=== PATIENT | male | born 1940 | race Caucasian/White ===

== ENCOUNTER 2023-01-09 11:24 | Inpatient (IN) | payer MEDICARE, SELFPAY ==
[2023-01-09] VITALS (42 sets, daily range): BP systolic 74–119; BP diastolic 36–85; PULSE 76–134; RESP 15–27; TEMP 36.4–37.1; O2SAT 85–99; BMI 21.8; BMI 23.1
--- NOTE | 2023-01-09 11:57 | W.ED.SOB ---
HPI - SOB/Dyspnea General: Chief Complaint: Shortness of Breath/Dyspnea Stated Complaint: fell, sob, hurt right leg Time Seen by Provider: 01/09/23 11:56 History of Present Illness: HPI Narrative: 82-year-old male presents emerged part with complaints of increased shortness of breath after accidentally sliding out of his bed this morning. He states he has a longstanding history of atrial fibrillation and COPD and continues to smoke cigarettes daily. He states he feels more short of breath and does have supplemental home oxygen but does not wear it during the day. He states he is also had a intermittently productive cough for the previous 5 days. He states he has a history of congestive heart failure and has significant swelling in his legs which feel much heavier because of all the fluid in his legs. He states he does not like to take his Lasix because it makes him urinate too much and he gets more short of breath when he has to go to the bathroom so much. He denies chest pain, dizziness or lightheaded feeling at present. He states that he did not get dizzy or lightheaded when he fell he just slipped out of the bed and onto the floor he states he does take anticoagulation but did not hit his head or neck and the distance from the bed to the carpeted floor is only approximately 1-1/2 feet. Associated symptoms: Reports dizziness Review of Systems General: Reports: 10 or more systems reviewed and unremarkable except in HPI and below Const: Reports: fatigue and malaise Card: Reports: irregular heart rhythm and edema Resp: Reports: dyspnea, productive cough and wheezing Neuro: Reports: dizziness [facility] PFSH: Medical History BPH (benign prostatic hyperplasia) Chronic anticoagulation COPD (chronic obstructive pulmonary disease) Nocturnal hypoxia Orthostatic hypotension Paroxysmal A-fib Stroke Social History Smoking and tobacco/nicotine status: current every day tobacco/nicotine user Marital status: Single Physical Exam Narrative: EXAM NARRATIVE: Constitutional: Ill-appearing. Vital signs reviewed as documented. Mild respiratory distress noted. HENMT: Normocephalic, atraumatic. External ears with normal appearance without drainage. Nose without drainage, normal appearance. Mucus membranes moist. Neck is supple, positive-jugular venous distension, trachea is midline, no appreciable carotid bruits. No lymphadenopathy. No meningeal signs. Flexion, extension and lateral rotation is without pain. Eyes: Pupils are equal, round, reactive to light and accommodation. No scleral icterus. Extra-ocular movement are intact. Thorax is symmetrical and with equal rise and fall with respirations. Resp: Lungs are with bilateral expiratory wheezes scattered throughout. Rales, crackles or ronchi at present. Tachypneic Cardio: Irregularly irregular. Positive S1, S2. No appreciable murmurs, rubs or gallops. GI: Abdominal exam reveals normal bowel sounds to all quadrants. No organomegaly. No obvious palpable masses noted. No hepatomegally appreciated. Soft, nontender to palpation. Extremity: Extremities are with 3+ bilateral lower extremity pitting edema and both femoral and pedal pulses are 2+ and equal bilaterally. Moves all extremities well, sensation in all extremities. Neuro: Alert and oriented x4, person, place, time and situation. Cranial nerves II through XII are grossly intact, there is no focal neurological deficits that I can appreciate at present. Motor strength in the upper and lower extremities are equal and bilateral 5/5. Psych: Cooperative, anxious, normal thought process, appropriate judgment. Skin: No lesions, rashes. No gross abnormalities noted. Back: Symmetrical, no obvious deformity, No CVA tenderness Course Vital Signs: Vital signs: Vital Signs Temperature 97.5 F L 01/09/23 15:59 Pulse Rate 96 01/09/23 15:55 Respiratory Rate 27 H 01/09/23 13:32 Blood Pressure 90/65 01/09/23 15:59 Pulse Oximetry 87 L 01/09/23 15:59 Oxygen Delivery Me thod Nasal Cannula 01/09/23 15:39 Oxygen Flow Rate 3 01/09/23 15:39 MDM - SOB/Dyspnea Medical Decision Making Physical exam completed and documented, I will obtain a CBC, CMP cardiac enzymes as well as a CT scan of his head and his neck given his fall. I will also obtain an x-ray of his right shoulder and right humerus given his significant bruising to his right arm. I will obtain an EKG, cardiac enzymes as he does appear acutely short of breath limiting to differential diagnosis of COPD exacerbation, CHF exacerbation, pneumonia, pneumonitis, hypoxemia, pulmonary embolism, myocardial infarction, Medical Records I reviewed the patient's medical records. Lab Data I reviewed the patient's lab results. 01/09/23 12:28 01/09/23 13:47 Labs/Radiology: Radiology Impressions Chest X-Ray 01/09/23 12:35 IMPRESSION: No acute cardiopulmonary disease. Possible trace pleural effusions Cervical Spine CT 01/09/23 13:07 IMPRESSION: 1. No acute findings. 2. No acute traumatic injury. Head CT 01/09/23 13:07 IMPRESSION: No acute intracranial abnormality. Old right frontal infarct. Humerus X-Ray 01/09/23 13:11 IMPRESSION: No acute abnormality. Shoulder X-Ray 01/09/23 13:11 IMPRESSION: Degenerative changes. Chest/Abdomen/Pelvis CT 01/09/23 14:17 IMPRESSION: Bilateral pleural effusions. IMPRESSION: 1. 4.7 cm infrarenal abdominal aortic aneurysm without evidence of rupture. 2. No acute subdiaphragmatic pathology. COMMENTS: 1. For patients with an IVC filter, recommend assessment for a management plan for the patient's IVC filter. If there is no established management plan, recommend referral to an interventional clinician on a nonemergent basis for evaluation. 2. Consistent with the [employer]'s Incidental Findings Committee white paper (J Am Ha Radiol 2018): Any incidental renal lesion less than 1 cm or classified as too small to characterize, or any incidental cystic renal lesion characterized as simple-appearing, is likely benign. No follow-up imaging is recommended for these lesions per consensus recommendations based on imaging criteria. Laboratory Results WBC 8.39 10^3/uL (3.29-11.43) 01/09/23 12:28 RBC 2.22 10^6/uL (3.85-5.65) L 01/09/23 12:28 Hgb 6.10 g/dL (11.27-16.99) L* 01/09/23 12:28 Hct 20.5 % (37-53) L* 01/09/23 12:28 MCV 92.3 fl (82-101) 01/09/23 12:28 MCH 27.5 pg (27-33) 01/09/23 12:28 MCHC 29.8 g/dL (30-55) L 01/09/23 12:28 RDW 20.1 % (12.1-15.1) H 01/09/23 12:28 Plt Count 285 10^3/cmm (157-399) 01/09/23 12:28 MPV 10.2 fL (7.4-10.4) 01/09/23 12:28 Neut % (Auto) 77.3 % 01/09/23 12:28 Lymph % (Auto) 11.3 % 01/09/23 12:28 [place] % (Auto) 9.4 % 01/09/23 12:28 Eos % (Auto) 0.0 % 01/09/23 12:28 Baso % (Auto) 0.2 % 01/09/23 12:28 Neut # (Auto) 6.48 10^3/uL (1.8-7.7) 01/09/23 12:28 Lymph # (Auto) 1.0 10^3/uL (0.8-4.8) 01/09/23 12:28 [place] # (Auto) 0.8 10^3/uL (0.2-0.9) 01/09/23 12:28 Eos # (Auto) 0.0 10^3/uL (0.0-0.8) 01/09/23 12:28 Baso # (Auto) 0.0 10^3/uL (0.0-0.1) 01/09/23 12:28 Nucleated RBC % (auto) 0 % 01/09/23 12:28 Nucleated RBCs # 0.0 /100WBC 01/09/23 12:28 PT 26.30 SECONDS (12.1-14.9) H 01/09/23 12:28 INR 2.32 (0.8-1.2) H 01/09/23 12:28 Specimen Type Arterial 01/09/23 13:21 Sample Site Brachial, right 01/09/23 13:21 ABG pH 7.39 (7.35-7.45) 01/09/23 13:21 ABG pCO2 32.6 mmHg (35-45) L 01/09/23 13:21 ABG pO2 92.8 mmHg (80.0-100.0) 01/09/23 13:21 ABG HCO3 19.5 mmol/L (22-26) L 01/09/23 13:21 ABG Base Excess -5.0 mmol/L (-2.0-2.0) L 01/09/23 13:21 Jcarlos Test N/a 01/09/23 13:21 Hematocrit 19.0 % (42-52) L 01/09/23 13:21 Hgb O2 Saturation 94.1 % (95-100) L 01/09/23 13:21 Carboxyhemoglobin 3.7 %THgb (0.4-20.1) 01/09/23 13:21 Methemoglobin 0.4 % (0.4-1.5) 01/09/23 13:21 Total Hemoglobin 6.2 g/dL (14-18) L 01/09/23 13:21 O2 Delivery Device Nc 01/09/23 13:21 O2 Liters/Min 2.0 % 01/09/23 13:21 Frame Wirer ID [employer] 01/09/23 13:21 Sodium 128 mmol/L (136-145) L 01/09/23 13:47 Potassium 5.5 mmol/L (3.5-5.1) H 01/09/23 13:47 Chloride 94 mmol/L (98-107) L 01/09/23 13:47 Carbon Dioxide 18 mmol/L (22-29) L 01/09/23 13:47 Anion Gap 21.5 (5-19) H 01/09/23 13:47 BUN 52 mg/dL (8-23) H 01/09/23 13:47 Creatinine 1.2 mg/dL (0.7-1.2) 01/09/23 13:47 GFR Calculation Not Reportable 01/09/23 13:47 Glucose 88 mg/dL (65-115) 01/09/23 13:47 Calculated Osmolality 279 mOsm/kg (285-295) L 01/09/23 13:47 Calcium 8.0 mg/dL (8.5-10.5) L 01/09/23 13:47 Total Bilirubin 0.3 mg/dL (0.15-1.2) 01/09/23 12:28 AST 37 U/L (0-40) 01/09/23 12:28 ALT 16 U/L (0-41) 01/09/23 12:28 Alkaline Phosphatase 86 U/L (40-130) 01/09/23 12:28 Troponin T Baseline 109 ng/L (0-15) H* 01/09/23 12:28 Troponin T 120 Minute 104.2 ng/L (0-15) H 01/09/23 14:28 Delta Troponin T -4.8 ABS# (0-10) L 01/09/23 14:28 NT-Pro-B Natriuret Pep 4853 pg/mL (0-450) H 01/09/23 12:28 Total Protein 6.2 g/dL (6.6-8.7) L 01/09/23 12:28 Albumin 2.9 g/dL (3.5-5.2) L 01/09/23 12:28 Globulin 3.3 g/dL (1.3-4.6) 01/09/23 12:28 Triglycerides 74 mg/dL (0-150) 01/09/23 13:47 Blood Type AB Positive 01/09/23 13:24 Rho(D) Type Rh positive 01/09/23 13:24 Antibody Screen Negative 01/09/23 13:24 Crossmatch See Detail 01/09/23 13:24 All radiology interpretation(s) finalized by discharge ED provider radiology interpretation(s): CXR: COMPARISON: No relevant prior studies available. FINDINGS: Tubes, catheters and devices: Multi lead pacemaker/defibrillator. Lungs: Unremarkable. No consolidation. Pleural spaces: Trace pleural effusions likely. Heart/Mediastinum: See Vasculature finding. Vasculature: Mild cardiomegaly and uncoiling of the thoracic aorta.? This is accentuated by the AP positioning. Bones/joints: Unremarkable. XR/XR chest 1V portable [id number] IMPRESSION: No acute cardiopulmonary disease. Possible trace pleural effusions Shoulder XR: FINDINGS: Bones/joints: Mild acromioclavicular and glenohumeral spurring. No fracture or dislocation. No lytic or sclerotic bone lesion. Soft tissues: Normal. XR/XR shoulder RT min 2V* [id number] IMPRESSION: Degenerative changes. Humerus XR: FINDINGS: Bones/joints: Mild acromioclavicular and glenohumeral spurring. No fracture or dislocation. No lytic or sclerotic bone lesion. Soft tissues: Normal. XR/XR shoulder RT min 2V* [id number] IMPRESSION: Degenerative changes. CT CHEST/ABD/Pelvis: FINDINGS: Tubes, catheters and devices: Multi lead pacemaker/defibrillator. Pulmonary arteries: Normal. No pulmonary emboli. Aorta: Unremarkable. No aortic aneurysm. No aortic dissection. Lungs: Hypoventilatory changes at the dependent lung bases. Pleural spaces: Moderate right and small left pleural effusion. Heart: Unremarkable. No cardiomegaly. No pericardial effusion. Lymph nodes: Unremarkable. No enlarged lymph nodes. Bones/joints: Unremarkable. No acute fracture. Soft tissues: Unremarkable. PROCEDURE INFORMATION: Exam: CT Abdomen And Pelvis With Contrast Exam date and time: 01/09/2023 2:40 PM Age: 82 years old Clinical indication: Injury or trauma; Fall; Other: SOB; Generalized; Shortness of breath; Blunt trauma (contusions or hematomas); Prior surgery; Surgery date: 6+ months; Surgery type: Hip pacemaker; Additional info: Abd pain TECHNIQUE: Imaging protocol: Computed tomography of the abdomen and pelvis with contrast. Radiation optimization: All CT scans at this facility use at least one of these dose optimization techniques: automated exposure control; mA and/or kV adjustment per patient size (includes targeted exams where dose is matched to clinical indication); or iterative reconstruction. Contrast material: OMNI 350; Contrast volume: 100 ml; Contrast route: INTRAVENOUS (IV);? REPORTING DATA: Count of CT and Cardiac NM exams in prior 12 months: This patient has received 0 known CTs and 0 known cardiac nuclear medicine studies in the 12 months prior to the current study. COMPARISON: CR XR chest 1V portable [id number] 01/09/2023 12:57 PM RADIATION DOSE METRICS: Total DLP (mGy-cm): 1323 FINDINGS: Liver: Normal. No mass. Gallbladder and bile ducts: Normal. No calcified stones. No ductal dilation. Pancreas: Normal. No ductal dilation. Spleen: Normal. No splenomegaly. Adrenal glands: Normal. No mass. Kidneys and ureters: Left renal cyst. Punctate nonobstructing left renal calculus. Stomach and bowel: Unremarkable. No obstruction. No mucosal thickening. Appendix: No evidence of appendicitis. Intraperitoneal space: Unremarkable. No free air. No significant fluid collection. Vasculature: IVC filter. 4.7 cm infrarenal abdominal aortic aneurysm. 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 Lymph nodes: Unremarkable. No enlarged lymph nodes. Urinary bladder: Unremarkable as visualized. Reproductive: Unremarkable as visualized. Bones/joints: Right hip replacement. Soft tissues: Unremarkable. CT/CT angio chest w abd pel w con IMPRESSION: Bilateral pleural effusions. ? ? IMPRESSION: 1. ? 4.7 cm infrarenal abdominal aortic aneurysm without evidence of rupture. 2. ? No acute subdiaphragmatic pathology. ? COMMENTS: 1. ? For patients with an IVC filter, recommend assessment for a management plan for the patient's IVC filter. If there is no established management plan, recommend referral to an interventional clinician on a nonemergent basis for evaluation. 2. ? Consistent with the [employer]'s Incidental Findings Committee white paper (J Am Ha Radiol 2018): Any incidental renal lesion less than 1 cm or classified as too small to characterize, or any incidental cystic renal lesion characterized as simple-appearing, is likely benign. No follow-up imaging is recommended for these lesions per consensus recommendations based on imaging criteria. ? ABG Data ABG Interpretation 1: ABG results: Compensated respiratory acidosis Critical Care Time Critical Care Time: Critical Care Time: Yes Total Critical Care Time: 90 Attestation: This case had a high probability of a clinically significant, sudden, or life threatening deterioration of this patient's condition which required my full and direct attention, intervention and personal management. Discharge Plan Discharge Patient Disposition: Admitted As Inpatient Admit Provider: Porfirio Khanna Clinical Impression: Congestive heart failure, Acute hyponatremia, Anemia, Acute exacerbation of chronic obstructive pulmonary disease, MENDOZA (dyspnea on exertion) Condition: Stable Coding Level of Care Code ED Nail Making Machine Tender for Liv Vega
--- NOTE | 2023-01-09 12:35 | XRR_ITS ---
PROCEDURE INFORMATION: Exam: XR Chest Exam date and time: 01/09/2023 12:57 PM Age: 82 years old Clinical indication: Dyspnea TECHNIQUE: Imaging protocol: Radiologic exam of the chest. Views: 1 view. COMPARISON: No relevant prior studies available. FINDINGS: Tubes, catheters and devices: Multi lead pacemaker/defibrillator. Lungs: Unremarkable. No consolidation. Pleural spaces: Trace pleural effusions likely. Heart/Mediastinum: See Vasculature finding. Vasculature: Mild cardiomegaly and uncoiling of the thoracic aorta. This is accentuated by the AP positioning. Bones/joints: Unremarkable. XR/XR chest 1V portable [id number] IMPRESSION: No acute cardiopulmonary disease. Possible trace pleural effusions
[2023-01-09 12:59] LABS: Basophils % 0.2 %; Lymphocytes % 11.3 %; Mean Corpuscular HGB Conc 29.8 g/dL (30-55); Mean Corpuscular Hemoglobin 27.5 pg (27-33); Mean Corpuscular Volume 92.3 fl (82-101); Mean Platelet Volume 10.2 fL (7.4-10.4); Monocytes # 0.8 10^3/uL (0.2-0.9); Monocytes % 9.4 %; Neutrophils # 6.48 10^3/uL (1.8-7.7); Neutrophils % 77.3 %; Nucleated Red Blood Cells % 0 %; Platelet Count 285 10^3/cmm (157-399); Red Blood Count 2.22 10^6/uL (3.85-5.65); Red Cell Distribution Width 20.1 % (12.1-15.1); White Blood Count 8.39 10^3/uL (3.29-11.43)
[2023-01-09 13:03] LABS: INR 2.32 (0.8-1.2)
[2023-01-09 13:06] LABS: Hematocrit 20.5 % (37-53)
--- NOTE | 2023-01-09 13:07 | CTR_ITS ---
PROCEDURE INFORMATION: Exam: CT Head Without Contrast Exam date and time: 01/09/2023 2:05 PM Age: 82 years old Clinical indication: Injury or trauma; Fall; Blunt trauma (contusions or hematomas) TECHNIQUE: Imaging protocol: Computed tomography of the head without contrast. Radiation optimization: All CT scans at this facility use at least one of these dose optimization techniques: automated exposure control; mA and/or kV adjustment per patient size (includes targeted exams where dose is matched to clinical indication); or iterative reconstruction. REPORTING DATA: Count of CT and Cardiac NM exams in prior 12 months: This patient has received 0 known CTs and 0 known cardiac nuclear medicine studies in the 12 months prior to the current study. COMPARISON: CT cervical spin wo con* [id number] 01/09/2023 2:05 PM RADIATION DOSE METRICS: Total DLP (mGy-cm): 1251 FINDINGS: Brain: No hemorrhage. Periventricular white matter lucency represents atherosclerotic encephalopathic changes. Old right frontal infarct. Cerebral ventricles: No ventriculomegaly. Ventricular prominence proportionate to the degree of atrophy observed. Paranasal sinuses: Retention cyst or polyp within the left maxillary sinus. Minimal mucosal thickening within the right maxillary and ethmoid air cells. Mastoid air cells: Visualized mastoid air cells are well aerated. Bones/joints: Unremarkable. No acute fracture. Soft tissues: Unremarkable. Other findings: No mass effect. CT/CT head wo con* [id number] IMPRESSION: No acute intracranial abnormality. Old right frontal infarct.
--- NOTE | 2023-01-09 13:07 | CTR_ITS ---
PROCEDURE INFORMATION: Exam: CT Cervical Spine Without Contrast Exam date and time: 01/09/2023 2:05 PM Age: 82 years old Clinical indication: Injury or trauma; Fall; Blunt trauma TECHNIQUE: Imaging protocol: Computed tomography of the cervical spine without contrast. Radiation optimization: All CT scans at this facility use at least one of these dose optimization techniques: automated exposure control; mA and/or kV adjustment per patient size (includes targeted exams where dose is matched to clinical indication); or iterative reconstruction. REPORTING DATA: Count of CT and Cardiac NM exams in prior 12 months: This patient has received 0 known CTs and 0 known cardiac nuclear medicine studies in the 12 months prior to the current study. COMPARISON: CT head wo con* [id number] 01/09/2023 2:05 PM RADIATION DOSE METRICS: Total DLP (mGy-cm): 231 FINDINGS: Bones/joints: No acute fracture. Normal alignment. No significant disc bulge or herniation. No severe spinal canal stenosis. No significant neural foraminal narrowing. Multilevel disc space narrowing and spurring. Multilevel spondylitic hypertrophy and foraminal narrowing. Anatomic alignment. Moderate cervical spinal stenosis at C5-C6. Prevertebral and retropharyngeal spaces: The prevertebral soft tissues are normal. Lungs: Lung apices are normal. Soft tissues: Unremarkable. CT/CT cervical spin wo con* [id number] IMPRESSION: 1. No acute findings. 2. No acute traumatic injury.
[2023-01-09] MEDS: ipratropium-albuterol 3 mL Neb INHALATION ×2 (13:09→19:36)
--- NOTE | 2023-01-09 13:11 | XRR_ITS ---
PROCEDURE INFORMATION: Exam: XR Right Shoulder Exam date and time: 01/09/2023 1:36 PM Age: 82 years old Clinical indication: Injury or trauma; Fall; Blunt trauma (contusions or hematomas); Shoulder; Right TECHNIQUE: Imaging protocol: Radiologic exam of the right shoulder. Views: 2 or more views. COMPARISON: CR XR chest 1V portable [id number] 01/09/2023 12:57 PM FINDINGS: Bones/joints: Mild acromioclavicular and glenohumeral spurring. No fracture or dislocation. No lytic or sclerotic bone lesion. Soft tissues: Normal. XR/XR shoulder RT min 2V* [id number] IMPRESSION: Degenerative changes.
--- NOTE | 2023-01-09 13:11 | XRR_ITS ---
PROCEDURE INFORMATION: Exam: XR Right Humerus Exam date and time: 01/09/2023 1:38 PM Age: 82 years old Clinical indication: Injury or trauma; Fall; Blunt trauma (contusions or hematomas); Arm, upper; Right; Additional info: Fall/pain TECHNIQUE: Imaging protocol: Radiologic exam of the right humerus. Views: 2 or more views. COMPARISON: CR XR shoulder RT min 2V* [id number] 01/09/2023 1:36 PM FINDINGS: Bones/joints: No fracture or dislocation. No lytic or sclerotic bone lesion. Soft tissues: Normal. XR/[place] [id number] IMPRESSION: No acute abnormality.
[2023-01-09 13:20] LABS: Alanine Aminotransferase 16 U/L (0-41); Albumin Level 2.9 g/dL (3.5-5.2); Alkaline Phosphatase 86 U/L (40-130); Anion Gap 21.3 (5-19); Aspartate Amino Transferase 37 U/L (0-40); Blood Urea Nitrogen 50 mg/dL (8-23); Calcium 8.2 mg/dL (8.5-10.5); Carbon Dioxide 19 mmol/L (22-29); Chloride 94 mmol/L (98-107); Globulin 3.3 g/dL (1.3-4.6); Glucose 93 mg/dL (65-115); NT Pro B Type Natriuretic Pept 4853 pg/mL (0-450); Osmolality Calculated 281 mOsm/kg (285-295); Potassium 5.3 mmol/L (3.5-5.1); Sodium 129 mmol/L (136-145); Total Bilirubin 0.3 mg/dL (0.15-1.2); Total Protein 6.2 g/dL (6.6-8.7)
--- NOTE | 2023-01-09 13:21 | ECG_ITS ---
[facility] Test Date: 2023-01-09 Pat Name: Krzysztof Tay Department: Room: Gender: Male Surveyor: : 1940 Requested By: Jeanmarie Antunez Order Number: [id number] Reading MD: Mercy Alves M.D. Measurements Intervals [place] Rate: 98 P: 0 MS: 0 QRS: 81 QRSD: 141 T: 20 QT: 408 QTc: 523 Interpretive Statements ATRIAL FIBRILLATION Anteroseptal ST elevatuion with Q waves. ST depression in lateral leads. ST elevation [place], ? acute, ? Duration Abnormal EKG No previous ECG available for comparison Electronically Signed On 01-09-2023 14:17:29 [employer]ATION [employer] by Mercy Alves M.D. [email or web address]
[2023-01-09 13:33] LABS: ABG PCO2 32.6 mmHg (35-45); ABG PH Result 7.39 (7.35-7.45); Blood Gas Sample Site Brachial, right; Blood Gas Sample Type Arterial; Carboxyhemoglobin 3.7 %THgb (0.4-20.1); HCO3 ABG 19.5 mmol/L (22-26); HGB O2 Sat 94.1 % (95-100); Methemoglobin 0.4 % (0.4-1.5); Oxygen Device NC; PO2 ABG 92.8 mmHg (80.0-100.0); Total Hemoglobin 6.2 g/dL (14-18)
[2023-01-09 13:40] LABS: Troponin(5th) Baseline 109 ng/L (0-15)
[2023-01-09] MEDS: sodium chloride 0.9% 1,000 ML 999 ML IV (13:45)
[2023-01-09] MEDS: methylPREDNISolone sod succ 125 mg/2 mL INJ 60 MG IVP (13:54)
--- NOTE | 2023-01-09 14:17 | CTR_ITS ---
PROCEDURE INFORMATION: Exam: CTA Chest With Contrast Exam date and time: 01/09/2023 2:40 PM Age: 82 years old Clinical indication: Injury or trauma; Fall; Other: SOB; Generalized; Shortness of breath; Blunt trauma (contusions or hematomas); Prior surgery; Surgery date: 6+ months; Surgery type: Hip pacemaker; Additional info: Abd pain TECHNIQUE: Imaging protocol: Computed tomographic angiography of the chest with contrast. Exam focused on the arteries. 3D rendering (Not supervised by radiologist): MIP and/or 3D reconstructed images were created by the technologist. Radiation optimization: All CT scans at this facility use at least one of these dose optimization techniques: automated exposure control; mA and/or kV adjustment per patient size (includes targeted exams where dose is matched to clinical indication); or iterative reconstruction. Contrast material: OMNI 350; Contrast volume: 100 ml; Contrast route: INTRAVENOUS (IV); REPORTING DATA: Count of CT and Cardiac NM exams in prior 12 months: This patient has received 0 known CTs and 0 known cardiac nuclear medicine studies in the 12 months prior to the current study. COMPARISON: CR XR chest 1V portable [id number] 01/09/2023 12:57 PM RADIATION DOSE METRICS: Total DLP (mGy-cm): 1323 FINDINGS: Tubes, catheters and devices: Multi lead pacemaker/defibrillator. Pulmonary arteries: Normal. No pulmonary emboli. Aorta: Unremarkable. No aortic aneurysm. No aortic dissection. Lungs: Hypoventilatory changes at the dependent lung bases. Pleural spaces: Moderate right and small left pleural effusion. Heart: Unremarkable. No cardiomegaly. No pericardial effusion. Lymph nodes: Unremarkable. No enlarged lymph nodes. Bones/joints: Unremarkable. No acute fracture. Soft tissues: Unremarkable. PROCEDURE INFORMATION: Exam: CT Abdomen And Pelvis With Contrast Exam date and time: 01/09/2023 2:40 PM Age: 82 years old Clinical indication: Injury or trauma; Fall; Other: SOB; Generalized; Shortness of breath; Blunt trauma (contusions or hematomas); Prior surgery; Surgery date: 6+ months; Surgery type: Hip pacemaker; Additional info: Abd pain TECHNIQUE: Imaging protocol: Computed tomography of the abdomen and pelvis with contrast. Radiation optimization: All CT scans at this facility use at least one of these dose optimization techniques: automated exposure control; mA and/or kV adjustment per patient size (includes targeted exams where dose is matched to clinical indication); or iterative reconstruction. Contrast material: OMNI 350; Contrast volume: 100 ml; Contrast route: INTRAVENOUS (IV); REPORTING DATA: Count of CT and Cardiac NM exams in prior 12 months: This patient has received 0 known CTs and 0 known cardiac nuclear medicine studies in the 12 months prior to the current study. COMPARISON: CR XR chest 1V portable [id number] 01/09/2023 12:57 PM RADIATION DOSE METRICS: Total DLP (mGy-cm): 1323 FINDINGS: Liver: Normal. No mass. Gallbladder and bile ducts: Normal. No calcified stones. No ductal dilation. Pancreas: Normal. No ductal dilation. Spleen: Normal. No splenomegaly. Adrenal glands: Normal. No mass. Kidneys and ureters: Left renal cyst. Punctate nonobstructing left renal calculus. Stomach and bowel: Unremarkable. No obstruction. No mucosal thickening. Appendix: No evidence of appendicitis. Intraperitoneal space: Unremarkable. No free air. No significant fluid collection. Vasculature: IVC filter. 4.7 cm infrarenal abdominal aortic aneurysm. 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 Lymph nodes: Unremarkable. No enlarged lymph nodes. Urinary bladder: Unremarkable as visualized. Reproductive: Unremarkable as visualized. Bones/joints: Right hip replacement. Soft tissues: Unremarkable. CT/CT angio chest w abd pel w con IMPRESSION: Bilateral pleural effusions. IMPRESSION: 1. 4.7 cm infrarenal abdominal aortic aneurysm without evidence of rupture. 2. No acute subdiaphragmatic pathology. COMMENTS: 1. For patients with an IVC filter, recommend assessment for a management plan for the patient's IVC filter. If there is no established management plan, recommend referral to an interventional clinician on a nonemergent basis for evaluation. 2. Consistent with the [employer]'s Incidental Findings Committee white paper (J Am Ha Radiol 2018): Any incidental renal lesion less than 1 cm or classified as too small to characterize, or any incidental cystic renal lesion characterized as simple-appearing, is likely benign. No follow-up imaging is recommended for these lesions per consensus recommendations based on imaging criteria.
[2023-01-09 14:50] LABS: Blood Urea Nitrogen 52 mg/dL (8-23); Carbon Dioxide 18 mmol/L (22-29); Chloride 94 mmol/L (98-107); Glucose 88 mg/dL (65-115); Osmolality Calculated 279 mOsm/kg (285-295); Sodium 128 mmol/L (136-145); Triglycerides 74 mg/dL (0-150)
[2023-01-09 14:51] LABS: Anion Gap 21.5 (5-19); Potassium 5.5 mmol/L (3.5-5.1)
[2023-01-09] MEDS: iohexol 350 mg/mL 500 mL Btl (per mL) IV (14:51)
[2023-01-09 14:54] LABS: Troponin 5 2HR 104.2 ng/L (0-15); Troponin 5 2HR Delta -4.8 ABS# (0-10)
--- NOTE | 2023-01-09 15:27 | ECG_ITS ---
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 Measurements Intervals [place] Rate: 92 P: 0 DC: 0 QRS: 88 QRSD: 139 T: 31 QT: 410 QTc: 508 Interpretive Statements ATRIAL FIBRILLATION RIGHT BUNDLE BRANCH BLOCK [120+ ms QRS DURATION, UPRIGHT V1, 40+ ms S IN I/aVL/V4/V5/V6] SEPTAL MYOCARDIAL INFARCTION , OF INDETERMINATE AGE [40+ ms Q WAVE IN V1/V2] ST DEPRESSION, CONSIDER SUBENDOCARDIAL INJURY [0.1+ mV ST DEPRESSION] Compared to ECG 01/09/2023 13:25:23 No significant change Electronically Signed On 01-11-2023 13:39:08 PHOTOGEOLOGIST by Mercy Alves M.D. [id number]
--- NOTE | 2023-01-09 16:13 | P.HP_ITS ---
Providers/Chief Complaint Admitting Physician: Porfirio Khanna Primary Care Provider: Paolo Ng Chief Complaint: fell, sob, hurt right leg History of Present Illness 82-year-old gentleman with history of COPD, atrial fibrillation on anticoagulation, stroke, active smoking, BPH, orthostatic hypotension presents due to progressive dyspnea, exertional intolerance, intermittent productive cough over the previous 5 days, leg swelling. Reportedly has history of congestive heart failure although has not been taking diuretics. Last time he took his medications including Xarelto was yesterday morning. This morning he also slipped out of bed onto the floor without hitting his head or neck down from about 1-1/2 feet of height. In ER he was found hypotensive, blood pressure down to 86/49, lowest 74/39, with tachycardia with atrial fibrillation heart rate 120s initially, with hypoxia, saturation 85% on room air, normally wearing oxygen 1 L at night only, here requiring 2 L by nasal cannula, with tachypnea 22-27. With noted new anemia, hemoglobin 6.1, MCV 92.3, platelets 285. BUN 52, creatinine 1.2. INR 2.32. Noted hyponatremia, 128, hyperkalemia 5.5. Liver parameters unremarkable. ABG 7.39/32.6/92.8/19.5. Baseline troponin 109, 2-hour troponin 104.2. NT proBNP 4853. Chest x-ray with no acute cardiopulmonary disease, trace pleural effusions. Head CT with old right frontal infarct of which she states she is aware. Acute CT C-spine. No acute humerus and right shoulder x-rays. In ER he received 2 L of fluid bolus, RBC transfusion is started, Lasix req uested, received a dose of Solu-Medrol, breathing treatment. Protonix. Additional imaging with CT angiogram chest abdomen pelvis, no PE, 4.7 cm infrarenal abdominal aortic aneurysm without evidence of rupture, no acute subdiaphragmatic pathology. Repeat blood pressure 90/65. RBC transfusing. Review of Systems Const: Reports: fatigue; Denies: fever(s), chills, body aches or malaise ENMT: Denies: throat pain Card: Denies: chest pain, edema, pre-syncope or dyspnea on exertion Resp: Reports: dyspnea; Denies: hemoptysis GI: Denies: abdominal pain, nausea, vomiting, hematemesis, diarrhea, co nstipation, hematochezia or melena : Denies: flank pain, difficulty urinating, urinary frequency or hematuria Musc: Denies: back pain, joint swelling or joint redness Skin/Breast: Denies: rash or new lesions Neuro: Denies: headache(s), numbness in extremities, weakness in extremities, dizziness, confusion or seizure-like activity Monty/Lymph: Reports: easy bruising Medications/Allergies Home Medications Medication Instructions Recorded Confirmed Last Taken Type albuterol sulfate 90 mcg/actuation 2 puff inhalation Q4H PRN 01/09/23 01/09/23 Unknown History aerosol inhaler Shortness Of Breath Or Wheezing atorvastatin 40 mg tablet 40 mg PO BEDTIME 01/09/23 01/09/23 01/08/23 History bisoprolol fumarate 5 mg tablet 5 mg PO DAILY 01/09/23 01/09/23 01/08/23 History budesonide-formoterol HFA 80 1 puff inhalation BID 01/09/23 01/09/23 01/08/23 History mcg-4.5 mcg/actuation aerosol inhaler (Symbicort) midodrine 5 mg tablet 5 mg PO DAILY 01/09/23 01/09/23 01/08/23 History rivaroxaban 20 mg tablet (Xarelto) 20 mg PO DAILY 01/09/23 01/09/23 01/08/23 Hi story tamsulosin 0.4 mg capsule 0.4 mg PO DAILY 01/09/23 01/09/23 01/08/23 History Allergies Allergy/AdvReac Type Severity Reaction Status Date / Time No Known Allergies Allergy Unverified 01/09/23 13:05 PFSH Acute PFSH: Medical History BPH (benign prostatic hyperplasia) Chronic anticoagulation COPD (chronic obstructive pulmonary disease) Nocturnal hypoxia Orthostatic hypotension Paroxysmal A-fib Stroke Social History Smoking and tobacco/nicotine status: current every day tobacco/nicotine user Marital status: Single Vitals/I&O/Wt Last Vital Signs Temp 97.5 F L 01/09/23 15:59 Pulse 96 01/09/23 15:55 Resp 27 H 01/09/23 13:32 BP 90/65 01/09/23 15:59 Pulse Ox 87 L 01/09/23 15:59 O2 Del Method Nasal Cannula 01/09/23 15:39 O2 Flow Rate 3 01/09/23 15:39 01/09/23 01/09/23 01/09/23 06:59 14:59 22:59 Intake Total 0 / 0 Balance 0 / 0 Weight last 48 hrs Weight 77.111 kg Physical Exam Const: COMMON NORMALS: patient oriented x3 and alert GENERAL APPEARANCE: cooperative ORIENTATION/CONSCIOUSNESS: Yes awake OTHER: Pale. Mildly lethargic. Wakes up to voice. Answers appropriately. HENMT: COMMON NORMALS: oropharynx normal Neck/C-Spine: COMMON NORMALS: no JVD Resp: COMMON NORMALS: normal respiratory effort and clear to auscultation bilaterally AUSCULTATION: clear to auscultation bilaterally Cardio: COMMON NORMALS: no JVD, regular rhythm, S1 normal heart sound present, S2 normal heart sound present and No murmurs present (Cardio) RATE: tachycardic RHYTHM: regular rhythm HEART SOUNDS: S1 normal heart sound present and S2 normal heart sound present GI: COMMON NORMALS: Normal to inspection, nondistended, normoactive bowel sounds present, Soft to palpation and non-tender PALPATION: Yes Soft to palpation Extremity: COMMON NORMALS: no joint enlargement GENERAL: Yes edema (2+ BL LE) Neuro: COMMON NORMALS: patient oriented x3 and moves all extremities SENSORIUM/ORIENTATION: Yes alert Skin: COMMON NORMALS: no rashes or lesions noted GENERAL SKIN EXAM: no rashes or lesions noted OTHER: Veouns stasis ulcers kristie stages of healing on BL LE Data 01/09/23 12:28 01/09/23 13:47 A&P Assessment and plan (1) Hypotension: New shock state, persistent hypotension, no entirely clear etiology but suspected acute blood loss anemia, possible early hemorrhagic shock. Noted hemoglobin 6.1, MCV is normal. Also BUN is elevated out of proportion to creati nine. Discussed with him. RBC transfusion requested and started, has received 2 L fluid boluses. Lasix is requested while receiving transfusions, received fluid boluses. Will continue Lasix as he does have history of CHF as well. Noted elevated troponin as well, suspected demand ischemia secondary to acute anemia, possibility of cardiogenic shock component. Assess with TTE. CT angiogram reviewed, noted no PE. Noted JVD, peripheral edema, possible component of right heart failure, possibly pulmonary hypertension secondary to chronic lung disease/COPD. Admission to intensive care unit for additional assessment, hemodynamic support. Maintain MAP 65 mmHg and above. Complete troponin EKG series. On midodrine at home, will continue for now. ER documentation reviewed. Discussed with ER physician on several occasions. (2) Acute anemia: Suspected acute anemia, possible early hemorrhagic shock as above. New anemia, hemoglobin 6.1, normal MCV, BUN elevated out of proportion to creatinine. No obvious source of bleeding on CT angiogram. Anticoagulation held. PPI IV twice daily. No outward source of bleeding. Hemoccult was negative in ER. Does not appear to show signs of hemolysis, platelets WNL. Liver parameters/T. bili WNL. Follow-up CBC requested. NPO. Consideration of EGD once hemodynamically stabilized. (3) Hypoxia: Secondary to CVA exacerbation, possible component of CHF exacerbation, type unknown. Oxygen support. Wean down as tolerated. Treat underlying conditions as below. (4) Acute exacerbation of chronic obstructive pulmonary disease: History of COPD, with acute exacerbation with dyspnea, wheezing, diminished air entry, intermittently productive cough. Received shot of Solu-Medrol in ER. With suspicion of acute anemia, possible upper GI bleeding, will reassess, hold off additional persistent steroids for now, inhaled steroids requested for now. DuoNebs. Empiric ceftriaxone. Sputum culture if able to provide. Obtain respiratory viral panel. (5) Congestive heart failure: Lasix has been requested, has received 2 L fluid boluses, receiving RBC t ransfusion. Possible acute CHF exacerbation with hypoxia. Noted JVD, but possible pulmonary hypertension with chronic pulmonary disease. Noted/reported lower extremity worsened edema, has not been taking diuretics. Noted troponin abnormality, possibly demand ischemia, known if possible underlying coronary disease, he states no known coronary disease, never had stenting, never had a stress test. Complete troponin EKG series to further assess for cardiac ischemia. Assess TTE. Monitor telemetry. Not a candidate for antiplatelet at the moment with suspected acute blood loss anemia. Monitor APURVA, Gan catheter was requested to assist in this purpose. Measure weights. At risk of electrolyte abnormality, arrhythmia with IV diuretic, reassessment chemistry requested. (6) Acute hyponatremia: Suspected possible degree of hypervolemic hyponatremia, sodium 128, (7) Troponin level elevated: Possible NSTEMI, baseline troponin 109. Denies known coronary disease, but active smoker, possible HLD on statin, history of CVA. Noted ST-T wave de pressions suspected secondary to demand ischemia, no obvious acute PA on my assessment EKG. Complete troponin EKG series. Acute anemia likely contributing to cardiac ischemia, transfuse RBC (8) Fall: Fall from low height at home after he slipped out of bed. CT head, C-spine, shoulder x-ray and humerus x-ray reviewed. (9) Hyperkalemia: Noted mild hypokalemia, potassium 5.5. Will check CK. Reassess chemistry. (10) Paroxysmal atrial fibrillation with RVR: On bisoprolol at home. On hold for now due to hypotension. Monitor on telemetry. Reassess chemistry for any additional renal injury given hypotension. Consider as needed treatment in case of tachycardia. (11) Orthostatic hypotension: On midodrine at home. Continue. (12) Goals of care, counseling/discussion: Would want attempted cardiopulmonary cessation in case of cardiopulmonary arrest. Names his children as surrogate decision makers in case could not make his own decision. (13) Stroke: Reports prior history of CVA, incidentally noted on CT. Plan BPH: Hold Flomax while hypotensive. Reassess blood pressures. Gan catheter for now. Attestations Medical Necessity Statement*: Admission of over 2 midnights anticipated for assessment and management of suspected acute blood loss anemia, COPD exacerbation, CHF exacerbation, possible cardiac ischemia, atrial fibrillation with RVR. Coding Level of Care Code Critical Care >/= 30 minutes Critical care time (in minutes): 45 The high probability of a clinically significant, sudden or life threatening deterioration, as referenced in this documentation, required my full and direct attention, intervention and personal management. The critical care time shown is in addition to time spent performing any reported separately billable procedures and includes the following: [x] Data and vital sign review and interpretation [x ] Patient assessment, examination and intervention [x] Medication orders and management [x] Patient/Family updates as able [x] Care Coordination and Documentation. Diagnoses Hypotension I95.9 Acute anemia D64.9 Hypoxia R09.02 Acute exacerbation of chronic obstructive pulmonary disease J44.1 Congestive heart failure I50.9 Acute hyponatremia E87.1 Troponin level elevated R79.89 Fall W19.XXXA Hyperkalemia E87.5 Paroxysmal atrial fibrillation with RVR I48.0 Orthostatic hypotension I95.1 Goals of care, counseling/discussion Z71.89 Stroke I63.9
--- NOTE | 2023-01-09 17:22 | USCV_ITS ---
Krzysztof Tay Age: 82 Gender: M : 1940 Exam Date: 01/09/2023 18:17 Ordering Phys: Porfirio Kahnna MD Technologist: ZEKE Exam Location: [facility] – [place], [place] Indication: elevated troponin and hypoxia. Long-term smoker, continues smoking, hx COPD, hx Afib, s/p pacer 2004 BP: 91 / 55 HR: 97 Rhythm: Atrial fibrillation Technical Quality: Adequate MEASUREMENTS (Male / Female) Normal Values 2D ECHO LV Diastolic Diameter PLAX 3.9 cm 4.2 - 5.9 / 3.9 - 5.3 cm LV Systolic Diameter PLAX 2.5 cm IVS Diastolic Thickness 1.3 cm 0.6 - 1.0 / 0.6 - 0.9 cm IVS Systolic Thickness 2.3 cm LVPW Diastolic Thickness 1.1 cm 0.6 - 1.0 / 0.6 - 0.9 cm LVPW Systolic Thickness 1.9 cm LVOT Diameter 2.2 cm LV Ejection Fraction 2D Teich 67.1 % LV Ejection Fraction MOD 2C 66.0 % LV Ejection Fraction 2C AL 67.6 % LA Diameter 4.6 cm LA Width 4.0 cm LA Height 5.7 cm RA Width 6.9 cm RA Height 7.1 cm Aorta at Sinotubular Diameter 3.2 cm IVC Diameter 3.0 cm M-MODE Aortic Annulus Diameter 3.0 cm LA Ao Ratio MM 1.6 MV E Point Septal Separation 0.0 cm DOPPLER AV Peak Velocity 106.0 cm/s LVOT Peak Velocity 77.0 cm/s AV Area Cont Eq vti 3.0 cm squared AV Area Cont Eq pk 2.8 cm squared MV Area PHT 5.1 cm squared MV E' Velocity 64.0 cm/s Mitral E to MV E' Ratio 9.2 Mitral E to LV E' Lateral Ratio 7.2 Mitral E to LV E' Septal Ratio 12.9 TR Peak Velocity 308.0 cm/s TR Peak Gradient 37.9 mmHg TV Peak E Velocity 76.0 cm/s Right Atrial Pressure 10.0 mmHg Pulmonary Artery Systolic Pressu 47.9 mmHg PV Peak Velocity 101.0 cm/s RV Acceleration Time 0.1 s RV Ejection Time 0.3 s RV AcT/ET 0.4 FINDINGS Left Ventricle Mild left ventricular hypertrophy. Normal left ventricular size, systolic function and wall thickness, with no regional wall motion abnormalities. Left ventricular ejection fraction is estimated at 65 %. Mild flattening of the interventricular septum due to raised RV pressure. Right Ventricle Dilated RV with mildly reduced RV systolic function. There is a pacing wire in the RV. Right Atrium Markedly dilated. Left Atrium Normal left atrial size. Mitral Valve Thickened mitral valve. Mild mitral valve regurgitation. Aortic Valve Thickened aortic valve. Trace aortic valve regurgitation. Tricuspid Valve Mildly thickened tricuspid valve. Severe tricuspid regurgitation. There is a pacemaker wire across the valve into our V. Pulmonic Valve Pulmonic valve not well visualized. Mild pulmonary valve regurgitation. Pericardium Trace pericardial effusion over inferior wall. Aorta Normal size aortic root and proximal ascending aorta. IVC Dilated IVC with <50% respiratory change of the inferior vena cava. CONCLUSIONS 1. Mild concentric LVH. Normal LV systolic function. LVEF 65%. 2. Dilated RV with mildly reduced RV systolic function. Dilated RA. There is a pacer wire in the RV 3. Severe tricuspid regurgitation with elevated RV and pulmonary pressures. Moderately severe pulmonary hypertension, pulmonary pressures 50 to 55 mmHg. Mercy Alves MD (Electronically Signed) Final Date: 10 January 2023 13:24 S
--- NOTE | 2023-01-09 17:23 | PC.NURSE ---
arrived from ED, ao x4, no c/o at this time
[2023-01-09 17:58] LABS: Magnesium 1.7 mg/dL (1.7-2.3)
[2023-01-09 18:01] LABS: Creatine Phosphokinase 322 U/L (39-308)
[2023-01-09] MEDS: cefTRIAXone 1,000 MG in sodium chloride 0.9% (plus) 50 ML 100 MG IV (18:05)
[2023-01-09] MEDS: pantoprazole 40 mg SDV IVP (18:06)
[2023-01-09] MEDS: budesonide 0.5 mg/2 mL Neb INHALATION (19:36)
[2023-01-09] MEDS: magnesium sulfate premix 2 GM/50 ML PIGGYBACK IV (20:30)
[2023-01-09 20:34] LABS: Troponin 5 6HR 80.01 ng/L (0-15)
[2023-01-09 20:42] LABS: Hematocrit 23.8 % (37-53)
[2023-01-09 21:32] LABS: Adenovirus Not Detected (NOT DETECT); Chlamydia Pneumoniae Not Detected (NOT DETECT); Coronavirus 229E,HKU1,NL63,OC4 Not Detected (NOT DETECT); Human Metapneumovirus Not Detected (NOT DETECT); Human Rhinovirus/Enterovirus Not Detected (NOT DETECT); Influenza A Not Detected (NOT DETECT); Influenza A H1 Not Detected (NOT DETECT); Influenza A H1-2009 Not Detected (NOT DETECT); Influenza A H3 Not Detected (NOT DETECT); Influenza B Not Detected (NOT DETECT); Mycoplasma Pneumoniae Not Detected (NOT DETECT); Parainfluenza Virus Type 1 Not Detected (NOT DETECT); Parainfluenza Virus Type 2 Not Detected (NOT DETECT); Parainfluenza Virus Type 3 Not Detected (NOT DETECT); Parainfluenza Virus Type 4 Not Detected (NOT DETECT); Respiratory Syncytial Virus A Not Detected (NOT DETECT); Respiratory Syncytial Virus B Not Detected (NOT DETECT); SARS-COV-2 Not Detected (NOT DETECT)
[2023-01-10] VITALS (100 sets, daily range): BP systolic 88–162; BP diastolic 45–139; PULSE 65–118; RESP 14–30; TEMP 35.8–37; O2SAT 58–100
[2023-01-10] MEDS: FUROsemide 10 mg/mL SDV 2mL 20 MG IVP (00:29)
[2023-01-10] MEDS: ipratropium-albuterol 3 mL Neb INHALATION ×4 (01:43→20:45)
[2023-01-10 05:33] LABS: Basophils % 0.6 %; Hematocrit 28.1 % (37-53); Lymphocytes # 0.5 10^3/uL (0.8-4.8); Lymphocytes % 9.1 %; Mean Corpuscular Hemoglobin 28.3 pg (27-33); Mean Corpuscular Volume 88.4 fl (82-101); Mean Platelet Volume 9.7 fL (7.4-10.4); Monocytes # 0.3 10^3/uL (0.2-0.9); Monocytes % 5.7 %; Neutrophils # 4.03 10^3/uL (1.8-7.7); Neutrophils % 81.4 %; Nucleated Red Blood Cells % 0.4 %; Platelet Count 257 10^3/cmm (157-399); Red Blood Count 3.18 10^6/uL (3.85-5.65); Red Cell Distribution Width 17.9 % (12.1-15.1); White Blood Count 4.95 10^3/uL (3.29-11.43)
[2023-01-10] MEDS: pantoprazole 40 mg SDV IVP ×2 (05:48→17:26)
[2023-01-10 05:58] LABS: Alanine Aminotransferase 9 U/L (0-41); Albumin Level 3.1 g/dL (3.5-5.2); Alkaline Phosphatase 86 U/L (40-130); Anion Gap 16.5 (5-19); Aspartate Amino Transferase 44 U/L (0-40); Blood Urea Nitrogen 45 mg/dL (8-23); Calcium 8.1 mg/dL (8.5-10.5); Carbon Dioxide 24 mmol/L (22-29); Chloride 94 mmol/L (98-107); Globulin 3.2 g/dL (1.3-4.6); Glucose 130 mg/dL (65-115); Magnesium 2.2 mg/dL (1.7-2.3); Osmolality Calculated 281 mOsm/kg (285-295); Potassium 5.5 mmol/L (3.5-5.1); Sodium 129 mmol/L (136-145); Total Bilirubin 0.5 mg/dL (0.15-1.2); Total Protein 6.3 g/dL (6.6-8.7)
[2023-01-10] MEDS: budesonide 0.5 mg/2 mL Neb INHALATION ×2 (08:18→20:45)
[2023-01-10] MEDS: midodrine 5 mg TABLET PO (08:48)
--- NOTE | 2023-01-10 10:12 | PC.NURSE ---
Received a call from [facility] verifying patient's admission to inpatient status. Patient is currently on services with them, they will be resuming care after d/c.
[2023-01-10 10:49] LABS: Ferritin 59 ng/mL (30-400); Iron 16 ug/dL (59-158); Percent Saturation 5.3 % (20-50); Thyroid Stimulating Hormone 3.37 uIU/mL (0.27-4.20); Total Iron Binding Capacity 300 mcg/dl; Unsaturated Iron Binding 284 ug/dL (112-347); Vitamin B12 687 pg/mL (232-1245)
[2023-01-10 10:50] LABS: Folate Level 6.5 ng/mL (4.5-32.2)
[2023-01-10] MEDS: FUROsemide 10 mg/mL SDV 4mL 40 MG IVP (11:41)
[2023-01-10] MEDS: cefTRIAXone 1,000 MG in sodium chloride 0.9% (plus) 50 ML 100 MG IV (17:26)
--- NOTE | 2023-01-10 19:02 | PM.PN ---
Subjective Subjective: Today he is feeling slightly better. He reports that he is not having any chest pain or pressure. He reports that his breathing is feeling better. Vitals/I&O/Wt Last Vital Signs Temp 97.8 F 01/10/23 16:00 Pulse 80 01/10/23 16:00 Resp 21 H 01/10/23 16:00 BP 100/54 01/10/23 16:00 Pulse Ox 94 01/10/23 14:58 O2 Del Method Nasal Cannula 01/10/23 14:58 O2 Flow Rate 2 01/10/23 14:58 01/10/23 01/10/23 01/10/23 06:59 14:59 22:59 Intake Total 350 / 1800 120 / 120 290 / 410 Output Total 1125 / 1500 200 / 200 1050 / 1250 Balance -775 / 300 -80 / -80 -760 / -840 Weight last 48 hrs Weight 80.966 kg Weight 81.919 kg Weight 77.111 kg Physical Exam Const: COMMON NORMALS: patient oriented x3 and alert GENERAL APPEARANCE: cooperative ORIENTATION/CONSCIOUSNESS: Yes awake OTHER: More awake today. More energetic. Sleeping, wakes up to voice. HENMT: COMMON NORMALS: oropharynx normal Neck/C-Spine: COMMON NORMALS: no JVD Resp: COMMON NORMALS: normal respiratory effort and clear to auscultation bilaterally AUSCULTATION: clear to auscultation bilaterally Cardio: COMMON NORMALS: no JVD, regular rhythm, S1 normal heart sound present, S2 normal heart sound present and No murmurs present (Cardio) RATE: tachycardic RHYTHM: regular rhythm HEART SOUNDS: S1 normal heart sound present and S2 normal heart sound present GI: COMMON NORMALS: Normal to inspection, nondistended, normoactive bowel sounds present, Soft to palpation and non-tender PALPATION: Yes Soft to palpation Extremity: COMMON NORMALS: no joint enlargement GENERAL: Yes edema (2+ BL LE) Neuro: COMMON NORMALS: patient oriented x3 and moves all extremities SENSORIUM/ORIENTATION: Yes alert Skin: COMMON NORMALS: no rashes or lesions noted GENERAL SKIN EXAM: no rashes or lesions noted OTHER: Veouns stasis ulcers kristie stages of healing on BL LE Urinary Catheter Management: Gan: Cath Placed During This Visit: yes Reason for Continuing Indwelling Catheter: Accurate Measurement of Urinary Output in Critically Ill Patients Urinary Catheter Date of Insertion: 01/10/23 Urinary Catheter Time of Insertion: 05:39 Data 01/10/23 04:45 01/10/23 04:45 Micro: Microbiology 01/10/23 06:15 Occult Blood (FIT) - Final Stool Routine Collection A&P Assessment and plan (1) Hypotension: Shock resolved. Hemoglobin responded to transfusion. Blood pressures still soft. Monitor. Continue care on medical surgical floor. Reassess hemoglobin. Hold bisoprolol and Flomax for now. Continue midodrine. Troponin EKG series reviewed. Echocardiogram reviewed, noted normal EF, dilated RV with mildly reduced RV systolic function. Dilated RA. Severe TVR. Moderately severe pulmonary hypertension. No PE on CT angiogram. Reviewed vitals, CBC, CMP, echocardiogram, CT chest abdomen pelvis. Discussed with employment evaluator/case manager. (2) Acute anemia: Noted with good response to blood transfusion. Obtain iron studies, folic acid, B12. Reported some admixture of blood in the stool this morning but no hematochezia, no massive melena. Hold Xarelto for now. Monitor vitals, reassess CBC. Continue PPI. Trial of oral diet. Hemoccult. At some point would benefit from EGD. (3) Hypoxia: Secondary to CVA exacerbation, possible component of CHF exacerbation, type unknown. Oxygen support. Wean down as tolerated. Treat underlying conditions as below. (4) Congestive heart failure: Continue IV Lasix, will decrease dose as he is at risk of hypotension with component of right heart failure. Decrease to 20 mg. Monitor APUVRA, weights. Cardiac diet. Monitor on telemetry as he is at risk of arrhythmia, at risk of electrolyte abnormality. Reassess chemistry. (5) Acute exacerbation of chronic obstructive pulmonary disease: With some improvement, still requiring 2 L nasal cannula oxygen. Continue ceftriaxone, continue budesonide. Breathing treatments. Sputum culture requested. Reviewed respiratory viral panel, noted unremarkable. (6) Acute hyponatremia: Suspected possible degree of hypervolemic hyponatremia, mild improvement up to 129. Continue treatment of CHF as above. (7) Troponin level elevated: Reviewed troponin EKG, reviewed echocardiogram. He remains chest pain-free. Troponin series with somewhat flat trend. At some point may benefit from further risk stratification with stress testing once he is out of acute illness. Underlying coronary disease is possible with demand ischemia in the setting of anemia. Responded well to transfusion. (8) Fall: Fall from low height at home after he slipped out of bed. CT head, C-spine, shoulder x-ray and humerus x-ray reviewed. (9) Hyperkalemia: Low potassium diet. Mild elevation of CK. Follow-up level. Follow-up chemistry. (10) Paroxysmal atrial fibrillation with RVR: On bisoprolol at home. On hold for now due to hypotension. Monitor on telemetry. Reassess chemistry for any additional renal injury given hypotension. Consider as needed treatment in case of tachycardia. (11) Orthostatic hypotension: On midodrine at home. Continue. (12) Goals of care, counseling/discussion: Would want attempted cardiopulmonary cessation in case of cardiopulmonary arrest. Names his children as surrogate decision makers in case could not make his own decision. (13) Stroke: Reports prior history of CVA, incidentally noted on CT. Plan BPH: Hold Flomax while hypotensive. Reassess blood pressures. Gan catheter for now. Attestations Medical Necessity Statement*: Continue admission for assessment management of CHF exacerbation, COPD exacerbation, acute anemia. Diagnoses Hypotension I95.9 Acute anemia D64.9 Hypoxia R09.02 Congestive heart failure I50.9 Acute exacerbation of chronic obstructive pulmonary disease J44.1 Acute hyponatremia E87.1 Troponin level elevated R79.89 Fall W19.XXXA Hyperkalemia E87.5 Paroxysmal atrial fibrillation with RVR I48.0 Orthostatic hypotension I95.1 Goals of care, counseling/discussion Z71.89 Stroke I63.9
[2023-01-11] VITALS (15 sets, daily range): BP systolic 89–116; BP diastolic 51–55; PULSE 65–91; RESP 12–22; TEMP 36.4–36.6; O2SAT 81–97; BMI 22.6
[2023-01-11] MEDS: ipratropium-albuterol 3 mL Neb INHALATION ×4 (04:01→22:33)
[2023-01-11 04:07] LABS: Basophils # 0.1 10^3/uL (0.0-0.1); Basophils % 0.8 %; Eosinophils % 0.2 %; Hematocrit 27.2 % (37-53); Lymphocytes # 0.5 10^3/uL (0.8-4.8); Lymphocytes % 5.8 %; Mean Corpuscular HGB Conc 31.6 g/dL (30-55); Mean Corpuscular Hemoglobin 28.6 pg (27-33); Mean Corpuscular Volume 90.4 fl (82-101); Mean Platelet Volume 9.9 fL (7.4-10.4); Monocytes # 0.6 10^3/uL (0.2-0.9); Monocytes % 7.1 %; Neutrophils % 84.7 %; Nucleated Red Blood Cells % 0.2 %; Platelet Count 261 10^3/cmm (157-399); Red Blood Count 3.01 10^6/uL (3.85-5.65); Red Cell Distribution Width 18.4 % (12.1-15.1)
[2023-01-11 04:24] LABS: Alanine Aminotransferase 18 U/L (0-41); Albumin Level 3.1 g/dL (3.5-5.2); Alkaline Phosphatase 81 U/L (40-130); Anion Gap 11.7 (5-19); Aspartate Amino Transferase 49 U/L (0-40); Blood Urea Nitrogen 44 mg/dL (8-23); Calcium 8.2 mg/dL (8.5-10.5); Carbon Dioxide 29 mmol/L (22-29); Chloride 98 mmol/L (98-107); Globulin 3.2 g/dL (1.3-4.6); Glucose 122 mg/dL (65-115); Osmolality Calculated 290 mOsm/kg (285-295); Potassium 4.7 mmol/L (3.5-5.1); Sodium 134 mmol/L (136-145); Total Bilirubin 0.4 mg/dL (0.15-1.2); Total Protein 6.3 g/dL (6.6-8.7)
[2023-01-11 04:33] LABS: Creatine Phosphokinase 297 U/L (39-308)
[2023-01-11] MEDS: pantoprazole 40 mg SDV IVP ×2 (06:01→17:15)
[2023-01-11] MEDS: FUROsemide 10 mg/mL SDV 4mL 20 MG IVP (06:01)
[2023-01-11] MEDS: albumin 25 G/100 ML BAG 60 G IV (08:09)
[2023-01-11] MEDS: midodrine 5 mg TABLET PO (08:09)
[2023-01-11] MEDS: budesonide 0.5 mg/2 mL Neb INHALATION ×2 (09:35→22:33)
--- NOTE | 2023-01-11 16:39 | P.PN_ITS ---
Subjective Subjective: He reports that he is doing better. Denies chest pain or pressure. Breathing has been improving. No outward bleeding. Vitals/I&O/Wt Last Vital Signs Temp 97.8 F 01/11/23 16:00 Pulse 91 01/11/23 16:00 Resp 19 H 01/11/23 16:00 BP 97/53 01/11/23 16:00 Pulse Ox 93 01/11/23 14:00 O2 Del Method Nasal Cannula 01/11/23 14:00 O2 Flow Rate 2 01/11/23 14:00 01/11/23 01/11/23 01/11/23 06:59 14:59 22:59 Intake Total 540 / 540 Output Total 2100 / 2100 750 / 2850 Balance -1560 / -1560 -750 / -2310 Weight last 48 hrs Weight 79.974 kg Weight 80.966 kg Weight 81.919 kg Physical Exam Const: COMMON NORMALS: patient oriented x3 and alert GENERAL APPEARANCE: cooperative ORIENTATION/CONSCIOUSNESS: Yes awake OTHER: Awake, alert, pleasant, interactive. HENMT: COMMON NORMALS: oropharynx normal OTHER: JVD Resp: COMMON NORMALS: normal respiratory effort and clear to auscultation bilaterally AUSCULTATION: clear to auscultation bilaterally Cardio: COMMON NORMALS: regular rhythm, S1 normal heart sound present, S2 normal heart sound present and No murmurs present (Cardio) RATE: tachycardic RHYTHM: regular rhythm HEART SOUNDS: S1 normal heart sound present and S2 normal heart sound present GI: COMMON NORMALS: Normal to inspection, nondistended, normoactive bowel sounds present, Soft to palpation and non-tender PALPATION: Yes Soft to palpation Extremity: COMMON NORMALS: no joint enlargement GENERAL: Yes edema (2+ BL LE) Neuro: COMMON NORMALS: patient oriented x3 and moves all extremities SENSORIUM/ORIENTATION: Yes alert Skin: COMMON NORMALS: no rashes or lesions noted GENERAL SKIN EXAM: no rashes or lesions noted OTHER: Veouns stasis ulcers kristie stages of healing on BL LE Urinary Catheter Management: Gan: Cath Placed During This Visit: yes Reason for Continuing Indwelling Catheter: Accurate Measurement of Urinary Output in Critically Ill Patients Urinary Catheter Date of Insertion: 01/10/23 Urinary Catheter Time of Insertion: 05:39 Data 01/11/23 03:18 01/11/23 03:18 A&P Assessment and plan (1) Hypotension: Hypotensive this morning. Held additional Lasix. Given albumin dose. At risk of hypotension with right heart failure. Reassess volume status and blood pressure. Reviewed vital signs, CBC, chemistry. Hemoglobin noted with mild decrease further down to 8.6. Reassess CBC. Echocardiogram reviewed. Will benefit from further cardiac stratification for underlying CAD, possible need for revascularization, however, needing additional assessment with regards to acute anemia as below. Hold bisoprolol and Flomax for now. Continue midodrine. Troponin EKG series reviewed. Echocardiogram reviewed, noted normal EF, dilated RV with mildly reduced RV systolic function. Dilated RA. Severe TVR. Moderately severe pulmonary hypertension. No PE on CT angiogram. Reviewed vitals, CBC, CMP, echocardiogram, CT chest abdomen pelvis. Discussed with test case developer. (2) Acute anemia: Discussed with him, discussed with surgery, consultation obtained, plans for additional assessment by endoscopy to assess for possible source of anemia. Reviewed occult blood stool, noted positive. Reviewed iron studies, noted iron deficient. Discussed with him likely GI blood loss anemia. Noted with good response to blood transfusion. Obtain iron studies, folic acid, B12. Reported some admixture of blood in the stool this morning but no hematochezia, no massive melena. Hold Xarelto for now. Monitor vitals, reassess CBC. Continue PPI. Trial of oral diet. Hemoccult. At some point would benefit from EGD. (3) Hypoxia: Continue treatment of CHF, although additional Lasix held for now given hypotension. Secondary to CVA exacerbation, possible component of CHF exacerbation, type unknown. Oxygen support. Wean down as tolerated. Treat underlying conditions as below. (4) Congestive heart failure: Received Lasix this morning, hypotensive, held additional Lasix for now. Given albumin. Reassess. At risk of hypertension with heart heart failure. Reviewed echocardiogram, with dilated RV, mildly reduced RV systolic function. Would benefit from further risk stratification, however, with acute anemia. Additional assessment as above. Discussed with him subsequently would benefit from stress test. Continue IV Lasix, will decrease dose as he is at risk of hypotension with component of right heart failure. Decrease to 20 mg. Monitor APURVA, weights. Cardiac diet. Monitor on telemetry as he is at risk of arrhythmia, at risk of electrolyte abnormality. Reassess chemistry. (5) Acute exacerbation of chronic obstructive pulmonary disease: With gradual improvement. Continue inhaled steroids, breathing treatments, ceftriaxone. With some improvement, still requiring 2 L nasal cannula oxygen. Continue ceftriaxone, continue budesonide. Breathing treatments. Sputum culture requested. Reviewed respiratory viral panel, noted unremarkable. (6) Acute hyponatremia: Suspected possible degree of hypervolemic hyponatremia, mild improvement up to 129. Continue treatment of CHF as above. (7) Troponin level elevated: Reviewed troponin EKG, reviewed echocardiogram. He remains chest pain-free. Troponin series with somewhat flat trend. At some point may benefit from further risk stratification with stress testing once he is out of acute illness. Underlying coronary disease is possible with demand ischemia in the setting of anemia. Responded well to transfusion. (8) Fall: Fall from low height at home after he slipped out of bed. CT head, C-spine, shoulder x-ray and humerus x-ray reviewed. (9) Hyperkalemia: Reviewed potassium, noted hyperkalemia resolved. Low potassium diet. Mild elevation of CK. Follow-up level. Follow-up chemistry. (10) Paroxysmal atrial fibrillation with RVR: On bisoprolol at home. On hold for now due to hypotension. Monitor on telemetry. Reassess chemistry for any additional renal injury given hypotension. Consider as needed treatment in case of tachycardia. (11) Orthostatic hypotension: On midodrine at home. Continue. (12) Goals of care, counseling/discussion: Would want attempted cardiopulmonary cessation in case of cardiopulmonary arrest. Names his children as surrogate decision makers in case could not make his own decision. (13) Stroke: Reports prior history of CVA, incidentally noted on CT. Plan BPH: Hold Flomax while hypotensive. Reassess blood pressures. Gan catheter for now. Attestations Medical Necessity Statement*: Continue admission for assessment management of GI blood loss anemia, CHF exacerbation, right heart failure complicated by hypotension, COPD exacerbation. Diagnoses Hypotension I95.9 Acute anemia D64.9 Hypoxia R09.02 Congestive heart failure I50.9 Acute exacerbation of chronic obstructive pulmonary disease J44.1 Acute hyponatremia E87.1 Troponin level elevated R79.89 Fall W19.XXXA Hyperkalemia E87.5 Paroxysmal atrial fibrillation with RVR I48.0 Orthostatic hypotension I95.1 Goals of care, counseling/discussion Z71.89 Stroke I63.9
[2023-01-11] MEDS: cefTRIAXone 1,000 MG in sodium chloride 0.9% (plus) 50 ML 100 MG IV (17:15)
[2023-01-12] VITALS (20 sets, daily range): BP systolic 105–125; BP diastolic 54–82; PULSE 70–94; RESP 14–27; TEMP 36.5–36.8; O2SAT 92–100; BMI 22.4
[2023-01-12] MEDS: pantoprazole 40 mg SDV IVP (04:08)
[2023-01-12 04:48] LABS: Basophils # 0.1 10^3/uL (0.0-0.1); Basophils % 0.7 %; Eosinophils # 0.2 10^3/uL (0.0-0.8); Eosinophils % 2.5 %; Hematocrit 24.3 % (37-53); Lymphocytes # 0.5 10^3/uL (0.8-4.8); Lymphocytes % 6.8 %; Mean Corpuscular HGB Conc 30.5 g/dL (30-55); Mean Corpuscular Hemoglobin 28.2 pg (27-33); Mean Corpuscular Volume 92.7 fl (82-101); Mean Platelet Volume 10.8 fL (7.4-10.4); Monocytes # 0.6 10^3/uL (0.2-0.9); Monocytes % 8.1 %; Neutrophils # 6.16 10^3/uL (1.8-7.7); Neutrophils % 80.9 %; Nucleated Red Blood Cells % 0.3 %; Platelet Count 172 10^3/cmm (157-399); Red Blood Count 2.62 10^6/uL (3.85-5.65); Red Cell Distribution Width 18.6 % (12.1-15.1); White Blood Count 7.62 10^3/uL (3.29-11.43)
[2023-01-12 05:13] LABS: Alanine Aminotransferase 17 U/L (0-41); Albumin Level 2.9 g/dL (3.5-5.2); Alkaline Phosphatase 77 U/L (40-130); Anion Gap 10.3 (5-19); Aspartate Amino Transferase 37 U/L (0-40); Blood Urea Nitrogen 34 mg/dL (8-23); Carbon Dioxide 30 mmol/L (22-29); Chloride 104 mmol/L (98-107); Globulin 2.7 g/dL (1.3-4.6); Glucose 160 mg/dL (65-115); Osmolality Calculated 301 mOsm/kg (285-295); Potassium 4.3 mmol/L (3.5-5.1); Sodium 140 mmol/L (136-145); Total Bilirubin 0.3 mg/dL (0.15-1.2); Total Protein 5.6 g/dL (6.6-8.7)
[2023-01-12] MEDS: ipratropium-albuterol 3 mL Neb INHALATION ×3 (07:21→19:48)
[2023-01-12] MEDS: budesonide 0.5 mg/2 mL Neb INHALATION ×2 (07:21→19:48)
--- NOTE | 2023-01-12 08:04 | PC.SOCIAL ---
IMM Update pg 2 of IMM updated and reviewed w/ patient. Copy provided and copy dated, initialed and placed in chart.
[2023-01-12] MEDS: midodrine 5 mg TABLET PO (08:27)
[2023-01-12] MEDS: magnesium citrate Btl 296 mL PO ×2 (11:43→14:27)
[2023-01-12] MEDS: bisacodyl 5 mg Tablet 40 MG PO (11:43)
--- NOTE | 2023-01-12 12:13 | P.CONIM_ITS ---
Providers/Reason For Consult Consulting Physician/Specialty*: Dr. Charly Tejeda, DO/General surgery Reason for Consult*: GI bleed/anemia Attending Physician: Porfirio Khanna Primary Care Provider: Paolo Ng History of Present Illness History of Present Illness Krzysztof Tay is a 82 year old male with CHF and A-fib on Xarelto who presents the hospital with progressive difficulty breathing. He has not taken his Xarelto in 2 days now. He denies any abdominal pain nausea or emesis. He was found to be anemic while in the hospital. Hospitalist reports some blood mixed in his stool. Patient reports that he has never had a colonoscopy and denies any family history of colon cancer. Denies any heartburn. Denies fever or chills Review of Systems General: Reports: 10 or more systems reviewed and unremarkable except in HPI and below Medications/Allergies Home Medications Medication Instructions Recorded Confirmed Last Taken Type albuterol sulfate 90 mcg/actuation 2 puff inhalation Q4H PRN 01/09/23 01/09/23 Unknown History aerosol inhaler Shortness Of Breath Or Wheezing atorvastatin 40 mg tablet 40 mg PO BEDTIME 01/09/23 01/09/23 01/08/23 History bisoprolol fumarate 5 mg tablet 5 mg PO DAILY 01/09/23 01/09/23 01/08/23 History budesonide-formoterol HFA 80 1 puff inhalation BID 01/09/23 01/09/23 01/08/23 History mcg-4.5 mcg/actuation aerosol inhaler (Symbicort) midodrine 5 mg tablet 5 mg PO DAILY 01/09/23 01/09/23 01/08/23 History rivaroxaban 20 mg tablet (Xarelto) 20 mg PO DAILY 01/09/23 01/09/23 01/08/23 History tamsulosin 0.4 mg capsule 0.4 mg PO DAILY 01/09/23 01/09/23 01/08/23 History Allergies Allergy/AdvReac Type Severity Reaction Status Date / Time No Known Allergies Allergy Unverified 01/09/23 13:05 Current Medications Generic Name Dose Route Start Last Admin Trade Name Freq PRN Reason Stop Dose Admin Albuterol/Ipratropium 3 ml 01/09/23 20:00 01/12/23 07:21 Ipratropium-Albuterol 3 Ml Neb INHALATION 3 ml Q6H.RESP RAJEEV Administration Budesonide 0.5 mg 01/09/23 20:00 01/12/23 07:21 Budesonide 0.5 Mg/2 Ml Neb INHALATION 0.5 mg BID.RESPIRATORY RAJEEV Administration Furosemide 20 mg 01/11/23 06:00 01/11/23 06:01 Furosemide 10 Mg/Ml Sdv 4ml IVP 20 mg Q12H RAJEEV Administration Ceftriaxone Sodium 1,000 mg/ 50 mls @ 100 mls/hr 01/09/23 17:22 01/11/23 18:29 Sodium Chloride IV Infused Q24H RAJEEV Infusion Protocol Midodrine 5 mg 01/10/23 09:00 01/12/23 08:27 Midodrine 5 Mg Tablet PO 5 mg DAILY RAJEEV Administration Pantoprazole Sodium 40 mg 01/09/23 17:22 01/12/23 04:08 Pantoprazole 40 Mg Sdv IVP 40 mg Q12H RAJEEV Administration PFSH Acute PFSH: Medical History BPH (benign prostatic hyperplasia) Chronic anticoagulation COPD (chronic obstructive pulmonary disease) Nocturnal hypoxia Orthostatic hypotension Paroxysmal A-fib Stroke Social History Smoking and tobacco/nicotine status: current every day tobacco/nicotine user Marital status: Single Vitals/I&O/Wt Last Vital Signs Temp 98.0 F 01/12/23 09:59 Pulse 92 01/12/23 11:14 Resp 23 H 01/12/23 11:14 BP 105/81 01/12/23 11:14 Pulse Ox 95 01/12/23 11:14 O2 Del Method Nasal Cannula 01/12/23 07:32 O2 Flow Rate 3 01/12/23 07:21 01/11/23 01/12/23 01/12/23 22:59 06:59 14:59 Intake Total 470 / 1010 300 / 1310 120 / 120 Output Total 750 / 2850 700 / 3550 Balance -280 / -1840 -400 / -2240 120 / 120 Weight last 48 hrs Weight 175 lb Weight 176 lb 4.8 oz Weight 176 lb 5 oz Physical Exam Narrative: General : Patient is well developed , no acute distress, oriented x3 Head : Normal cephalic, a-traumatic. Ears : Pinnae and external canal are normal. Hearing is normal. Eyes : PERRLA, Sclera and injection are normal. No conjunctival discharge. Nose : Mucous membranes are without erythema. Throat : buccal mucosa is normal, gums are without significant recession or hypertrophy. Lungs : Equal chest rise bilaterally, no use of accessory muscles, trachea is midline. Cor : Rate and rhythm are normal. Abdomen : Soft, ND, NT, no g/r/m Extremities : No edema, no cyanosis or clubbing, dorsalis pedis pulses are present bilaterally, non-tender to palpation of calves. Upper extremities are normal bilaterally. Back : non-tender to palpation, no CVA tenderness. Neuro : CN II - XII intact, Upper and lower extremities have equal and full strength Urinary Catheter Management: Gan: Cath Placed During This Visit: yes Reason for Continuing Indwelling Catheter: Accurate Measurement of Urinary Output in Critically Ill Patients Urinary Catheter Date of Insertion: 01/10/23 Urinary Catheter Time of Insertion: 05:39 Data 01/12/23 04:00 01/12/23 04:00 A&P Assessment and plan (1) Anemia: (2) GI bleed: Plan Bowel prep Tomorrow for EGD and colonoscopy The risks and benefits of the procedure, including bleeding, infection, intestinal perforation requiring surgery, missed lesion were explained to the p atient. The patient is understanding of the risks and wishes to proceed. Coding Level of Care Code 88641 Diagnoses Anemia D64.9 GI bleed K92.2
[2023-01-12 16:30] LABS: Hematocrit 31.6 % (37-53)
[2023-01-12] MEDS: cefTRIAXone 1,000 MG in sodium chloride 0.9% (plus) 50 ML 100 MG IV (17:12)
[2023-01-12] MEDS: pantoprazole DR 40 mg Tablet PO (17:13)
--- NOTE | 2023-01-12 20:27 | P.PN_ITS ---
Subjective Subjective: Denies chest pain or pressure. Breathing has been reviewed. No abdominal pain. Vitals/I&O/Wt Last Vital Signs Temp 97.8 F 01/12/23 15:57 Pulse 84 01/12/23 19:54 Resp 18 01/12/23 19:48 BP 111/71 01/12/23 15:57 Pulse Ox 95 01/12/23 19:48 O2 Del Method Nasal Cannula 01/12/23 19:48 O2 Flow Rate 2 01/12/23 19:48 01/12/23 01/12/23 01/12/23 06:59 14:59 22:59 Intake Total 300 / 1310 470 / 470 50 / 520 Output Total 700 / 3550 Balance -400 / -2240 470 / 470 50 / 520 Weight last 48 hrs Weight 79.379 kg Weight 79.968 kg Weight 79.974 kg Physical Exam Narrative: Visited by family. Const: COMMON NORMALS: patient oriented x3 and alert GENERAL APPEARANCE: cooperative ORIENTATION/CONSCIOUSNESS: Yes awake OTHER: Awake, alert, pleasant, interactive. HENMT: COMMON NORMALS: oropharynx normal OTHER: JVD Neck/C-Spine: COMMON NORMALS: no JVD Resp: COMMON NORMALS: normal respiratory effort and clear to auscultation bilaterally AUSCULTATION: clear to auscultation bilaterally Cardio: COMMON NORMALS: no JVD, regular rhythm, S1 normal heart sound present, S2 normal heart sound present and No murmurs present (Cardio) RATE: tachycardic RHYTHM: regular rhythm HEART SOUNDS: S1 normal heart sound present and S2 normal heart sound present GI: COMMON NORMALS: Normal to inspection, nondistended, normoactive bowel sounds present, Soft to palpation and non-tender PALPATION: Yes Soft to palpation Extremity: COMMON NORMALS: no joint enlargement GENERAL: Yes edema (2+ BL LE) Neuro: COMMON NORMALS: patient oriented x3 and moves all extremities SENSORIUM/ORIENTATION: Yes alert Skin: COMMON NORMALS: no rashes or lesions noted GENERAL SKIN EXAM: no rashes or lesions noted OTHER: Veouns stasis ulcers kristie stages of healing on BL LE Urinary Catheter Management: Gan: Cath Placed During This Visit: yes Reason for Continuing Indwelling Catheter: Accurate Measurement of Urinary Output in Critically Ill Patients Urinary Catheter Date of Insertion: 01/10/23 Urinary Catheter Time of Insertion: 05:39 Data 01/12/23 16:02 01/12/23 04:00 A&P Assessment and plan (1) Acute anemia: Further decrease in hemoglobin down to 7.4 on review of hemoglobin, reviewed platelets, normal, additional 1 unit RBC transfusion requested. Appreciate surgical consultation, surgery note reviewed. Plans for bowel prep, EGD and colonoscopy in the morning. Discussed with him. Discussed with him, discussed with surgery, consultation obtained, plans for additional assessment by endoscopy to assess for possible source of anemia. Occult blood stool, noted positive. Iron studies, noted iron deficient. Likely GI blood loss anemia. Noted with good response to blood transfusion. Obtain iron studies, folic acid, B12. Reported some admixture of blood in the stool this morning but no hematochezia, no massive melena. Hold Xarelto for now. Monitor vitals, reassess CBC. Continue PPI. Trial of oral diet. Hemoccult. At some point would benefit from EGD. (2) Congestive heart failure: Due to soft blood pressure Lasix have been held so far. Pending additional assessment with EGD, colonoscopy. Subsequently additional cardiac assessment. Discussed with continuous pillowcase cutter Reviewed echocardiogram, with dilated RV, mildly reduced RV systolic function. Would benefit from further risk stratification, however, with acute anemia. Additional assessment as above. Discussed with him subsequently would benefit from stress test. Continue IV Lasix, will decrease dose as he is at risk of hypotension with component of right heart failure. Decrease to 20 mg. Monitor APURVA, weights. Cardiac diet. Monitor on telemetry as he is at risk of arrhythmia, at risk of electrolyte abnormality. Reassess chemistry. (3) Hypotension: Lasix on hold for now. Hypotensive this morning. Held additional Lasix. Given albumin dose. At risk of hypotension with right heart failure. Reassess volume status and blood pressure. Reviewed vital signs, CBC, chemistry. Echocardiogram reviewed. Will benefit from further cardiac stratification for underlying CAD, possible need for revascularization, however, needing additional assessment with regards to acute anemia as below. Hold bisoprolol and Flomax for now. Continue midodrine. Troponin EKG series reviewed. Echocardiogram reviewed, noted normal EF, dilated RV with mildly reduced RV systolic function. Dilated RA. Severe TVR. Moderately severe pulmonary hypertension. No PE on CT angiogram. Reviewed vitals, CBC, CMP, echocardiogram, CT chest abdomen pelvis. Discussed with continuous pillowcase cutter. (4) Hypoxia: Continue treatment of CHF, although additional Lasix held for now given hypotension. Additional RBC transfusion. Secondary to CVA exacerbation, possible component of CHF exacerbation, type unknown. Oxygen support. Wean down as tolerated. Treat underlying conditions as below. (5) Acute exacerbation of chronic obstructive pulmonary disease: With gradual improvement. Continue inhaled steroids, breathing treatments, ceftriaxone. With some improvement, still requiring 2 L nasal cannula oxygen. Continue ceftriaxone, continue budesonide. Breathing treatments. Sputum culture requ ested. Reviewed respiratory viral panel, noted unremarkable. (6) Acute hyponatremia: Suspected possible degree of hypervolemic hyponatremia, mild improvement up to 129. Continue treatment of CHF as above. (7) Troponin level elevated: Reviewed troponin EKG, reviewed echocardiogram. He remains chest pain-free. Troponin series with somewhat flat trend. At some point may benefit from further risk stratification with stress testing once he is out of acute illness. Underlying coronary disease is possible with demand ischemia in the setting of a nemia. Responded well to transfusion. (8) Fall: Fall from low height at home after he slipped out of bed. CT head, C-spine, shoulder x-ray and humerus x-ray reviewed. (9) Hyperkalemia: Reviewed potassium, noted hyperkalemia resolved. Low potassium diet. Mild elevation of CK. Follow-up level. Follow-up chemistry. (10) Paroxysmal atrial fibrillation with RVR: On bisoprolol at home. On hold for now due to hypotension. Monitor on telemetry. Reassess chemistry for any additional renal injury given hypotension. Consider as needed treatment in case of tachycardia. (11) Orthostatic hypotension: On midodrine at home. Continue. (12) Goals of care, counseling/discussion: Would want attempted cardiopulmonary cessation in case of cardiopulmonary arrest. Names his children as surrogate decision makers in case could not make his own decision. (13) Stroke: Reports prior history of CVA, incidentally noted on CT. Plan BPH: Hold Flomax while hypotensive. Reassess blood pressures. Gan catheter for now. Attestations Medical Necessity Statement*: Continue admission for assessment management of GI blood loss anemia, CHF exacerbation, right heart failure complicated by hypotension, COPD exacerbation. and High MDM includes described risk of complication, morbidity or mortality of management as documented Diagnoses Acute anemia D64.9 Congestive heart failure I50.9 Hypotension I95.9 Hypoxia R09.02 Acute exacerbation of chronic obstructive pulmonary disease J44.1 Acute hyponatremia E87.1 Troponin level elevated R79.89 Fall W19.XXXA Hyperkalemia E87.5 Paroxysmal atrial fibrillation with RVR I48.0 Orthostatic hypotension I95.1 Goals of care, counseling/discussion Z71.89 Stroke I63.9
[2023-01-13] VITALS (31 sets, daily range): BP systolic 100–135; BP diastolic 50–78; PULSE 61–135; RESP 15–23; TEMP 36.1–36.6; O2SAT 77–100; BMI 20.6
[2023-01-13] MEDS: ipratropium-albuterol 3 mL Neb INHALATION ×4 (03:20→19:23)
[2023-01-13 06:03] LABS: Basophils # 0.1 10^3/uL (0.0-0.1); Eosinophils # 0.3 10^3/uL (0.0-0.8); Eosinophils % 4.8 %; Hematocrit 35.2 % (37-53); Lymphocytes # 0.6 10^3/uL (0.8-4.8); Lymphocytes % 10.2 %; Mean Corpuscular HGB Conc 30.7 g/dL (30-55); Mean Corpuscular Hemoglobin 27.6 pg (27-33); Mean Corpuscular Volume 89.8 fl (82-101); Mean Platelet Volume 10.3 fL (7.4-10.4); Monocytes # 0.5 10^3/uL (0.2-0.9); Neutrophils # 4.28 10^3/uL (1.8-7.7); Nucleated Red Blood Cells % 0 %; Platelet Count 231 10^3/cmm (157-399); Red Blood Count 3.92 10^6/uL (3.85-5.65); Red Cell Distribution Width 19.1 % (12.1-15.1); White Blood Count 5.79 10^3/uL (3.29-11.43)
[2023-01-13 06:14] LABS: Anion Gap 11.2 (5-19); Blood Urea Nitrogen 18 mg/dL (8-23); Calcium 8.1 mg/dL (8.5-10.5); Carbon Dioxide 28 mmol/L (22-29); Chloride 103 mmol/L (98-107); Creatinine Clr Calc Pharmacy 81.6346; Glucose 97 mg/dL (65-115); Osmolality Calculated 288 mOsm/kg (285-295); Potassium 4.2 mmol/L (3.5-5.1); Sodium 138 mmol/L (136-145)
[2023-01-13] MEDS: budesonide 0.5 mg/2 mL Neb INHALATION ×2 (07:35→19:23)
--- NOTE | 2023-01-13 07:37 | PM.PN ---
Vitals/I&O/Wt Last Vital Signs Temp 97.6 F 01/13/23 05:43 Pulse 68 01/13/23 06:00 Resp 18 01/13/23 05:43 BP 108/52 01/13/23 05:43 Pulse Ox 96 01/13/23 05:43 O2 Del Method Nasal Cannula 01/13/23 05:43 O2 Flow Rate 2 01/13/23 05:43 01/12/23 01/13/23 01/13/23 22:59 06:59 14:59 Intake Total 50 / 520 Output Total 600 / 600 Balance 50 / 520 -600 / -80 Weight last 48 hrs Weight 160 lb 14.4 oz Weight 175 lb Weight 176 lb 4.8 oz Physical Exam Urinary Catheter Management: Gan: Cath Placed During This Visit: yes Reason for Continuing Indwelling Catheter: Accurate Measurement of Urinary Output in Critically Ill Patients Urinary Catheter Date of Insertion: 01/10/23 Urinary Catheter Time of Insertion: 05:39 Data 01/13/23 04:40 01/13/23 04:40 A&P Assessment and plan (1) Anemia: (2) GI bleed: Plan EGD and colonoscopy The risks and benefits of the procedure, including bleeding, infection, intestinal perforation requiring surgery, missed lesion were explained to the patient. The patient is understanding of the risks and wishes to proceed. Attestations Medical Necessity Statement*: PER PRIMARY Coding Level of Care Code Acute Code for Chg Fwd Diagnoses Anemia D64.9 GI bleed K92.2
[2023-01-13] MEDS: sodium chloride 0.9% 1,000 ML 30 ML IV (08:01)
--- NOTE | 2023-01-13 11:11 | ANES.PREANE2 ---
Pre-Anesthetic Assessment Height/Weight: Height 1.88 m Weight 73.89 kg Temp Pulse Resp BP Pulse Ox O2 Del Method O2 Flow Rate 97.7 F 75 15 126/61 94 Nasal Cannula 2 01/13/23 09:39 01/13/23 09:39 01/13/23 09:39 01/13/23 09:39 01/13/23 08:46 01/13/23 08:46 01/13/23 08:46 Operation Date: 01/13/23 08:00 Proposed Procedures p EGD(Not Applicable) - Charly Tejeda DO s Colonoscopy(Not Applicable) - Charly Tejeda DO Familial anesthetic complications: none Was Beta Gloria taken within 24 hours: Yes Was Clonidine taken within 24 hours: N/A Last intake: Intake Last Liquid Date 01/12/23 Last Liquid Time 21:00 Last Solid Date 01/11/23 Social Tobacco and No alcohol Exam alert and oriented x 3 irregular Airway Submandibular: within normal limits Cervical ROM: within normal limits Mallampati: Class II Dentition: false Pulmonary Chronic Obstructive Pulmonary Disease home O2 3L CV/HEM Atrial Fibrillation, Anemia, Coronary Artery Disease, Congestive Heart Failure and Hypertension Neuropsych Cerebrovascular Accident Anesthetic Plan ASA status: 3 Anesthesia: MAC Medications/Allergies Home Medications Medication Instructions Recorded Confirmed Last Taken Type albuterol sulfate 90 mcg/actuation 2 puff inhalation Q4H PRN 01/09/23 01/09/23 Unknown History aerosol inhaler Shortness Of Breath Or Wheezing atorvastatin 40 mg tablet 40 mg PO BEDTIME 01/09/23 01/09/23 01/08/23 History bisoprolol fumarate 5 mg tablet 5 mg PO DAILY 01/09/23 01/09/23 01/08/23 History budesonide-formoterol HFA 80 1 puff inhalation BID 01/09/23 01/09/23 01/08/23 History mcg-4.5 mcg/actuation aerosol inhaler (Symbicort) midodrine 5 mg tablet 5 mg PO DAILY 01/09/23 01/09/23 01/08/23 History rivaroxaban 20 mg tablet (Xarelto) 20 mg PO DAILY 01/09/23 01/09/23 01/08/23 History tamsulosin 0.4 mg capsule 0.4 mg PO DAILY 01/09/23 01/09/23 01/08/23 History Allergies Allergy/AdvReac Type Severity Reaction Status Date / Time No Known Allergies Allergy Unverified 01/09/23 13:05 Current Medications Generic Name Dose Route Start Last Admin Trade Name Asiya PRN Reason Stop Dose Admin Albuterol/Ipratropium 3 ml 01/09/23 20:00 01/13/23 07:35 Ipratropium-Albuterol 3 Ml Neb INHALATION 3 ml Q6H.RESP RAJEEV Administration Budesonide 0.5 mg 01/09/23 20:00 01/13/23 07:35 Budesonide 0.5 Mg/2 Ml Neb INHALATION 0.5 mg BID.RESPIRATORY RAJEEV Administration Furosemide 20 mg 01/11/23 06:00 01/11/23 06:01 Furosemide 10 Mg/Ml Sdv 4ml IVP 20 mg Q12H RAJEEV Administration Ceftriaxone Sodium 1,000 mg/ 50 mls @ 100 mls/hr 01/09/23 17:22 01/12/23 18:00 Sodium Chloride IV Infused Q24H RAJEEV Infusion Protocol Sodium Chloride 1,000 mls @ 30 mls/hr 01/13/23 08:00 01/13/23 08:45 Sodium Chloride 0.9% IV 01/14/23 07:59 Infused .Q24H RAJEEV Infusion Midodrine 5 mg 01/10/23 09:00 01/12/23 08:27 Midodrine 5 Mg Tablet PO 5 mg DAILY RAJEEV Administration Pantoprazole Sodium 40 mg 01/12/23 18:00 01/12/23 17:[address] 40 Mg Tablet PO 40 mg BID RAJEEV Administration PFS Anesthesia Medical History BPH (benign prostatic hyperplasia) Chronic anticoagulation COPD (chronic obstructive pulmonary disease) Nocturnal hypoxia Orthostatic hypotension Paroxysmal A-fib Stroke Social History Smoking and tobacco/nicotine status: current every day tobacco/nicotine user Marital status: Single Data Anesthesia 01/13/23 04:40 01/13/23 04:40 Short CBC 01/12/23 01/12/23 01/13/23 Range/Units 04:00 16:02 04:40 WBC 7.62 5.79 (3.29-11.43) 10^3/uL Hgb 7.40 L 9.80 L D 10.80 L (11.27-16.99) g/dL Hct 24.3 L 31.6 L D 35.2 L (37-53) % MCV 92.7 89.8 (82-101) fl Plt Count 172 D 231 D (157-399) 10^3/cmm Neut % (Auto) 80.9 74.0 % Neut # (Auto) 6.16 4.28 (1.8-7.7) 10^3/uL BMP 01/12/23 01/13/23 04:00 04:40 Sodium 140 138 Potassium 4.3 4.2 Chloride 104 103 Carbon Dioxide 30 H 28 BUN 34 H 18 Creatinine 0.8 0.5 L Glucose 160 H 97 Calcium 8.0 L 8.1 L Liver Function 01/12/23 Range/Units 04:00 Total Bilirubin 0.3 (0.15-1.2) mg/dL AST 37 (0-40) U/L ALT 17 (0-41) U/L Alkaline Phosphatase 77 (40-130) U/L Albumin 2.9 L (3.5-5.2) g/dL Blood Bank 01/09/23 13:24 Blood Type AB Positive Rho(D) Type Rh positive Antibody Screen Negative Cardiac Studies: Echocardiogram 01/09/23
--- NOTE | 2023-01-13 11:13 | ANE.PACU2 ---
Inpatient post-anesthesia follow up: Airway intact: Yes Vital signs: Temperature 97.7 F Pulse Rate 75 Respiratory Rate 15 Blood Pressure 126/61 Pulse Oximetry 94 Oxygen Delivery Me thod Nasal Cannula Oxygen Flow Rate 2 Fraction of Inspir ed Oxygen Hydration adequate: Yes Nausea and vomiting: No Pain level: 2 Mental status: Baseline
[2023-01-13] MEDS: pantoprazole DR 40 mg Tablet PO (18:19)
[2023-01-13] MEDS: cefTRIAXone 1,000 MG in sodium chloride 0.9% (plus) 50 ML 100 MG IV (18:19)
--- NOTE | 2023-01-13 21:24 | P.PN_ITS ---
Subjective Subjective: Denies chest pain or pressure. No complaints. Doing well after his procedure. Persistent edema lower extremities but with some improvement. Vitals/I&O/Wt Last Vital Signs Temp 97.6 F 01/13/23 16:33 Pulse 74 01/13/23 19:29 Resp 18 01/13/23 19:29 BP 133/74 01/13/23 16:33 Pulse Ox 97 01/13/23 19:29 O2 Del Method Nasal Cannula 01/13/23 19:29 O2 Flow Rate 2 01/13/23 19:29 01/13/23 01/13/23 01/13/23 06:59 14:59 22:59 Intake Total 420 / 420 290 / 710 Output Total 600 / 600 1300 / 1300 500 / 1800 Balance -600 / -80 -880 / -880 -210 / -1090 Weight last 48 hrs Weight 73.89 kg Weight 72.983 kg Weight 79.379 kg Weight 79.968 kg Physical Exam Narrative: Visited by family on second visit. Const: COMMON NORMALS: patient oriented x3 and alert GENERAL APPEARANCE: cooperative ORIENTATION/CONSCIOUSNESS: Yes awake OTHER: Awake, alert, pleasant, interactive. HENMT: COMMON NORMALS: oropharynx normal OTHER: JVD Neck/C-Spine: COMMON NORMALS: no JVD Resp: COMMON NORMALS: normal respiratory effort and clear to auscultation bilaterally AUSCULTATION: clear to auscultation bilaterally Cardio: COMMON NORMALS: no JVD, regular rhythm, S1 normal heart sound present, S2 normal heart sound present and No murmurs present (Cardio) RATE: tachycardic RHYTHM: regular rhythm HEART SOUNDS: S1 normal heart sound present and S2 normal heart sound present GI: COMMON NORMALS: Normal to inspection, nondistended, normoactive bowel sounds present, Soft to palpation and non-tender PALPATION: Yes Soft to palpation Extremity: COMMON NORMALS: no joint enlargement GENERAL: Yes edema (2+ BL LE) Neuro: COMMON NORMALS: patient oriented x3 and moves all extremities SENSORIUM/ORIENTATION: Yes alert Skin: COMMON NORMALS: no rashes or lesions noted GENERAL SKIN EXAM: no rashes or lesions noted OTHER: Veouns stasis ulcers kristie stages of healing on BL LE Urinary Catheter Management: Gan: Cath Placed During This Visit: yes Reason for Continuing Indwelling Catheter: Accurate Measurement of Urinary Output in Critically Ill Patients Urinary Catheter Date of Insertion: 01/10/23 Urinary Catheter Time of Insertion: 05:39 Data 01/13/23 04:40 01/13/23 04:40 A&P Assessment and plan (1) Acute anemia: Responded to RBC transfusion. Underwent EGD and colonoscopy today. Discussed with surgery, noted few colonic polyps, EGD unremarkable. May have anticoagulation in a couple days if needed. Reviewed EGD surgical documentation. Will follow-up CBC. Plan for additional cardiac assessment with stress testing on Sunday. Discussed with him, discussed with surgery, consultation obtained, plans for additional assessment by endoscopy to assess for possible source of anemia. Occult blood stool, noted positive. Iron studies, noted iron deficient. Likely GI blood loss anemia. Noted with good response to blood transfusion. Obtain iron studies, folic acid, B12. Reported some admixture of blood in the stool this morning but no hematochezia, no massive melena. Hold Xarelto for now. Monitor vitals, reassess CBC. Continue PPI. Trial of oral diet. Hemoccult. At some point would benefit from EGD. (2) Congestive heart failure: Resume cautious diuresis ith persistent CHF decompensation withedema, oxygen requirement. At risk of hypotension. Low-dose Lasix 20 mg IV. Monitor blood pressure, I&O, weights. Reviewed vitals, CBC, BMP. additional cardiac assessment with stress testing on Sunday. Due to soft blood pressure Lasix have been held so far. Pending additional assessment with EGD, colonoscopy. Subsequently additional cardiac assessment. Discussed with mattress spring encaser Reviewed echocardiogram, with dilated RV, mildly reduced RV systolic function. Would benefit from further risk stratification, however, with acute anemia. Additional assessment as above. Discussed with him subsequently would benefit from stress test. Continue IV Lasix, will decrease dose as he is at risk of hypotension with component of right heart failure. Decrease to 20 mg. Monitor APURVA, weights. Cardiac diet. Monitor on telemetry as he is at risk of arrhythmia, at risk of electrolyte abnormality. Reassess chemistry. (3) Hypotension: Lasix on hold for now. Hypotension improved. Resume cautious diuresis. Echocardiogram reviewed. Will benefit from further cardiac stratification for underlying CAD, possible need for revascularization, however, needing additional assessment with regards to acute anemia as below. Hold bisoprolol and Flomax for now. Continue midodrine. Troponin EKG series reviewed. Echocardiogram reviewed, noted normal EF, dilated RV with mildly reduced RV systolic function. Dilated RA. Severe TVR. Moderate ly severe pulmonary hypertension. No PE on CT angiogram. Reviewed vitals, CBC, CMP, echocardiogram, CT chest abdomen pelvis. Discussed with mattress spring encaser. (4) Hypoxia: Continue treatment of CHF, although additional Lasix held for now given hypotension. Additional RBC transfusion. Secondary to CVA exacerbation, possible component of CHF exacerbation, type unknown. Oxygen support. Wean down as tolerated. Treat underlying conditions as below. (5) Acute exacerbation of chronic obstructive pulmonary disease: With gradual improvement. Continue inhaled steroids, breathing treatments, ceftriaxone. With some improvement, still requiring 2 L nasal cannula oxygen. Continue ceftriaxone, continue budesonide. Breathing treatments. Sputum culture requested. Reviewed respiratory viral panel, noted unremarkable. (6) Acute hyponatremia: Suspected possible degree of hypervolemic hyponatremia, mild improvement up to 129. Continue treatment of CHF as above. (7) Troponin level elevated: Reviewed troponin EKG, reviewed echocardiogram. He remains chest pain-free. Troponin series with somewhat flat trend. At some point may benefit from further risk stratification with stress testing once he is out of acute illness. Underlying coronary disease is possible with demand ischemia in the setting of anemia. Responded well to transfusion. (8) Fall: Fall from low height at home after he slipped out of bed. CT head, C-spine, shoulder x-ray and humerus x-ray reviewed. (9) Hyperkalemia: Reviewed potassium, noted hyperkalemia resolved. Low potassium diet. Mild elevation of CK. Follow-up level. Follow-up chemistry. (10) Paroxysmal atrial fibrillation with RVR: On bisoprolol at home. On hold for now due to hypotension. Monitor on telemetry. Reassess chemistry for any additional renal injury given hypotension. Consider as needed treatment in case of tachycardia. (11) Orthostatic hypotension: On midodrine at home. Continue. (12) Goals of care, counseling/discussion: Would want attempted cardiopulmonary cessation in case of cardiopulmonary arrest. Names his children as surrogate decision makers in case could not make his own decision. (13) Stroke: Reports prior history of CVA, incidentally noted on CT. Plan BPH: Hold Flomax while hypotensive. Reassess blood pressures. Gan catheter for now. Attestations Medical Necessity Statement*: Continue admission for assessment management of acute anemia, decompensated CHF, additional cardiac workup with stress testing pending. Diagnoses Acute anemia D64.9 Congestive heart failure I50.9 Hypotension I95.9 Hypoxia R09.02 Acute exacerbation of chronic obstructive pulmonary disease J44.1 Acute hyponatremia E87.1 Troponin level elevated R79.89 Fall W19.XXXA Hyperkalemia E87.5 Paroxysmal atrial fibrillation with RVR I48.0 Orthostatic hypotension I95.1 Goals of care, counseling/discussion Z71.89 Stroke I63.9
[2023-01-14] VITALS (27 sets, daily range): BP systolic 103–118; BP diastolic 51–68; PULSE 67–113; RESP 16–32; TEMP 36.3–36.9; O2SAT 94–99; BMI 21.0
[2023-01-14 03:07] LABS: Basophils % 0.6 %; Eosinophils # 0.4 10^3/uL (0.0-0.8); Hematocrit 33.3 % (37-53); Lymphocytes # 0.5 10^3/uL (0.8-4.8); Lymphocytes % 10.3 %; Mean Corpuscular Hemoglobin 27.3 pg (27-33); Mean Platelet Volume 10.2 fL (7.4-10.4); Monocytes # 0.6 10^3/uL (0.2-0.9); Monocytes % 10.7 %; Neutrophils % 70.2 %; Nucleated Red Blood Cells % 0 %; Platelet Count 222 10^3/cmm (157-399); Red Blood Count 3.66 10^6/uL (3.85-5.65); Red Cell Distribution Width 18.6 % (12.1-15.1); White Blood Count 5.13 10^3/uL (3.29-11.43)
[2023-01-14 03:22] LABS: Blood Urea Nitrogen 14 mg/dL (8-23); Carbon Dioxide 32 mmol/L (22-29); Chloride 106 mmol/L (98-107); Glucose 126 mg/dL (65-115); Osmolality Calculated 296 mOsm/kg (285-295); Sodium 142 mmol/L (136-145)
[2023-01-14 03:23] LABS: Anion Gap 8.2 (5-19); Potassium 4.2 mmol/L (3.5-5.1)
[2023-01-14] MEDS: ipratropium-albuterol 3 mL Neb INHALATION ×3 (07:58→20:27)
[2023-01-14] MEDS: budesonide 0.5 mg/2 mL Neb INHALATION ×2 (07:58→20:27)
[2023-01-14] MEDS: FUROsemide 10 mg/mL SDV 2mL 20 MG IVP (09:40)
[2023-01-14] MEDS: pantoprazole DR 40 mg Tablet PO ×2 (09:40→17:37)
[2023-01-14] MEDS: midodrine 5 mg TABLET PO (09:40)
[2023-01-14] MEDS: cefTRIAXone 1,000 MG in sodium chloride 0.9% (plus) 50 ML 100 MG IV (17:37)
--- NOTE | 2023-01-14 18:18 | PM.PN ---
Subjective Subjective: Denies any changes, breathing has been improving, edema in lower extremities improving/resolving. Vitals/I&O/Wt Last Vital Signs Temp 97.9 F 01/14/23 16:24 Pulse 83 01/14/23 16:24 Resp 23 H 01/14/23 16:24 BP 107/51 01/14/23 16:24 Pulse Ox 96 01/14/23 16:24 O2 Del Method Nasal Cannula 01/14/23 16:24 O2 Flow Rate 2 01/14/23 14:00 01/14/23 01/14/23 01/14/23 06:59 14:59 22:59 Intake Total 120 / 950 300 / 300 150 / 450 Output Total 900 / 3600 1600 / 1600 1700 / 3300 Balance -780 / -2650 -1300 / -1300 -1550 / -2850 Weight last 48 hrs Weight 74.48 kg Weight 74.48 kg Weight 74.48 kg Weight 73.89 kg Weight 72.983 kg Physical Exam Const: COMMON NORMALS: patient oriented x3 and alert GENERAL APPEARANCE: cooperative ORIENTATION/CONSCIOUSNESS: Yes awake OTHER: Awake, alert, pleasant, interactive. HENMT: COMMON NORMALS: oropharynx normal OTHER: JVD Neck/C-Spine: COMMON NORMALS: no JVD Resp: COMMON NORMALS: normal respiratory effort and clear to auscultation bilaterally AUSCULTATION: clear to auscultation bilaterally Cardio: COMMON NORMALS: no JVD, regular rhythm, S1 normal heart sound present, S2 normal heart sound present and No murmurs present (Cardio) RATE: tachycardic RHYTHM: regular rhythm HEART SOUNDS: S1 normal heart sound present and S2 normal heart sound present GI: COMMON NORMALS: Normal to inspection, nondistended, normoactive bowel sounds present, Soft to palpation and non-tender PALPATION: Yes Soft to palpation Extremity: COMMON NORMALS: no joint enlargement GENERAL: Yes edema (Trace BL LE) Neuro: COMMON NORMALS: patient oriented x3 and moves all extremities SENSORIUM/ORIENTATION: Yes alert Skin: COMMON NORMALS: no rashes or lesions noted GENERAL SKIN EXAM: no rashes or lesions noted OTHER: Veouns stasis ulcers kristie stages of healing on BL LE Urinary Catheter Management: Gan: Cath Placed During This Visit: yes Reason for Continuing Indwelling Catheter: Accurate Measurement of Urinary Output in Critically Ill Patients Urinary Catheter Date of Insertion: 01/10/23 Urinary Catheter Time of Insertion: 05:39 Data 01/14/23 02:16 01/14/23 02:16 A&P Assessment and plan (1) Congestive heart failure: Discussed with him assessment with stress testing for tomorrow. Requested. N.p.o. after midnight. Reviewed vitals, intake and output, noted in negative balance. Edema is improving nicely. Maintaining blood pressure, but blood pressure soft, 107/51, very robust urine output. Will hold additional Lasix for now. Consider switch to oral. Reassess renal function. CHF decompensation withedema, oxygen requirement. At risk of hypotension. Low-dose Lasix 20 mg IV. Monitor blood pressure, I&O, weights. Due to soft blood pressure Lasix have been held again. Status post EGD and colonoscopy assessment for anemia, noted a few polyps in the colon. Reviewed echocardiogram, with dilated RV, mildly reduced RV systolic function. Would benefit from further risk stratification, however, with acute anemia. Additional assessment as above. Discussed with him subsequently would benefit from stress test. Monitor APURVA, weights. Cardiac diet. Monitor on telemetry as he is at risk of arrhythmia, at risk of electrolyte abnormality. Reassess chemistry. (2) Acute anemia: Discussed with him slight decrease in hemoglobin down to 10, but may be secondary to resolved variance as yesterday seems to have been somewhat higher than expected. Reassess in the morning. Status post EGD and colonoscopy, noted few colonic polyps. May have anticoagulation in a couple days if needed per discussion with surgery. Will follow-up CBC. Plan for additional cardiac assessment with stress testing on Sunday. Xarelto has been held, will try to add some prophylactic heparin, see how he tolerates it. Occult blood stool, noted positive. Iron studies, noted iron deficient. Likely GI blood loss anemia. Monitor vitals, reassess CBC. Continue PPI. (3) Hypotension: Lasix on hold for now. Hypotension improved. Resume cautious diuresis. Consider switch to oral. Echocardiogram reviewed. Will benefit from further cardiac stratification for underlying CAD, possible need for revascularization, however, needing additional assessment with regards to acute anemia as below. Hold bisoprolol and Flomax for now. Continue midodrine. Troponin EKG series reviewed. Echocardiogram reviewed, noted normal EF, dilated RV with mildly reduced RV systolic function. Dilated RA. Severe TVR. Moderately severe pulmonary hypertension. No PE on CT angiogram. Reviewed vitals, CBC, CMP, echocardiogram, CT chest abdomen pelvis. Discussed with case reviewer. (4) Hypoxia: Continue treatment of CHF, although additional Lasix held for now given hypotension. Additional RBC transfusion. Secondary to CVA exacerbation, possible component of CHF exacerbation, type unknown. Oxygen support. Wean down as tolerated. Treat underlying conditions as below. (5) Acute exacerbation of chronic obstructive pulmonary disease: With gradual improvement. Continue inhaled steroids, breathing treatments, ceftriaxone. With some improvement, still requiring 2 L nasal cannula oxygen. Continue ceftriaxone, continue budesonide. Breathing treatments. Sputum culture requested. Reviewed respiratory viral panel, noted unremarkable. (6) Acute hyponatremia: Resolved. Suspected possible degree of hypervolemic hyponatremia Continue treatment of CHF as above. (7) Troponin level elevated: Reviewed troponin EKG, reviewed echocardiogram. He remains chest pain-free. Troponin series with somewhat flat trend. At some point may benefit from further risk stratification with stress testing once he is out of acute illness. Underlying coronary disease is possible with demand ischemia in the setting of anemia. Responded well to transfusion. (8) Fall: Fall from low height at home after he slipped out of bed. CT head, C-spine, shoulder x-ray and humerus x-ray reviewed. (9) Hyperkalemia: Reviewed potassium, noted hyperkalemia resolved. Low potassium diet. Mild elevation of CK. Follow-up level. Follow-up chemistry. (10) Paroxysmal atrial fibrillation with RVR: On bisoprolol at home. On hold for now due to hypotension. Monitor on telemetry. Reassess chemistry for any additional renal injury given hypotension. Consider as needed treatment in case of tachycardia. (11) Orthostatic hypotension: On midodrine at home. Continue. (12) Goals of care, counseling/discussion: Would want attempted cardiopulmonary cessation in case of cardiopulmonary arrest. Names his children as surrogate decision makers in case could not make his own decision. (13) Stroke: Reports prior history of CVA, incidentally noted on CT. Plan BPH: Hold Flomax while hypotensive. Reassess blood pressures. Gan catheter for now. Attestations Medical Necessity Statement*: Continue admission for assessment management of decompensated CHF, additional cardiac assessment for CAD, with acute anemia on presentation. Coding Level of Care Code Acute Code for g Fwd Diagnoses Congestive heart failure I50.9 Acute anemia D64.9 Hypotension I95.9 Hypoxia R09.02 Acute exacerbation of chronic obstructive pulmonary disease J44.1 Acute hyponatremia E87.1 Troponin level elevated R79.89 Fall W19.XXXA Hyperkalemia E87.5 Paroxysmal atrial fibrillation with RVR I48.0 Orthostatic hypotension I95.1 Goals of care, counseling/discussion Z71.89 Stroke I63.9
[2023-01-14] MEDS: heparin 5,000 unit/mL INJ 1 mL 5000 UNIT SUBCUT (20:28)
[2023-01-15] VITALS (14 sets, daily range): BP systolic 106–130; BP diastolic 55–86; PULSE 65–122; RESP 18–25; TEMP 36.6–36.9; O2SAT 91–99
[2023-01-15 03:19] LABS: Basophils # 0.1 10^3/uL (0.0-0.1); Eosinophils # 0.5 10^3/uL (0.0-0.8); Eosinophils % 7.7 %; Hematocrit 30.6 % (37-53); Lymphocytes # 0.9 10^3/uL (0.8-4.8); Lymphocytes % 15.1 %; Mean Corpuscular HGB Conc 30.7 g/dL (30-55); Mean Corpuscular Hemoglobin 27.8 pg (27-33); Mean Corpuscular Volume 90.5 fl (82-101); Mean Platelet Volume 10.1 fL (7.4-10.4); Monocytes # 0.8 10^3/uL (0.2-0.9); Monocytes % 12.3 %; Neutrophils # 3.85 10^3/uL (1.8-7.7); Neutrophils % 63.4 %; Nucleated Red Blood Cells % 0 %; Platelet Count 211 10^3/cmm (157-399); Red Blood Count 3.38 10^6/uL (3.85-5.65); White Blood Count 6.08 10^3/uL (3.29-11.43)
[2023-01-15 03:41] LABS: Anion Gap 9.9 (5-19); Blood Urea Nitrogen 12 mg/dL (8-23); Calcium 7.9 mg/dL (8.5-10.5); Carbon Dioxide 30 mmol/L (22-29); Chloride 104 mmol/L (98-107); Glucose 116 mg/dL (65-115); Osmolality Calculated 291 mOsm/kg (285-295); Potassium 3.9 mmol/L (3.5-5.1); Sodium 140 mmol/L (136-145)
[2023-01-15] MEDS: regadenoson 0.4 Mg/5 ml Syringe IVP (07:31)
--- NOTE | 2023-01-15 08:00 | ECG_ITS ---
[facility] Test Date: 2023-01-15 Pat Name: Krzysztof Tay Department: Room: 101 Gender: Male [employer] Trainer: : 1940 Requested By: Porfirio Khanna Order Number: [id number] Raphael MD: Vinod Rabago M.D. Interpretive Statements NAME OF STUDY: LEXISCAN SESTAMIBI STRESS TEST INDICATION: CHF RESULTS TO WERNER GALLEGO PROCEDURE: At the baseline, the EKG revealed atrial fibrillation with right bundle branch block pattern. Some nonspecific ST-T changes. Controlled ventricular response rate.. The baseline heart was 99 bpm with a blood pressue of 119/58 mm of Hg Lexiscan was infused over a period of 20 seconds. A total of 0.4 milligrams of Lexiscan was infused. The stress phase was continued for a total of 5 minutes. Heart rate at the end of the stress phase was 133 bpm with a blood pressure 118/65 mm of Hg. The EKG at the peak infusion revealed [address] depressions in leads V3 to V6. Patient was complaining of some shortness of breath with the Lexiscan infusion Sestamibi was injected 20 seconds after the Lexiscan infusion. Heart rate at the end of the recovery phase was 128 bpm with a blood pressure of 118/65 mm of Hg. CONCLUSION: 1. Abnormal EKG response to LexiScan infusion suggesting anterolateral ischemia 2. No LexiScan induced chest pain or cardiac arrhythmia 3. Normal blood pressure and heart rate response 4. Sestamibi/sestamibi perfusion scan pending; see separate report. Electronically Signed On 01-15-2023 12:08:58 COMPOSITE ENGINEER by Vinod Rabago M.D. [id number]
[2023-01-15] MEDS: pantoprazole DR 40 mg Tablet PO ×2 (09:57→17:34)
[2023-01-15] MEDS: heparin 5,000 unit/mL INJ 1 mL 5000 UNIT SUBCUT (09:58)
[2023-01-15] MEDS: dilTIAZem 30 mg Tablet PO (09:58)
[2023-01-15] MEDS: sucralfate 1 gm/10 mL Oral Liq UDC PO ×3 (09:58→21:21)
[2023-01-15] MEDS: midodrine 5 mg TABLET PO ×2 (09:58→17:34)
[2023-01-15 10:30] LABS: D Dimer 3.19 ug/mLFEU (0-0.59)
--- NOTE | 2023-01-15 12:59 | PM.CONSULT ---
Providers/Reason For Consult Consulting Physician/Specialty*: Cardiology Reason for Consult*: Abnormal nuclear stress test Requesting Physician: Dr. Mays Attending Physician: Jet Dunn MD Primary Care Provider: Paolo Ng History of Present Illness History of Present Illness Krzysztof Tay is a 82 year old male with a history of chronic atrial fibrillation status post pacemaker well over a 15 years ago, admitted few days ago with a hypotension likely due to subacute blood loss. His hemoglobin was 6 on admission patient has been on Xarelto for chronic atrial fibrillation for a number of years. Patient subsequently was managed with the blood transfusion and he also had an upper and lower endoscopy endoscopy showed few new polyps otherwise no source of acute blood loss observed. Clinically patient is doing well and remained asymptomatic since. An echocardiogram showed normal LV function. His RV and pulmonary pressures are moderate to severely elevated with the tricuspid regurgitation. This is likely due to chronic single chamber RV pacing. For some unclear reason patient underwent a nuclear stress test. The stress test reported normal LV function, however there is a small to moderate size inferolateral reversible ischemia. A clinically patient denies any history of resting or exertional chest pain. Review of Systems Narrative: Detailed 10 point systemic review unremarkable except for as mentioned above in the history of present illness. Medications/Allergies Home Medications Medication Instructions Recorded Confirmed Last Taken Type albuterol sulfate 90 mcg/actuation 2 puff inhalation Q4H PRN 01/09/23 01/09/23 Unknown History aerosol inhaler Shortness Of Breath Or Wheezing atorvastatin 40 mg tablet 40 mg PO BEDTIME 01/09/23 01/09/23 01/08/23 History bisoprolol fumarate 5 mg tablet 5 mg PO DAILY 01/09/23 01/09/23 01/08/23 History budesonide-formoterol HFA 80 1 puff inhalation BID 01/09/23 01/09/23 01/08/23 History mcg-4.5 mcg/actuation aerosol inhaler (Symbicort) midodrine 5 mg tablet 5 mg PO DAILY 01/09/23 01/09/23 01/08/23 History rivaroxaban 20 mg tablet (Xarelto) 20 mg PO DAILY 01/09/23 01/09/23 01/08/23 History tamsulosin 0.4 mg capsule 0.4 mg PO DAILY 01/09/23 01/09/23 01/08/23 History Allergies Allergy/AdvReac Type Severity Reaction Status Date / Time No Known Allergies Allergy Unverified 01/09/23 13:05 Current Medications Generic Name Dose Route Start Last Admin Trade Name Asiya PRN Reason Stop Dose Admin Albuterol/Ipratropium 3 ml 01/09/23 20:00 01/15/23 07:43 Ipratropium-Albuterol 3 Ml Neb INHALATION Not Given Q6H.RESP RAJEEV Budesonide 0.5 mg 01/09/23 20:00 01/15/23 07:43 Budesonide 0.5 Mg/2 Ml Neb INHALATION Not Given BID.RESPIRATORY RAJEEV Ceftriaxone Sodium 1,000 mg/ 50 mls @ 100 mls/hr 01/09/23 17:22 01/14/23 20:11 Sodium Chloride IV Infused Q24H RAJEEV Infusion Protocol Midodrine 5 mg 01/15/23 09:00 01/15/23 09:58 Midodrine 5 Mg Tablet PO 5 mg BID RAJEEV Administration Pantoprazole Sodium 40 mg 01/12/23 18:00 01/15/23 09:[address] 40 Mg Tablet PO 40 mg BID RAJEEV Administration Sucralfate 1 gm 01/15/23 11:00 01/15/23 09:58 Sucralfate 1 Gm/10 Ml Oral Liq Udc PO 1 gm AC&BEDTIME RAJEEV Administration PFSH Acute PFSH: Medical History BPH (benign prostatic hyperplasia) Chronic anticoagulation COPD (chronic obstructive pulmonary disease) Nocturnal hypoxia Orthostatic hypotension Paroxysmal A-fib Stroke Social History Smoking and tobacco/nicotine status: current every day tobacco/nicotine user Marital status: Single Vitals/I&O/Wt Last Vital Signs Temp 97.8 F 01/15/23 04:49 Pulse 78 01/15/23 09:00 Resp 18 01/15/23 09:00 BP 129/80 01/15/23 09:00 Pulse Ox 97 01/15/23 09:00 O2 Del Method Nasal Cannula 01/15/23 04:49 O2 Flow Rate 2 01/14/23 20:32 01/14/23 01/15/23 01/15/23 22:59 06:59 14:59 Intake Total 320 / 620 Output Total 1700 / 3300 Balance -1380 / -2680 Weight last 48 hrs Weight 167 lb Weight 164 lb 3.2 oz Weight 164 lb 3.2 oz Weight 164 lb 3.2 oz Physical Exam Narrative: Patient is clinically asymptomatic. He is lying comfortably on his bed. No respiratory distress. Vitals reveal blood pressure 108/76, pulse atrial fibrillation heart rate 7200/min with intermittent ventricular pacing. HEENMT exam unremarkable Eyes normal Mildly elevated JVP with head and raised at 45 degrees. Lungs, clear to auscultation bilaterally. Cardiovascular exam: Irregular irregular pulse, atrial fibrillation. Normal first and second heart sounds. There is a mild systolic murmur of TR. Abdomen soft and nontender. Bowel sounds audible. Extremities: There is trace bilateral lower extremity edema. Skin: Warm and dry. Neuro: Grossly intact. Urinary Catheter Management: Gan: Cath Placed During This Visit: yes Reason for Continuing Indwelling Catheter: Accurate Measurement of Urinary Output in Critically Ill Patients Urinary Catheter Date of Insertion: 01/10/23 Urinary Catheter Time of Insertion: 05:39 Data 01/15/23 02:19 01/15/23 02:19 A&P Assessment and plan (1) Abnormal stress test: Plan 82-year-old male with long history of chronic atrial fibrillation, status post single-chamber RV pacing. Originally admitted with hypotension related to subacute GI bleed. Hemoglobin 6 on admission. Manage with the blood transfusion. Clinically no angina. Minimal right-sided heart failure symptoms which are well-managed with low-dose of diuretics. LVEF is normal on echo and a nuclear stress test. Nuclear stress test small to moderate size inferolateral ischemia Clinically patient is completely asymptomatic with no history of any angina at rest or during his normal routine activity. Recommendation: 1. As patient is not having any anginal symptoms and additionally with the recent history of significant low hemoglobin due to GI blood loss, I recommend medical management. 2. I noted the patient anticoagulation with Xarelto is held since admission which is appropriate. 3. I am going to adjust his medicine as follows. Stop his diltiazem and switch to metoprolol 25 mg twice a day. Also going to start him on him on low-dose of aspirin 81 mg once a day. I agree with the hospitalist team plan to observe him for 1 week and repeat hemoglobin and if hemoglobin remains stable then will restart him on anticoagulation. I suggest to consider changing Xarelto to apixaban because of less bleeding profile risk. Thanks for asking me to see this patient in consultation. Coding Level of Care Code Acute Code for Chg Fwd Diagnoses Abnormal stress test R94.39 Time Spent (min) 40
--- NOTE | 2023-01-15 14:17 | PM.PN ---
Subjective Subjective: Hospital course, labs appreciated. Today morning seen after cardiac stress test. Patient laying comfortably in bed. Denies any nausea, vomiting, headache, dizziness. States his breathing is at his baseline as well. Seen with family at bedside. Blood work appreciated for a stable hemoglobin of 9.4, creatinine of 0.5 Vitals/I&O/Wt Last Vital Signs Temp 97.8 F 01/15/23 04:49 Pulse 78 01/15/23 09:00 Resp 18 01/15/23 09:00 BP 129/80 01/15/23 09:00 Pulse Ox 97 01/15/23 09:00 O2 Del Method Nasal Cannula 01/15/23 04:49 O2 Flow Rate 2 01/14/23 20:32 01/14/23 01/15/23 01/15/23 22:59 06:59 14:59 Intake Total 320 / 620 Output Total 1700 / 3300 Balance -1380 / -2680 Weight last 48 hrs Weight 75.75 kg Weight 74.48 kg Weight 74.48 kg Weight 74.48 kg Physical Exam Const: COMMON NORMALS: patient oriented x3 and alert GENERAL APPEARANCE: cooperative ORIENTATION/CONSCIOUSNESS: Yes awake OTHER: Awake, alert, pleasant, interactive. HENMT: COMMON NORMALS: oropharynx normal OTHER: JVD Neck/C-Spine: COMMON NORMALS: no JVD Resp: COMMON NORMALS: normal respiratory effort and clear to auscultation bilaterally AUSCULTATION: clear to auscultation bilaterally Cardio: COMMON NORMALS: no JVD, regular rhythm, S1 normal heart sound present, S2 normal heart sound present and No murmurs present (Cardio) RATE: tachycardic RHYTHM: regular rhythm HEART SOUNDS: S1 normal heart sound present and S2 normal heart sound present GI: COMMON NORMALS: Normal to inspection, nondistended, normoactive bowel sounds present, Soft to palpation and non-tender PALPATION: Yes Soft to palpation Extremity: COMMON NORMALS: no joint enlargement GENERAL: Yes edema (Trace BL LE) Neuro: COMMON NORMALS: patient oriented x3 and moves all extremities SENSORIUM/ORIENTATION: Yes alert Skin: COMMON NORMALS: no rashes or lesions noted GENERAL SKIN EXAM: no rashes or lesions noted OTHER: Veouns stasis ulcers kristie stages of healing on BL LE Urinary Catheter Management: Gan: Cath Placed During This Visit: yes Reason for Continuing Indwelling Catheter: Accurate Measurement of Urinary Output in Critically Ill Patients Urinary Catheter Date of Insertion: 01/10/23 Urinary Catheter Time of Insertion: 05:39 Data 01/15/23 02:19 01/15/23 02:19 A&P Assessment and plan (1) Congestive heart failure: Most likely in setting of acute anemia on admission. Echocardiogram shows a normal EF of 65%, LVH, dilated RV with mildly reduced RV systolic function, moderate TR, mild [place], moderate to severe pulmonary hypertension. Patient euvolemic currently. Currently diuretics on hold because of borderline blood pressures. For now hold off on any further diuretics. DC Gan catheter. Fluid restriction up to 1500 cc, daily weights. (2) Acute anemia: Seen on admission. Hemoglobin stable currently. Post blood transfusion. Post EGD and colonoscopy, found to have few polyps without any active signs of bleeding. Protonix twice daily, add Carafate before meals and at bedtime. Hold off on anticoagulation with Xarelto for now. Most likely plan to restart anticoagulation in 7 to 10 days. Monitor hemoglobin daily. (3) Hypotension: With concerns of chronic orthostatic hypotension. Takes midodrine 5 mg daily at home. Goal blood pressure less than 140/90 mmHg with mean over 65. For now increase midodrine to 5 mg twice daily. Hold off on any further diuresis. (4) Abnormal stress test: Positive stress test on 01/15. Cardiology consulted. Appreciate recommendations. Given concerns for acute anemia on admission without any active chest pain or signs of angina, normal EF for now plan is to treat patient medically. Aspirin 81 mg daily. Home dose of statin. Start on metoprolol 25 mg twice daily. Check A1c, lipid panel. (5) Paroxysmal atrial fibrillation with RVR: With occasional episodes of RVR. History of pacemaker insertion. Start on metoprolol 25 mg twice daily. Restarting anticoagulation in a week given acute anemia on admission. (6) Hypoxia: Oxygen supplementation keeping saturation over 90%. Most likely in setting of congestive heart failure exacerbation from acute anemia along with COPD exacerbation. (7) Acute exacerbation of chronic obstructive pulmonary disease: Pulmicort twice daily, DuoNebs every 6 hours. Continue with IV ceftriaxone for now. Sputum culture requested. Respiratory viral panel negative. (8) Acute hyponatremia: Resolved. Suspected possible degree of hypervolemic hyponatremia Continue treatment of CHF as above. (9) Troponin level elevated: Reviewed troponin EKG, reviewed echocardiogram. He remains chest pain-free. Troponin series with somewhat flat trend. At some point may benefit from further risk stratification with stress testing once he is out of acute illness. Underlying coronary disease is possible with demand ischemia in the setting of anemia. Responded well to transfusion. (10) Fall: Fall from low height at home after he slipped out of bed. CT head, C-spine, shoulder x-ray and humerus x-ray reviewed. (11) Hyperkalemia: Resolved. (12) Orthostatic hypotension: On midodrine at home. Continue with increased frequency (13) Goals of care, counseling/discussion: Confirmed with patient and son at bedside. Would want attempted cardiopulmonary cessation in case of cardiopulmonary arrest. Names his children as surrogate decision makers in case could not make his own decision. Discussed discharge plan in detail. Plan for discharge to assisted living. Patient at baseline walks with a walker. Physical therapy evaluation. (14) Stroke: Reports prior history of CVA, incidentally noted on CT. (15) Pulmonary hypertension: Plan DC Gan Full code Cardiac diet, fluid restriction up to 1500 cc. Protonix for PUD prophylaxis SCDs for DVT prophylaxis. Attestations Medical Necessity Statement*: Requires further hospitalization for management of acute congestive heart failure in a patient with history of paroxysmal A-fib, acute anemia post blood transfusion, positive stress test while safe discharge planning to sought Diagnoses Congestive heart failure I50.9 Acute anemia D64.9 Hypotension I95.9 Abnormal stress test R94.39 Paroxysmal atrial fibrillation with RVR I48.0 Hypoxia R09.02 Acute exacerbation of chronic obstructive pulmonary disease J44.1 Acute hyponatremia E87.1 Troponin level elevated R79.89 Fall W19.XXXA Hyperkalemia E87.5 Orthostatic hypotension I95.1 Goals of care, counseling/discussion Z71.89 Stroke I63.9 Pulmonary hypertension I27.20
[2023-01-15] MEDS: ipratropium-albuterol 3 mL Neb INHALATION ×2 (14:48→21:24)
--- NOTE | 2023-01-15 15:05 | PC.SOCIAL ---
IMM Update pg 2 of IMM updated and reviewed w/ patient. Copy provided and copy in chart dated and initialed.
[2023-01-15] MEDS: cefTRIAXone 1,000 MG in sodium chloride 0.9% (plus) 50 ML 100 MG IV (17:34)
--- NOTE | 2023-01-15 18:18 | NMCV_ITS ---
NM christie perf SPECT r/s* [id number] Krzysztof Tay Age: 82 Gender: M : 1940 Exam Date: 01/15/2023 06:42 Ordering Phys: Pofririo Khanna MD Technologist: ISAEL Renee Exam Location: [facility] Indications: CHEST PAIN STRESS TEST Please see separate stress test report in [facility] for full findings IMAGE PROTOCOL Rest/Stress 1 Lexiscan Day Radiopharmaceutical Dose (mCi) Administration Site Administered by Rest: Tc-99m 10.7 IV ISAEL Fierro Sestamibi Stress:Tc-99m 32.6 IV ISAEL Fierro Sestamibi Rest: 15-Jan-2023 60 Discovery 630 Stress: 15-Jan-2023 30 Discovery 630 0.4mg Lexiscan. Supine position only as patient was unable to lay prone. SPECT RESULTS Technical Quality: Excellent Raw Data Analysis: Normal Image Corrections: No attenuation or motion correction applied Summed Stress Score: 4 Summed Rest Score: 0 Summed Difference Score: 4 PERFUSION FINDINGS A small to moderate area of moderately decreased tracer uptake was noted in the mid inferolateral and apical lateral region. Complete reversibility was noted in this region. FUNCTIONAL RESULTS (calculated via Gated SPECT) Stress Image LV EF (%): 60 Stress EDV (mL):86 TID: 0.88 Stress ESV (mL):34 FUNCTIONAL FINDINGS: Segmental wall motion analysis revealing no gross wall motion normalities IMPRESSIONS 1. Myocardial perfusion imaging revealing small to moderate area of reversible defect involving the mid inferolateral and apical lateral region, suggesting ischemia in the distribution of the left circumflex artery predominantly with a possible involvement of the right coronary artery. 2. Normal LV ejection fraction 60%. 3. LV wall motion analysis revealing no gross wall motion abnormalities. 4. Normal LV volume No similar previous studies are available for comparison Dr Vinod Rabago MD [facility] (Electronically Signed) Final Date: 15 January 2023 11:56 S
[2023-01-15] MEDS: metoprolol tartrate 25 mg Tablet PO (21:21)
[2023-01-15] MEDS: budesonide 0.5 mg/2 mL Neb INHALATION (21:25)
[2023-01-16] VITALS (10 sets, daily range): BP systolic 100–131; BP diastolic 49–72; PULSE 66–85; RESP 16–26; TEMP 36.8–37.2; O2SAT 95–99
[2023-01-16] MEDS: ipratropium-albuterol 3 mL Neb INHALATION ×3 (02:11→20:53)
[2023-01-16] MEDS: sucralfate 1 gm/10 mL Oral Liq UDC PO ×4 (06:18→22:37)
[2023-01-16 08:25] LABS: Chol HDL Ratio 2.21 mg/dL (1.0-5.00); Cholesterol 86 mg/dL (0-200); HDL Cholesterol 39 mg/dL (60-100); LDL Cholesterol Calculated 38 mg/dL (50-129); Magnesium 2.1 mg/dL (1.7-2.3); Triglycerides 47 mg/dL (0-150); VLDL Cholestrol Calculation 9 mg/dL (0-30)
[2023-01-16 08:27] LABS: Alanine Aminotransferase 14 U/L (0-41); Albumin Level 2.8 g/dL (3.5-5.2); Alkaline Phosphatase 73 U/L (40-130); Anion Gap 11.8 (5-19); Aspartate Amino Transferase 19 U/L (0-40); Blood Urea Nitrogen 14 mg/dL (8-23); Calcium 7.9 mg/dL (8.5-10.5); Carbon Dioxide 30 mmol/L (22-29); Chloride 103 mmol/L (98-107); Globulin 2.9 g/dL (1.3-4.6); Glucose 107 mg/dL (65-115); Osmolality Calculated 293 mOsm/kg (285-295); Potassium 3.8 mmol/L (3.5-5.1); Sodium 141 mmol/L (136-145); Total Bilirubin 0.5 mg/dL (0.15-1.2); Total Protein 5.7 g/dL (6.6-8.7)
[2023-01-16 08:28] LABS: Estmated Average Glucose 94; Folate Level 8.6 ng/mL (4.5-32.2); Hemoglobin A1C 4.9 % (4.0-6.0)
[2023-01-16] MEDS: pantoprazole DR 40 mg Tablet PO ×2 (08:45→17:24)
[2023-01-16] MEDS: midodrine 5 mg TABLET PO ×2 (08:45→17:17)
[2023-01-16] MEDS: metoprolol tartrate 25 mg Tablet PO ×2 (08:45→22:37)
[2023-01-16] MEDS: aspirin 81 mg EC Tablet PO (08:45)
[2023-01-16] MEDS: budesonide 0.5 mg/2 mL Neb INHALATION ×2 (09:06→20:53)
--- NOTE | 2023-01-16 09:11 | PM.DCS ---
Discharge Providers Date of Admission: 01/09/23 15:50 Date of Discharge: January 16, 2023 Attending Provider at Admission: Porfirio Khanna Attending Provider at Discharge: Jet Dunn MD Consults: Surgery: Dr. Tejeda Cardiology: Dr. Alves Primary Care Provider: Paolo Ng Diagnoses at Discharge Discharge Diagnosis (1) Congestive heart failure: Status: Acute Qualifiers: Heart failure type: diastolic Heart failure chronicity: acute on chronic Qualified Code(s): I50.33 - Acute on chronic diastolic (congestive) heart failure (2) Acute anemia: Status: Acute (3) Hypotension: Status: Acute Qualifiers: Hypotension type: orthostatic hypotension Qualified Code(s): I95.1 - Orthostatic hypotension (4) Abnormal stress test: Status: Acute (5) Paroxysmal atrial fibrillation with RVR: Status: Acute (6) Hypoxia: Status: Acute (7) Acute exacerbation of chronic obstructive pulmonary disease: Status: Acute (8) Acute hyponatremia: Status: Acute (9) Troponin level elevated: Status: Acute (10) Fall: Status: Acute (11) Hyperkalemia: Status: Acute (12) Orthostatic hypotension: Status: Acute (13) Goals of care, counseling/discussion: Status: Acute (14) Stroke: Status: Acute (15) Pulmonary hypertension: Status: Acute Reason for Visit Reason for Visit: fell, sob, hurt right leg Brief History: History as per HPI: 82-year-old gentleman with history of COPD, atrial fibrillation on anticoagulation, stroke, active smoking, BPH, orthostatic hypotension presents due to progressive dyspnea, exertional intolerance, intermittent productive cough over the previous 5 days, leg swelling. Reportedly has history of congestive heart failure although has not been taking diuretics. Last time he took his medications including Xarelto was yesterday morning. This morning he also slipped out of bed onto the floor without hitting his head or neck down from about 1-1/2 feet of height. In ER he was found hypotensive, blood pressure down to 86/49, lowest 74/39, with tachycardia with atrial fibrillation heart rate 120s initially, with hypoxia, saturation 85% on room air, normally wearing oxygen 1 L at night only, here requiring 2 L by nasal cannula, with tachypnea 22-27. With noted new anemia, hemoglobin 6.1, MCV 92.3, platelets 285. BUN 52, creatinine 1.2. INR 2.32. Noted hyponatremia, 128, hyperkalemia 5.5. Liver parameters unremarkable. ABG 7.39/32.6/92.8/19.5. Baseline troponin 109, 2-hour troponin 104.2. NT proBNP 4853. Chest x-ray with no acute cardiopulmonary disease, trace pleural effusions. Head CT with old right frontal infarct of which she states she is aware. Acute CT C-spine. No acute humerus and right shoulder x-rays. Hospital Course Hospital Course Patient was admitted to the hospital further evaluation and management of acute anemia leading to possible hemorrhagic shock on admission, hypoxia and symptoms consistent with congestive heart failure, hyponatremia. On elevated troponins. He was admitted to the ICU, transfused 1 unit of PRBC aggressive IV diuresis. With IV diuresis his symptoms of congestive heart failure with hypoxia and acute hyponatremia resolved gradually. Once patient became hemodynamically stable surgery was consulted and he underwent EGD and colonoscopy on 01/13 which did not show any active signs of bleeding and 3 polyps were snared on colonoscopy. After blood transfusion his hemoglobin remained stable. Echocardiogram was done which showed an EF of 65% with dilated RV and RA with mildly reduced RV systolic function, mild pulmonary valve regurgitation. Patient underwent cardiac stress test on 01/15 which was read to be positive with features persistent with ischemia in LCx territory. Cardiology was consulted who advised patient for medical treatment for now given recent admission with acute anemia. Patient was started on baby aspirin and beta-amy. Otherwise patient's hospitalization has remained unremarkable. Safe discharge plan was discussed in detail with the patient and family requested for transfer to assisted living. Patient is to restart his home anticoagulation in 1 week. He is to repeat hemoglobin in 1 week from restarting anticoagulation. If hemoglobin remained stable he is to follow-up with cardiology as an outpatient within next 1 month for possibility of cardiac angiogram. Discharge plan was discussed in detail with patient and patient's family at bedside and they verbalized understanding. Physical Exam Const: COMMON NORMALS: patient oriented x3 and alert GENERAL APPEARANCE: cooperative ORIENTATION/CONSCIOUSNESS: Yes awake OTHER: Awake, alert, pleasant, interactive. HENMT: COMMON NORMALS: oropharynx normal OTHER: JVD Neck/C-Spine: COMMON NORMALS: no JVD Resp: COMMON NORMALS: normal respiratory effort and clear to auscultation bilaterally AUSCULTATION: clear to auscultation bilaterally Cardio: COMMON NORMALS: no JVD, regular rhythm, S1 normal heart sound present, S2 normal heart sound present and No murmurs present (Cardio) RATE: tachycardic RHYTHM: regular rhythm HEART SOUNDS: S1 normal heart sound present and S2 normal heart sound present GI: COMMON NORMALS: Normal to inspection, nondistended, normoactive bowel sounds present, Soft to palpation and non-tender PALPATION: Yes Soft to palpation Extremity: COMMON NORMALS: no joint enlargement GENERAL: Yes edema (Trace BL LE) Neuro: COMMON NORMALS: patient oriented x3 and moves all extremities SENSORIUM/ORIENTATION: Yes alert Skin: COMMON NORMALS: no rashes or lesions noted GENERAL SKIN EXAM: no rashes or lesions noted OTHER: Veouns stasis ulcers kristie stages of healing on BL LE Urinary Catheter Management: Gan: Cath Placed During This Visit: yes Reason for Continuing Indwelling Catheter: Accurate Measurement of Urinary Output in Critically Ill Patients Urinary Catheter Date of Insertion: 01/10/23 Urinary Catheter Time of Insertion: 05:39 Discharge Data Studies Completed and Pending Completed Studies During Hospitalization Category Date Time Status CT angio chest w abd pel w con Stat Cat Scan 01/09/23 14:[address] cervical spin wo con* [id number] Stat Cat Scan 01/09/23 13:[address] head wo con* [id number] Stat Cat Scan 01/09/23 13:07 Completed Cardiac Stress Test MIBI [Sestamibi Stress Test Request Exams 01/15/23 08:00 Completed ] Routine XR chest 1V portable [id number] Stat Exams 01/09/23 12:35 [place] [id number] Stat Exams 01/09/23 13:11 Completed XR shoulder RT min 2V* [id number] Stat Exams 01/09/23 13:11 Completed NM christie perf SPECT r/s* [id number] Routine Nuc Med 01/15/23 18:18 Completed CV. echo complete* [id number] Routine Ultrasound 01/09/23 17:22 Completed Pending at discharge Category Date Time Status Complete Blood Count w/Auto AM LABS Lab 01/16/23 04:15 Results Leukocyte Reduced RBC Stat Lab 01/09/23 13:24 Results MAG [Magnesium] AM LABS Lab 01/17/23 04:00 Ordered MAG [Magnesium] AM LABS Lab 01/18/23 04:00 Ordered Occult Blood Stool [Immunochemical Fecal OCB] Routine Lab 01/10/23 19:07 Uncollected Sputum Culture and Gram Stain Routine Lab 01/09/23 17:22 Uncollected Type and Screen Stat Lab 01/09/23 13:24 Results Pathology: Surgical [PTH] Routine Pth 01/13/23 08:28 Received Radiology Impressions Chest X-Ray 01/09/23 12:35 IMPRESSION: No acute cardiopulmonary disease. Possible trace pleural effusions Cervical Spine CT 01/09/23 13:07 IMPRESSION: 1. No acute findings. 2. No acute traumatic injury. Head CT 01/09/23 13:07 IMPRESSION: No acute intracranial abnormality. Old right frontal infarct. Humerus X-Ray 01/09/23 13:11 IMPRESSION: No acute abnormality. Shoulder X-Ray 01/09/23 13:11 IMPRESSION: Degenerative changes. Chest/Abdomen/Pelvis CT 01/09/23 14:17 IMPRESSION: Bilateral pleural effusions. IMPRESSION: 1. 4.7 cm infrarenal abdominal aortic aneurysm without evidence of rupture. 2. No acute subdiaphragmatic pathology. COMMENTS: 1. For patients with an IVC filter, recommend assessment for a management plan for the patient's IVC filter. If there is no established management plan, recommend referral to an interventional clinician on a nonemergent basis for evaluation. 2. Consistent with the [employer]'s Incidental Findings Committee white paper (J Am Ha Radiol 2018): Any incidental renal lesion less than 1 cm or classified as too small to characterize, or any incidental cystic renal lesion characterized as simple-appearing, is likely benign. No follow-up imaging is recommended for these lesions per consensus recommendations based on imaging criteria. Echocardiogram: CONCLUSIONS 1. Mild concentric LVH. Normal LV systolic function. LVEF 65%. 2. Dilated RV with mildly reduced RV systolic function. Dilated RA. There is a pacer wire in the RV 3. Severe tricuspid regurgitation with elevated RV and pulmonary pressures. Moderately severe pulmonary hypertension, pulmonary pressures 50 to 55 mmHg. Mercy Alves MD (Electronically Signed) Final Date: 10 January 2023 Laboratory Results WBC 6.08 10^3/uL (3.29-11.43) 01/15/23 02:19 RBC 3.38 10^6/uL (3.85-5.65) L 01/15/23 02:19 Hgb 9.40 g/dL (11.27-16.99) L 01/15/23 02:19 Hct 30.6 % (37-53) L 01/15/23 02:19 MCV 90.5 fl (82-101) 01/15/23 02:19 MCH 27.8 pg (27-33) 01/15/23 02:19 MCHC 30.7 g/dL (30-55) 01/15/23 02:19 RDW 18.0 % (12.1-15.1) H 01/15/23 02:19 Plt Count 211 10^3/cmm (157-399) 01/15/23 02:19 MPV 10.1 fL (7.4-10.4) 01/15/23 02:19 Neut % (Auto) 63.4 % 01/15/23 02:19 Lymph % (Auto) 15.1 % 01/15/23 02:19 Hudson % (Auto) 12.3 % 01/15/23 02:19 Eos % (Auto) 7.7 % 01/15/23 02:19 Baso % (Auto) 1.0 % 01/15/23 02:19 Neut # (Auto) 3.85 10^3/uL (1.8-7.7) 01/15/23 02:19 Lymph # (Auto) 0.9 10^3/uL (0.8-4.8) 01/15/23 02:19 Hudson # (Auto) 0.8 10^3/uL (0.2-0.9) 01/15/23 02:19 Eos # (Auto) 0.5 10^3/uL (0.0-0.8) 01/15/23 02:19 Baso # (Auto) 0.1 10^3/uL (0.0-0.1) 01/15/23 02:19 Nucleated RBC % (auto) 0 % 01/15/23 02:19 Nucleated RBCs # 0.0 /100WBC 01/15/23 02:19 PT 26.30 SECONDS (12.1-14.9) H 01/09/23 12:28 INR 2.32 (0.8-1.2) H 01/09/23 12:28 D-Dimer 3.19 ug/mLFEU (0-0.59) H 01/15/23 10:08 Specimen Type Arterial 01/09/23 13:21 Sample Site Brachial, right 01/09/23 13:21 ABG pH 7.39 (7.35-7.45) 01/09/23 13:21 ABG pCO2 32.6 mmHg (35-45) L 01/09/23 13:21 ABG pO2 92.8 mmHg (80.0-100.0) 01/09/23 13:21 ABG HCO3 19.5 mmol/L (22-26) L 01/09/23 13:21 ABG Base Excess -5.0 mmol/L (-2.0-2.0) L 01/09/23 13:21 Jcarlos Test N/a 01/09/23 13:21 Hematocrit 19.0 % (42-52) L 01/09/23 13:21 Hgb O2 Saturation 94.1 % (95-100) L 01/09/23 13:21 Carboxyhemoglobin 3.7 %THgb (0.4-20.1) 01/09/23 13:21 Methemoglobin 0.4 % (0.4-1.5) 01/09/23 13:21 Total Hemoglobin 6.2 g/dL (14-18) L 01/09/23 13:21 O2 Delivery Device Nc 01/09/23 13:21 O2 Liters/Min 2.0 % 01/09/23 13:21 Radio Host ID Ascencion 01/09/23 13:21 Sodium 141 mmol/L (136-145) 01/16/23 04:15 Potassium 3.8 mmol/L (3.5-5.1) 01/16/23 04:15 Chloride 103 mmol/L (98-107) 01/16/23 04:15 Carbon Dioxide 30 mmol/L (22-29) H 01/16/23 04:15 Anion Gap 11.8 (5-19) 01/16/23 04:15 BUN 14 mg/dL (8-23) 01/16/23 04:15 Creatinine 0.6 mg/dL (0.7-1.2) L 01/16/23 04:15 GFR Calculation Not Reportable 01/16/23 04:15 Glucose 107 mg/dL (65-115) 01/16/23 04:15 Estimat Average Glucose 94 01/16/23 04:15 Hemoglobin A1c 4.9 % (4.0-6.0) 01/16/23 04:15 Calculated Osmolality 293 mOsm/kg (285-295) 01/16/23 04:15 Calcium 7.9 mg/dL (8.5-10.5) L 01/16/23 04:15 Magnesium 2.1 mg/dL (1.7-2.3) 01/16/23 04:15 Iron 16 ug/dL (59-158) L 01/09/23 12:28 TIBC 300 mcg/dl 01/09/23 12:28 % Saturation 5.3 % (20-50) L 01/09/23 12:28 Unsat Iron Binding 284 ug/dL (112-347) 01/09/23 12:28 Ferritin 59 ng/mL (30-400) 01/09/23 12:28 Total Bilirubin 0.5 mg/dL (0.15-1.2) 01/16/23 04:15 AST 19 U/L (0-40) 01/16/23 04:15 ALT 14 U/L (0-41) 01/16/23 04:15 Alkaline Phosphatase 73 U/L (40-130) 01/16/23 04:15 Creatine Kinase 297 U/L (39-308) 01/11/23 03:18 Troponin T Baseline 109 ng/L (0-15) H* 01/09/23 12:28 Troponin T 120 Minute 104.2 ng/L (0-15) H 01/09/23 14:28 Delta Troponin T -4.8 ABS# (0-10) L 01/09/23 14:28 Troponin T Hi Sens 6Hr 80.01 ng/L (0-15) H 01/09/23 19:00 Troponin T Hi Sens 6Hr Delta -28.99 ng/L (0-12) L 01/09/23 19:00 NT-Pro-B Natriuret Pep 4853 pg/mL (0-450) H 01/09/23 12:28 Total Protein 5.7 g/dL (6.6-8.7) L 01/16/23 04:15 Albumin 2.8 g/dL (3.5-5.2) L 01/16/23 04:15 Globulin 2.9 g/dL (1.3-4.6) 01/16/23 04:15 Triglycerides 47 mg/dL (0-150) 01/16/23 04:15 Cholesterol 86 mg/dL (0-200) 01/16/23 04:15 LDL Cholesterol, Calc 38 mg/dL (50-129) L 01/16/23 04:15 Total VLDL Cholesterol 9 mg/dL (0-30) 01/16/23 04:15 HDL Cholesterol 39 mg/dL (60-100) L 01/16/23 04:15 Cholesterol/HDL Ratio 2.21 mg/dL (1.0-5.00) 01/16/23 04:15 Vitamin B12 687 pg/mL (232-1245) 01/09/23 12:28 Folate 8.6 ng/mL (4.5-32.2) 01/16/23 04:15 TSH 3.37 uIU/mL (0.27-4.20) 01/09/23 12:28 Nasal Influ A H1 2009 PCR Not detected (NOT DETECT) 01/09/23 18:30 Adenovirus (PCR) Not detected (NOT DETECT) 01/09/23 18:30 C. pneumoniae DNA (PCR) Not detected (NOT DETECT) 01/09/23 18:30 Coronavirus 229E (PCR) Not detected (NOT DETECT) 01/09/23 18:30 Human Metapneumovir PCR Not detected (NOT DETECT) 01/09/23 18:30 Influenza A (H1) PCR Not detected (NOT DETECT) 01/09/23 18:30 Influenza A (H3) PCR Not detected (NOT DETECT) 01/09/23 18:30 Influenza Type A (PCR) Not detected (NOT DETECT) 01/09/23 18:30 Influenza Type B (PCR) Not detected (NOT DETECT) 01/09/23 18:30 M. pneumoniae (PCR) Not detected (NOT DETECT) 01/09/23 18:30 Parainfluenza 1 (PCR) Not detected (NOT DETECT) 01/09/23 18:30 Parainfluenza 2 (PCR) Not detected (NOT DETECT) 01/09/23 18:30 Parainfluenza 3 (PCR) Not detected (NOT DETECT) 01/09/23 18:30 Parainfluenza 4 (PCR) Not detected (NOT DETECT) 01/09/23 18:30 RSV Type A (PCR) Not detected (NOT DETECT) 01/09/23 18:30 RSV Type B (PCR) Not detected (NOT DETECT) 01/09/23 18:30 Entero/Rhino (PCR) Not detected (NOT DETECT) 01/09/23 18:30 SARS-CoV-2 (PCR) Not detected (NOT DETECT) 01/09/23 18:30 Blood Type AB Positive 01/09/23 13:24 Rho(D) Type Rh positive 01/09/23 13:24 Antibody Screen Negative 01/09/23 13:24 Crossmatch See Detail 01/09/23 13:24 Vitals Last Vital Signs Temp 98.4 F 01/16/23 08:50 Pulse 74 01/16/23 09:06 Resp 18 01/16/23 09:06 BP 131/72 01/16/23 08:50 Pulse Ox 95 01/16/23 09:06 O2 Del Method Nasal Cannula 01/16/23 09:06 O2 Flow Rate 2 01/16/23 09:06 Discharge Plan Discharge Patient Disposition: Xfer Other Condition: Stable Prescriptions: New pantoprazole 40 mg Tablet,Delayed Release (Dr/Ec) 40 mg PO BID Qty: 60 0RF Rx Instructions: Twice daily for 2 weeks, daily after that sucralfate 100 mg/mL Suspension 1 g PO AC&BEDTIME 30 Days Qty: 1000 0RF metoprolol tartrate 25 mg Tablet 25 mg PO BID@0900,2100 Qty: 60 0RF aspirin 81 mg Tablet,Delayed Release (Dr/Ec) 81 mg PO DAILY Qty: 30 0RF Continued atorvastatin 40 mg tablet 40 mg PO BEDTIME tamsulosin 0.4 mg capsule 0.4 mg PO DAILY albuterol sulfate 90 mcg/actuation HFA aerosol inhaler 2 puff INHALATION Q4H PRN (Reason: Shortness Of Breath Or Wheezing) Symbicort 80-4.5 mcg/actuation HFA aerosol inhaler 1 puff INHALATION BID Changed midodrine 5 mg tablet 5 mg PO BID Qty: 30 0RF Held Xarelto 20 mg tablet 20 mg PO DAILY Hold Instructions: Resume on 01/23/23. Discontinued bisoprolol fumarate 5 mg tablet 5 mg PO DAILY Discharge Orders: Discharge Order (Routine); Ordered 01/16/23 Ordered By: Jet Dunn Referrals: Paolo Ng MD [Primary Care Provider] - 7-10 days Marcela Weinstein FNP [Nurse Practitioner] - 1 month Discharge Diet: Cardiac Discharge Activity: Resume usual activity and Increase activity as tolerated Patient Instructions: Metoprolol (By mouth) (Lopressor, Toprol XL), Sucralfate (By mouth) (Carafate), Aspirin (By mouth), Pantoprazole (By mouth) (Protonix), Heart Failure (DC), Anemia (DC), CHF Stoplight, GI Discharge Instructions, Opioid Safety Activity Restrictions/Additional Instructions: Take Protonix twice daily for next 2 weeks followed by once daily. Take Carafate before meals and at bedtime for next 4 weeks. Restart anticoagulation with Xarelto in 1 week. After restarting anticoagulation you should recheck your hemoglobin in 1 week. Please follow-up with a primary care provider within next 10 days. Please follow-up with cardiology within next 1 month. Discharge Attestations Time Spent in Discharge Care*: greater than 30 min Specific Discharge Activities: educating patient, educating and/or supporting family/caregiver, discussing with pcp/other providers, discussing with welfare case worker/social workers/dc planners, documenting/other paperwork and evaluating patient/reviewing data Quality Metrics Clinical Quality Measures [ No reported AMI, CVA or VTE this stay] Coding Level of Care Code 53247 Total time (in minutes) for Discharge: 60 Diagnoses Acute on chronic diastolic congestive heart failure I50.33 Heart failure type: diastolic Heart failure chronicity: acute on chronic Acute anemia D64.9 Orthostatic hypotension I95.1 Hypotension type: orthostatic hypotension Abnormal stress test R94.39 Paroxysmal atrial fibrillation with RVR I48.0 Hypoxia R09.02 Acute exacerbation of chronic obstructive pulmonary disease J44.1 Acute hyponatremia E87.1 Troponin level elevated R79.89 Fall W19.XXXA Hyperkalemia E87.5 Orthostatic hypotension I95.1 Goals of care, counseling/discussion Z71.89 Stroke I63.9 Pulmonary hypertension I27.20
[2023-01-16 09:19] LABS: Basophils # 0.1 10^3/uL (0.0-0.1); Basophils % 1.2 %; Eosinophils # 0.3 10^3/uL (0.0-0.8); Hematocrit 31.3 % (37-53); Lymphocytes # 0.9 10^3/uL (0.8-4.8); Lymphocytes % 14.9 %; Mean Corpuscular Hemoglobin 27.6 pg (27-33); Mean Corpuscular Volume 92.1 fl (82-101); Mean Platelet Volume 10.7 fL (7.4-10.4); Monocytes # 0.7 10^3/uL (0.2-0.9); Monocytes % 12.1 %; Neutrophils # 3.71 10^3/uL (1.8-7.7); Neutrophils % 65.1 %; Nucleated Red Blood Cells % 0 %; Platelet Count 200 10^3/cmm (157-399); Red Cell Distribution Width 17.8 % (12.1-15.1)
--- NOTE | 2023-01-16 12:18 | PC.NURSE ---
Ambulated pt with a FWW approx 60ft without any difficulty noted. CM notified and aware. Also, have spoken to CM concerning the pt's oxygen requirements and the need for oxygen to be set up.
--- NOTE | 2023-01-16 14:28 | PC.NURSE ---
Went to pt's room to d/c pt and his [place] take [place] anywhere to be found at this time. Pt did not want ,e to d/c his IV at this time and said that his daughter should be back later. I know the daughter had said something about needing to do something with cattle at 3 or 4 PM. With that being said..... the pt has no ride to [place] until she arrives back to the hospital in [place] that is what has happened.
[2023-01-16] MEDS: cefTRIAXone 1,000 MG in sodium chloride 0.9% (plus) 50 ML 100 MG IV (17:18)
--- NOTE | 2023-01-16 18:39 | PC.NURSE ---
Dr. Dunn called the floor and instructed nurses not to discharge the patient this evening but keep discharge orders in place. Also instructed not to place reeves but to continue to bladder scan throughout the night. Instructions passed on to Pilar Cohen RN and Yair Valdovinos RN.
--- NOTE | 2023-01-17 00:59 | PC.NURSE ---
patient urinated 125 mL at 1900, as of 99 patient has had total of 300 mL output.
[2023-01-17 02:31] VITALS: PULSE 66; RESP 18; O2SAT 95
[2023-01-17] MEDS: ipratropium-albuterol 3 mL Neb INHALATION (02:31)
[2023-01-17 03:35] VITALS: BP 113/57; PULSE 76; RESP 19; TEMP 36.5; O2SAT 95
[2023-01-17 04:14] LABS: Magnesium 1.9 mg/dL (1.7-2.3)
[2023-01-17 06:00] VITALS: PULSE 64
[2023-01-17] MEDS: sucralfate 1 gm/10 mL Oral Liq UDC PO (06:06)
[2023-01-17] MEDS: midodrine 5 mg TABLET PO (07:56)
[2023-01-17] MEDS: aspirin 81 mg EC Tablet PO (07:57)
[2023-01-17] MEDS: pantoprazole DR 40 mg Tablet PO (07:57)
[2023-01-17] MEDS: metoprolol tartrate 25 mg Tablet PO (07:57)
--- NOTE | 2023-01-17 08:18 | PC.NURSE ---
report called to [facility] per staff they don't have an oxygen tank availability in their facility. per staff they will call our immigration case manager kaitlynn rios. provided staff with our phone#.
== END 2023-01-17 08:17 | disposition skilled nursing facility (03) | DRG 811 ==
LOC: ER 14:18 → ICU 15:51 → CSU 01-10 12:57
PROVIDERS: Surgery; Admitting Provider Internal Medicine; Emergency Provider Internal Medicine; PCP Family Medicine; Visit Provider Student in an Organized Health Care Education/Training Program
PROC: 0DJ08ZZ Inspection of Upper Intestinal Tract, Via Natural or Artificial Opening Endoscopic (ICD-10-PCS; CPT 43235; principal; 2023-01-13 08:00)
PROC: 0DJD8ZZ Inspection of Lower Intestinal Tract, Via Natural or Artificial Opening Endoscopic (ICD-10-PCS; CPT 45378; 2023-01-13 08:00)
DX: D64.9 Anemia, unspecified (principal); I50.33 Acute on chronic diastolic (congestive) heart failure; J44.1 Chronic obstructive pulmonary disease with (acute) exacerbation; E87.1 Hypo-osmolality and hyponatremia; K92.1 Melena; I24.89 Other forms of acute ischemic heart disease; I11.0 Hypertensive heart disease with heart failure; W06.XXXA Fall from bed, initial encounter; I95.1 Orthostatic hypotension; I48.0 Paroxysmal atrial fibrillation; R09.02 Hypoxemia; E87.5 Hyperkalemia; I27.20 Pulmonary hypertension, unspecified; N40.0 Benign prostatic hyperplasia without lower urinary tract symptoms; I25.10 Atherosclerotic heart disease of native coronary artery without angina pectoris; I87.8 Other specified disorders of veins; I71.43 Infrarenal abdominal aortic aneurysm, without rupture; R94.39 Abnormal result of other cardiovascular function study; R79.89 Other specified abnormal findings of blood chemistry; D12.5 Benign neoplasm of sigmoid colon; Z72.0 Tobacco use; Z95.0 Presence of cardiac pacemaker; Z11.52 Encounter for screening for COVID-19; Z86.73 Personal history of transient ischemic attack (TIA), and cerebral infarction without residual deficits; Z99.81 Dependence on supplemental oxygen
CPT/HCPCS: 36415; 36430; 36600; 43235; 51702; 51798; 70450; 71045; 71275; 72125; 73030; 73060; 74177; 78452; 80048; 80053; 80061; 82274; 82550; 82607; 82728; 82746; 82805; 83036; 83540; 83550; 83735; 83880; 84443; 84478; 84484; 85014; 85018; 85025; 85378; 85610; 86850; 86900; 86920; 87486; 87581; 87633; 88305; 93005; 93010; 93017; 93306; 94640; 94664; 96361; 96372; 96374; 96375; 96376; 99285; A9500; C9113; J0696; J1644; J1940; J2704; J2785; J2930; J3475; J7030; J7626; P9016; P9046; Q9967

== ENCOUNTER 2023-02-08 17:30 | Inpatient (IN) | payer MEDICARE, SELFPAY ==
[2023-02-08] VITALS (8 sets, daily range): BP systolic 98–132; BP diastolic 50–73; PULSE 55–97; RESP 16–28; TEMP 36.5–37.1; O2SAT 94–100; BMI 19.9; BMI 19.5
--- NOTE | 2023-02-08 17:37 | XRR_ITS ---
PROCEDURE INFORMATION: Exam: XR Chest Exam date and time: 02/08/2023 6:04 PM Age: 82 years old Clinical indication: Shortness of breath; Additional info: SOB TECHNIQUE: Imaging protocol: Radiologic exam of the chest. Views: 1 view. COMPARISON: CT angio chest w abd pel w con 01/09/2023 2:40 PM FINDINGS: Lungs: Vague right basilar opacity obscuring the margins of the right hemidiaphragm may be due to infiltrate and/or atelectasis. Cannot exclude a small accompanying pleural effusion. Lung cornejo are otherwise clear. Pleural spaces: See Lungs finding. No pneumothorax. Heart/Mediastinum: Unremarkable. No cardiomegaly. Bones/joints: Unremarkable. Normal appearing pacemaker hardware. XR/XR chest 1V portable [id number] IMPRESSION: Vague right basilar opacity obscuring the margins of the right hemidiaphragm may be due to infiltrate and/or atelectasis. Cannot exclude a small accompanying pleural effusion.
--- NOTE | 2023-02-08 17:39 | ED_ITS ---
HPI - SOB/Dyspnea 2 General: Chief Complaint: Shortness of Breath/Dyspnea Stated Complaint: COPD EXACERBATION Time Seen by Provider: 02/08/23 17:31 Source: patient and EMS Mode of arrival: EMS Limitations: no limitations History of Present Illness: HPI Narrative: 82-year-old male who is here from assist ed living has a history of COPD is on 2 L at baseline and because he has not had increasing shortness of breath and cough. Nursing had him on 8 L EMS and placed him on for and given breathing treatment states he is feeling improved he has had a cough he denies fever denies chest pain. Associated symptoms: Deny abdominal pain, chest pain, fever(s), nausea or vomiting Review of Systems 2 Const: Denies: fever(s) or chills ENMT: Denies: throat pain or dental pain Card: Denies: chest pain Resp: Reports: dyspnea and wheezing GI: Denies: abdominal pain, nausea, vomiting or diarrhea Musc: Denies: neck pain or back pain Skin/Breast: Denies: rash Neuro: Denies: headache(s) PFSH ED 2 PFSH: Medical History Malnutrition of moderate degree GI bleed Hyperkalemia Fall Troponin level elevated Acute hyponatremia BPH (benign prostatic hyperplasia) Orthostatic hypotension Stroke Chronic anticoagulation Paroxysmal A-fib Nocturnal hypoxia COPD (chronic obstructive pulmonary disease) Social History Smoking and tobacco/nicotine status: current every day tobacco/nicotine user Marital status: Single Physical Exam 2 Const: COMMON NORMALS: patient oriented x3 GENERAL APPEARANCE: in distress HENMT: COMMON NORMALS: normocephalic and atraumatic HEAD & SCALP: n ormocephalic and atraumatic Eye: COMMON NORMALS: Equal, round and reactive pupils present and EOMs intact bilaterally PUPIL: Yes Equal, round and reactive pupils present Neck/C-Spine: COMMON NORMALS: full ROM and supple Chest: COMMONS NORMALS: normal inspection of the chest and normal palpation of entire chest wall Resp: COMMON NORMALS: No retractions EFFORT & INSPECTION: Yes respiratory distress AUSCULTATION: rales Cardio: COMMON NORMALS: regular rate, regular rhythm and No murmurs present (Cardio) RATE: regular rate RHYTHM: regular rhythm GI: COMMON NORMALS: Normal to inspection, nondistended, normoactive bowel sounds present, Soft to palpation, non-tender and no masses PALPATION: Yes Soft to palpation Extremity: COMMON NORMALS: normal to inspection and full ROM Neuro: COMMON NORMALS: patient oriented x3, moves all extremities and no focal motor deficits Psych: COMMON NORMALS: mental status grossly normal, Normal thought process present and cooperative THOUGHT PROCESS: Normal thought process present Skin: COMMON NORMALS: no rashes or lesions noted and no wounds GENERAL SKIN EXAM: no rashes or lesions noted Course 2 Vital Signs: Vital signs: Vital Signs Temperature 98.8 F 02/08/23 17:35 Pulse Rate 97 02/08/23 18:24 Respiratory Rate 28 H 02/08/23 18:24 Blood Pressure 106/53 02/08/23 18:24 Pulse Oximetry 98 02/08/23 18:24 Oxygen Delivery Me thod Nasal Cannula 02/08/23 18:24 Oxygen Flow Rate 2 02/08/23 18:24 MDM - SOB/Dyspnea Medical Decision Making Patient presents here with shortness of breath he has a history of COPD x-ray shows right lower lobe pneumonia I spoke to hospitalist and will admit at this time. Does have elevated troponin he has chronic elevated troponins likely from his CHF he has no chest pain here we will trend. Medical Records I reviewed the patient's medical records. Lab Data I reviewed the patient's lab results. 02/08/23 17:17 02/08/23 17:17 Labs/Radiology: Radiology Impressions Chest X-Ray 02/08/23 17:37 IMPRESSION: Vague right basilar opacity obscuring the margins of the right hemidiaphragm may be due to infiltrate and/or atelectasis. Cannot exclude a small accompanying pleural effusion. Laboratory Results WBC 6.57 10^3/uL (3.29-11.43) 02/08/23 17:17 RBC 2.93 10^6/uL (3.85-5.65) L 02/08/23 17:17 Hgb 7.40 g/dL (11.27-16.99) L 02/08/23 17:17 Hct 25.9 % (37-53) L 02/08/23 17:17 MCV 88.4 fl (82-101) 02/08/23 17:17 MCH 25.3 pg (27-33) L 02/08/23 17:17 MCHC 28.6 g/dL (30-55) L 02/08/23 17:17 RDW 16.7 % (12.1-15.1) H 02/08/23 17:17 Plt Count 262 10^3/cmm (157-399) 02/08/23 17:17 MPV 11.0 fL (7.4-10.4) H 02/08/23 17:17 Neut % (Auto) 74.5 % 02/08/23 17:17 Lymph % (Auto) 16.1 % 02/08/23 17:17 [place] % (Auto) 7.8 % 02/08/23 17:17 Eos % (Auto) 0.5 % 02/08/23 17:17 Baso % (Auto) 0.8 % 02/08/23 17:17 Neut # (Auto) 4.90 10^3/uL (1.8-7.7) 02/08/23 17:17 Lymph # (Auto) 1.1 10^3/uL (0.8-4.8) 02/08/23 17:17 [place] # (Auto) 0.5 10^3/uL (0.2-0.9) 02/08/23 17:17 Eos # (Auto) 0.0 10^3/uL (0.0-0.8) 02/08/23 17:17 Baso # (Auto) 0.1 10^3/uL (0.0-0.1) 02/08/23 17:17 Nucleated RBC % (auto) 0 % 02/08/23 17:17 Nucleated RBCs # 0.0 /100WBC 02/08/23 17:17 PT 16.10 SECONDS (12.1-14.9) H 02/08/23 17:17 INR 1.25 (0.8-1.2) H 02/08/23 17:17 Specimen Type Arterial 02/08/23 17:49 Sample Site Brachial, left 02/08/23 17:49 ABG pH 7.51 (7.35-7.45) H 02/08/23 17:49 ABG pCO2 50.3 mmHg (35-45) H 02/08/23 17:49 ABG pO2 60.7 mmHg (80.0-100.0) L 02/08/23 17:49 ABG PO2/FiO2 Ratio 0 02/08/23 17:49 ABG HCO3 40.4 mmol/L (22-26) H 02/08/23 17:49 ABG Base Excess 15.8 mmol/L (-2.0-2.0) H 02/08/23 17:49 Jcarlos Test Pos 02/08/23 17:49 Hematocrit 21.7 % (42-52) L 02/08/23 17:49 Hgb O2 Saturation 90.6 % (95-100) L 02/08/23 17:49 Carboxyhemoglobin 2.3 %THgb (0.4-20.1) 02/08/23 17:49 Methemoglobin 0.4 % (0.4-1.5) 02/08/23 17:49 Total Hemoglobin 7.1 g/dL (14-18) L 02/08/23 17:49 O2 Delivery Device Nc 02/08/23 17:49 O2 Liters/Min 2.0 % 02/08/23 17:49 FiO2 28.0 % 02/08/23 17:49 Behavioral Instructor ID Monro 02/08/23 17:49 Sodium 148 mmol/L (136-145) H 02/08/23 17:17 Potassium 3.1 mmol/L (3.5-5.1) L 02/08/23 17:17 Chloride 98 mmol/L (98-107) 02/08/23 17:17 Carbon Dioxide 38 mmol/L (22-29) H 02/08/23 17:17 Anion Gap 15.1 (5-19) 02/08/23 17:17 BUN 20 mg/dL (8-23) 02/08/23 17:17 Creatinine 1.0 mg/dL (0.7-1.2) 02/08/23 17:17 GFR Calculation Not Reportable 02/08/23 17:17 Glucose 213 mg/dL (65-115) H 02/08/23 17:17 Calculated Osmolality 315 mOsm/kg (285-295) H 02/08/23 17:17 Calcium 8.8 mg/dL (8.5-10.5) 02/08/23 17:17 Magnesium 1.7 mg/dL (1.7-2.3) 02/08/23 17:17 Total Bilirubin 0.6 mg/dL (0.15-1.2) 02/08/23 17:17 AST 19 U/L (0-40) 02/08/23 17:17 ALT 9 U/L (0-41) 02/08/23 17:17 Alkaline Phosphatase 79 U/L (40-130) 02/08/23 17:17 Troponin T Baseline 138 ng/L (0-15) H* 02/08/23 17:17 NT-Pro-B Natriuret Pep 3462 pg/mL (0-450) H 02/08/23 17:17 Total Protein 7.5 g/dL (6.6-8.7) 02/08/23 17:17 Albumin 3.6 g/dL (3.5-5.2) 02/08/23 17:17 Globulin 3.9 g/dL (1.3-4.6) 02/08/23 17:17 Influenza Type A Ag negative (Negative) 02/08/23 16:22 Influenza Type B Ag negative (Negative) 02/08/23 16:22 SARS-CoV-2 Ag (Rapid) negative (Negative) 02/08/23 16:22 All radiology interpretation(s) finalized by discharge Discharge Plan Discharge Patient Disposition: Admitted As Inpatient Clinical Impression: Acute exacerbation of chronic obstructive pulmonary disease, Pneumonia Condition: Stable Prescriptions: No Action lorazepam 0.5 mg tablet 0.5 mg PO BID PRN (Reason: anxiety) Qty: 60 2RF atorvastatin 40 mg tablet 40 mg PO BEDTIME tamsulosin 0.4 mg capsule 0.4 mg PO DAILY albuterol sulfate 90 mcg/actuation HFA aerosol inhaler 2 puff INHALATION Q4H PRN (Reason: Shortness Of Breath Or Wheezing) Symbicort 80-4.5 mcg/actuation HFA aerosol inhaler 1 puff INHALATION BID Xarelto 20 mg tablet 20 mg PO DAILY Hold Instructions: Resume on 01/23/23. aspirin 81 mg Tablet,Delayed Release (Dr/Ec) 81 mg PO DAILY Qty: 30 0RF pantoprazole 40 mg Tablet,Delayed Release (Dr/Ec) 40 mg PO BID Qty: 60 0RF Rx Instructions: Twice daily for 2 weeks, daily after that metoprolol tartrate 25 mg Tablet 25 mg PO BID@0900,2100 Qty: 60 0RF sucralfate 100 mg/mL Suspension 1 g PO AC&BEDTIME 30 Days Qty: 1000 0RF midodrine 5 mg tablet 5 mg PO BID Qty: 30 0RF Referrals: Paolo Ng MD [Primary Care Provider] - Coding Level of Care Code ED Prop And Effects Designer for Liv Vega
[2023-02-08] MEDS: methylPREDNISolone sod succ 125 mg/2 mL INJ IV (17:44)
--- NOTE | 2023-02-08 17:50 | ECG_ITS ---
[facility] Test Date: 2023-02-08 Pat Name: Krzysztof Tay Department: Room: Gender: Male [employer]visor [employer] [address]: : 1940 Requested By: Shravan Davidson Order Number: [id number] Raphael MD: Vinod Rabago M.D. Measurements Intervals [place] Rate: 86 P: 0 NC: 0 QRS: 83 QRSD: 161 T: 80 QT: 419 QTc: 502 Interpretive Statements ATRIAL FIBRILLATION RIGHT BUNDLE BRANCH BLOCK [120+ ms QRS DURATION, UPRIGHT V1, 40+ ms S IN I/aVL/V4/V5/V6] MARKED ST DEPRESSION, CONSIDER SUBENDOCARDIAL INJURY [0.2+ mV ST DEPRESSION] ACUTE [place] Compared to ECG 01/09/2023 15:27:16 Myocardial infarct finding no longer present ST (T wave) deviation still present Electronically Signed On 02-09-2023 19:19:17 LAUNCH CHECK OUT by Vinod Rabago M.D. [id number]
--- NOTE | 2023-02-08 17:52 | ECG_ITS ---
[facility] Test Date: 2023-02-08 Pat Name: Krzysztof Tay Department: Room: Gender: Male Dietary Director: : 1940 Requested By: Shravan Davidson Order Number: [id number] Raphael MD: Vinod Rabago M.D. Measurements Intervals [place] Rate: 76 P: 0 RI: 0 QRS: 81 QRSD: 158 T: 77 QT: 406 QTc: 458 Interpretive Statements ATRIAL FIBRILLATION RIGHT BUNDLE BRANCH BLOCK [120+ ms QRS DURATION, UPRIGHT V1, 40+ ms S IN I/aVL/V4/V5/V6] MARKED ST DEPRESSION, CONSIDER SUBENDOCARDIAL INJURY [0.2+ mV ST DEPRESSION] ACUTE ME Compared to ECG 01/09/2023 15:27:16 Myocardial infarct finding no longer present ST (T wave) deviation still present Electronically Signed On 02-09-2023 19:18:51 PUSH BENCH OPERATOR HELPER by Vinod Rabago M.D. [id number] elin
[2023-02-08] MEDS: albuterol 2.5 mg/3 mL Neb INHALATION (17:53)
[2023-02-08 18:03] LABS: ABG PCO2 50.3 mmHg (35-45); ABG PH Result 7.51 (7.35-7.45); Arterial Blood Gas Hematocrit 21.7 % (42-52); Base Excess ABG 15.8 mmol/L (-2.0-2.0); Blood Gas Allen Test Pos; Blood Gas Operator Identificat MONRO; Blood Gas Sample Site Brachial, left; Blood Gas Sample Type Arterial; Carboxyhemoglobin 2.3 %THgb (0.4-20.1); HCO3 ABG 40.4 mmol/L (22-26); HGB O2 Sat 90.6 % (95-100); Methemoglobin 0.4 % (0.4-1.5); Oxygen Device NC; PO2 ABG 60.7 mmHg (80.0-100.0); PO2 FiO2 Ratio Arterial Blood 0; Total Hemoglobin 7.1 g/dL (14-18)
[2023-02-08 18:04] LABS: Basophils # 0.1 10^3/uL (0.0-0.1); Basophils % 0.8 %; Eosinophils % 0.5 %; Hematocrit 25.9 % (37-53); Lymphocytes # 1.1 10^3/uL (0.8-4.8); Lymphocytes % 16.1 %; Mean Corpuscular HGB Conc 28.6 g/dL (30-55); Mean Corpuscular Hemoglobin 25.3 pg (27-33); Mean Corpuscular Volume 88.4 fl (82-101); Monocytes # 0.5 10^3/uL (0.2-0.9); Monocytes % 7.8 %; Neutrophils % 74.5 %; Nucleated Red Blood Cells % 0 %; Platelet Count 262 10^3/cmm (157-399); Red Blood Count 2.93 10^6/uL (3.85-5.65); Red Cell Distribution Width 16.7 % (12.1-15.1); White Blood Count 6.57 10^3/uL (3.29-11.43)
[2023-02-08 18:32] LABS: Alanine Aminotransferase 9 U/L (0-41); Albumin Level 3.6 g/dL (3.5-5.2); Alkaline Phosphatase 79 U/L (40-130); Anion Gap 15.1 (5-19); Aspartate Amino Transferase 19 U/L (0-40); Blood Urea Nitrogen 20 mg/dL (8-23); Calcium 8.8 mg/dL (8.5-10.5); Carbon Dioxide 38 mmol/L (22-29); Chloride 98 mmol/L (98-107); Globulin 3.9 g/dL (1.3-4.6); Glucose 213 mg/dL (65-115); NT Pro B Type Natriuretic Pept 3462 pg/mL (0-450); Osmolality Calculated 315 mOsm/kg (285-295); Potassium 3.1 mmol/L (3.5-5.1); Sodium 148 mmol/L (136-145); Total Bilirubin 0.6 mg/dL (0.15-1.2); Total Protein 7.5 g/dL (6.6-8.7)
[2023-02-08 18:37] LABS: Magnesium 1.7 mg/dL (1.7-2.3)
[2023-02-08 18:47] LABS: Influenza A by IFA negative (Negative); Influenza B by IFA negative (Negative)
[2023-02-08 18:56] LABS: INR 1.25 (0.8-1.2)
--- NOTE | 2023-02-08 18:58 | PC.NURSE ---
Report taken from Stevie at this time.
[2023-02-08 19:03] LABS: Troponin(5th) Baseline 138 ng/L (0-15)
--- NOTE | 2023-02-08 19:23 | P.HP_ITS ---
Providers/Chief Complaint 2 Primary Care Provider: Paolo Ng Chief Complaint: COPD EXACERBATION History of Present Illness Krzysztof Tay is a 82 year old male with past medical history of oxygen apparent COPD, uses 2 L at baseline, A-fib, recently anticoagulation was discontinued for his GI bleed, he underwent EGD and colonoscopy, upper endoscopy unremarkable, 3 polyps were removed, no active source of bleed was identified he had iron deficiency anemia, Xarelto was discontinued, patient was diuresed which improved his signs of congestive heart failure, he was discharged back to [facility], presenting today with chief complaint of worsening of shortness of breath. On questioning patient is stating that he is in the hospital probably because of syncope. He is denying recent GI bleed, hemoptysis, nausea, vomiting, chest pain. He is not able to provide much detail how and when he experienced syncope. In the ER he has been diagnosed with hyponatremia, dehydrated, I requested D- dimer which came back high, requested CT chest rule out PE EKG showing no active ischemic or infarctive changes, troponin elevated Recently patient had echocardiogram which showed EF 65% patient had a cardiac stress test done which seem to have positive features consistent with ischemia in the left circumflex territory cardiology recommended medical management secondary to his ongoing anemia He was given aspirin and a beta-amy In the ER patient is still anemic on discharge hemoglobin was 9.4 today it is 7.4 I called his son Mr. Mares: Son stated that today he was hypoxic he was desaturating and he fell multiple times that prompted his visit to the ER Review of Systems 2 Const: Denies: fever(s) Eyes: Denies: change in vision ENMT: Denies: throat pain Card: Denies: chest pain Resp: Reports: dyspnea GI: Denies: abdominal pain : Denies: flank pain Musc: Denies: neck pain Skin/Breast: Denies: rash Neuro: Denies: headache(s) Psych: Reports: anxiety Medications/Allergies Home Medications Medication Instructions Recorded Confirmed Last Taken Type albuterol sulfate 90 mcg/actuation 2 puff inhalation Q4H PRN 01/09/23 02/01/23 Unknown History aerosol inhaler Shortness Of Breath Or Wheezing atorvastatin 40 mg tablet 40 mg PO BEDTIME 01/09/23 02/01/23 01/08/23 History budesonide-formoterol HFA 80 1 puff inhalation BID 01/09/23 02/01/23 01/08/23 History mcg-4.5 mcg/actuation aerosol inhaler (Symbicort) rivaroxaban 20 mg tablet (Xarelto) 20 mg PO DAILY 01/09/23 02/01/23 01/08/23 History tamsulosin 0.4 mg capsule 0.4 mg PO DAILY 01/09/23 02/01/23 01/08/23 History aspirin 81 mg tablet,delayed 81 mg PO DAILY #30 tabs 01/16/23 02/01/23 Unknown Rx release metoprolol tartrate 25 mg tablet 25 mg PO BID@0900,2100 #60 tabs 01/16/23 02/01/23 Unknown Rx midodrine 5 mg tablet 5 mg PO BID #30 tabs 01/16/23 02/01/23 01/08/23 Rx pantoprazole 40 mg tablet,delayed 40 mg PO BID #60 tabs 01/16/23 02/01/23 Unknown Rx release sucralfate 100 mg/mL oral 1 g (10 mL) PO AC&BEDTIME 30 days 01/16/23 02/01/23 Unknown Rx suspension #1,000 mL lorazepam 0.5 mg tablet 0.5 mg PO BID PRN anxiety #60 tabs 01/19/23 02/01/23 Unknown Rx Allergies Allergy/AdvReac Type Severity Reaction Status Date / Time No Known Allergies Allergy Unverified 02/01/23 09:36 PFSH Acute 2 PFSH: Medical History Malnutrition of moderate degree GI bleed Hyperkalemia Fall Troponin level elevated Acute hyponatremia BPH (benign prostatic hyperplasia) Orthostatic hypotension Stroke Chronic anticoagulation Paroxysmal A-fib Nocturnal hypoxia COPD (chronic obstructive pulmonary disease) Social History Smoking and tobacco/nicotine status: current every day tobacco/nicotine user Marital status: Single Vitals/I&O/Wt Last Vital Signs Temp 98.8 F 02/08/23 17:35 Pulse 97 02/08/23 18:24 Resp 28 H 02/08/23 18:24 BP 106/53 02/08/23 18:24 Pulse Ox 98 02/08/23 18:24 O2 Del Method Nasal Cannula 02/08/23 18:24 O2 Flow Rate 2 02/08/23 18:24 Weight last 48 hrs Weight 70.307 kg Physical Exam 2 Narrative: Clinically patient looks very dry Awake and alert GCS 15 NIH 0 S2 Currently on 3 L GCS 15 S1, S2 No active complaints No active chest pain Lower extremity no edema Dry skin Data 02/08/23 17:17 02/08/23 17:17 A&P Assessment and plan (1) Pulmonary hypertension: (2) Abnormal stress test: (3) Paroxysmal atrial fibrillation with RVR: (4) MENDOZA (dyspnea on exertion): (5) Malnutrition of moderate degree: (6) Anemia: (7) Acute exacerbation of chronic obstructive pulmonary disease: (8) Hypoxia: (9) Pneumonia: (10) Acute hypernatremia: Plan Encephalopathy metabolic in nature related to pneumonia Patient was recently admitted in the hospital I will treat him for anti-MRSA and antipseudomonal vancomycin and Zosyn for now Patient is afebrile no sign of sepsis Syncope recurrent falls at home There is drop in hemoglobin of 2 g I will give him 1 unit of blood He does have elevated troponin no active chest pain Considering his anemia I would not start any anticoagulating agent at this time His D-dimer is high we will request CTA chest Will request venous Doppler Acute on chronic hypoxia, acute COPD exacerbation related to pneumonia Not severe in nature At baseline uses 2 L currently on 3 L Hypernatremia related to overdiuresis I will give him gentle D5 normal saline for 6 to 8 hours and then discontinue Monitor sodium Hold off on diuretics for now Non-STEMI Elevated troponin without active chest pain or worsening of shortness of breath No EKG changes Recently had positive stress test and left circumflex territory: Decision was made to medically manage him because of his anemia Acute on chronic recurrent anemia Iron-deficiency Will give him 1 bag of iron along PRBC Recently had EGD and colonoscopy, 3 polyps were removed Resident of Danilo christianson Full code Cardiac diet Will request physical therapy check mag level in the morning A-fib without RVR Continue metoprolol Hold off on Xarelto Review of records showed that patient was recently here had EGD and colonoscopy, 3 polyps were removed Preserved ejection fraction with pulmonary hypertension Patient not able to provide history, information to previous records and called his son Attestations 2 Medical Necessity Statement*: More than 2 midnights anticipated for management of syncope, anemia, Diagnoses Pulmonary hypertension I27.20 Abnormal stress test R94.39 Paroxysmal atrial fibrillation with RVR I48.0 MENDOZA (dyspnea on exertion) R06.09 Malnutrition of moderate degree E44.0 Anemia D64.9 Acute exacerbation of chronic obstructive pulmonary disease J44.1 Hypoxia R09.02 Pneumonia J18.9 Acute hypernatremia E87.0
[2023-02-08 19:34] LABS: SARS Covid-2 Antigen negative (Negative)
[2023-02-08] MEDS: cefTRIAXone 1,000 MG in sodium chloride 0.9% (plus) 50 ML 100 MG IV (19:34)
--- NOTE | 2023-02-08 19:41 | PC.NURSE ---
Report called to NARCISA Medrano on Med-Surg. All questions and concerns addressed at time of report.
[2023-02-08 19:54] LABS: D Dimer 1.32 ug/mLFEU (0-0.59)
[2023-02-08] MEDS: azithromycin 500 MG in sodium chloride 0.9% 250 ML 250 MG IV (19:55)
--- NOTE | 2023-02-08 19:56 | PC.NURSE ---
Patient declined being placed into gown at this time. Allergy band applied.
--- NOTE | 2023-02-08 20:00 | CTR_ITS ---
PROCEDURE INFORMATION: Exam: CTA Chest With Contrast Exam date and time: 02/08/2023 8:13 PM Age: 82 years old Clinical indication: Shortness of breath; Additional info: Syncope TECHNIQUE: Imaging protocol: Computed tomographic angiography of the chest with contrast. Exam focused on the arteries. 3D rendering (Not supervised by radiologist): MIP and/or 3D reconstructed images were created by the technologist. Radiation optimization: All CT scans at this facility use at least one of these dose optimization techniques: automated exposure control; mA and/or kV adjustment per patient size (includes targeted exams where dose is matched to clinical indication); or iterative reconstruction. Contrast material: OMNI 350; Contrast volume: 80 ml; Contrast route: INTRAVENOUS (IV); REPORTING DATA: Count of CT and Cardiac NM exams in prior 12 months: This patient has received 4 known CTs and 0 known cardiac nuclear medicine studies in the 12 months prior to the current study. COMPARISON: CT angio chest w abd pel w con 01/09/2023 2:40 PM RADIATION DOSE METRICS: Total DLP (mGy-cm): 388 FINDINGS: Tubes, catheters and devices: Left pacemaker with leads in the heart. Pulmonary arteries: Normal. No pulmonary emboli. Aorta: Partially visualized fusiform infra-abdominal aortic aneurysm measuring 5.1 cm. Veins: Infrarenal IVC filter. Lungs: Emphysema. 5 mm subpleural right upper lobe nodule, series 6, image 247. 3 mm right upper lobe nodule, image 257. Calcified granulomas in the left lower and upper lobes. Passive atelectasis in the right lower lobe. Mild wall thickening with filling defects in the bilateral lower lobe bronchi. Pleural spaces: Moderate right pleural effusion. No pneumothorax. Heart: Mild cardiomegaly. Coronary arteries: Coronary artery calcifications. Lymph nodes: Unremarkable. No enlarged lymph nodes. Gallbladder and bile ducts: Small calcified stones in the gallbladder neck. No wall thickening. The bile ducts are normal. Spleen: Splenomegaly. Adrenal glands: Mild fullness of the bilateral adrenal glands is most likely hyperplasia. Kidneys and ureters: Small cortical proteinaceous cyst in the right kidney, Hounsfield units greater than 70. Left renal cyst, Hounsfield units less than 20. No follow-up imaging recommended. Bones/joints: Degenerative changes of the spine. No acute fracture. Soft tissues: Body wall edema. CT/CT angio chest PE protcl [id number] IMPRESSION: 1. No evidence for pulmonary embolus. 2. Moderate right pleural effusion. 3. Mild bronchial wall thickening and filling defects in the bilateral lower lobe bronchi. 4. Multiple pulmonary nodules measuring up to 5 mm. For patients at low risk (minimal or absent history of smoking and of other known risk factors), no routine follow-up is indicated. For patients at high risk (history of smoking or of other known risk factors), consider optional CT Chest at 12 months. (Reference: Sherwin) References: Sherwin Reinoso et al. Guidelines for Management of Incidental Pulmonary Nodules Detected on CT Images: From the Fleischner Society 2017. Radiology. 2017;284(1):228-243. COMMENTS: Consistent with the [place] [employer]'s Incidental Findings Committee white paper (J Am Ha Radiol 2018): Any incidental renal lesion less than 1 cm or classified as too small to characterize, or any incidental cystic renal lesion characterized as simple-appearing, is likely benign. No follow-up imaging is recommended for these lesions per consensus recommendations based on imaging criteria.
[2023-02-08 20:14] LABS: Troponin 5 2HR Delta -21.6 ABS# (0-10)
[2023-02-08 20:15] LABS: Troponin 5 2HR 116.4 ng/L (0-15)
[2023-02-08] MEDS: iohexol 350 mg/mL 500 mL Btl (per mL) IV (20:17)
[2023-02-08 20:21] LABS: Procalcitonin 0.03 ng/mL (0-0.5); Thyroid Stimulating Hormone 3.48 uIU/mL (0.27-4.20)
--- NOTE | 2023-02-08 20:32 | PC.NURSE ---
This nurse and Med-Surg nurse Marcela, RN rolled patient to move ED sheets and bleeding from out under patient; this nurse and NARCISA Medrano noted that there was a wound dressing on patient's sacrum from [place] with the date 01/16. Charge nurse Joann notified.
[2023-02-08] MEDS: vancomycin 1,250 MG/250 ML PIGGYBACK 250 MG IV (21:12)
[2023-02-08] MEDS: sucralfate 1 gm/10 mL Oral Liq UDC PO (21:21)
[2023-02-08] MEDS: metoprolol tartrate 25 mg Tablet PO (21:21)
[2023-02-08] MEDS: ipratropium-albuterol 3 mL Neb INHALATION (21:28)
[2023-02-08] MEDS: iron sucrose 200 MG in sodium chloride 0.9% (100 ml) 100 ML 220 MG IV (22:04)
[2023-02-08] MEDS: piperacillin-tazobactam 3.375 GM in sodium chloride 0.9% (plus) 50 ML IV (23:09)
[2023-02-08 23:21] LABS: Troponin 5 6HR 88.61 ng/L (0-15)
[2023-02-09] VITALS (9 sets, daily range): BP systolic 92–126; BP diastolic 49–66; PULSE 50–94; RESP 16–22; TEMP 36.5–36.7; O2SAT 89–100
[2023-02-09] MEDS: piperacillin-tazobactam 3.375 GM in sodium chloride 0.9% (plus) 50 ML IV ×3 (05:22→21:46)
[2023-02-09 05:23] LABS: Basophils % 0.5 %; Hematocrit 25.9 % (37-53); Lymphocytes # 0.5 10^3/uL (0.8-4.8); Mean Corpuscular HGB Conc 30.5 g/dL (30-55); Mean Corpuscular Hemoglobin 26.3 pg (27-33); Mean Corpuscular Volume 86.3 fl (82-101); Mean Platelet Volume 10.9 fL (7.4-10.4); Monocytes # 0.2 10^3/uL (0.2-0.9); Monocytes % 3.5 %; Neutrophils # 4.94 10^3/uL (1.8-7.7); Neutrophils % 87.5 %; Nucleated Red Blood Cells % 0 %; Platelet Count 226 10^3/cmm (157-399); Red Cell Distribution Width 16.3 % (12.1-15.1); White Blood Count 5.65 10^3/uL (3.29-11.43)
[2023-02-09 05:47] LABS: Anion Gap 10.4 (5-19); Blood Urea Nitrogen 18 mg/dL (8-23); Calcium 8.4 mg/dL (8.5-10.5); Carbon Dioxide 38 mmol/L (22-29); Chloride 100 mmol/L (98-107); Glucose 167 mg/dL (65-115); Magnesium 1.8 mg/dL (1.7-2.3); Osmolality Calculated 308 mOsm/kg (285-295); Sodium 146 mmol/L (136-145)
[2023-02-09 05:50] LABS: Potassium 2.4 mmol/L (3.5-5.1)
[2023-02-09] MEDS: sucralfate 1 gm/10 mL Oral Liq UDC PO ×4 (06:34→20:33)
--- NOTE | 2023-02-09 08:02 | P.PN_ITS ---
Subjective 2 Subjective: Pleasantly confused. Alert oriented to self and place only. Doing well sitting up in bed. Talkative. Vitals/I&O/Wt Last Vital Signs Temp 97.8 F 02/09/23 07:45 Pulse 94 02/09/23 07:45 Resp 17 02/09/23 07:45 BP 126/66 02/09/23 07:45 Pulse Ox 99 02/09/23 07:45 O2 Del Method Nasal Cannula 02/09/23 07:45 O2 Flow Rate 2 02/08/23 21:28 02/08/23 02/09/23 02/09/23 22:59 06:59 14:59 Intake Total 660 / 660 300 / 960 Output Total 225 / 225 400 / 625 Balance 435 / 435 -100 / 335 Weight last 48 hrs Weight 67.132 kg Weight 67.222 kg Weight 70.307 kg Physical Exam 2 Narrative: Appears dehydrated. Awake and alert GCS 15 Currently on 2 L saturating 96%. GCS 15 S1, S2 No active complaints No active chest pain Lower extremity no edema Dry skin Data 02/09/23 05:11 02/09/23 05:11 A&P Assessment and plan (1) Pulmonary hypertension: (2) Abnormal stress test: (3) Paroxysmal atrial fibrillation with RVR: (4) MENDOZA (dyspnea on exertion): (5) Malnutrition of moderate degree: (6) Anemia: (7) Acute exacerbation of chronic obstructive pulmonary disease: (8) Hypoxia: (9) Pneumonia: (10) Acute hypernatremia: Plan Encephalopathy metabolic in nature related to pneumonia Patient was recently admitted in the hospital I will treat him for anti-MRSA and antipseudomonal vancomycin and Zosyn for now Patient is afebrile no sign of sepsis Syncope recurrent falls at home There is drop in hemoglobin of 2 g Status post 1 unit packed RBC. Recheck CBC in 12 hours. He does have elevated troponin no active chest pain Considering his anemia I would not start any anticoagulating agent at this time CTA chest complete. No evidence of pulmonary embolism. Moderate right pleural effusion present. Will request venous Doppler?pending Acute on chronic hypoxia, acute COPD exacerbation related to pneumonia Not severe in nature At baseline uses 2 L and is now back to baseline. Hypernatremia related to overdiuresis I will give him gentle D5 normal saline for 6 to 8 hours and then discontinue Monitor sodium Hold off on diuretics for now Recheck BMP at 6 PM. Non-STEMI Elevated troponin without active chest pain or worsening of shortness of breath No EKG changes Recently had positive stress test and left circumflex territory: Decision was made to medically manage him because of his anemia Acute on chronic recurrent anemia Iron-deficiency Will give him 1 bag of iron along PRBC Recently had EGD and colonoscopy, 3 polyps were removed Hypokalemia Order K rider 40 x 1 Recheck BMP at 6 PM. Resident of Danilo christianson Full code Cardiac diet PT evaluation pending. A-fib without RVR Continue metoprolol Hold off on Xarelto Review of records showed that patient was recently here had EGD and colonoscopy, 3 polyps were removed Preserved ejection fraction with pulmonary hypertension Patient not able to provide history, information to previous records and called his son Attestations 2 Medical Necessity Statement*: Patient hypokalemic and hyponatremic. Continue to manage in the hospital. He will require frequent BMP. Diagnoses Pulmonary hypertension I27.20 Abnormal stress test R94.39 Paroxysmal atrial fibrillation with RVR I48.0 MENDOZA (dyspnea on exertion) R06.09 Malnutrition of moderate degree E44.0 Anemia D64.9 Acute exacerbation of chronic obstructive pulmonary disease J44.1 Hypoxia R09.02 Pneumonia J18.9 Acute hypernatremia E87.0
--- NOTE | 2023-02-09 08:50 | PC.CHAP ---
Pastoral Care Encounter/Spiritual Assessment Type of Contact [] Declined promotion producer visit [] Patient/Family/Request visit [] Outpatient visit [] Follow-up visit [] Physician referral [] Code/Alert [x] Routine visit [] Staff referral [] Actively dying [] Patient sleeping [] Family support [] [] Out of room [] Palliative care [] [] Receiving care in room [] Pre-surgical visit [] Trauma [] Long length of stay [] ICU visit [] Other: Relational/Emotional Strength [x] Patient feels connected with others/family/visitors/staff [] Distress [] Loneliness/isolation [] Abandonment Spirituality of Patient [x] Person of Leticia [] Attends Holiness of their Leticia [x] Believes in Prayer [] Reads Bible or Protestant materials [] There are Spiritual issues to be addressed Treater Interventions [x] Prayer [x] Active listening [] Non-anxious presence [x] Spiritual/emotional support [] Crisis/trauma care [] Spiritual counseling [] Bereavement support [] Provided bereavement packet [] Provided Bible/devotional materials [] Provided toy/stuffed animal, coloring book to patient or family member [] Provided Communion [] Anointing/Matthews [] Salvation [x] Completed spiritual assessment [] Other: Impact on Illness or Injury [] Angry [] Fearful [] Anxious [] Often cries [] Exhaustion [] Unable to work [] Unable to attend mosque [] Unable to walk/stand [] Unable to read [] Unable to drive [] Unable to eat/drink [] Unable to sleep [] Unable to be with family [] Patient intubated [] Other: Summary Time spent with patient 5 min
[2023-02-09] MEDS: metoprolol tartrate 25 mg Tablet PO (09:40)
[2023-02-09] MEDS: pantoprazole DR 40 mg Tablet PO ×2 (09:40→17:17)
--- NOTE | 2023-02-09 09:40 | PC.PHAR ---
[facility]
[2023-02-09] MEDS: potassium phosphate (mEq K) 40 MEQ in sodium chloride 0.9% (100 ml) 100 ML 27.27 MEQ IV (09:41)
[2023-02-09] MEDS: ipratropium-albuterol 3 mL Neb INHALATION (11:44)
[2023-02-09] MEDS: dextrose 5 % 500 ML 60 ML IV (17:17)
[2023-02-09] MEDS: vancomycin 1,250 MG/250 ML PIGGYBACK 250 MG IV (20:35)
[2023-02-10] VITALS (7 sets, daily range): BP systolic 91–125; BP diastolic 52–72; PULSE 65–107; RESP 17–19; TEMP 36.3–36.8; O2SAT 90–100
[2023-02-10 05:04] LABS: Basophils # 0.1 10^3/uL (0.0-0.1); Basophils % 1.1 %; Eosinophils # 0.4 10^3/uL (0.0-0.8); Eosinophils % 5.5 %; Hematocrit 25.8 % (37-53); Lymphocytes # 0.7 10^3/uL (0.8-4.8); Lymphocytes % 10.4 %; Mean Corpuscular HGB Conc 30.2 g/dL (30-55); Mean Corpuscular Hemoglobin 26.3 pg (27-33); Mean Corpuscular Volume 86.9 fl (82-101); Mean Platelet Volume 10.6 fL (7.4-10.4); Monocytes # 0.6 10^3/uL (0.2-0.9); Monocytes % 9.5 %; Neutrophils # 4.69 10^3/uL (1.8-7.7); Nucleated Red Blood Cells % 0 %; Platelet Count 204 10^3/cmm (157-399); Red Blood Count 2.97 10^6/uL (3.85-5.65); Red Cell Distribution Width 16.3 % (12.1-15.1); White Blood Count 6.42 10^3/uL (3.29-11.43)
[2023-02-10 05:28] LABS: Anion Gap 9.7 (5-19); Blood Urea Nitrogen 16 mg/dL (8-23); Calcium 8.3 mg/dL (8.5-10.5); Carbon Dioxide 38 mmol/L (22-29); Chloride 97 mmol/L (98-107); Glucose 115 mg/dL (65-115); Osmolality Calculated 296 mOsm/kg (285-295); Sodium 142 mmol/L (136-145)
[2023-02-10 05:31] LABS: Potassium 2.7 mmol/L (3.5-5.1)
[2023-02-10] MEDS: piperacillin-tazobactam 3.375 GM in sodium chloride 0.9% (plus) 50 ML IV ×3 (05:32→21:38)
[2023-02-10] MEDS: sucralfate 1 gm/10 mL Oral Liq UDC PO ×4 (06:20→20:28)
--- NOTE | 2023-02-10 08:21 | P.PN_ITS ---
Subjective 2 Subjective: talked with patient and saw at bedside he feels better today sodium improved potassium 2.7 Vitals/I&O/Wt Last Vital Signs Temp 97.6 F 02/10/23 07:43 Pulse 107 H 02/10/23 08:00 Resp 18 02/10/23 08:00 BP 120/61 02/10/23 07:43 Pulse Ox 90 02/10/23 08:00 O2 Del Method Nasal Cannula 02/10/23 08:00 O2 Flow Rate 3 02/10/23 08:00 02/09/23 02/10/23 02/10/23 22:59 06:59 14:59 Intake Total 540 / 1858.5106 50 / 1908.5106 Output Total 100 / 100 Balance 440 / 1758.5106 50 / 1808.5106 Weight last 48 hrs Weight 67.84 kg Weight 67.132 kg Weight 67.222 kg Weight 70.307 kg Physical Exam 2 Narrative: Appears dehydrated. Awake and alert and oriented x3 today GCS 15 Currently on 2 L saturating 96%. GCS 15 S1, S2 No active complaints No active chest pain Lower extremity no edema Dry skin Data 02/10/23 04:49 02/10/23 04:49 A&P Assessment and plan (1) Pulmonary hypertension: (2) Abnormal stress test: (3) Paroxysmal atrial fibrillation with RVR: (4) MENDOZA (dyspnea on exertion): (5) Malnutrition of moderate degree: (6) Anemia: (7) Acute exacerbation of chronic obstructive pulmonary disease: (8) Hypoxia: (9) Pneumonia: (10) Acute hypernatremia: Plan Encephalopathy metabolic in nature related to pneumonia Patient was recently admitted in the hospital I will treat him for anti-MRSA and antipseudomonal vancomycin and Zosyn for now Patient is afebrile no sign of sepsis Syncope recurrent falls at home There is drop in hemoglobin of 2 g Status post 1 unit packed RBC. Recheck CBC in 12 hours. He does have elevated troponin no active chest pain Considering his anemia I would not start any anticoagulating agent at this time CTA chest complete. No evidence of pulmonary embolism. Moderate right pleural effusion present. Will request venous Doppler?no DVT Acute on chronic hypoxia, acute COPD exacerbation related to pneumonia Not severe in nature At baseline uses 2 L and is now back to baseline. Hypernatremia - resolved Non-STEMI Elevated troponin without active chest pain or worsening of shortness of breath No EKG changes Recently had positive stress test and left circumflex territory: Decision was made to medically manage him because of his anemia Acute on chronic recurrent anemia Iron-deficiency Will give him 1 bag of iron along PRBC Recently had EGD and colonoscopy, 3 polyps were removed Hypokalemia, K 2.7 today Order K rider 40 x 1 Recheck BMP at 6 PM. Resident of Danilo christianson Full code Cardiac diet PT evaluation pending. A-fib without RVR Continue metoprolol Hold off on Xarelto Review of records showed that patient was recently here had EGD and colonoscopy, 3 polyps were removed Preserved ejection fraction with pulmonary hypertension Attestations 2 Medical Necessity Statement*: DC back to CT in AM Diagnoses Pulmonary hypertension I27.20 Abnormal stress test R94.39 Paroxysmal atrial fibrillation with RVR I48.0 MENDOZA (dyspnea on exertion) R06.09 Malnutrition of moderate degree E44.0 Anemia D64.9 Acute exacerbation of chronic obstructive pulmonary disease J44.1 Hypoxia R09.02 Pneumonia J18.9 Acute hypernatremia E87.0
[2023-02-10] MEDS: potassium phosphate (mEq K) 40 MEQ in sodium chloride 0.9% (100 ml) 100 ML 27.27 MEQ IV (08:35)
[2023-02-10] MEDS: pantoprazole DR 40 mg Tablet PO ×2 (08:43→17:06)
[2023-02-10] MEDS: metoprolol tartrate 25 mg Tablet PO ×2 (08:43→20:28)
[2023-02-10] MEDS: vancomycin 1,250 MG/250 ML PIGGYBACK 250 MG IV (19:31)
[2023-02-10 19:33] LABS: Anion Gap 7.8 (5-19); Blood Urea Nitrogen 15 mg/dL (8-23); Calcium 8.1 mg/dL (8.5-10.5); Carbon Dioxide 39 mmol/L (22-29); Chloride 97 mmol/L (98-107); Creatinine Clr Calc Pharmacy 75.5974; Glucose 172 mg/dL (65-115); Osmolality Calculated 297 mOsm/kg (285-295); Sodium 141 mmol/L (136-145)
[2023-02-10 19:38] LABS: Potassium 2.8 mmol/L (3.5-5.1)
[2023-02-10] MEDS: lidocaine 1% 5 ML in potassium chloride premix 100 ML 26.25 ML IV (20:25)
[2023-02-11] VITALS (8 sets, daily range): BP systolic 111–130; BP diastolic 61–76; PULSE 68–95; RESP 16–20; TEMP 36.4–37; O2SAT 92–98
[2023-02-11 03:40] LABS: Basophils # 0.1 10^3/uL (0.0-0.1); Basophils % 0.9 %; Eosinophils # 0.6 10^3/uL (0.0-0.8); Eosinophils % 8.9 %; Hematocrit 26.1 % (37-53); Lymphocytes # 0.8 10^3/uL (0.8-4.8); Lymphocytes % 12.1 %; Mean Corpuscular HGB Conc 29.1 g/dL (30-55); Mean Corpuscular Hemoglobin 25.9 pg (27-33); Mean Corpuscular Volume 89.1 fl (82-101); Mean Platelet Volume 10.8 fL (7.4-10.4); Monocytes # 0.9 10^3/uL (0.2-0.9); Monocytes % 12.6 %; Neutrophils # 4.46 10^3/uL (1.8-7.7); Neutrophils % 65.1 %; Nucleated Red Blood Cells % 0 %; Platelet Count 184 10^3/cmm (157-399); Red Blood Count 2.93 10^6/uL (3.85-5.65); Red Cell Distribution Width 16.5 % (12.1-15.1); White Blood Count 6.85 10^3/uL (3.29-11.43)
[2023-02-11 04:04] LABS: Anion Gap 6.5 (5-19); Blood Urea Nitrogen 17 mg/dL (8-23); Calcium 8.1 mg/dL (8.5-10.5); Chloride 103 mmol/L (98-107); Creatinine Clr Calc Pharmacy 75.5974; Glucose 108 mg/dL (65-115); Osmolality Calculated 308 mOsm/kg (285-295); Potassium 3.5 mmol/L (3.5-5.1); Sodium 148 mmol/L (136-145)
[2023-02-11 04:09] LABS: Carbon Dioxide 42 mmol/L (22-29)
[2023-02-11] MEDS: piperacillin-tazobactam 3.375 GM in sodium chloride 0.9% (plus) 50 ML IV ×3 (04:43→21:42)
[2023-02-11] MEDS: sucralfate 1 gm/10 mL Oral Liq UDC PO ×4 (06:07→21:42)
[2023-02-11] MEDS: metoprolol tartrate 25 mg Tablet PO (08:32)
[2023-02-11] MEDS: pantoprazole DR 40 mg Tablet PO (08:32)
[2023-02-11] MEDS: potassium chloride ER 20 mEq Tablet 40 MEQ PO (10:05)
[2023-02-11] MEDS: FUROsemide 10 mg/mL SDV 4mL 40 MG IVP (10:05)
--- NOTE | 2023-02-11 10:12 | XRR_ITS ---
PROCEDURE INFORMATION: Exam: XR Chest Exam date and time: 02/11/2023 11:34 AM Age: 82 years old Clinical indication: Dyspnea; Additional info: Pleural effusion TECHNIQUE: Imaging protocol: Radiologic exam of the chest. Views: 1 view. COMPARISON: CT angio chest PE protcl [id number] 02/08/2023 8:13 PM FINDINGS: Tubes, catheters and devices: Dual lead cardiac device projects over the left chest. Lungs: Mild hazy opacity in the right lung base. Pleural spaces: Blunting of the right costophrenic angle. No significant pneumothorax. Heart/Mediastinum: Cardiomediastinal silhouette is midline and mildly enlarged. Vasculature: Mild calcific disease of the aorta. IVC filter noted. Bones/joints: No acute osseous findings. XR/XR chest 1V portable [id number] IMPRESSION: 1. Small to moderate right pleural effusion. 2. Mild cardiomegaly.
[2023-02-11 10:51] LABS: Ferritin 155 ng/mL (30-400); Iron 34 ug/dL (59-158); Percent Saturation 11.6 % (20-50); Total Iron Binding Capacity 291 mcg/dl; Unsaturated Iron Binding 257 ug/dL (112-347)
[2023-02-11] MEDS: methylPREDNISolone sod succ 40 mg/mL INJ IVP ×2 (11:49→21:59)
--- NOTE | 2023-02-11 14:49 | PM.PN ---
Subjective Subjective: Seen this morning. Patient stated he had some shortness of breath and he was displaying signs of mild respiratory distress. Using abdominal muscles to breathe. Still on 2 L nasal cannula however. I do hear gurgling as well. Lasix 40 IV x 1 was given. Patient refused Gan catheter at this time and said he will use a urinal. No conversational dyspnea however. He reported to the nurse that he had difficulty swallowing. Water was coming right back up according to patient. He said he is unable to swallow. Coughing throughout drinking water as well. Called patient's son on the phone for an update and explained the patient situation. Patient hyponatremic at 148. Hemoglobin 7.6 today. Was not a candidate for angiogram last time due to anemia. Later I was called at the bedside by family to discuss further. Regarding patient's care. Had a long family meeting with them. Discussed all of patient's diagnosis. Recommended he be n.p.o. for barium swallow. However due to holidays reminded to get it done before Sunday. Patient's [id number] states that he does do this at home as well and they also suspicion of aspiration. Clinically I believe patient may be aspirating. I explained this to the family. Family states that they are aware what situation they are in. Patient also said during the family meeting that he is tired and he said let it loose and and let it go . When discussed further he stated he understands that treatment will be stopped and he would possibly pass away from natural causes. He also does understand he is not actively dying. He just says that he is overall very tired of his medical conditions and that nothing more can be done. Patient's son states that for the last 6 months patient has been saying to let it go. He is DNR/DNI. They understand that we cannot give patient anticoagulation or dual antiplatelet therapy if he ends up having cardiac intervention. He is therefore not a candidate for it. We are diuresing the patient at this time. Patient does have moderate pulmonary hypertension, severe tricuspid regurgitation, RV dilation as well. They understand his prognosis is poor. We did discuss briefly regarding palliative care as well. Patient does not want intubation or CPR. Possibly okay with BiPAP if the need arises. Family and patient also understands that he may go into respiratory failure by tiring out. I offered morphine to help with shortness of breath but patient refused at this time. Patient will be made n.p.o. at this time however patient's family also understands that he could aspirate from his own secretions as well. Vitals/I&O/Wt Last Vital Signs Temp 98.3 F 02/11/23 11:53 Pulse 83 02/11/23 11:53 Resp 16 02/11/23 11:53 BP 113/63 02/11/23 11:53 Pulse Ox 92 02/11/23 11:53 O2 Del Method Room Air 02/11/23 11:53 O2 Flow Rate 3 02/11/23 07:47 02/10/23 02/11/23 02/11/23 22:59 06:59 14:59 Intake Total 540 / 1858.5106 155 / 2013.5106 530 / 530 Output Total 250 / 650 225 / 875 700 / 700 Balance 290 / 1208.5106 -70 / 1138.5106 -170 / -170 Weight last 48 hrs Weight 68.719 kg Weight 67.84 kg Physical Exam Narrative: Awake and alert and oriented x3 today GCS 15 Currently on 2 L saturating 96%., Mild respiratory distress. Occasionally uses abdominal muscles to breathe. If talks for long period of time does have conversational dyspnea. Has gurgling and coughs. GCS 15 S1, S2 No chest pain, abdomen soft nontender Lungs clear to auscultation with mild crackles at right base. Lower extremity no edema Dry skin Data 02/11/23 02:54 02/11/23 02:54 A&P Assessment and plan (1) Pulmonary hypertension: (2) Abnormal stress test: (3) Paroxysmal atrial fibrillation with RVR: (4) MENDOZA (dyspnea on exertion): (5) Malnutrition of moderate degree: (6) Anemia: (7) Acute exacerbation of chronic obstructive pulmonary disease: (8) Hypoxia: (9) Pneumonia: (10) Acute hypernatremia: Plan #Metabolic encephalopathy - resolved #Aspiration pneumonia #Aspiration #Syncope recurrent falls at home #Acute on chronic anemia #Acute on chronic hypoxia, acute COPD exacerbation related to pneumonia versus aspiration #Hyponatremia #NSTEMI #Hypokalemia #Dysphagia #Afib #Pulmonary HTN #Severe tricuspic regurgitation #HFpEF ? Patient reported dysphagia today and regurgitation of water. Continue n.p.o. status. Have speech swallow evaluation. ? Will do modified barium swallow as soon as possible ? Recent admission in hospital therefore we will treat with broad-spectrum antibiotics vancomycin and Zosyn for now. ? He is afebrile with no signs of sepsis. Continue to monitor. Check procalcitonin level. Patient possibly had an aspiration event this morning ? He is status post 1 unit packed RBC. Hemoglobin 7.6 today. ? Order 1 more unit packed RBC. Ideally hemoglobin should be above 8. ? Elevated troponin but no active chest pain. Not a candidate for anticoagulation or dual antiplatelet therapy due to anemia. Last admission heart cath was deferred. ? CT is complete no evidence of pulmonary embolism. Moderate right pleural effusion present slightly smaller than before on today's x-ray. ? Venous Doppler negative for DVT ? At baseline uses 2 L and now requiring 3 L nasal cannula. ? Sodium 148 this morning. Will need D5 water however will hold off for now. ? Lasix 40 IV x 1 given this morning. Will use it as needed and not put a standing dose. ? Iron deficiency anemia. ? Iron sucrose 200 mg IV x 1 bag today. ? Recently had EGD and colonoscopy, 3 polyps removed ? Hypokalemia: Potassium 3.5 today. Will order 40 p.o. today since he will drop again due to Lasix administration. ? Check PT OT - Continue metoprolol - Hold off on Xarelto Unsure if patient can go back to [facility] living. He possibly might benefit from SNF. Discussed this with family as well. Resident of Danilo christianson Full code Cardiac diet Attestations Medical Necessity Statement*: continue in hospital mgmt for multifactorial SOB and High Time for a total of 70 minutes, includes reviewing past or interval history, examining/interviewing patient, placing orders, counseling patient/family/other support, updating patient/family/other support, discussing plan of care with staff, communicating with other healthcare providers, documenting encounter and coordinating care Diagnoses Pulmonary hypertension I27.20 Abnormal stress test R94.39 Paroxysmal atrial fibrillation with RVR I48.0 MENDOZA (dyspnea on exertion) R06.09 Malnutrition of moderate degree E44.0 Anemia D64.9 Acute exacerbation of chronic obstructive pulmonary disease J44.1 Hypoxia R09.02 Pneumonia J18.9 Acute hypernatremia E87.0
[2023-02-11 16:08] LABS: Anion Gap 5.6 (5-19); Blood Urea Nitrogen 15 mg/dL (8-23); Calcium 8.3 mg/dL (8.5-10.5); Chloride 98 mmol/L (98-107); Glucose 161 mg/dL (65-115); Osmolality Calculated 300 mOsm/kg (285-295); Potassium 3.6 mmol/L (3.5-5.1); Sodium 143 mmol/L (136-145)
[2023-02-11 16:12] LABS: Carbon Dioxide 43 mmol/L (22-29)
[2023-02-11] MEDS: iron sucrose 200 MG in sodium chloride 0.9% (100 ml) 100 ML 220 MG IV (17:14)
[2023-02-11] MEDS: pantoprazole 40 mg SDV IVP (17:14)
[2023-02-11 19:45] LABS: Vancomycin Trough 9.1 ug/mL (10-15)
[2023-02-11] MEDS: vancomycin 1,250 MG/250 ML PIGGYBACK 250 MG IV (20:41)
[2023-02-12] VITALS (8 sets, daily range): BP systolic 111–133; BP diastolic 60–75; PULSE 68–97; RESP 16–18; TEMP 36.4–37; O2SAT 92–100
[2023-02-12 04:40] LABS: Basophils % 0.5 %; Eosinophils % 0.2 %; Hematocrit 28.7 % (37-53); Lymphocytes # 0.5 10^3/uL (0.8-4.8); Lymphocytes % 11.8 %; Mean Corpuscular HGB Conc 28.9 g/dL (30-55); Mean Corpuscular Hemoglobin 25.9 pg (27-33); Mean Corpuscular Volume 89.7 fl (82-101); Mean Platelet Volume 10.8 fL (7.4-10.4); Monocytes # 0.1 10^3/uL (0.2-0.9); Monocytes % 1.8 %; Neutrophils # 3.68 10^3/uL (1.8-7.7); Neutrophils % 84.8 %; Nucleated Red Blood Cells % 0 %; Platelet Count 195 10^3/cmm (157-399); Red Cell Distribution Width 17.2 % (12.1-15.1); White Blood Count 4.34 10^3/uL (3.29-11.43)
[2023-02-12 05:06] LABS: Anion Gap 6.6 (5-19); Blood Urea Nitrogen 15 mg/dL (8-23); Calcium 8.2 mg/dL (8.5-10.5); Carbon Dioxide 39 mmol/L (22-29); Chloride 105 mmol/L (98-107); Glucose 159 mg/dL (65-115); Osmolality Calculated 308 mOsm/kg (285-295); Potassium 3.6 mmol/L (3.5-5.1); Sodium 147 mmol/L (136-145)
[2023-02-12] MEDS: pantoprazole 40 mg SDV IVP ×2 (05:20→17:28)
[2023-02-12] MEDS: piperacillin-tazobactam 3.375 GM in sodium chloride 0.9% (plus) 50 ML IV ×3 (05:33→21:31)
[2023-02-12] MEDS: ipratropium-albuterol 3 mL Neb INHALATION (08:34)
--- NOTE | 2023-02-12 10:07 | XRR_ITS ---
PROCEDURE INFORMATION: Exam: XR Chest Exam date and time: 02/12/2023 11:26 AM Age: 82 years old Clinical indication: Other: R/O aspiration TECHNIQUE: Imaging protocol: Radiologic exam of the chest. Views: 1 view. COMPARISON: CR (CHEST, ) 02/11/2023 11:34 AM FINDINGS: Tubes, catheters and devices: Left-sided pacing device. Lungs: Right lower lobe infiltrate/effusion. Pleural spaces: Unremarkable. No pleural effusion. No pneumothorax. Heart/Mediastinum: Unremarkable. No cardiomegaly. Bones/joints: Unremarkable. XR/XR chest 1V portable [id number] IMPRESSION: Right lower lobe infiltrate/pleural effusion. Findings have progressed when compared to the prior examination
[2023-02-12] MEDS: methylPREDNISolone sod succ 40 mg/mL INJ IVP ×2 (12:38→23:19)
--- NOTE | 2023-02-12 13:33 | P.PN_ITS ---
Subjective 2 Subjective: Seen today. He feels better subjectively. Urine output 1 L overnight. Bicarb 39. Chest x-ray shows right lower lobe infiltrate worse compared to before. Vitals/I&O/Wt Last Vital Signs Temp 97.7 F 02/12/23 12:10 Pulse 68 02/12/23 12:10 Resp 17 02/12/23 12:10 BP 111/60 02/12/23 12:10 Pulse Ox 99 02/12/23 12:10 O2 Del Method Nasal Cannula 02/12/23 12:10 O2 Flow Rate 3 02/12/23 08:00 02/11/23 02/12/23 02/12/23 22:59 06:59 14:59 Intake Total 410 / 940 50 / 990 530 / 530 Output Total 300 / 1000 350 / 1350 400 / 400 Balance 110 / -60 -300 / -360 130 / 130 Weight last 48 hrs Weight 68.719 kg Weight 68.719 kg Physical Exam 2 Narrative: Awake and alert and oriented x3 today GCS 15 Currently on 3 L saturating 96%. GCS 15 S1, S2 No chest pain, abdomen soft nontender Lungs clear to auscultation with mild crackles at right base. Lower extremity no edema Dry skin Data 02/12/23 04:23 02/12/23 04:23 Micro: Microbiology 02/08/23 19:27 Blood Culture - Preliminary Blood 02/08/23 19:20 Blood Culture - Preliminary Blood A&P Assessment and plan (1) Pulmonary hypertension: (2) Abnormal stress test: (3) Paroxysmal atrial fibrillation with RVR: (4) MENDOZA (dyspnea on exertion): (5) Malnutrition of moderate degree: (6) Anemia: (7) Acute exacerbation of chronic obstructive pulmonary disease: (8) Hypoxia: (9) Pneumonia: (10) Acute hypernatremia: Plan #Metabolic encephalopathy - resolved #Aspiration pneumonia #Aspiration #Syncope recurrent falls at home #Acute on chronic anemia #Acute on chronic hypoxia, acute COPD exacerbation related to pneumonia versus aspiration #Hyponatremia #NSTEMI #Hypokalemia #Dysphagia #Afib #Pulmonary HTN #Severe tricuspic regurgitation #HFpEF ? Patient reported dysphagia today and regurgitation of water. Continue n.p.o. status. Have speech swallow evaluation. ? Will do modified barium swallow as soon as possible ? Recent admission in hospital therefore we will treat with broad-spectrum antibiotics vancomycin and Zosyn for now. ? He is afebrile with no signs of sepsis. Continue to monitor. Check procalcitonin level. Patient possibly had an aspiration event this morning ? He is status post 1 unit packed RBC. Hemoglobin 8.3 today. ? Order 1 more unit packed RBC. Ideally hemoglobin should be above 8. ? Elevated troponin but no active chest pain. Not a candidate for anticoagulation or dual antiplatelet therapy due to anemia. Last admission heart cath was deferred. ? CT is complete no evidence of pulmonary embolism. Moderate right pleural effusion present slightly smaller than before on today's x-ray. ? Venous Doppler negative for DVT ? At baseline uses 2 L and now requiring 3 L nasal cannula. ? Sodium 147 this morning. Will need D5 water however will hold off for now. ? Lasix 40 IV x 1 given this morning. Will use it as needed and not put a standing dose. ? Iron deficiency anemia. ? Iron sucrose 200 mg IV x 1 bag today. ? Recently had EGD and colonoscopy, 3 polyps removed ? Hypokalemia: Potassium 3.5 today. Will order 40 p.o. today since he will drop again due to Lasix administration. ? Check PT OT - Continue metoprolol - Hold off on Xarelto Unsure if patient can go back to [facility] living. He possibly might benefit from SNF. Discussed this with family as well. Resident of Danilo christianson Full code NPO. Attestations 2 Medical Necessity Statement*: continue in hospital mgmt for multifactorial SOB Diagnoses Pulmonary hypertension I27.20 Abnormal stress test R94.39 Paroxysmal atrial fibrillation with RVR I48.0 MENDOZA (dyspnea on exertion) R06.09 Malnutrition of moderate degree E44.0 Anemia D64.9 Acute exacerbation of chronic obstructive pulmonary disease J44.1 Hypoxia R09.02 Pneumonia J18.9 Acute hypernatremia E87.0
[2023-02-12 13:59] LABS: Methicillin-Resist S.aureu PCR NOT DETECTED (NOT DETECTED)
[2023-02-12] MEDS: vancomycin 1,250 MG/250 ML PIGGYBACK 250 MG IV (20:29)
[2023-02-13] VITALS (7 sets, daily range): BP systolic 107–138; BP diastolic 48–76; PULSE 70–94; RESP 16–18; TEMP 36.3–36.6; O2SAT 94–100
[2023-02-13] MEDS: piperacillin-tazobactam 3.375 GM in sodium chloride 0.9% (plus) 50 ML IV ×3 (05:54→21:23)
[2023-02-13] MEDS: pantoprazole 40 mg SDV IVP ×2 (06:07→18:44)
--- NOTE | 2023-02-13 08:00 | FL_ITS ---
WS: [id number] MODIFIED BARIUM SWALLOW TECHNIQUE: Modified barium swallow with speech therapy using multiple consistencies. FLUOROSCOPY TIME: 2min [id number] CLINICAL INFORMATION: Other dysphagia COMPARISON: None. FINDINGS: Multiple consistencies utilized. No aspiration. Penetration with thin liquids. No difficulties with t he barium tablet. Mild pooling in the vallecula. No other suspicious findings. IMPRESSION: No cathy aspiration. Penetration with thin liquids.
[2023-02-13 09:50] LABS: Blood Urea Nitrogen 14 mg/dL (8-23); Calcium 8.9 mg/dL (8.5-10.5); Chloride 102 mmol/L (98-107); Glucose 132 mg/dL (65-115); Osmolality Calculated 304 mOsm/kg (285-295); Sodium 146 mmol/L (136-145)
[2023-02-13 10:17] LABS: Carbon Dioxide 42 mmol/L (22-29)
[2023-02-13] MEDS: methylPREDNISolone sod succ 40 mg/mL INJ IVP ×2 (10:56→21:22)
--- NOTE | 2023-02-13 12:36 | P.PN_ITS ---
Subjective 2 Subjective: Patient is pleasant and cooperative not complaining of active complaints Stating that he would like to eat Mild heparin swallow showed penetration to thin liquids I will put him on pur?ed diet with thick liquids Vitals/I&O/Wt Last Vital Signs Temp 97.6 F 02/13/23 07:51 Pulse 73 02/13/23 08:00 Resp 17 02/13/23 08:00 BP 136/76 02/13/23 07:51 Pulse Ox 100 02/13/23 08:00 O2 Del Method Nasal Cannula 02/13/23 08:00 O2 Flow Rate 2 02/13/23 08:00 02/12/23 02/13/23 02/13/23 22:59 06:59 14:59 Intake Total 300 / 830 50 / 880 50 / 50 Output Total 100 / 500 300 / 800 Balance 200 / 330 -250 / 80 50 / 50 Weight last 48 hrs Weight 66.315 kg Weight 68.719 kg Physical Exam 2 Narrative: Awake and alert Signs of fluid load improving No active signs of confusion Currently on 2 L GCS 15 Nonfocal neuroexam Skin wrinkling noted Data 02/13/23 09:24 02/13/23 09:24 A&P Assessment and plan (1) Congestive heart failure: Qualifiers: Heart failure chronicity: acute on chronic Heart failure type: d iastolic Qualified Code(s): I50.33 - Acute on chronic diastolic (congestive) heart failure (2) Pulmonary hypertension: (3) Paroxysmal atrial fibrillation with RVR: (4) MENDOZA (dyspnea on exertion): (5) GERD without esophagitis: (6) Chronic hypoxic respiratory failure: (7) Lives in assisted living facility: Plan Modified barium swallow showed penetration to thin liquid otherwise no significant aspiration signs I will put him on pur?ed diet with mildly thick liquid Metabolic encephalopathy: Improved Awaiting placement to see resource DNR/DNI No active chest pain, hemoglobin stable after blood transfusion. Attestations 2 Medical Necessity Statement*: Awaiting placement Diagnoses Acute on chronic diastolic congestive heart failure I50.33 Heart failure chronicity: acute on chronic Heart failure type: diastolic Pulmonary hypertension I27.20 Paroxysmal atrial fibrillation with RVR I48.0 MENDOZA (dyspnea on exertion) R06.09 GERD without esophagitis K21.9 Chronic hypoxic respiratory failure J96.11 Lives in assisted living facility Z59.3
[2023-02-13] MEDS: vancomycin 1,250 MG/250 ML PIGGYBACK 250 MG IV (15:22)
[2023-02-13] MEDS: sucralfate 1 gm/10 mL Oral Liq UDC PO ×2 (18:44→21:22)
[2023-02-14] VITALS: BP 127/76; PULSE 85; RESP 17; TEMP 36.6; O2SAT 97
[2023-02-14 04:00] VITALS: BP 143/68; PULSE 93; RESP 17; TEMP 36.6; O2SAT 94
[2023-02-14] MEDS: piperacillin-tazobactam 3.375 GM in sodium chloride 0.9% (plus) 50 ML IV (05:17)
[2023-02-14] MEDS: pantoprazole 40 mg SDV IVP (05:17)
[2023-02-14] MEDS: sucralfate 1 gm/10 mL Oral Liq UDC PO (06:42)
[2023-02-14 08:00] VITALS: PULSE 79; RESP 14; O2SAT 96
[2023-02-14] MEDS: methylPREDNISolone sod succ 40 mg/mL INJ IVP (11:00)
[2023-02-14 12:00] VITALS: BP 118/68; PULSE 61; RESP 17; TEMP 36.3; O2SAT 97
--- NOTE | 2023-02-14 12:25 | PM.DCS ---
Discharge Providers Date of Admission: 02/08/23 20:00 Date of Discharge: February 14, 2023 Attending Provider at Admission: Trey Lindsey MD Attending Provider at Discharge: Trey Lindsey MD Primary Care Provider: Paolo Ng Diagnoses at Discharge Discharge Diagnosis (1) Congestive heart failure: Status: Acute Qualifiers: Heart failure chronicity: acute on chronic Heart failure type: diastolic Qualified Code(s): I50.33 - Acute on chronic diastolic (congestive) heart failure (2) Pulmonary hypertension: Status: Acute (3) Paroxysmal atrial fibrillation with RVR: Status: Acute (4) MENDOZA (dyspnea on exertion): Status: Acute (5) GERD without esophagitis: Status: Acute (6) Chronic hypoxic respiratory failure: Status: Acute (7) Lives in assisted living facility: Status: Acute Reason for Visit Reason for Visit: COPD EXACERBATION Hospital Course Hospital Course 82-year-old male with history of chronic hypoxia requires 2 L at baseline, presented to the hospital from [facility] for metabolic encephalopathy related to pneumonia, he was requiring 3 L on admission, patient was recently discharged from the hospital after management of heart failure exacerbation on admission he was dehydrated due to overdiuresis he was given D5 half-normal saline which improved his sodium, his p.o. intake has been very poor, he was aspirating, modified barium swallow was done which showed penetration to thin liquids, he was put on antibiotics as well for aspiration pneumonia, non-STEMI which was treated medically secondary to his recurrent anemia, he does have iron deficiency as well he received 1 bag of iron along PRBC during this hospitalization. Patient is DNR/DNI, has history of A-fib, we will hold off on Xarelto, continue metoprolol, recently had EGD and colonoscopy, echo showed preserved ejection fraction with pulmonary hypertension, family was updated, for D-dimer CTA chest was requested which did not show PE Will reduce the dose of Lasix from 40 mg to 20 mg and add low-dose potassium supplementation along Augmentin Physical Exam Narrative: Patient is on 2 L Awake and alert Signs of dehydration improved Gan catheter will be removed Will be discharged back to [facility] Patient required solid diet along with taking liquid Patient is pleasant and cooperative No active signs of encephalopathy Mild cognitive impairment related to possible underlying dementia Discharge Data Studies Completed and Pending Completed Studies During Hospitalization Category Date Time Status CTA PE [CT angio chest PE protcl [id number]] Stat Cat Scan 02/08/23 20:00 Completed FL barium swallow modifd [id number] Urgent Exams 02/13/23 08:00 Completed XR chest 1V portable [id number] Routine Exams 02/12/23 10:07 Completed XR chest 1V portable [id number] Stat Exams 02/08/23 17:37 Completed XR chest 1V portable [id number] Stat Exams 02/11/23 10:12 Completed Pending at discharge Category Date Time Status Blood Cultures ([facility]) Routine Lab 02/08/23 19:20 Results Blood Cultures ([facility]) Routine Lab 02/08/23 19:27 Results Vancomycin Trough Timed Lab 02/15/23 20:00 Ordered Radiology Impressions Chest CTA 02/08/23 20:00 IMPRESSION: 1. No evidence for pulmonary embolus. 2. Moderate right pleural effusion. 3. Mild bronchial wall thickening and filling defects in the bilateral lower lobe bronchi. 4. Multiple pulmonary nodules measuring up to 5 mm. For patients at low risk (minimal or absent history of smoking and of other known risk factors), no routine follow-up is indicated. For patients at high risk (history of smoking or of other known risk factors), consider optional CT Chest at 12 months. (Reference: Sherwin) References: Leilanihodarlene H, et al. Guidelines for Management of Incidental Pulmonary Nodules Detected on CT Images: From the Fleischner Society 2017. Radiology. 2017;284(1):228-243. COMMENTS: Consistent with the [employer]'s Incidental Findings Committee white paper (J Am Ha Radiol 2018): Any incidental renal lesion less than 1 cm or classified as too small to characterize, or any incidental cystic renal lesion characterized as simple-appearing, is likely benign. No follow-up imaging is recommended for these lesions per consensus recommendations based on imaging criteria. Chest X-Ray 02/12/23 10:07 IMPRESSION: Right lower lobe infiltrate/pleural effusion. Findings have progressed when compared to the prior examination Laboratory Results WBC 4.34 10^3/uL (3.29-11.43) 02/12/23 04:23 RBC 3.20 10^6/uL (3.85-5.65) L 02/12/23 04:23 Hgb 8.70 g/dL (11.27-16.99) L 02/13/23 09:24 Hct 30.0 % (37-53) L 02/13/23 09:24 MCV 89.7 fl (82-101) 02/12/23 04:23 MCH 25.9 pg (27-33) L 02/12/23 04:23 MCHC 28.9 g/dL (30-55) L 02/12/23 04:23 RDW 17.2 % (12.1-15.1) H 02/12/23 04:23 Plt Count 195 10^3/cmm (157-399) 02/12/23 04:23 MPV 10.8 fL (7.4-10.4) H 02/12/23 04:23 Neut % (Auto) 84.8 % 02/12/23 04:23 Lymph % (Auto) 11.8 % 02/12/23 04:23 [place] % (Auto) 1.8 % 02/12/23 04: Eos % (Auto) 0.2 % 02/12/23 04: Baso % (Auto) 0.5 % 02/12/23 04: Neut # (Auto) 3.68 10^3/uL (1.8-7.7) 02/12/23 04:23 Lymph # (Auto) 0.5 10^3/uL (0.8-4.8) L 02/12/23 04:23 [place] # (Auto) 0.1 10^3/uL (0.2-0.9) L 02/12/23 04:23 Eos # (Auto) 0.0 10^3/uL (0.0-0.8) 02/12/23 04:23 Baso # (Auto) 0.0 10^3/uL (0.0-0.1) 02/12/23 04:23 Nucleated RBC % (auto) 0 % 02/12/23 04: Nucleated RBCs # 0.0 /100WBC 02/12/23 04:23 PT 16.10 SECONDS (12.1-14.9) H 02/08/23 17:17 INR 1.25 (0.8-1.2) H 02/08/23 17:17 D-Dimer 1.32 ug/mLFEU (0-0.59) H 02/08/23 17:17 Specimen Type Arterial 02/08/23 17:49 Sample Site Brachial, left 02/08/23 17:49 ABG pH 7.51 (7.35-7.45) H 02/08/23 17:49 ABG pCO2 50.3 mmHg (35-45) H 02/08/23 17:49 ABG pO2 60.7 mmHg (80.0-100.0) L 02/08/23 17:49 ABG PO2/FiO2 Ratio 0 02/08/23 17:49 ABG HCO3 40.4 mmol/L (22-26) H 02/08/23 17:49 ABG Base Excess 15.8 mmol/L (-2.0-2.0) H 02/08/23 17:49 Jcarlos Test Pos 02/08/23 17:49 Hematocrit 21.7 % (42-52) L 02/08/23 17:49 Hgb O2 Saturation 90.6 % (95-100) L 02/08/23 17:49 Carboxyhemoglobin 2.3 %THgb (0.4-20.1) 02/08/23 17:49 Methemoglobin 0.4 % (0.4-1.5) 02/08/23 17:49 Total Hemoglobin 7.1 g/dL (14-18) L 02/08/23 17:49 O2 Delivery Device Nc 02/08/23 17:49 O2 Liters/Min 2.0 % 02/08/23 17:49 FiO2 28.0 % 02/08/23 17:49 Pharmacovigilance Scientist ID Erik 02/08/23 17:49 Sodium 146 mmol/L (136-145) H 02/13/23 09:24 Potassium 4.0 mmol/L (3.5-5.1) 02/13/23 09:24 Chloride 102 mmol/L (98-107) 02/13/23 09:24 Carbon Dioxide 42 mmol/L (22-29) H* 02/13/23 09:24 Anion Gap 6.0 (5-19) 02/13/23 09:24 BUN 14 mg/dL (8-23) 02/13/23 09:24 Creatinine 0.5 mg/dL (0.7-1.2) L 02/13/23 09:24 GFR Calculation Not Reportable 02/13/23 09:24 Glucose 132 mg/dL (65-115) H 02/13/23 09:24 Calculated Osmolality 304 mOsm/kg (285-295) H 02/13/23 09:24 Calcium 8.9 mg/dL (8.5-10.5) 02/13/23 09:24 Magnesium 2.0 mg/dL (1.7-2.3) 02/12/23 04:23 Iron 34 ug/dL (59-158) L 02/11/23 02:54 TIBC 291 mcg/dl 02/11/23 02:54 % Saturation 11.6 % (20-50) L 02/11/23 02:54 Unsat Iron Binding 257 ug/dL (112-347) 02/11/23 02:54 Ferritin 155 ng/mL (30-400) 02/11/23 02:54 Total Bilirubin 0.6 mg/dL (0.15-1.2) 02/08/23 17:17 AST 19 U/L (0-40) 02/08/23 17:17 ALT 9 U/L (0-41) 02/08/23 17:17 Alkaline Phosphatase 79 U/L (40-130) 02/08/23 17:17 Troponin T Baseline 138 ng/L (0-15) H* 02/08/23 17:17 Troponin T 120 Minute 116.4 ng/L (0-15) H 02/08/23 19:20 Delta Troponin T -21.6 ABS# (0-10) L 02/08/23 19:20 Troponin T Hi Sens 6Hr 88.61 ng/L (0-15) H 02/08/23 22:52 Troponin T Hi Sens 6Hr Delta -49.39 ng/L (0-12) L 02/08/23 22:52 C-Reactive Protein 3.0 mg/L (0.0-4.9) 02/09/23 05:11 NT-Pro-B Natriuret Pep 3462 pg/mL (0-450) H 02/08/23 17:17 Total Protein 7.5 g/dL (6.6-8.7) 02/08/23 17:17 Albumin 3.6 g/dL (3.5-5.2) 02/08/23 17:17 Globulin 3.9 g/dL (1.3-4.6) 02/08/23 17:17 Procalcitonin 0.03 ng/mL (0-0.5) 02/08/23 17:17 TSH 3.48 uIU/mL (0.27-4.20) 02/08/23 17:17 Vancomycin Trough 9.1 ug/mL (10-15) L 02/11/23 19:14 Influenza Type A Ag negative (Negative) 02/08/23 16:22 Influenza Type B Ag negative (Negative) 02/08/23 16:22 SARS-CoV-2 Ag (Rapid) negative (Negative) 02/08/23 16:22 MRSA (PCR) Not detected (NOT DETECTED) 02/10/23 09:33 Blood Type AB Positive 02/08/23 21:10 Rho(D) Type Rh positive 02/08/23 21:10 Antibody Screen Negative 02/08/23 21:10 Crossmatch See Detail 02/08/23 21:10 Vitals Last Vital Signs Temp 97.3 F L 02/14/23 12:00 Pulse 61 02/14/23 12:00 Resp 17 02/14/23 12:00 BP 118/68 02/14/23 12:00 Pulse Ox 97 02/14/23 12:00 O2 Del Method Nasal Cannula 02/14/23 08:00 O2 Flow Rate 2 02/14/23 08:00 Discharge Plan Discharge Patient Disposition: Xfer SNF Condition: Stable Prescriptions: New potassium chloride 10 mEq tablet extended release 10 meq PO DAILY Qty: 30 0RF amoxicillin-pot clavulanate 875-125 mg tablet 1 tab PO BID Qty: 10 0RF Continued lorazepam 0.5 mg tablet 0.5 mg PO BID PRN (Reason: anxiety) Qty: 60 2RF atorvastatin 40 mg tablet 40 mg PO BEDTIME tamsulosin 0.4 mg capsule 0.4 mg PO DAILY albuterol sulfate 90 mcg/actuation HFA aerosol inhaler 2 puff INHALATION Q4H PRN (Reason: Shortness Of Breath Or Wheezing) budesonide-formoterol [Symbicort] 80-4.5 mcg/actuation HFA aerosol inhaler 1 puff INHALATION BID Xarelto 20 mg tablet 20 mg PO DAILY Hold Instructions: Resume on 01/23/23. aspirin 81 mg Tablet,Delayed Release (Dr/Ec) 81 mg PO DAILY Qty: 30 0RF metoprolol tartrate 25 mg Tablet 25 mg PO BID@0900,2100 Qty: 60 0RF sucralfate 100 mg/mL Suspension 1 g PO AC&BEDTIME 30 Days Qty: 1000 0RF acetaminophen 500 mg Tablet 500 - 1,000 mg PO Q6H PRN (Reason: Pain) pantoprazole 40 mg tablet,delayed release (DR/EC) 40 mg PO DAILY Changed furosemide 40 mg Tablet 20 mg PO QAM Qty: 30 0RF Discontinued midodrine 5 mg tablet 5 mg PO BID Qty: 30 0RF penicillin V potassium 500 mg Tablet 500 mg PO BID naproxen sodium 220 mg Tablet 220 mg PO Q8H PRN (Reason: Pain) Leg Cramp Relief Capsule 1 cap PO BEDTIME Discharge Orders: Discharge Order (Routine); Ordered 02/14/23 Ordered By: Trey Lindsey Referrals: Paolo Ng MD [Primary Care Provider] - Discharge Diet: As Directed Discharge Activity: As per PT/OT instructions Activity Restrictions/Additional Instructions: Patient can have solid diet however for liquids he needs to get thickened liquid Discharge Attestations Time Spent in Discharge Care*: greater than 30 min Quality Metrics Clinical Quality Measures [ No reported AMI, CVA or VTE this stay] Coding Level of Care Code Acute Code for Chg Fwd Diagnoses Acute on chronic diastolic congestive heart failure I50.33 Heart failure chronicity: acute on chronic Heart failure type: diastolic Pulmonary hypertension I27.20 Paroxysmal atrial fibrillation with RVR I48.0 MENDOZA (dyspnea on exertion) R06.09 GERD without esophagitis K21.9 Chronic hypoxic respiratory failure J96.11 Lives in assisted living facility Z59.3
[2023-02-14 13:26] VITALS: BP 118/68; PULSE 61; RESP 17; TEMP 36.3; O2SAT 97
== END 2023-02-14 13:26 | disposition home health service (06) | DRG 70 ==
LOC: ER 19:59 → MEDSURG 20:00
PROVIDERS: Internal Medicine; Admitting Provider Internal Medicine; Emergency Provider Emergency Medicine; PCP Family Medicine; Visit Provider Internal Medicine
DX: G93.41 Metabolic encephalopathy (principal); I21.4 Non-ST elevation (NSTEMI) myocardial infarction; J69.0 Pneumonitis due to inhalation of food and vomit; E44.0 Moderate protein-calorie malnutrition; J96.11 Chronic respiratory failure with hypoxia; E87.0 Hyperosmolality and hypernatremia; N40.0 Benign prostatic hyperplasia without lower urinary tract symptoms; Z86.73 Personal history of transient ischemic attack (TIA), and cerebral infarction without residual deficits; Z79.01 Long term (current) use of anticoagulants; F17.210 Nicotine dependence, cigarettes, uncomplicated; I27.20 Pulmonary hypertension, unspecified; Z68.20 Body mass index [BMI] 20.0-20.9, adult; Z99.81 Dependence on supplemental oxygen; Z91.81 History of falling; E87.6 Hypokalemia; Z66 Do not resuscitate; K21.9 Gastro-esophageal reflux disease without esophagitis; I07.1 Rheumatic tricuspid insufficiency; D50.9 Iron deficiency anemia, unspecified; R13.10 Dysphagia, unspecified; E86.0 Dehydration; I48.0 Paroxysmal atrial fibrillation; G31.84 Mild cognitive impairment of uncertain or unknown etiology
CPT/HCPCS: 36415; 36430; 36600; 71045; 71275; 74230; 80048; 80053; 80202; 82728; 82805; 83540; 83550; 83735; 83880; 84145; 84443; 84484; 85014; 85018; 85025; 85378; 85610; 86140; 86850; 86900; 86920; 87040; 87426; 87641; 87804; 92610; 92611; 93005; 94640; 96365; 96367; 96375; 97161; 97530; 99285; C9113; J0456; J0696; J1756; J1940; J2543; J2920; J2930; J3370; J3480; J7050; J7060; J7613; P9040; Q9967

== ENCOUNTER 2023-02-24 11:45 | Outpatient (CLI) | payer MEDICARE, SELFPAY ==
[2023-02-24 12:04] LABS: Basophils # 0.1 10^3/uL (0.0-0.1); Basophils % 1.6 %; Eosinophils # 0.1 10^3/uL (0.0-0.8); Eosinophils % 2.1 %; Hematocrit 29.1 % (37-53); Lymphocytes # 0.8 10^3/uL (0.8-4.8); Lymphocytes % 18.1 %; Mean Corpuscular HGB Conc 30.2 g/dL (30-55); Mean Corpuscular Hemoglobin 26.2 pg (27-33); Mean Corpuscular Volume 86.6 fl (82-101); Mean Platelet Volume 11.3 fL (7.4-10.4); Monocytes # 0.6 10^3/uL (0.2-0.9); Monocytes % 14.4 %; Neutrophils # 2.75 10^3/uL (1.8-7.7); Neutrophils % 63.6 %; Nucleated Red Blood Cells % 0 %; Platelet Count 192 10^3/cmm (157-399); Red Blood Count 3.36 10^6/uL (3.85-5.65); Red Cell Distribution Width 18.6 % (12.1-15.1); White Blood Count 4.32 10^3/uL (3.29-11.43)
[2023-02-24 12:15] LABS: Alanine Aminotransferase 11 U/L (0-41); Alkaline Phosphatase 83 U/L (40-130); Anion Gap 10.5 (5-19); Aspartate Amino Transferase 18 U/L (0-40); Blood Urea Nitrogen 15 mg/dL (8-23); Carbon Dioxide 30 mmol/L (22-29); Chloride 102 mmol/L (98-107); Ferritin 49 ng/mL (30-400); Globulin 2.8 g/dL (1.3-4.6); Glucose 87 mg/dL (65-115); Iron 24 ug/dL (59-158); Osmolality Calculated 288 mOsm/kg (285-295); Potassium 3.5 mmol/L (3.5-5.1); Sodium 139 mmol/L (136-145); Total Bilirubin 0.4 mg/dL (0.15-1.2); Total Iron Binding Capacity 240 mcg/dl; Total Protein 5.8 g/dL (6.6-8.7); Unsaturated Iron Binding 216 ug/dL (112-347)
== END 2023-02-24 11:46 | disposition home or self-care (01) ==
PROVIDERS: PCP Family Medicine; Visit Provider Family Medicine
DX: I10 Essential (primary) hypertension (principal); Z01.89 Encounter for other specified special examinations
CPT/HCPCS: 80053; 82728; 83540; 83550; 85025

== ENCOUNTER 2023-03-06 09:45 | Emergency (ER) | payer MEDICARE, BC, SELFPAY ==
[2023-03-06 09:47] VITALS: BP 108/43; PULSE 65; RESP 18; TEMP 36.7; O2SAT 99; BMI 19.5
[2023-03-06 09:59] VITALS: BP 105/51; O2SAT 100
--- NOTE | 2023-03-06 10:07 | PC.PHAR ---
Addendum entered by Kelly Castañeda 03/06/23 10:28: [facility] pt has resumed taking xarelto 20mg daily since 01/23/23 Addendum entered by Kelly Castañeda 03/06/23 10:24: erick sanchez from [facility] pt refused lasix this am Original Note: pt is from [facility]
--- NOTE | 2023-03-06 10:13 | ED_ITS ---
HPI - Fall 2 General: Chief Complaint: Fall Stated Complaint: Fall Time Seen by Provider: 03/06/23 09:47 Source: patient Mode of arrival: EMS History of Present Illness: 82-year-old male resident of a nursing [facility] who had a syncopal episode today after he stood up to go to the bathroom. He is have a history of anemia and thought to be from GI source. He was previously hospitalized in December and then again in January. At that time the December hospitalization he had worsening anemia was thought to be from a GI bleed his Xarelto was stopped is now listed as having been restarted we are checking that today. He has a skin tear on his right forearm he is not sure if he hit his head or not. Is a very brief loss of consciousness he denies any chest pain or tightness. He has known history of coronary artery disease and had a positive stress test during the December 2022 hospitalization because of his anemia and other medical issues cardiology had recommended medical management. He also has some heart failure with preserved ejection fraction he is on Lasix. He states his urinary output has been a little bit less lately but he has not had any orthopnea or leg swelling. No anginal symptoms or exertional dyspnea recent. MD complaint: fall Onset (ago): minute(s) Fall from: standing Fall witnessed: yes, by living facility staff Place fall occurred: care home/SNF Loss of consciousness: Yes Prolonged down time: no Symptoms prior to fall: lightheadedness Location of injury - extremities: Right: forearm Associated symptoms-after fall: Denies abdominal pain, chest pain or neck pain Review of Systems 2 Const: Denies: fever(s) or chills Card: Denies: chest pain Resp: Denies: dyspnea GI: Denies: abdominal pain : Denies: dysuria, urinary frequency or urinary urgency Musc: Denies: neck pain or back pain Skin/Breast: Denies: rash PFSH ED 2 PFSH: Medical History GERD without esophagitis Chronic hypoxic respiratory failure Lives in assisted living facility Acute hypernatremia Pneumonia Pulmonary hypertension Abnormal stress test Paroxysmal atrial fibrillation with RVR Hypoxia MENDOZA (dyspnea on exertion) Acute exacerbation of chronic obstructive pulmonary disease Anemia Congestive heart failure Malnutrition of moderate degree GI bleed Hyperkalemia Fall Troponin level elevated Acute hyponatremia BPH (benign prostatic hyperplasia) Orthostatic hypotension Stroke Chronic anticoagulation Paroxysmal A-fib Nocturnal hypoxia COPD (chronic obstructive pulmonary disease) Social History Smoking and tobacco/nicotine status: current every day tobacco/nicotine user Marital status: Single Physical Exam 2 Const: COMMON NORMALS: no acute distress GENERAL APPEARANCE: cooperative and comfortable ORIENTATION/CONSCIOUSNESS: Yes awake HENMT: COMMON NORMALS: normocephalic, atraumatic and hearing grossly normal bilaterally HEAD & SCALP: normocephalic and atraumatic Resp: COMMON NORMALS: normal respiratory effort, No retractions, No use of accessory muscles and clear to auscultation bilaterally AUSCULTATION: clear to auscultation bilaterally Cardio: COMMON NORMALS: regular rate, regular rhythm and No murmurs present (Cardio) RATE: regular rate RHYTHM: regular rhythm GI: COMMON NORMALS: Soft to palpation and No hepatosplenomegaly present A USCULTATION: Yes normoactive bowel sounds PALPATION: Yes Soft to palpation, No Tenderness to palpation present (GI), No Guarding due to palpation present (GI) and Yes No hepatosplenomegaly present Extremity: COMMON NORMALS: normal to inspection, capillary refill normal, no clubbing, cyanosis or edema, no calf tenderness and no pedal edema Skin: COMMON NORMALS: no rashes or lesions noted GENERAL SKIN EXAM: no rashes or lesions noted Course 2 Vital Signs: Vital signs: Vital Signs Temperature 98.1 F 03/06/23 09:47 Pulse Rate 71 03/06/23 12:55 Respiratory Rate 20 H 03/06/23 12:55 Blood Pressure 113/60 03/06/23 12:55 Pulse Oximetry 94 03/06/23 12:55 Oxygen Delivery Me thod Room Air 03/06/23 09:59 Oxygen Flow Rate 2 03/06/23 09:47 MDM - Fall Medical Decision Making Labs and imaging reviewed. No acute ST changes noted on EKG troponin trending negative. Patient is mildly orthostatic is feeling better after fluids. Open hold his Lasix twice a week on Wednesdays and Sundays. Right lower lobe is actually showing improvement on the chest x-ray question of the left upper lobe infiltrate started him on oral antibiotics Augmentin 500 3 times daily for 10 days. X-ray of the elbow was negative skin tear is Steri-Strips in place leave those as it is bandaged apply topical antibiotic ointment [id number] as needed follow-up as needed follow-up with primary care. Medical Records I reviewed the patient's medical records. Lab Data I reviewed the patient's lab results. 03/06/23 09:17 03/06/23 09:17 Laboratory Results WBC 3.57 10^3/uL (3.29-11.43) 03/06/23 09:17 RBC 3.25 10^6/uL (3.85-5.65) L 03/06/23 09:17 Hgb 8.30 g/dL (11.27-16.99) L 03/06/23 09:17 Hct 28.0 % (37-53) L 03/06/23 09:17 MCV 86.2 fl (82-101) 03/06/23 09:17 MCH 25.5 pg (27-33) L 03/06/23 09:17 MCHC 29.6 g/dL (30-55) L 03/06/23 09:17 RDW 17.8 % (12.1-15.1) H 03/06/23 09:17 Plt Count 186 10^3/cmm (157-399) 03/06/23 09:17 MPV 11.6 fL (7.4-10.4) H 03/06/23 09:17 Neut % (Auto) 62.5 % 03/06/23 09:17 Lymph % (Auto) 21.0 % 03/06/23 09:17 [place] % (Auto) 13.2 % 03/06/23 09:17 Eos % (Auto) 2.2 % 03/06/23 09:17 Baso % (Auto) 0.8 % 03/06/23 09:17 Neut # (Auto) 2.23 10^3/uL (1.8-7.7) 03/06/23 09:17 Lymph # (Auto) 0.8 10^3/uL (0.8-4.8) 03/06/23 09:17 [place] # (Auto) 0.5 10^3/uL (0.2-0.9) 03/06/23 09:17 Eos # (Auto) 0.1 10^3/uL (0.0-0.8) 03/06/23 09:17 Baso # (Auto) 0.0 10^3/uL (0.0-0.1) 03/06/23 09:17 Nucleated RBC % (auto) 0 % 03/06/23 09:17 Nucleated RBCs # 0.0 /100WBC 03/06/23 09:17 Sodium 139 mmol/L (136-145) 03/06/23 09:17 Potassium 3.9 mmol/L (3.5-5.1) 03/06/23 09:17 Chloride 98 mmol/L (98-107) 03/06/23 09:17 Carbon Dioxide 30 mmol/L (22-29) H 03/06/23 09:17 Anion Gap 14.9 (5-19) 03/06/23 09:17 BUN 15 mg/dL (8-23) 03/06/23 09:17 Creatinine 0.8 mg/dL (0.7-1.2) 03/06/23 09:17 GFR Calculation Not Reportable 03/06/23 09:17 Glucose 107 mg/dL (65-115) 03/06/23 09:17 Calculated Osmolality 289 mOsm/kg (285-295) 03/06/23 09:17 Calcium 8.9 mg/dL (8.5-10.5) 03/06/23 09:17 Total Bilirubin 0.4 mg/dL (0.15-1.2) 03/06/23 09:17 AST 17 U/L (0-40) 03/06/23 09:17 ALT 9 U/L (0-41) 03/06/23 09:17 Alkaline Phosphatase 92 U/L (40-130) 03/06/23 09:17 Troponin T Baseline 92 ng/L (0-15) H 03/06/23 09:17 Troponin T 120 Minute 83.49 ng/L (0-15) H 03/06/23 11:18 Delta Troponin T -8.51 ABS# (0-10) L 03/06/23 11:18 Total Protein 6.8 g/dL (6.6-8.7) 03/06/23 09:17 Albumin 3.3 g/dL (3.5-5.2) L 03/06/23 09:17 Globulin 3.5 g/dL (1.3-4.6) 03/06/23 09:17 All radiology interpretation(s) finalized by discharge Discharge Plan Discharge Patient Disposition: Home Clinical Impression: Orthostatic hypotension, Syncope due to orthostatic hypotension, Pneumonia Condition: Stable Prescriptions: New Augmentin 500-125 mg tablet 1 tab PO TID Qty: 30 0RF No Action lorazepam 0.5 mg tablet 0.5 mg PO BID PRN (Reason: anxiety) Qty: 60 2RF atorvastatin 40 mg tablet 40 mg PO BEDTIME@20 tamsulosin 0.4 mg capsule 0.4 mg PO DAILY@08 albuterol sulfate 90 mcg/actuation HFA aerosol inhaler 2 puff INHALATION Q4H PRN (Reason: Shortness Of Breath Or Wheezing) budesonide-formoterol [Symbicort] 80-4.5 mcg/actuation HFA aerosol inhaler 1 puff INHALATION BID Xarelto 20 mg tablet 20 mg PO DAILY@09 Hold Instructions: Resume on 01/23/23. metoprolol tartrate 25 mg Tablet 25 mg PO BID@0900,2100 Qty: 60 0RF sucralfate 100 mg/mL suspension 10 ml PO QID Rx Instructions: before meals and bedtime furosemide 40 mg tablet 40 mg PO DAILY@08 potassium chloride 10 mEq tablet extended release 10 meq PO DAILY@08 aspirin 81 mg tablet,delayed release (DR/EC) 81 mg PO DAILY@08 acetaminophen 500 mg Tablet 500 - 1,000 mg PO Q6H PRN (Reason: Pain) pantoprazole 40 mg tablet,delayed release (DR/EC) 40 mg PO DAILY@08 Discharge Orders: Discharge ED (Routine); Ordered 03/06/23 Ordered By: Garry Alas Referrals: Paolo Ng MD [Primary Care Provider] - Patient Instructions: Syncope (ED), Opioid Safety, Pain Management Activity Restrictions/Additional Instructions: Thank you for choosing [facility] for your healthcare needs today. Please realize this is an emergency room and that we are providing you with a medical screening exam and this may not be complete and all inclusive of all the testing and or work up that you may need to determine your ailment or severity of your illness. It is very important that you follow up as instructed or that you return to the Emergency Department should you have concerns or if your condition changes or worsens in any way. Do not take your Lasix on Wednesdays or Sundays. Follow-up with your primary care doctor within the next week. Coding Level of Care Code ED Egg Processing Supervisor for Liv Vega
--- NOTE | 2023-03-06 10:14 | XR_ITS ---
WS: [id number] Exam: XR chest 1V portable [id number] Date/Time of Exam: 03/06/2023 10:18 AM Reason For Exam: dyspnea/cough Comparison 02/12/2023. There is new infiltrate in the LEFT upper lobe. There is continued infiltrate and compressive atelect asis of the RIGHT lower lobe secondary to RIGHT basal pleural effusion. The heart is enlarged but unc hanged in size. No pneumothorax noted. The mediastinum is normal in contour. A permanent pacer is see n over the LEFT chest. IMPRESSION: 1. New LEFT upper lobe infiltrate. 2. Infiltrate and compressive atelectasis in the RIGHT lower lobe secondary to RIGHT basal pleural ef fusion unchanged. 3. Cardiac enlargement unchanged.
--- NOTE | 2023-03-06 10:14 | CT_ITS ---
WS: [id number] CT HEAD NONCONTRAST HISTORY: fall TECHNIQUE: Contiguous axial imaging performed through the brain in 2.5 mm imaging. Bone and soft tiss ue windows. Sagittal and coronal reformats reviewed. All CT scans at [facility] use at least one of these dose optimization techniques: automated exposure control; mA and/or kV adjustment per pa tient size (includes targeted exams where dose is matched to clinical indication); or iterative recon struction. DLP: 1095.68 mGy.cm COMPARISON: 01/09/2023 No acute intracranial hemorrhage, midline shift or mass effect. There is marked atrophy and small vessel ischemic disease. Remote large RIGHT frontal lobe infarct wi th volume loss. Small lacunar infarcts in the basal ganglia. Ventricles: Ventricles and extra-axial spaces are prominent on the basis of atrophy. No inferior displacement the cerebellar tonsils. Paranasal sinuses: As visualized are clear. Mastoid air cells: Well pneumatized. Calvarium and scalp: Skull is intact with no soft tissue edema or swelling. Calcifications noted in the vertebral and intracranial carotid arteries. IMPRESSION: 1. No acute intracranial hemorrhage or edema. 2. 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 3. Moderate volume loss with small vessel ischemic disease.
[2023-03-06 10:28] LABS: Basophils % 0.8 %; Eosinophils # 0.1 10^3/uL (0.0-0.8); Eosinophils % 2.2 %; Lymphocytes # 0.8 10^3/uL (0.8-4.8); Mean Corpuscular HGB Conc 29.6 g/dL (30-55); Mean Corpuscular Hemoglobin 25.5 pg (27-33); Mean Corpuscular Volume 86.2 fl (82-101); Mean Platelet Volume 11.6 fL (7.4-10.4); Monocytes # 0.5 10^3/uL (0.2-0.9); Monocytes % 13.2 %; Neutrophils # 2.23 10^3/uL (1.8-7.7); Neutrophils % 62.5 %; Nucleated Red Blood Cells % 0 %; Platelet Count 186 10^3/cmm (157-399); Red Blood Count 3.25 10^6/uL (3.85-5.65); Red Cell Distribution Width 17.8 % (12.1-15.1); White Blood Count 3.57 10^3/uL (3.29-11.43)
[2023-03-06] MEDS: sodium chloride 0.9% 1,000 ML 999 ML IV (10:28)
--- NOTE | 2023-03-06 10:47 | ECG_ITS ---
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 Measurements Intervals [place] Rate: 62 P: 0 HI: 0 QRS: 257 QRSD: 178 T: 78 QT: 478 QTc: 487 Interpretive Statements ELECTRONIC VENTRICULAR PACEMAKER ABNORMAL RHYTHM ECG Compared to ECG 02/08/2023 17:50:34 Atrial fibrillation no longer present Right bundle-branch block no longer present ST (T wave) deviation no longer present Electronically Signed On 03-06-2023 19:35:51 SILVERWARE BUFFER by Vinod Rabago M.D. [id number]
[2023-03-06 10:48] LABS: Alanine Aminotransferase 9 U/L (0-41); Albumin Level 3.3 g/dL (3.5-5.2); Alkaline Phosphatase 92 U/L (40-130); Anion Gap 14.9 (5-19); Aspartate Amino Transferase 17 U/L (0-40); Blood Urea Nitrogen 15 mg/dL (8-23); Calcium 8.9 mg/dL (8.5-10.5); Carbon Dioxide 30 mmol/L (22-29); Chloride 98 mmol/L (98-107); Globulin 3.5 g/dL (1.3-4.6); Glucose 107 mg/dL (65-115); Osmolality Calculated 289 mOsm/kg (285-295); Potassium 3.9 mmol/L (3.5-5.1); Sodium 139 mmol/L (136-145); Total Bilirubin 0.4 mg/dL (0.15-1.2); Total Protein 6.8 g/dL (6.6-8.7)
[2023-03-06 10:49] LABS: Troponin(5th) Baseline 92 ng/L (0-15)
[2023-03-06 11:42] LABS: Troponin 5 2HR 83.49 ng/L (0-15)
--- NOTE | 2023-03-06 11:45 | XR_ITS ---
WS: [id number] RIGHT ELBOW: 3 VIEW(S) TECHNIQUE: AP, oblique and lateral. HISTORY: trauma COMPARISON: None available. No acute fractures or dislocation. The osteophytic ridging around the radial head and neck is very si milar to the prior radiograph of 01/09/2023. Severe osteoarthritis involving the elbow. No joint effusion. Enthesopathy at the triceps tendon attachment. IMPRESSION: 1. 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 2. Osteophytic ridging around the radial head and neck. This is very similar to the prior examinatio n from 01/09/2023. Cannot confirm new acute fracture radiographically. 3. No significant joint effusion and no dislocation.
[2023-03-06 11:53] LABS: Troponin 5 2HR Delta -8.51 ABS# (0-10)
[2023-03-06 11:57] VITALS: BP 113/48; BP 113/65; BP 92/48; PULSE 68; PULSE 70; PULSE 84
[2023-03-06 12:55] VITALS: BP 113/60; PULSE 71; RESP 20; O2SAT 94
== END 2023-03-06 13:33 | disposition home or self-care (01) ==
PROVIDERS: Emergency Provider Family Medicine; PCP Family Medicine
DX: I95.1 Orthostatic hypotension (principal); S51.812A Laceration without foreign body of left forearm, initial encounter; W18.30XA Fall on same level, unspecified, initial encounter; Y92.129 Unspecified place in nursing home as the place of occurrence of the external cause; J18.9 Pneumonia, unspecified organism; F17.200 Nicotine dependence, unspecified, uncomplicated
CPT/HCPCS: 36415; 70450; 71045; 73080; 80053; 84484; 85025; 93005; 99285; J7030

== ENCOUNTER 2023-03-15 12:26 | Outpatient (CLI) | payer MEDICARE, SELFPAY ==
[2023-03-15 12:36] LABS: Basophils # 0.1 10^3/uL (0.0-0.1); Basophils % 1.5 %; Eosinophils # 0.2 10^3/uL (0.0-0.8); Eosinophils % 5.4 %; Hematocrit 23.1 % (37-53); Lymphocytes # 0.6 10^3/uL (0.8-4.8); Lymphocytes % 16.4 %; Mean Corpuscular HGB Conc 28.6 g/dL (30-55); Mean Corpuscular Hemoglobin 24.5 pg (27-33); Mean Corpuscular Volume 85.9 fl (82-101); Mean Platelet Volume 10.5 fL (7.4-10.4); Monocytes # 0.6 10^3/uL (0.2-0.9); Monocytes % 16.7 %; Neutrophils % 59.7 %; Nucleated Red Blood Cells % 0 %; Platelet Count 303 10^3/cmm (157-399); Red Blood Count 2.69 10^6/uL (3.85-5.65); Red Cell Distribution Width 16.6 % (12.1-15.1); White Blood Count 3.35 10^3/uL (3.29-11.43)
[2023-03-15 13:00] LABS: Estmated Average Glucose 91; Hemoglobin A1C 4.8 % (4.0-6.0)
== END 2023-03-15 12:27 | disposition home or self-care (01) ==
PROVIDERS: PCP Family Medicine; Visit Provider Family Medicine
DX: I10 Essential (primary) hypertension (principal)
CPT/HCPCS: 83036; 85025

== ENCOUNTER 2023-03-15 16:24 | Inpatient (IN) | payer MEDICARE, BC, SELFPAY ==
[2023-03-15] VITALS (12 sets, daily range): BP systolic 100–121; BP diastolic 61–69; PULSE 75–101; RESP 17–34; TEMP 36.9–37.9; O2SAT 90–100; BMI 18.8
--- NOTE | 2023-03-15 16:29 | ECG_ITS ---
[facility] Test Date: 2023-03-15 Pat Name: Krzysztof Tay Department: Room: Gender: Male Mortar Maker: : 1940 Requested By: Shravan Davidson Order Number: [id number] Raphael MD: Gurdeep Barahona M.D. Measurements Intervals [place] Rate: 98 P: 0 UT: 0 QRS: 90 QRSD: 145 T: 267 QT: 344 QTc: 441 Interpretive Statements ATRIAL FIBRILLATION RIGHT BUNDLE BRANCH BLOCK [120+ ms QRS DURATION, UPRIGHT V1, 40+ ms S IN I/aVL/V4/V5/V6] ST DEVIATION AND MODERATE T-WAVE ABNORMALITY, CONSIDER INFERIOR ISCHEMIA [-0.1+ mV T-WAVE IN II/aVF] Compared to ECG 03/06/2023 10:47:39 Right bundle-branch block now present T-wave abnormality now present Possible ischemia now present Ventricular-paced complex(es) or rhythm no longer present Electronically Signed On 03-16-2023 6:50:07 RETAIL CUSTOMER SERVICE REPRESENTATIVE by Gurdeep Barahona M.D. [id number]
--- NOTE | 2023-03-15 16:51 | ED_ITS ---
HPI - Recheck/Abnormal Lab/Rx 2 General: Chief Complaint: Recheck/Abnormal Lab/Rx Stated Complaint: low hgb Time Seen by Provider: 03/15/23 16:27 Source: patient and EMS Mode of arrival: EMS Limitations: no limitations History of Present Illness: 82-year-old male is here from [facility] with concern of anemia patient had blood drawn there and his hemoglobin 6.8 does have a history of chronic anemia has history of COPD is on 2 L at baseline he is satting 93% here on his 2 L he states he had some mild weakness denies any blood in his stool denies any pain anywhere. Review of Systems 2 Const: Denies: fever(s), chills, body aches or change in appetite Eyes: Denies: blurry vision or eye discomfort ENMT: Denies: throat pain or dental pain Card: Denies: chest pain Resp: Denies: dyspnea GI: Denies: abdominal pain, nausea, vomiting or diarrhea : Denies: dysuria Musc: Denies: neck pain or back pain Skin/Breast: Denies: rash Neuro: Denies: headache(s) Psych: Denies: depression Monty/Lymph: Denies: easy bruising All/Imm: Denies: urticaria PFSH ED 2 PFSH: Medical History GERD without esophagitis Chronic hypoxic respiratory failure Lives in assisted living facility Acute hypernatremia Pneumonia Pulmonary hypertension Abnormal stress test Paroxysmal atrial fibrillation with RVR Hypoxia MENDOZA (dyspnea on exertion) Acute exacerbation of chronic obstructive pulmonary disease Anemia Congestive heart failure Malnutrition of moderate degree GI bleed Hyperkalemia Fall Troponin level elevated Acute hyponatremia BPH (benign prostatic hyperplasia) Orthostatic hypotension Stroke Chronic anticoagulation Paroxysmal A-fib Nocturnal hypoxia COPD (chronic obstructive pulmonary disease) Social History Smoking and tobacco/nicotine status: current every day tobacco/nicotine user Marital status: Single Physical Exam 2 Const: COMMON NORMALS: no acute distress, patient oriented x3 and healthy appearing HENMT: COMMON NORMALS: normocephalic and atraumatic HEAD & SCALP: n ormocephalic and atraumatic Eye: COMMON NORMALS: Equal, round and reactive pupils present and EOMs intact bilaterally PUPIL: Yes Equal, round and reactive pupils present Neck/C-Spine: COMMON NORMALS: full ROM and supple Chest: COMMONS NORMALS: normal inspection of the chest and normal palpation of entire chest wall Resp: COMMON NORMALS: normal respiratory effort, No retractions, No use of accessory muscles and clear to auscultation bilaterally AUSCULTATION: clear to auscultation bilaterally Cardio: COMMON NORMALS: regular rate, regular rhythm and No murmurs present (Cardio) RATE: regular rate RHYTHM: regular rhythm GI: COMMON NORMALS: Normal to inspection, nondistended, normoactive bowel sounds present, Soft to palpation, non-tender and no masses PALPATION: Yes Soft to palpation Extremity: COMMON NORMALS: normal to inspection and full ROM Neuro: COMMON NORMALS: patient oriented x3, moves all extremities and no focal motor deficits Psych: COMMON NORMALS: mental status grossly normal, Normal thought process present and cooperative THOUGHT PROCESS: Normal thought process present Skin: COMMON NORMALS: no rashes or lesions noted and no wounds GENERAL SKIN EXAM: no rashes or lesions noted Course 2 Vital Signs: Vital signs: Vital Signs Temperature 98.4 F 03/15/23 16:26 Pulse Rate 95 03/15/23 17:10 Respiratory Rate 20 H 03/15/23 17:10 Blood Pressure 112/69 03/15/23 16:26 Pulse Oximetry 100 03/15/23 17:10 Oxygen Delivery Me thod Nasal Cannula 03/15/23 17:10 Oxygen Flow Rate 3.5 03/15/23 17:10 MDM - Recheck/Abnormal Lab/Rx Medical Decision Making Patient presents here x-ray shows a worsening pneumonia he is also anemic requiring transfusion spoke to hospitalist will start transfusion along with antibiotics. Medical Records I reviewed the patient's medical records. Lab Data I reviewed the patient's lab results. 03/15/23 17:05 03/15/23 17:05 Radiology Impressions Chest X-Ray 03/15/23 16:51 IMPRESSION: 1. Increased left upper lobe pneumonia. 2. Increased right base opacity, suspicious for pneumonia. Laboratory Results WBC 4.40 10^3/uL (3.29-11.43) 03/15/23 17:05 RBC 2.73 10^6/uL (3.85-5.65) L 03/15/23 17:05 Hgb 6.60 g/dL (11.27-16.99) L 03/15/23 17:05 Hct 22.9 % (37-53) L 03/15/23 17:05 MCV 83.9 fl (82-101) 03/15/23 17:05 MCH 24.2 pg (27-33) L 03/15/23 17:05 MCHC 28.8 g/dL (30-55) L 03/15/23 17:05 RDW 16.7 % (12.1-15.1) H 03/15/23 17:05 Plt Count 319 10^3/cmm (157-399) 03/15/23 17:05 MPV 10.4 fL (7.4-10.4) 03/15/23 17:05 Neut % (Auto) 72.5 % 03/15/23 17:05 Lymph % (Auto) 10.9 % 03/15/23 17:05 [place] % (Auto) 12.5 % 03/15/23 17:05 Eos % (Auto) 3.0 % 03/15/23 17:05 Baso % (Auto) 0.9 % 03/15/23 17:05 Neut # (Auto) 3.19 10^3/uL (1.8-7.7) 03/15/23 17:05 Lymph # (Auto) 0.5 10^3/uL (0.8-4.8) L 03/15/23 17:05 [place] # (Auto) 0.6 10^3/uL (0.2-0.9) 03/15/23 17:05 Eos # (Auto) 0.1 10^3/uL (0.0-0.8) 03/15/23 17:05 Baso # (Auto) 0.0 10^3/uL (0.0-0.1) 03/15/23 17:05 Nucleated RBC % (auto) 0 % 03/15/23 17:05 Nucleated RBCs # 0.0 /100WBC 03/15/23 17:05 PT 29.60 SECONDS (12.1-14.9) H 03/15/23 17:05 INR 2.69 (0.8-1.2) H 03/15/23 17:05 Sodium 142 mmol/L (136-145) 03/15/23 17:05 Potassium 4.1 mmol/L (3.5-5.1) 03/15/23 17:05 Chloride 102 mmol/L (98-107) 03/15/23 17:05 Carbon Dioxide 33 mmol/L (22-29) H 03/15/23 17:05 Anion Gap 11.1 (5-19) 03/15/23 17:05 BUN 13 mg/dL (8-23) 03/15/23 17:05 Creatinine 0.6 mg/dL (0.7-1.2) L 03/15/23 17:05 GFR Calculation Not Reportable 03/15/23 17:05 Glucose 121 mg/dL (65-115) H 03/15/23 17:05 Calculated Osmolality 295 mOsm/kg (285-295) 03/15/23 17:05 Calcium 8.2 mg/dL (8.5-10.5) L 03/15/23 17:05 Total Bilirubin 0.4 mg/dL (0.15-1.2) 03/15/23 17:05 AST 23 U/L (0-40) 03/15/23 17:05 ALT 10 U/L (0-41) 03/15/23 17:05 Alkaline Phosphatase 78 U/L (40-130) 03/15/23 17:05 Total Protein 6.8 g/dL (6.6-8.7) 03/15/23 17:05 Albumin 2.9 g/dL (3.5-5.2) L 03/15/23 17:05 Globulin 3.9 g/dL (1.3-4.6) 03/15/23 17:05 All radiology interpretation(s) finalized by discharge Discharge Plan Discharge Patient Disposition: Admitted As Inpatient Clinical Impression: Pneumonia, Anemia Condition: Stable Prescriptions: No Action lorazepam 0.5 mg tablet 0.5 mg PO BID PRN (Reason: anxiety) Qty: 60 2RF furosemide 40 mg tablet 40 mg PO DAILY@08 Qty: 90 1RF potassium chloride 10 mEq capsule, extended release 10 meq PO DAILY Qty: 90 1RF atorvastatin 40 mg tablet 40 mg PO BEDTIME@20 tamsulosin 0.4 mg capsule 0.4 mg PO DAILY@08 albuterol sulfate 90 mcg/actuation HFA aerosol inhaler 2 puff INHALATION Q4H PRN (Reason: Shortness Of Breath Or Wheezing) bernabeonide-formoterol [Symbicort] 80-4.5 mcg/actuation HFA aerosol inhaler 1 puff INHALATION BID Xarelto 20 mg tablet 20 mg PO DAILY@09 Hold Instructions: Resume on 01/23/23. metoprolol tartrate 25 mg Tablet 25 mg PO BID@0900,2100 Qty: 60 0RF sucralfate 100 mg/mL suspension 10 ml PO QID Rx Instructions: before meals and bedtime aspirin 81 mg tablet,delayed release (DR/EC) 81 mg PO DAILY@08 Augmentin 500-125 mg tablet 1 tab PO TID Qty: 30 0RF acetaminophen 500 mg Tablet 500 - 1,000 mg PO Q6H PRN (Reason: Pain) pantoprazole 40 mg tablet,delayed release (DR/EC) 40 mg PO DAILY@08 Referrals: Paolo Ng MD [Primary Care Provider] - Coding Level of Care Code ED Engineered Wood Designer for Liv Vega
--- NOTE | 2023-03-15 16:51 | XRR_ITS ---
PROCEDURE INFORMATION: Exam: XR Chest Exam date and time: 03/15/2023 5:13 PM Age: 82 years old Clinical indication: Shortness of breath; Additional info: SOB TECHNIQUE: Imaging protocol: Radiologic exam of the chest. Views: 1 view. COMPARISON: CR XR chest 1V portable [id number] 06/03/2023 10:23 FINDINGS: Lungs: Increased airspace opacity in the left upper lobe and in the right lung base. Emphysema. Pleural spaces: Stable right pleural effusion. No pneumothorax. Heart/Mediastinum: Unremarkable. No cardiomegaly. Bones/joints: Unremarkable. XR/XR chest 1V portable [id number] IMPRESSION: 1. Increased left upper lobe pneumonia. 2. Increased right base opacity, suspicious for pneumonia.
[2023-03-15 17:27] LABS: Basophils % 0.9 %; Eosinophils # 0.1 10^3/uL (0.0-0.8); Hematocrit 22.9 % (37-53); Lymphocytes # 0.5 10^3/uL (0.8-4.8); Lymphocytes % 10.9 %; Mean Corpuscular HGB Conc 28.8 g/dL (30-55); Mean Corpuscular Hemoglobin 24.2 pg (27-33); Mean Corpuscular Volume 83.9 fl (82-101); Mean Platelet Volume 10.4 fL (7.4-10.4); Monocytes # 0.6 10^3/uL (0.2-0.9); Monocytes % 12.5 %; Neutrophils # 3.19 10^3/uL (1.8-7.7); Neutrophils % 72.5 %; Nucleated Red Blood Cells % 0 %; Platelet Count 319 10^3/cmm (157-399); Red Blood Count 2.73 10^6/uL (3.85-5.65); Red Cell Distribution Width 16.7 % (12.1-15.1)
[2023-03-15 17:32] LABS: INR 2.69 (0.8-1.2)
[2023-03-15 17:36] LABS: Alanine Aminotransferase 10 U/L (0-41); Albumin Level 2.9 g/dL (3.5-5.2); Alkaline Phosphatase 78 U/L (40-130); Blood Urea Nitrogen 13 mg/dL (8-23); Calcium 8.2 mg/dL (8.5-10.5); Carbon Dioxide 33 mmol/L (22-29); Chloride 102 mmol/L (98-107); Globulin 3.9 g/dL (1.3-4.6); Glucose 121 mg/dL (65-115); Osmolality Calculated 295 mOsm/kg (285-295); Sodium 142 mmol/L (136-145); Total Bilirubin 0.4 mg/dL (0.15-1.2); Total Protein 6.8 g/dL (6.6-8.7)
[2023-03-15 17:44] LABS: Anion Gap 11.1 (5-19); Aspartate Amino Transferase 23 U/L (0-40); Potassium 4.1 mmol/L (3.5-5.1)
[2023-03-15] MEDS: cefTRIAXone 1,000 MG in sodium chloride 0.9% (plus) 50 ML 100 MG IV (18:14)
--- NOTE | 2023-03-15 18:56 | PC.NURSE ---
teletypewriter operator assumed care of pt at 1856 report from maría lea,
[2023-03-15] MEDS: azithromycin 500 MG in sodium chloride 0.9% 250 ML 250 MG IV (19:04)
[2023-03-15 19:50] LABS: LAB Peripheral Smear Sent for Review
--- NOTE | 2023-03-15 19:54 | P.HP_ITS ---
Providers/Chief Complaint 2 Admitting Physician: Eduard Dasilva MD Primary Care Provider: Paolo Ng Chief Complaint: low hgb History of Present Illness Krzysztof Tay is a 82 year old male with a past medical history of atrial fibrillation on Xarelto, history of chronic anemia, recent history of EGD which was within normal limits, history of colonoscopy which showed sessile polyps, COPD, CHF, hypertension, hyperlipidemia, who presents to [facility] for shortness of breath, weakness, abnormal labs. Patient tells me that he is here at [facility] as his primary care provider checked his hemoglobin and it was low so he was told to come to the emergency room, he denies any bloody or black stools, did have a fall roughly 2 weeks ago, does report weakness, fatigue, intermittent lightheadedness, no syncopal episodes, he does report increased shortness of breath recently, currently he is breathing through pursed lips, he tells me that this only started recently, has a cough, nonproductive, Review of Systems 2 Const: Denies: fever(s) Card: Denies: chest pain Resp: Reports: dyspnea : Denies: flank pain Medications/Allergies Home Medications Medication Instructions Recorded Confirmed Last Taken Type albuterol sulfate 90 mcg/actuation 2 puff inhalation Q4H PRN 01/09/23 03/06/23 Unknown History aerosol inhaler Shortness Of Breath Or Wheezing atorvastatin 40 mg tablet 40 mg PO BEDTIME@20 01/09/23 03/06/23 03/05/23 History budesonide-formoterol HFA 80 1 puff inhalation BID 01/09/23 03/06/23 03/06/23 History mcg-4.5 mcg/actuation aerosol inhaler (Symbicort) rivaroxaban 20 mg tablet (Xarelto) 20 mg PO DAILY@01/09/23 03/06/23 03/06/23 09:03 History tamsulosin 0.4 mg capsule 0.4 mg PO DAILY@01/09/23 03/06/23 03/06/23 History metoprolol tartrate 25 mg tablet 25 mg PO BID@0900,2100 #60 tabs 01/16/23 03/06/23 02/08/23 Rx lorazepam 0.5 mg tablet 0.5 mg PO BID PRN anxiety #60 tabs 01/19/23 03/06/23 02/08/23 Rx acetaminophen 500 mg tablet 500 - 1,000 mg PO Q6H PRN Pain 02/09/23 03/06/23 03/04/23 History pantoprazole 40 mg tablet,delayed 40 mg PO DAILY@08 02/09/23 03/06/23 03/06/23 History release amoxicillin 500 mg-potassium 1 tab PO TID #30 tabs 03/06/23 Unknown Rx clavulanate 125 mg tablet (Augmentin) aspirin 81 mg tablet,delayed 81 mg PO DAILY@08 03/06/23 03/06/23 03/06/23 History release sucralfate 100 mg/mL oral 10 ml PO QID 03/06/23 03/06/23 Unknown History suspension furosemide 40 mg tablet 40 mg PO DAILY@08 #90 tabs 03/08/23 Unknown Rx potassium chloride 10 mEq 10 meq PO DAILY #90 tabs 03/13/23 Unknown Rx capsule,extended release Allergies Allergy/AdvReac Type Severity Reaction Status Date / Time No Known Allergies Allergy Verified 03/15/23 16:43 PFSH Acute 2 PFSH: Medical History (Updated 03/15/23 @ 20:02 by Eduard Dasilva MD) GI bleed GERD without esophagitis Chronic hypoxic respiratory failure Lives in assisted living facility Acute hypernatremia Pneumonia Pulmonary hypertension Abnormal stress test Paroxysmal atrial fibrillation with RVR Hypoxia MENDOZA (dyspnea on exertion) Acute exacerbation of chronic obstructive pulmonary disease Anemia Congestive heart failure Malnutrition of moderate degree Hyperkalemia Fall Troponin level elevated Acute hyponatremia BPH (benign prostatic hyperplasia) Orthostatic hypotension Stroke Chronic anticoagulation Paroxysmal A-fib Nocturnal hypoxia COPD (chronic obstructive pulmonary disease) Social History Smoking and tobacco/nicotine status: current every day tobacco/nicotine user Marital status: Single Vitals/I&O/Wt Last Vital Signs Temp 98.4 F 03/15/23 16:26 Pulse 95 03/15/23 19:09 Resp 29 H 03/15/23 19:09 BP 121/65 03/15/23 19:09 Pulse Ox 99 03/15/23 19:09 O2 Del Method Nasal Cannula 03/15/23 19:09 O2 Flow Rate 3.5 03/15/23 17:10 Weight last 48 hrs Weight 66.678 kg Physical Exam 2 Const: COMMON NORMALS: no acute distress and patient oriented x3 HENMT: COMMON NORMALS: normocephalic HEAD & SCALP: normocephalic Eye: COMMON NORMALS: Equal, round and reactive pupils present and EOMs intact bilaterally Neck/C-Spine: COMMON NORMALS: no JVD Resp: COMMON NORMALS: normal respiratory effort, No retractions, No use of accessory muscles and clear to auscultation bilaterally OTHER: Wheezing and crackles in right lower lobe and left upper lobe Cardio: COMMON NORMALS: regular rate, S1 normal heart sound present and S2 normal heart sound present RATE: regular rate RHYTHM: abnormal rhythm H EART SOUNDS: S1 normal heart sound present and S2 normal heart sound present GI: COMMON NORMALS: Normal to inspection, nondistended, normoactive bowel sounds present, Soft to palpation and non-tender PALPATION: Yes Soft to palpation and Yes No hepatosplenomegaly present Extremity: COMMON NORMALS: no calf tenderness and no pedal edema Neuro: COMMON NORMALS: patient oriented x3, CN's II-XII intact bilaterally and moves all extremities Psych: COMMON NORMALS: mental status grossly normal Data 03/15/23 17:05 03/15/23 17:05 A&P Assessment and plan (1) Atrial fibrillation: Qualifiers: Atrial fibrillation type: longstanding persistent Qualified Code(s): I 48.11 - Longstanding persistent atrial fibrillation (2) Anemia: (3) COPD (chronic obstructive pulmonary disease): Qualifiers: COPD type: emphysema Emphysema type: panlobular Qualified Code(s): 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 (4) Acute on chronic anemia: (5) GI bleed: (6) Pneumonia: Plan Acute on chronic anemia -Possible slow GI bleed, had an EGD and colonoscopy in the last few months, no specific findings on EGD, colonoscopy showed sessile polyps no other significant sources of bleeding found, he is on Xarelto and aspirin -Denies a history of bone marrow disorder, -Normocytic anemia Plan -For now hold aspirin, and Xarelto might need to chronically hold on discharge -Will order iron studies, during his last hospitalization he had low normal iron levels -Transfuse 1 unit PRBC -Reorder iron studies, B12, folate, peripheral smear -Protonix, Carafate -INR elevated, monitor -Will monitor hemoglobin -Monitor hemodynamics -Keep on clear liquids for now -N.p.o. at midnight just in case he needs to have procedure tomorrow Shortness of breath -Likely multifactorial -Patient's breathing through pursed lips, likely component of COPD, however no wheezing on exam -Echocardiogram during last hospitalization does show severe mitral valve regurg with pulmonary hypertension that certainly a significant etiology -Chest x-ray this hospitalization shows a left upper lobe pneumonia with developing right lower lobe pneumonia no leukocytosis Plan -Hold off on steroids -DuoNeb as needed -ABG -Sputum cultures -Blood cultures -Respiratory viral panel -Rocephin, azithromycin Atrial fibrillation, currently in A-fib rate controlled, hold blood thinners, continue metoprolol COPD CHF History of abdominal aortic aneurysm 4.7 cm History of IVC filter DNR/DNI SCDs for DVT prophylaxis, Lovenox relatively contraindicated given concerns for acute on chronic anemia Attestations 2 Medical Necessity Statement*: Patient requires hospitalization for concerns for acute GI bleed, acute on chronic anemia, pneumonia, inpatient, greater than 2 midnights Diagnoses Longstanding persistent atrial fibrillation I48.11 Atrial fibrillation type: longstanding persistent Anemia D64.9 Panlobular emphysema J43.1 COPD type: emphysema Emphysema type: panlobular Acute on chronic anemia D64.9 GI bleed K92.2 Pneumonia J18.9
[2023-03-15 20:14] LABS: Troponin(5th) Baseline 69 ng/L (0-15)
[2023-03-15 20:18] LABS: Lactic Sepsis W/Reflex 1.7 mmol/L (0.5-2.2)
--- NOTE | 2023-03-15 20:19 | CTR_ITS ---
PROCEDURE INFORMATION: Exam: CT Chest Without Contrast; Diagnostic Exam date and time: 03/15/2023 11:27 PM Age: 82 years old Clinical indication: Other: See below; Additional info: Coy infiltrate, rll infiltrate, anemia TECHNIQUE: Imaging protocol: Diagnostic computed tomography of the chest without contrast. Radiation optimization: All CT scans at this facility use at least one of these dose optimization techniques: automated exposure control; mA and/or kV adjustment per patient size (includes targeted exams where dose is matched to clinical indication); or iterative reconstruction. COMPARISON: CT angio chest PE protcl [id number] 08/02/2023 20:13 RADIATION DOSE METRICS: Total DLP (mGy-cm): 452.61 FINDINGS: Tubes, catheters and devices: Left pacemaker with leads in the heart. Lungs: Severe emphysema. Dependent atelectasis in the right lung with partial collapse of the right lower lobe. Patchy airspace opacities in the central and posterior left upper lobe and extending into the superior lingular segment. Mild atelectasis in the inferior lingula and left lower lobe. Multiple calcified granulomas in the left lower lobe. Pleural spaces: Moderate right and small left pleural effusions. No pneumothorax. Heart: Mild cardiomegaly. Coronary arteries: Coronary artery calcifications. Lymph nodes: Unremarkable. No enlarged lymph nodes. Vasculature: Unremarkable. No aortic aneurysm. Bones/joints: Degenerative changes of the spine. No acute fracture. Soft tissues: Body wall edema. PROCEDURE INFORMATION: Exam: CT Abdomen Without Contrast Exam date and time: 03/15/2023 11:27 PM Age: 82 years old Clinical indication: Other: See below; Additional info: Coy infiltrate, rll infiltrate, anemia TECHNIQUE: Imaging protocol: Computed tomography of the abdomen without contrast. Radiation optimization: All CT scans at this facility use at least one of these dose optimization techniques: automated exposure control; mA and/or kV adjustment per patient size (includes targeted exams where dose is matched to clinical indication); or iterative reconstruction. COMPARISON: CT angio chest w abd pel w con 09/01/2023 14:40 RADIATION DOSE METRICS: Total DLP (mGy-cm): 452.61 FINDINGS: Liver: Normal. No mass. Gallbladder and bile ducts: Tiny calcified stone in the gallbladder. No wall thickening. The bile ducts are normal. Pancreas: Normal. No ductal dilation. Spleen: Normal. No splenomegaly. Adrenal glands: Mild fullness of the adrenal glands is most likely hyperplasia. Kidneys and ureters: Bilateral renal cysts, Hounsfield units less than 20. Small proteinaceous cyst in the right kidney, Hounsfield units greater than 70. No follow-up imaging is recommended. 1 mm left renal calculus. 2 mm right renal calculus. No hydronephrosis. Stomach and bowel: Visualized stomach and bowel are unremarkable. No obstruction. No mucosal thickening. Intraperitoneal space: Unremarkable. No free air. No significant fluid collection. Vasculature: Infrarenal IVC filter. Fusiform infrarenal abdominal aortic aneurysm measuring up to 4.8 cm. Scattered calcified arterial plaque. Lymph nodes: Unremarkable. No enlarged lymph nodes. Bones/joints: Degenerative changes of the lumbar spine. No acute fracture. Soft tissues: Body wall edema. CT/CT chest abd [id number] IMPRESSION: 1. Left upper lobe pneumonia. 2. Moderate right and small left pleural effusions. 3. Atelectasis in the right lung with partial collapse of the right lower lobe. IMPRESSION: 1. No acute findings. 2. 4.8 cm infrarenal abdominal aortic aneurysm. 3. Small nonobstructing renal calculi. 4. Tiny gallstone. COMMENTS: 1. For patients with an IVC filter, recommend assessment for a management plan for the patient's IVC filter. If there is no established management plan, recommend referral to an interventional clinician on a nonemergent basis for evaluation. 2. Consistent with the [employer]'s Incidental Findings Committee white paper (J Am Ha Radiol 2018): Any incidental renal lesion less than 1 cm or classified as too small to characterize, or any incidental cystic renal lesion characterized as simple-appearing, is likely benign. No follow-up imaging is recommended for these lesions per consensus recommendations based on imaging criteria.
[2023-03-15] MEDS: ipratropium-albuterol 3 mL Neb INHALATION (20:54)
--- NOTE | 2023-03-15 21:02 | ECG_ITS ---
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 Measurements Intervals [place] Rate: 94 P: 0 ND: 0 QRS: 85 QRSD: 141 T: 50 QT: 333 QTc: 418 Interpretive Statements ATRIAL FIBRILLATION RIGHT BUNDLE BRANCH BLOCK [120+ ms QRS DURATION, UPRIGHT V1, 40+ ms S IN I/aVL/V4/V5/V6] ST DEVIATION AND MODERATE T-WAVE ABNORMALITY, CONSIDER ANTEROLATERAL ISCHEMIA [-0.1+ mV T-WAVE IN V3-V6] Compared to ECG 03/15/2023 16:38:24 No significant changes Electronically Signed On 03-16-2023 6:51:28 OUTSIDE PROPERTY AGENT by Gurdeep Barahona M.D. [id number]
[2023-03-15] MEDS: atorvastatin 40 mg Tablet PO (21:06)
[2023-03-15] MEDS: pantoprazole 40 mg SDV IVP (21:06)
[2023-03-15] MEDS: sucralfate 1 gm/10 mL Oral Liq UDC PO (21:06)
[2023-03-15] MEDS: metoprolol tartrate 25 mg Tablet PO (21:07)
[2023-03-15 23:02] LABS: Adenovirus Not Detected (NOT DETECT); Chlamydia Pneumoniae Not Detected (NOT DETECT); Coronavirus 229E,HKU1,NL63,OC4 Not Detected (NOT DETECT); Human Metapneumovirus Not Detected (NOT DETECT); Human Rhinovirus/Enterovirus Not Detected (NOT DETECT); Influenza A Not Detected (NOT DETECT); Influenza A H1 Not Detected (NOT DETECT); Influenza A H1-2009 Not Detected (NOT DETECT); Influenza A H3 Not Detected (NOT DETECT); Influenza B Not Detected (NOT DETECT); Mycoplasma Pneumoniae Not Detected (NOT DETECT); Parainfluenza Virus Type 1 Not Detected (NOT DETECT); Parainfluenza Virus Type 2 Not Detected (NOT DETECT); Parainfluenza Virus Type 3 Not Detected (NOT DETECT); Parainfluenza Virus Type 4 Not Detected (NOT DETECT); Respiratory Syncytial Virus A Not Detected (NOT DETECT); Respiratory Syncytial Virus B Not Detected (NOT DETECT); SARS-COV-2 Not Detected (NOT DETECT)
[2023-03-16] VITALS (13 sets, daily range): BP systolic 97–126; BP diastolic 43–67; PULSE 73–108; RESP 16–24; TEMP 36.6–37.6; O2SAT 90–98; BMI 18.9
--- NOTE | 2023-03-16 01:49 | ECG_ITS ---
[facility] Test Date: 2023-03-16 Pat Name: Krzysztof Tay Department: Room: 270 Gender: Male Employee Health Rn: : 1940 Requested By: Eduard Dasilva Order Number: [id number] Raphael MD: Gurdeep Barahona M.D. Measurements Intervals [place] Rate: 82 P: 0 VT: 0 QRS: 58 QRSD: 145 T: 33 QT: 363 QTc: 426 Interpretive Statements ATRIAL FIBRILLATION RIGHT BUNDLE BRANCH BLOCK [120+ ms QRS DURATION, UPRIGHT V1, 40+ ms S IN I/aVL/V4/V5/V6] MINIMAL VOLTAGE CRITERIA FOR LVH, CONSIDER NORMAL VARIANT [MEETS CRITERIA IN ONE OF: R(aVL), S(V1), R(V5), R(V5/V6)+S(V1)] ST DEVIATION AND MODERATE T-WAVE ABNORMALITY, CONSIDER ANTEROLATERAL ISCHEMIA [-0.1+ mV T-WAVE IN V3-V6] Compared to ECG 03/15/2023 21:02:01 No significant changes Electronically Signed On 03-16-2023 6:55:28 PRESS MANAGER by Gurdeep Barahona M.D. [id number]
[2023-03-16 02:04] LABS: NT Pro B Type Natriuretic Pept 2326 pg/mL (0-450); Procalcitonin 0.04 ng/mL (0-0.5)
[2023-03-16 02:15] LABS: Ferritin 57 ng/mL (30-400); Iron 17 ug/dL (59-158); Thyroid Stimulating Hormone 1.72 uIU/mL (0.27-4.20); Vitamin B12 399 pg/mL (232-1245)
[2023-03-16 02:22] LABS: Total Iron Binding Capacity 240 mcg/dl; Unsaturated Iron Binding 223 ug/dL (112-347)
[2023-03-16] MEDS: ipratropium-albuterol 3 mL Neb INHALATION ×3 (02:34→13:17)
[2023-03-16 05:48] LABS: ABG PCO2 48.9 mmHg (35-45); ABG PH Result 7.48 (7.35-7.45); Arterial Blood Gas Hematocrit 22.7 % (42-52); Base Excess ABG 11.9 mmol/L (-2.0-2.0); Blood Gas LPM 3.5 %; Blood Gas Sample Site Brachial, right; Blood Gas Sample Type Arterial; HCO3 ABG 36.6 mmol/L (22-26); Oxygen Device NC; PO2 ABG 61.7 mmHg (80.0-100.0); PO2 FiO2 Ratio Arterial Blood 0
[2023-03-16 06:12] LABS: Basophils % 1.3 %; Eosinophils # 0.1 10^3/uL (0.0-0.8); Eosinophils % 3.3 %; Hematocrit 22.9 % (37-53); Lymphocytes # 0.5 10^3/uL (0.8-4.8); Lymphocytes % 16.5 %; Mean Corpuscular HGB Conc 30.1 g/dL (30-55); Mean Corpuscular Hemoglobin 25.2 pg (27-33); Mean Corpuscular Volume 83.6 fl (82-101); Mean Platelet Volume 10.3 fL (7.4-10.4); Monocytes # 0.4 10^3/uL (0.2-0.9); Monocytes % 13.5 %; Neutrophils # 1.97 10^3/uL (1.8-7.7); Neutrophils % 65.1 %; Nucleated Red Blood Cells % 0 %; Platelet Count 263 10^3/cmm (157-399); Red Blood Count 2.74 10^6/uL (3.85-5.65); Red Cell Distribution Width 16.4 % (12.1-15.1); White Blood Count 3.03 10^3/uL (3.29-11.43)
[2023-03-16 06:22] LABS: INR 1.78 (0.8-1.2)
[2023-03-16 06:30] LABS: Troponin 5 2HR 74.24 ng/L (0-15)
[2023-03-16 06:37] LABS: Alanine Aminotransferase 8 U/L (0-41); Albumin Level 2.6 g/dL (3.5-5.2); Alkaline Phosphatase 66 U/L (40-130); Anion Gap 11.3 (5-19); Aspartate Amino Transferase 13 U/L (0-40); Blood Urea Nitrogen 14 mg/dL (8-23); Calcium 8.3 mg/dL (8.5-10.5); Carbon Dioxide 34 mmol/L (22-29); Chloride 102 mmol/L (98-107); Globulin 3.1 g/dL (1.3-4.6); Glucose 99 mg/dL (65-115); Osmolality Calculated 299 mOsm/kg (285-295); Potassium 3.3 mmol/L (3.5-5.1); Sodium 144 mmol/L (136-145); Total Bilirubin 0.9 mg/dL (0.15-1.2); Total Protein 5.7 g/dL (6.6-8.7)
[2023-03-16 06:39] LABS: Troponin 5 2HR Delta 5.24 ABS# (0-10)
[2023-03-16 06:47] LABS: NT Pro B Type Natriuretic Pept 2649 pg/mL (0-450)
[2023-03-16 06:55] LABS: Folate Level 9.8 ng/mL (4.5-32.2)
--- NOTE | 2023-03-16 08:16 | PC.PHAR ---
pt is from [facility] [phone]-per clare from [facility] states the pts kcl 10meq was dced on 03/08/23,midodrine 5mg bid dced on 02/16/23-states the pt came to [facility] on 01/17/23 and states the pt hasnt had remeron 15mg ext shows last filled 01/06/23 90d/s-medications entered are from what is on the pts roberto and what clare from [facility] states the pt takes
[2023-03-16 08:40] LABS: Troponin 5 6HR 73.49 ng/L (0-15)
[2023-03-16 08:41] LABS: Troponin 5 6HR Delta 4.49 ng/L (0-12)
--- NOTE | 2023-03-16 08:59 | PC.CHAP ---
Pastoral Care Encounter/Spiritual Assessment Type of Contact [] Declined paratransit driver visit [] Patient/Family/Request visit [] Outpatient visit [] Follow-up visit [] Physician referral [] Code/Alert [] Routine visit [] Staff referral [] Actively dying [x] Patient sleeping [] Family support [] [] Out of room [] Palliative care [] [] Receiving care in room [] Pre-surgical visit [] Trauma [] Long length of stay [] ICU visit [] Other: Relational/Emotional Strength [] Patient feels connected with others/family/visitors/staff [] Distress [] Loneliness/isolation [] Abandonment Spirituality of Patient [] Person of Leticia [] Attends Jain of their Leticia [] Believes in Prayer [] Reads Bible or Yarsanism materials [] There are Spiritual issues to be addressed Enterprise Resource Planning Consultant Interventions [] Prayer [] Active listening [] Non-anxious presence [] Spiritual/emotional support [] Crisis/trauma care [] Spiritual counseling [] Bereavement support [] Provided bereavement packet [] Provided Bible/devotional materials [] Provided toy/stuffed animal, coloring book to patient or family member [] Provided Communion [] Anointing/[place] [] Salvation [] Completed spiritual assessment [] Other: Impact on Illness or Injury [] Angry [] Fearful [] Anxious [] Often cries [] Exhaustion [] Unable to work [] Unable to attend uatsdin [] Unable to walk/stand [] Unable to read [] Unable to drive [] Unable to eat/drink [] Unable to sleep [] Unable to be with family [] Patient intubated [] Other: Summary Time spent with patient
[2023-03-16] MEDS: tamsulosin 0.4 mg Capsule PO (09:39)
[2023-03-16] MEDS: sucralfate 1 gm/10 mL Oral Liq UDC PO ×4 (09:39→20:36)
[2023-03-16] MEDS: pantoprazole 40 mg SDV IVP ×2 (09:39→20:36)
[2023-03-16 09:53] LABS: Glucose Point of Care 108 mg/dL (70-110)
[2023-03-16 09:53] LABS: Glucose Point of Care 112 mg/dL (70-110)
--- NOTE | 2023-03-16 11:36 | PC.SOCIAL ---
IMM Update pg 2 of IMM updated and reviewed w/ patient. Copy provided and copy dated, initialed and placed in chart.
[2023-03-16] MEDS: metroNIDAZOLE IV 500 MG/100 ML PREMIX 100 MG IV ×2 (11:38→22:02)
[2023-03-16] MEDS: FUROsemide 10 mg/mL SDV 2mL 20 MG IVP (11:38)
[2023-03-16] MEDS: midodrine 5 mg TABLET PO ×2 (14:07→20:36)
--- NOTE | 2023-03-16 14:15 | P.PN_ITS ---
Subjective 2 Subjective: Tmax 99.6 Fahrenheit. Overnight labs and H&P reviewed. Patient received 1 unit blood transfusion. Repeat H&H has been ordered. He was not orthostatic while participating with PT. Review of past records show that patient has been on midodrine in the past which was discontinued in January. We will go ahead and resume this today. Patient denies any new complaints. He is noted to have pursed lip breathing however states that he has been this way for a long time. He is typically on 2 to 3 L/min supplemental O2. At the time of examination he is currently on 3 L/min. ABG reviewed. Overall with respiratory alkalosis and hypoxia. Reviewed intermediate medication list, patient has recently been on Xarelto therefore probability of PE is low at this time. Medications: Reviewed: Yes Vitals/I&O/Wt Last Vital Signs Temp 99.6 F 03/16/23 07:38 Pulse 93 03/16/23 13:20 Resp 18 03/16/23 13:20 BP 125/65 03/16/23 11:26 Pulse Ox 94 03/16/23 13:20 O2 Del Method Nasal Cannula 03/16/23 13:20 O2 Flow Rate 2 03/16/23 13:20 03/15/23 03/16/23 03/16/23 22:59 06:59 14:59 Intake Total 300 / 300 350 / 650 100 / 100 Output Total 100 / 100 200 / 200 Balance 300 / 300 250 / 550 -100 / -100 Weight last 48 hrs Weight 66.86 kg Weight 70.171 kg Weight 66.678 kg Physical Exam 2 Narrative: General: No acute distress, AO x3, noted to have pursed lip breathing HEENT: PERRLA, pupils bilaterally equal and reactive, pallors not present Chest: Bilateral crackles scattered crackles to auscultation CVS: S1-S2 regular, no murmurs, no tachycardia, no gallops, no rubs Abdomen: Soft, nontender, no organomegaly, bowel sounds present Neuro: No focal deficits, no facial deformity, AO x3, power 5/5 in all limbs Data 03/16/23 05:44 03/16/23 05:44 A&P Assessment and plan (1) Atrial fibrillation: Qualifiers: Atrial fibrillation type: longstanding persistent Qualified Code(s): I 48.11 - Longstanding persistent atrial fibrillation (2) Anemia: (3) COPD (chronic obstructive pulmonary disease): Qualifiers: COPD type: emphysema Emphysema type: panlobular Qualified Code(s): 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 (4) Acute on chronic anemia: (5) GI bleed: (6) Pneumonia: Plan Acute on chronic anemia -Possible slow GI bleed, had an EGD and colonoscopy in the last few months, no specific findings on EGD, colonoscopy showed sessile polyps no other significant sources of bleeding found, he is on Xarelto and aspirin -Denies a history of bone marrow disorder, -Normocytic anemia Plan -For now hold aspirin, and Xarelto might need to chronically hold on discharge -Will order iron studies, during his last hospitalization he had low normal iron levels -Transfuse 1 unit PRBC -Reorder iron studies, B12, folate, peripheral smear -Protonix, Carafate -INR elevated, monitor -Will monitor hemoglobin -Monitor hemodynamics -Keep on clear liquids for now -N.p.o. at midnight just in case he needs to have procedure tomorrow Shortness of breath -Likely multifactorial -Patient's breathing through pursed lips, likely component of COPD, however no wheezing on exam -Echocardiogram during last hospitalization does show severe mitral valve regurg with pulmonary hypertension that certainly a significant etiology -Chest x-ray this hospitalization shows a left upper lobe pneumonia with developing right lower lobe pneumonia no leukocytosis Plan -Hold off on steroids -DuoNeb as needed -ABG -Sputum cultures -Blood cultures -Respiratory viral panel -Rocephin, azithromycin Atrial fibrillation, currently in A-fib rate controlled, hold blood thinners, continue metoprolol COPD CHF History of abdominal aortic aneurysm 4.7 cm History of IVC filter DNR/DNI SCDs for DVT prophylaxis, Lovenox relatively contraindicated given concerns for acute on chronic anemia plan for today March 16, 2023: Transfused 1 unit packed red blood cell today. Recheck H&H. Lasix 20 mg IV x 1 now. Will hold off on further doses as patient appears to be slightly dehydrated, however a low-dose Lasix will likely benefit him from his pulmonary hypertension perspective. Negative respiratory viral panel. Review of prior notes shows that patient has an abnormal MBS with noted penetration to thin liquids. He has been on a regular diet it appears per review of assisted-living records. Continue n.p.o. for now, change antibiotic coverage to ceftriaxone and metronidazole for added anaerobic coverage. Resume home recently discontinued midodrine at 5 mg 3 times daily. Attestations 2 Medical Necessity Statement*: Status post blood transfusion today. Repeat H&H. Lasix today IV. Coding Level of Care Code Acute Code for Chg Fwd Moderate MDM includes number and complexity of problems actively addressed during encounter, amount and/or complexity of data reviewed/ordered and described risk of complication, morbidity or mortality of management as documented Diagnoses Longstanding persistent atrial fibrillation I48.11 Atrial fibrillation type: longstanding persistent Anemia D64.9 Panlobular emphysema J43.1 COPD type: emphysema Emphysema type: panlobular Acute on chronic anemia D64.9 GI bleed K92.2 Pneumonia J18.9
[2023-03-16 14:57] LABS: Hematocrit 22.8 % (37-53)
[2023-03-16] MEDS: cefTRIAXone 1,000 MG in sodium chloride 0.9% (plus) 50 ML 100 MG IV (17:51)
[2023-03-16] MEDS: atorvastatin 40 mg Tablet PO (20:37)
[2023-03-16] MEDS: metoprolol tartrate 25 mg Tablet PO (20:37)
[2023-03-17] VITALS (17 sets, daily range): BP systolic 103–154; BP diastolic 54–80; PULSE 70–110; RESP 16–21; TEMP 36.2–37.3; O2SAT 90–99
[2023-03-17 04:40] LABS: Basophils % 0.8 %; Eosinophils # 0.3 10^3/uL (0.0-0.8); Eosinophils % 7.3 %; Hematocrit 24.2 % (37-53); Lymphocytes # 0.4 10^3/uL (0.8-4.8); Lymphocytes % 11.4 %; Mean Corpuscular HGB Conc 30.2 g/dL (30-55); Mean Corpuscular Hemoglobin 25.6 pg (27-33); Mean Corpuscular Volume 84.9 fl (82-101); Mean Platelet Volume 10.4 fL (7.4-10.4); Monocytes # 0.4 10^3/uL (0.2-0.9); Monocytes % 11.1 %; Neutrophils # 2.55 10^3/uL (1.8-7.7); Neutrophils % 69.1 %; Nucleated Red Blood Cells % 0 %; Platelet Count 288 10^3/cmm (157-399); Red Blood Count 2.85 10^6/uL (3.85-5.65); Red Cell Distribution Width 16.7 % (12.1-15.1); White Blood Count 3.69 10^3/uL (3.29-11.43)
[2023-03-17 05:01] LABS: Alanine Aminotransferase 8 U/L (0-41); Albumin Level 2.7 g/dL (3.5-5.2); Alkaline Phosphatase 67 U/L (40-130); Anion Gap 9.3 (5-19); Aspartate Amino Transferase 13 U/L (0-40); Blood Urea Nitrogen 12 mg/dL (8-23); Calcium 8.3 mg/dL (8.5-10.5); Carbon Dioxide 36 mmol/L (22-29); Chloride 101 mmol/L (98-107); Globulin 3.4 g/dL (1.3-4.6); Glucose 85 mg/dL (65-115); Osmolality Calculated 295 mOsm/kg (285-295); Potassium 3.3 mmol/L (3.5-5.1); Sodium 143 mmol/L (136-145); Total Bilirubin 0.5 mg/dL (0.15-1.2); Total Protein 6.1 g/dL (6.6-8.7)
[2023-03-17] MEDS: pantoprazole 40 mg SDV IVP ×2 (09:27→22:07)
[2023-03-17] MEDS: metroNIDAZOLE IV 500 MG/100 ML PREMIX 100 MG IV ×2 (09:29→22:30)
[2023-03-17] MEDS: sucralfate 1 gm/10 mL Oral Liq UDC PO ×3 (12:52→22:02)
[2023-03-17] MEDS: sodium chloride 0.9% (100 ml) 100 ML 999 ML (16:23)
[2023-03-17] MEDS: midodrine 5 mg TABLET PO ×2 (16:23→22:01)
--- NOTE | 2023-03-17 17:07 | P.PN_ITS ---
Subjective 2 Subjective: Hemoglobin 7.3 today but patient continues to be orthostatic. Afebrile last 24 hours now. Medications: Reviewed: Yes Vitals/I&O/Wt Last Vital Signs Temp 97.8 F 03/17/23 16:25 Pulse 92 03/17/23 16:25 Resp 18 03/17/23 16:25 BP 134/80 03/17/23 16:25 Pulse Ox 97 03/17/23 16:25 O2 Del Method Nasal Cannula 03/17/23 16:10 O2 Flow Rate 2 03/17/23 09:10 03/17/23 03/17/23 03/17/23 06:59 14:59 22:59 Intake Total 100 / 250 100 / 100 0 / 100 Output Total 525 / 1850 Balance -425 / -1600 100 / 100 0 / 100 Weight last 48 hrs Weight 64.546 kg Weight 66.86 kg Weight 70.171 kg Physical Exam 2 Narrative: General: No acute distress, AO x3, noted to have pursed lip breathing HEENT: PERRLA, pupils bilaterally equal and reactive, pallors not present Chest: Bilateral crackles scattered crackles to auscultation CVS: S1-S2 regular, no murmurs, no tachycardia, no gallops, no rubs Abdomen: Soft, nontender, no organomegaly, bowel sounds present Neuro: No focal deficits, no facial deformity, AO x3, power 5/5 in all limbs Data 03/17/23 03:55 03/17/23 03:55 Micro: Microbiology 03/15/23 18:19 Blood Culture - Preliminary Blood 03/15/23 18:12 Blood Culture - Preliminary Blood A&P Assessment and plan (1) Atrial fibrillation: Qualifiers: Atrial fibrillation type: longstanding persistent Qualified Code(s): I 48.11 - Longstanding persistent atrial fibrillation (2) Anemia: (3) COPD (chronic obstructive pulmonary disease): Qualifiers: COPD type: emphysema Emphysema type: panlobular Qualified Code(s): 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 (4) Acute on chronic anemia: (5) GI bleed: (6) Pneumonia: Plan Acute on chronic anemia -Possible slow GI bleed, had an EGD and colonoscopy in the last few months, no specific findings on EGD, colonoscopy showed sessile polyps no other significant sources of bleeding found, he is on Xarelto and aspirin -Denies a history of bone marrow disorder, -Normocytic anemia Plan -For now hold aspirin, and Xarelto might need to chronically hold on discharge -Will order iron studies, during his last hospitalization he had low normal iron levels -Transfuse 1 unit PRBC -Reorder iron studies, B12, folate, peripheral smear -Protonix, Carafate -INR elevated, monitor -Will monitor hemoglobin -Monitor hemodynamics -Keep on clear liquids for now -N.p.o. at midnight just in case he needs to have procedure tomorrow Shortness of breath -Likely multifactorial -Patient's breathing through pursed lips, likely component of COPD, however no wheezing on exam -Echocardiogram during last hospitalization does show severe mitral valve regurg with pulmonary hypertension that certainly a significant etiology -Chest x-ray this hospitalization shows a left upper lobe pneumonia with developing right lower lobe pneumonia no leukocytosis Plan -Hold off on steroids -DuoNeb as needed -ABG -Sputum cultures -Blood cultures -Respiratory viral panel -Rocephin, azithromycin Atrial fibrillation, currently in A-fib rate controlled, hold blood thinners, continue metoprolol COPD CHF History of abdominal aortic aneurysm 4.7 cm History of IVC filter DNR/DNI SCDs for DVT prophylaxis, Lovenox relatively contraindicated given concerns for acute on chronic anemia plan for today March 16, 2023: Transfused 1 unit packed red blood cell today. Recheck H&H. Lasix 20 mg IV x 1 now. Will hold off on further doses as patient appears to be slightly dehydrated, however a low-dose Lasix will likely benefit him from his pulmonary hypertension perspective. Negative respiratory viral panel. Review of prior notes shows that patient has an abnormal MBS with noted penetration to thin liquids. He has been on a regular diet it appears per review of assisted-living records. Continue n.p.o. for now, change antibiotic coverage to ceftriaxone and metronidazole for added anaerobic coverage. Resume home recently discontinued midodrine at 5 mg 3 times daily. Plan for today March 17, 2023. Transfuse 1 unit packed red blood cell. Patient still has mild orthostasis. Will aim to keep hemoglobin at 8 or above. Hold off on Lasix today. Start dysphagia level 4 diet. Continue antibiotics. If continues to do well and hemoglobin stable anticipate discharge in the upcoming 24 to 48 hours. Attestations 2 Medical Necessity Statement*: Transfuse packed red blood cell today. Recheck H&H in the a.m., anticipate discharge. Coding Level of Care Code Acute Code for Chg Fwd Diagnoses Longstanding persistent atrial fibrillation I48.11 Atrial fibrillation type: longstanding persistent Anemia D64.9 Panlobular emphysema J43.1 COPD type: emphysema Emphysema type: panlobular Acute on chronic anemia D64.9 GI bleed K92.2 Pneumonia J18.9
[2023-03-17] MEDS: atorvastatin 40 mg Tablet PO (22:00)
[2023-03-17] MEDS: metoprolol tartrate 25 mg Tablet PO (22:01)
[2023-03-17] MEDS: cefTRIAXone 1,000 MG in sodium chloride 0.9% (plus) 50 ML 100 MG IV (22:06)
[2023-03-17] MEDS: LORazepam 0.5 mg Tablet PO (22:29)
[2023-03-18 01:41] VITALS: PULSE 103
[2023-03-18 04:00] VITALS: BP 124/63; PULSE 102; RESP 18; TEMP 36.9; O2SAT 92
[2023-03-18 04:34] LABS: Basophils % 0.9 %; Eosinophils # 0.2 10^3/uL (0.0-0.8); Eosinophils % 3.9 %; Lymphocytes # 0.4 10^3/uL (0.8-4.8); Lymphocytes % 10.1 %; Mean Corpuscular HGB Conc 29.3 g/dL (30-55); Mean Corpuscular Hemoglobin 25.5 pg (27-33); Mean Platelet Volume 10.8 fL (7.4-10.4); Monocytes # 0.5 10^3/uL (0.2-0.9); Monocytes % 10.8 %; Neutrophils # 3.24 10^3/uL (1.8-7.7); Neutrophils % 74.1 %; Nucleated Red Blood Cells % 0 %; Platelet Count 289 10^3/cmm (157-399); Red Blood Count 3.45 10^6/uL (3.85-5.65); Red Cell Distribution Width 17.2 % (12.1-15.1); White Blood Count 4.37 10^3/uL (3.29-11.43)
[2023-03-18 04:56] LABS: Alanine Aminotransferase 8 U/L (0-41); Albumin Level 2.9 g/dL (3.5-5.2); Alkaline Phosphatase 71 U/L (40-130); Anion Gap 6.5 (5-19); Aspartate Amino Transferase 17 U/L (0-40); Blood Urea Nitrogen 14 mg/dL (8-23); Calcium 8.2 mg/dL (8.5-10.5); Carbon Dioxide 37 mmol/L (22-29); Chloride 102 mmol/L (98-107); Globulin 3.4 g/dL (1.3-4.6); Glucose 108 mg/dL (65-115); Osmolality Calculated 295 mOsm/kg (285-295); Potassium 3.5 mmol/L (3.5-5.1); Sodium 142 mmol/L (136-145); Total Bilirubin 0.9 mg/dL (0.15-1.2); Total Protein 6.3 g/dL (6.6-8.7)
[2023-03-18 08:00] VITALS: BP 127/67; PULSE 100; RESP 16; RESP 18; TEMP 37.6; O2SAT 92; O2SAT 95
[2023-03-18] MEDS: pantoprazole 40 mg SDV IVP (09:01)
[2023-03-18] MEDS: metoprolol tartrate 25 mg Tablet PO (09:01)
[2023-03-18] MEDS: sucralfate 1 gm/10 mL Oral Liq UDC PO (09:01)
[2023-03-18] MEDS: tamsulosin 0.4 mg Capsule PO (09:01)
[2023-03-18] MEDS: midodrine 5 mg TABLET PO (09:01)
[2023-03-18 12:00] VITALS: BP 120/62; PULSE 91; RESP 15; TEMP 37.3; O2SAT 97
[2023-03-18 13:49] VITALS: BP 120/62; PULSE 91; RESP 15; TEMP 37.3; O2SAT 97
--- NOTE | 2023-03-18 17:16 | PM.DCS ---
Discharge Providers Date of Admission: 03/15/23 19:11 Date of Discharge: March 18, 2023 Attending Provider at Admission: Eduard Dasilva MD Attending Provider at Discharge: Jazmine Rhodes MD Primary Care Provider: Paolo Ng Diagnoses at Discharge Discharge Diagnosis (1) Atrial fibrillation: Status: Acute Qualifiers: Atrial fibrillation type: longstanding persistent Qualified Code(s): I48.11 - Longstanding persistent atrial fibrillation (2) Anemia: Status: Acute (3) COPD (chronic obstructive pulmonary disease): Status: Acute Qualifiers: COPD type: emphysema Emphysema type: panlobular Qualified Code(s): J43.1 - Panlobular emphysema (4) Acute on chronic anemia: Status: Acute (5) GI bleed: Status: Acute (6) Pneumonia: Status: Acute Reason for Visit Reason for Visit: low hgb Brief History: Krzysztof Tay is a 82 year old male with a past medical history of atrial fibrillation on Xarelto, history of chronic anemia, recent history of EGD which was within normal limits, history of colonoscopy which showed sessile polyps, COPD, CHF, hypertension, hyperlipidemia, who presents to [facility] for shortness of breath, weakness, abnormal labs. Patient tells me that he is here at [facility] as his primary care provider checked his hemoglobin and it was low so he was told to come to the emergency room. He was found to have a hemoglobin of~6, received 2 packed red cell transfusion during the course of his admission here. Hemoglobin was targeted closer to 8 as patient was orthostatic even when hemoglobin was up to 7. Xarelto was discontinued at discharge. Patient was also noted to have right upper lobe pneumonia, reviewing past records it appears patient had a history of aspiration for which a modified diet had been recommended after MBS. He received dysphagia level 4 diet during the course of admission is recommended to continue the same as outpatient with thickened liquids. He was empirically treated with ceftriaxone and metronidazole during the course of admission due to suspicion for aspiration pneumonia, transition to Augmentin at the time of discharge. Patient has COPD, remained on baseline oxygen during course of admission. He reports he chronically has pursed lip breathing. Midodrine was started at 5 mg TID for orthostatic hypotension. Physical Exam Narrative: General: No acute distress, AO x3 HEENT: PERRLA, pupils bilaterally equal and reactive, pallors not present Chest: Normal vesicular breath sounds, no added sounds, equal good air entry bilaterally CVS: S1-S2 regular, no murmurs, no tachycardia, no gallops, no rubs Abdomen: Soft, nontender, no organomegaly, bowel sounds present Neuro: No focal deficits, no facial deformity, AO x3, power 5/5 in all limbs Discharge Data Studies Completed and Pending Completed Studies During Hospitalization Category Date Time Status CT chest abd wo [id number] Routine Cat Scan 03/15/23 20:19 Completed CXRP [XR chest 1V portable [id number]] Stat Exams 03/15/23 16:51 Completed Pending at discharge Category Date Time Status Blood Cultures ([facility]) Routine Lab 03/15/23 18:12 Results Blood Cultures ([facility]) Routine Lab 03/15/23 18:19 Results Radiology Impressions Chest X-Ray 03/15/23 16:51 IMPRESSION: 1. Increased left upper lobe pneumonia. 2. Increased right base opacity, suspicious for pneumonia. Chest/Abdomen CT 03/15/23 20:19 IMPRESSION: 1. Left upper lobe pneumonia. 2. Moderate right and small left pleural effusions. 3. Atelectasis in the right lung with partial collapse of the right lower lobe. IMPRESSION: 1. No acute findings. 2. 4.8 cm infrarenal abdominal aortic aneurysm. 3. Small nonobstructing renal calculi. 4. Tiny gallstone. COMMENTS: 1. For patients with an IVC filter, recommend assessment for a management plan for the patient's IVC filter. If there is no established management plan, recommend referral to an interventional clinician on a nonemergent basis for evaluation. 2. Consistent with the [employer] [place] [employer]'s Incidental Findings Committee white paper (J Am Ha Radiol 2018): Any incidental renal lesion less than 1 cm or classified as too small to characterize, or any incidental cystic renal lesion characterized as simple-appearing, is likely benign. No follow-up imaging is recommended for these lesions per consensus recommendations based on imaging criteria. Laboratory Results WBC 4.37 10^3/uL (3.29-11.43) 03/18/23 04:07 RBC 3.45 10^6/uL (3.85-5.65) L 03/18/23 04:07 Hgb 8.80 g/dL (11.27-16.99) L 03/18/23 04:07 Hct 30.0 % (37-53) L 03/18/23 04:07 MCV 87.0 fl (82-101) 03/18/23 04:07 MCH 25.5 pg (27-33) L 03/18/23 04:07 MCHC 29.3 g/dL (30-55) L 03/18/23 04:07 RDW 17.2 % (12.1-15.1) H 03/18/23 04:07 Plt Count 289 10^3/cmm (157-399) 03/18/23 04:07 MPV 10.8 fL (7.4-10.4) H 03/18/23 04:07 Neut % (Auto) 74.1 % 03/18/23 04:07 Lymph % (Auto) 10.1 % 03/18/23 04:07 [place] % (Auto) 10.8 % 03/18/23 04:07 Eos % (Auto) 3.9 % 03/18/23 04:07 Baso % (Auto) 0.9 % 03/18/23 04:07 Neut # (Auto) 3.24 10^3/uL (1.8-7.7) 03/18/23 04:07 Lymph # (Auto) 0.4 10^3/uL (0.8-4.8) L 03/18/23 04:07 [place] # (Auto) 0.5 10^3/uL (0.2-0.9) 03/18/23 04:07 Eos # (Auto) 0.2 10^3/uL (0.0-0.8) 03/18/23 04:07 Baso # (Auto) 0.0 10^3/uL (0.0-0.1) 03/18/23 04:07 Nucleated RBC % (auto) 0 % 03/18/23 04:07 Nucleated RBCs # 0.0 /100WBC 03/18/23 04:07 Peripher Smr Path Cons Sent for review 03/15/23 17:05 PT 21.40 SECONDS (12.1-14.9) H 03/16/23 05:44 INR 1.78 (0.8-1.2) H 03/16/23 05:44 Specimen Type Arterial 03/16/23 05:40 Sample Site Brachial, right 03/16/23 05:40 ABG pH 7.48 (7.35-7.45) H 03/16/23 05:40 ABG pCO2 48.9 mmHg (35-45) H 03/16/23 05:40 ABG pO2 61.7 mmHg (80.0-100.0) L 03/16/23 05:40 ABG PO2/FiO2 Ratio 0 03/16/23 05:40 ABG HCO3 36.6 mmol/L (22-26) H 03/16/23 05:40 ABG Base Excess 11.9 mmol/L (-2.0-2.0) H 03/16/23 05:40 Jcarlos Test N/a 03/16/23 05:40 Hematocrit 22.7 % (42-52) L 03/16/23 05:40 O2 Delivery Device Nc 03/16/23 05:40 O2 Liters/Min 3.5 % 03/16/23 05:40 FiO2 35.0 % 03/16/23 05:40 Collar Padder Blindstitch ID Silvio 03/16/23 05:40 Sodium 142 mmol/L (136-145) 03/18/23 04:07 Potassium 3.5 mmol/L (3.5-5.1) 03/18/23 04:07 Chloride 102 mmol/L (98-107) 03/18/23 04:07 Carbon Dioxide 37 mmol/L (22-29) H 03/18/23 04:07 Anion Gap 6.5 (5-19) 03/18/23 04:07 BUN 14 mg/dL (8-23) 03/18/23 04:07 Creatinine 0.5 mg/dL (0.7-1.2) L 03/18/23 04:07 GFR Calculation Not Reportable 03/18/23 04:07 Glucose 108 mg/dL (65-115) 03/18/23 04:07 POC Glucose 112 mg/dL (70-110) H 03/16/23 09:48 Calculated Osmolality 295 mOsm/kg (285-295) 03/18/23 04:07 Lactic Acid 1.7 mmol/L (0.5-2.2) 03/15/23 17:05 Calcium 8.2 mg/dL (8.5-10.5) L 03/18/23 04:07 Iron 17 ug/dL (59-158) L 03/15/23 17:05 TIBC 240 mcg/dl 03/15/23 17:05 % Saturation 7.0 % (20-50) L 03/15/23 17:05 Unsat Iron Binding 223 ug/dL (112-347) 03/15/23 17:05 Ferritin 57 ng/mL (30-400) 03/15/23 17:05 Total Bilirubin 0.9 mg/dL (0.15-1.2) 03/18/23 04:07 AST 17 U/L (0-40) 03/18/23 04:07 ALT 8 U/L (0-41) 03/18/23 04:07 Alkaline Phosphatase 71 U/L (40-130) 03/18/23 04:07 Troponin T Baseline 69 ng/L (0-15) H 03/15/23 17:05 Troponin T 120 Minute 74.24 ng/L (0-15) H 03/16/23 05:44 Delta Troponin T 5.24 ABS# (0-10) 03/16/23 05:44 Troponin T Hi Sens 6Hr 73.49 ng/L (0-15) H 03/16/23 08:02 Troponin T Hi Sens 6Hr Delta 4.49 ng/L (0-12) 03/16/23 08:02 NT-Pro-B Natriuret Pep 2649 pg/mL (0-450) H 03/16/23 05:44 Total Protein 6.3 g/dL (6.6-8.7) L 03/18/23 04:07 Albumin 2.9 g/dL (3.5-5.2) L 03/18/23 04:07 Globulin 3.4 g/dL (1.3-4.6) 03/18/23 04:07 Vitamin B12 399 pg/mL (232-1245) 03/15/23 17:05 Folate 9.8 ng/mL (4.5-32.2) 03/16/23 05:44 Procalcitonin 0.04 ng/mL (0-0.5) 03/15/23 17:05 TSH 1.72 uIU/mL (0.27-4.20) 03/15/23 17:05 Adenovirus (PCR) Not detected (NOT DETECT) 03/15/23 21:00 C. pneumoniae DNA (PCR) Not detected (NOT DETECT) 03/15/23 21:00 Coronavirus 229E (PCR) Not detected (NOT DETECT) 03/15/23 21:00 Human Metapneumovir PCR Not detected (NOT DETECT) 03/15/23 21:00 Influenza A (H1) PCR Not detected (NOT DETECT) 03/15/23 21:00 Influ A (H1/09) PCR Not detected (NOT DETECT) 03/15/23 21:00 Influenza A (H3) PCR Not detected (NOT DETECT) 03/15/23 21:00 Influenza Type A (PCR) Not detected (NOT DETECT) 03/15/23 21:00 Influenza Type B (PCR) Not detected (NOT DETECT) 03/15/23 21:00 M. pneumoniae (PCR) Not detected (NOT DETECT) 03/15/23 21:00 Parainfluenza 1 (PCR) Not detected (NOT DETECT) 03/15/23 21:00 Parainfluenza 2 (PCR) Not detected (NOT DETECT) 03/15/23 21:00 Parainfluenza 3 (PCR) Not detected (NOT DETECT) 03/15/23 21:00 Parainfluenza 4 (PCR) Not detected (NOT DETECT) 03/15/23 21:00 RSV Type A (PCR) Not detected (NOT DETECT) 03/15/23 21:00 RSV Type B (PCR) Not detected (NOT DETECT) 03/15/23 21:00 Entero/Rhino (PCR) Not detected (NOT DETECT) 03/15/23 21:00 SARS-CoV-2 (PCR) Not detected (NOT DETECT) 03/15/23 21:00 Blood Type AB Positive 03/15/23 17:05 Rho(D) Type Rh positive 03/15/23 17:05 Antibody Screen Negative 03/15/23 17:05 Crossmatch See Detail 03/15/23 17:05 Vitals Last Vital Signs Temp 99.2 F 03/18/23 13:49 Pulse 91 03/18/23 13:49 Resp 15 03/18/23 13:49 BP 120/62 03/18/23 13:49 Pulse Ox 97 03/18/23 13:49 O2 Del Method Nasal Cannula 03/18/23 08:00 O2 Flow Rate 2 03/18/23 08:00 Discharge Plan Discharge Patient Disposition: Xfer SNF Condition: Stable Prescriptions: New midodrine 5 mg Tablet 5 mg PO TID 30 Days Qty: 90 0RF amoxicillin-pot clavulanate 875-125 mg tablet 1 tab PO BID 7 Days Qty: 14 0RF Continued lorazepam 0.5 mg tablet 0.5 mg PO BID PRN (Reason: anxiety) Qty: 60 2RF furosemide 40 mg tablet 40 mg PO DAILY@08 Qty: 90 1RF atorvastatin 40 mg tablet 40 mg PO BEDTIME@20 tamsulosin 0.4 mg capsule 0.4 mg PO DAILY@08 albuterol sulfate 90 mcg/actuation HFA aerosol inhaler 2 puff INHALATION Q4H PRN (Reason: Shortness Of Breath Or Wheezing) budesonide-formoterol [Symbicort] 80-4.5 mcg/actuation HFA aerosol inhaler 1 puff INHALATION BID metoprolol tartrate 25 mg Tablet 25 mg PO BID@0900,2100 Qty: 60 0RF sucralfate 100 mg/mL suspension 10 ml PO QID Rx Instructions: before meals and bedtime aspirin 81 mg tablet,delayed release (DR/EC) 81 mg PO DAILY@08 acetaminophen 500 mg Tablet 500 - 1,000 mg PO Q6H PRN (Reason: Pain) pantoprazole 40 mg tablet,delayed release (DR/EC) 40 mg PO DAILY@08 Discontinued Xarelto 20 mg tablet 20 mg PO DAILY@09 Hold Instructions: Resume on 01/23/23. amoxicillin-pot clavulanate [Augmentin] 500-125 mg tablet 1 tab PO TID Qty: 30 0RF Rx Instructions: for 10 days (rx filled 03/07/23) Discharge Orders: Discharge Order (Routine); Ordered 03/18/23 Ordered By: Jazmine Rhodse Referrals: Paolo Ng MD [Primary Care Provider] - 4-7 days Discharge Diet: As Directed Discharge Activity: Resume usual activity Discharge Attestations Time Spent in Discharge Care*: greater than 30 min Quality Metrics Clinical Quality Measures [ No reported AMI, CVA or VTE this stay] Coding Level of Care Code Acute Code for Chg Fwd Diagnoses Longstanding persistent atrial fibrillation I48.11 Atrial fibrillation type: longstanding persistent Anemia D64.9 Panlobular emphysema J43.1 COPD type: emphysema Emphysema type: panlobular Acute on chronic anemia D64.9 GI bleed K92.2 Pneumonia J18.9
== END 2023-03-18 13:50 | disposition home health service (06) | DRG 811 ==
LOC: ER 18:57 → MEDSURG 19:13
PROVIDERS: Admitting Provider Family Medicine; Emergency Provider Emergency Medicine; PCP Family Medicine; Visit Provider Student in an Organized Health Care Education/Training Program
DX: D64.9 Anemia, unspecified (principal); J18.9 Pneumonia, unspecified organism; I48.11 Longstanding persistent atrial fibrillation; J96.11 Chronic respiratory failure with hypoxia; E87.29 Other acidosis; E46 Unspecified protein-calorie malnutrition; Z68.1 Body mass index [BMI] 19.9 or less, adult; J43.1 Panlobular emphysema; I10 Essential (primary) hypertension; E78.5 Hyperlipidemia, unspecified; K21.9 Gastro-esophageal reflux disease without esophagitis; I27.20 Pulmonary hypertension, unspecified; R13.10 Dysphagia, unspecified; I95.1 Orthostatic hypotension; I71.40 Abdominal aortic aneurysm, without rupture, unspecified; F17.200 Nicotine dependence, unspecified, uncomplicated; N40.0 Benign prostatic hyperplasia without lower urinary tract symptoms; Z66 Do not resuscitate; Z79.82 Long term (current) use of aspirin; Z11.52 Encounter for screening for COVID-19; Z79.01 Long term (current) use of anticoagulants; Z86.010 Personal history of colon polyps; Z87.01 Personal history of pneumonia (recurrent); Z99.81 Dependence on supplemental oxygen; Z86.73 Personal history of transient ischemic attack (TIA), and cerebral infarction without residual deficits
CPT/HCPCS: 36415; 36416; 36430; 36600; 71045; 71250; 74150; 80053; 80503; 82607; 82728; 82746; 82803; 82962; 83540; 83550; 83605; 83880; 84145; 84443; 84484; 85014; 85018; 85025; 85610; 86850; 86900; 86920; 87040; 87486; 87581; 87633; 93005; 94640; 94664; 96365; 96367; 97110; 97162; 97165; 97530; 99285; C9113; J0456; J0696; J1940; J3490; J7050; P9016

== ENCOUNTER 2023-03-22 16:20 | Outpatient (CLI) | payer MEDICARE, BC, SELFPAY ==
[2023-03-22 16:46] LABS: Basophils % 1.4 %; Eosinophils # 0.1 10^3/uL (0.0-0.8); Eosinophils % 4.2 %; Hematocrit 30.4 % (37-53); Lymphocytes # 0.5 10^3/uL (0.8-4.8); Lymphocytes % 18.8 %; Mean Corpuscular HGB Conc 28.3 g/dL (30-55); Mean Corpuscular Volume 88.4 fl (82-101); Mean Platelet Volume 10.6 fL (7.4-10.4); Monocytes # 0.5 10^3/uL (0.2-0.9); Monocytes % 15.7 %; Neutrophils # 1.71 10^3/uL (1.8-7.7); Neutrophils % 59.6 %; Nucleated Red Blood Cells % 0 %; Platelet Count 284 10^3/cmm (157-399); Red Blood Count 3.44 10^6/uL (3.85-5.65); Red Cell Distribution Width 18.2 % (12.1-15.1); Reticulocyte % 1.5 % (0.5-2.0); White Blood Count 2.87 10^3/uL (3.29-11.43)
[2023-03-22 17:11] LABS: Anion Gap 3.2 (5-19); Blood Urea Nitrogen 8 mg/dL (8-23); Calcium 7.7 mg/dL (8.5-10.5); Chloride 96 mmol/L (98-107); Ferritin 57 ng/mL (30-400); Glucose 136 mg/dL (65-115); Iron 14 ug/dL (59-158); Osmolality Calculated 294 mOsm/kg (285-295); Potassium 3.2 mmol/L (3.5-5.1); Sodium 142 mmol/L (136-145); Total Iron Binding Capacity 173 mcg/dl; Unsaturated Iron Binding 159 ug/dL (112-347)
[2023-03-22 17:15] LABS: LAB Peripheral Smear Sent for Review
[2023-03-22 17:18] LABS: Carbon Dioxide 46 mmol/L (22-29)
== END 2023-03-22 16:21 | disposition home or self-care (01) ==
LOC: LAB 16:23
PROVIDERS: PCP Family Medicine; Visit Provider Family Medicine
DX: I10 Essential (primary) hypertension (principal); D50.9 Iron deficiency anemia, unspecified; R79.0 Abnormal level of blood mineral
CPT/HCPCS: 80048; 80503; 82728; 83540; 83550; 85025; 85045

== ENCOUNTER 2023-04-14 08:35 | Inpatient (IN) | payer MEDICARE, BC, SELFPAY ==
[2023-04-14] VITALS (16 sets, daily range): BP systolic 99–134; BP diastolic 54–70; PULSE 73–92; RESP 16–34; TEMP 36.6–36.7; O2SAT 91–100; BMI 20.5
--- NOTE | 2023-04-14 08:38 | XRR_ITS ---
PROCEDURE INFORMATION: Exam: XR Chest Exam date and time: 04/14/2023 9:37 AM Age: 82 years old Clinical indication: Cough and dyspnea; Additional info: Dyspnea/cough TECHNIQUE: Imaging protocol: Radiologic exam of the chest. Views: 1 view. COMPARISON: CT chest abd [id number] 03/15/2023 11:27 PM FINDINGS: Lungs: Bibasilar compressive atelectasis or mild infiltrates new on the left and slightly increased on the right compared to 03/06/2023. Pleural spaces: Right pleural effusion may be slightly larger or has redistributed compared to 03/06/2023. Left hemidiaphragm is partially obscured on the current study, suggesting development small effusion and/or left lower lobe pneumonia/atelectasis. Heart/Mediastinum: Heart size is stable compared to prior exam. Cardiac pacemaker is again evident. No pulmonary vascular congestion. Bones/joints: The bones appear diffusely osteopenic. XR/XR chest 1V portable [id number] IMPRESSION: Increasing pleural and parenchymal opacities in the lower lung zones compared to 03/06/2023. Although pulmonary findings could relate to atelectasis, please correlate with clinical and laboratory data to exclude possibility of pneumonia, particularly in left lower lobe.
--- NOTE | 2023-04-14 08:39 | ECG_ITS ---
[facility] Test Date: 2023-04-14 Pat Name: Krzysztof Tay Department: Room: Gender: Male Associate Theatre Professor: : 1940 Requested By: Garry Guaman Order Number: [id number] Raphael MD: Vinod Rabago M.D. Measurements Intervals [place] Rate: 77 P: 0 MT: 0 QRS: 89 QRSD: 146 T: 250 QT: 426 QTc: 484 Interpretive Statements ATRIAL FIBRILLATION with a demand V pacing. RIGHT BUNDLE BRANCH BLOCK [120+ ms QRS DURATION, UPRIGHT V1, 40+ ms S IN I/aVL/V4/V5/V6] Nonspecific ST changes Compared to ECG 03/16/2023 02:40:02 Possible ischemia no longer present Electronically Signed On 04-14-2023 15:30:44 POSTAL SERVICE MAIL PROCESSOR by Vinod Rabago M.D. [id number]
[2023-04-14 08:54] LABS: Basophils % 0.4 %; Eosinophils # 0.1 10^3/uL (0.0-0.8); Eosinophils % 1.2 %; Lymphocytes # 0.7 10^3/uL (0.8-4.8); Lymphocytes % 8.1 %; Mean Corpuscular HGB Conc 28.1 g/dL (30-55); Mean Corpuscular Hemoglobin 23.5 pg (27-33); Mean Corpuscular Volume 83.6 fl (82-101); Monocytes # 0.4 10^3/uL (0.2-0.9); Monocytes % 4.7 %; Neutrophils # 7.74 10^3/uL (1.8-7.7); Neutrophils % 85.4 %; Nucleated Red Blood Cells % 0 %; Platelet Count 199 10^3/cmm (157-399); Red Blood Count 3.83 10^6/uL (3.85-5.65); Red Cell Distribution Width 18.6 % (12.1-15.1); White Blood Count 9.08 10^3/uL (3.29-11.43)
[2023-04-14] MEDS: ipratropium-albuterol 3 mL Neb INHALATION ×3 (08:58→19:43)
--- NOTE | 2023-04-14 09:11 | ED_ITS ---
HPI - SOB/Dyspnea 2 General: Chief Complaint: Shortness of Breath/Dyspnea Stated Complaint: SOB Time Seen by Provider: 04/14/23 08:36 Source: patient Mode of arrival: EMS History of Present Illness: HPI Narrative: 82-year-old male presents emergency room with a complaint of shortness of breath. He is normally on 2 L by nasal cannula assisted living staff reports he was 78-80% on 2 L EMS reports that when they got there they switched to an ear lobe O2 sat and recorded sats of 90-100. On arrival here he still satting in the mid to low 90s without any respiratory distress he is on 2 L by nasal cannula he received albuterol and Solu-Medrol and route. He is still complaining of a little shortness of breath although it is somewhat better. No chest pain no abdominal pain no productive cough patient lives at [facility] in assisted living. MD elicited complaint: shortness of breath and cough Pertinent past history: COPD Onset (ago): hour(s) Exacerbating factors: exertion and coughing Relieving factors: oxygen, rest and bronchodilators Known history of: COPD Associated symptoms: Reports cough; Deny abdominal pain, chest congestion, chest pain, diaphoresis, dizziness, extremity pain, fever(s), hemoptysis, lightheadedness, myalgias, nausea, orthopnea, palpitations, paresthesias, polydipsia, polyuria, rash, sense of impending doom, syncope or vomiting Treatment prior to arrival: oxygen, bronchodilator and other (IV steroids) Related Data: Home oxygen amount: 2 liters Review of Systems 2 Const: Denies: fever(s) or diaphoresis Card: Denies: chest pain, palpitations, lightheadedness, syncope or orthopnea Resp: Denies: hemoptysis or chest congestion GI: Denies: abdominal pain, nausea or vomiting : Denies: dysuria, urinary frequency or urinary urgency Musc: Denies: extremity pain Skin/Breast: Denies: rash Neuro: Denies: dizziness Endo: Denies: polyuria or polydipsia PFSH ED 2 PFSH: Medical History GI bleed GERD without esophagitis Chronic hypoxic respiratory failure Lives in assisted living facility Acute hypernatremia Pneumonia Pulmonary hypertension Abnormal stress test Paroxysmal atrial fibrillation with RVR Hypoxia MENDOZA (dyspnea on exertion) Acute exacerbation of chronic obstructive pulmonary disease Anemia Congestive heart failure Malnutrition of moderate degree Hyperkalemia Fall Troponin level elevated Acute hyponatremia BPH (benign prostatic hyperplasia) Orthostatic hypotension Stroke Chronic anticoagulation Paroxysmal A-fib Nocturnal hypoxia COPD (chronic obstructive pulmonary disease) Social History Smoking and tobacco/nicotine status: current every day tobacco/nicotine user Marital status: Single Physical Exam 2 Const: GENERAL APPEARANCE: cooperative and comfortable O RIENTATION/CONSCIOUSNESS: Yes awake, Yes oriented to person, Yes oriented to place and Yes oriented to time HENMT: COMMON NORMALS: normocephalic, atraumatic and hearing grossly normal bilaterally HEAD & SCALP: normocephalic and atraumatic Resp: EFFORT & INSPECTION: Yes tachypneic AUSCULTATION: wheezes Cardio: COMMON NORMALS: regular rate, regular rhythm and No murmurs present (Cardio) RATE: regular rate RHYTHM: regular rhythm GI: COMMON NORMALS: Soft to palpation and No hepatosplenomegaly present A USCULTATION: Yes normoactive bowel sounds PALPATION: Yes Soft to palpation, No Tenderness to palpation present (GI), No Guarding due to palpation present (GI) and Yes No hepatosplenomegaly present Extremity: COMMON NORMALS: normal to inspection, capillary refill normal, no clubbing, cyanosis or edema, no calf tenderness and no pedal edema Neuro: SENSORIUM/ORIENTATION: Yes oriented to person, Yes oriented to place and Yes oriented to time Skin: COMMON NORMALS: no rashes or lesions noted GENERAL SKIN EXAM: no rashes or lesions noted Course 2 Vital Signs: Vital signs: Vital Signs Temperature 97.8 F 04/14/23 16:00 Pulse Rate 92 04/14/23 16:02 Respiratory Rate 16 04/14/23 16:00 Blood Pressure 99/60 04/14/23 16:00 Pulse Oximetry 91 04/14/23 16:00 Oxygen Delivery Me thod Nasal Cannula 04/14/23 16:00 Oxygen Flow Rate 5 04/14/23 13:40 Fraction of Inspir ed Oxygen 32 04/14/23 11:25 MDM - SOB/Dyspnea Medical Decision Making Community-acquired pneumonia mild CHF exacerbation as well cultures done antibiotic started discussed with hospitalist orders written. Also has some hypercapnic respiratory failure. BiPAP started. Medical Records I reviewed the patient's medical records. Lab Data I reviewed the patient's lab results. 04/14/23 08:46 04/14/23 08:46 Labs/Radiology: Radiology Impressions Chest X-Ray 04/14/23 08:38 IMPRESSION: Increasing pleural and parenchymal opacities in the lower lung zones compared to 03/06/2023. Although pulmonary findings could relate to atelectasis, please correlate with clinical and laboratory data to exclude possibility of pneumonia, particularly in left lower lobe. Laboratory Results WBC 9.08 10^3/uL (3.29-11.43) 04/14/23 08:46 RBC 3.83 10^6/uL (3.85-5.65) L 04/14/23 08:46 Hgb 9.00 g/dL (11.27-16.99) L 04/14/23 08:46 Hct 32.0 % (37-53) L 04/14/23 08:46 MCV 83.6 fl (82-101) 04/14/23 08:46 MCH 23.5 pg (27-33) L 04/14/23 08:46 MCHC 28.1 g/dL (30-55) L 04/14/23 08:46 RDW 18.6 % (12.1-15.1) H 04/14/23 08:46 Plt Count 199 10^3/cmm (157-399) 04/14/23 08:46 MPV 11.0 fL (7.4-10.4) H 04/14/23 08:46 Neut % (Auto) 85.4 % 04/14/23 08:46 Lymph % (Auto) 8.1 % 04/14/23 08:46 Marshall % (Auto) 4.7 % 04/14/23 08:46 Eos % (Auto) 1.2 % 04/14/23 08:46 Baso % (Auto) 0.4 % 04/14/23 08:46 Neut # (Auto) 7.74 10^3/uL (1.8-7.7) H 04/14/23 08:46 Lymph # (Auto) 0.7 10^3/uL (0.8-4.8) L 04/14/23 08:46 Marshall # (Auto) 0.4 10^3/uL (0.2-0.9) 04/14/23 08:46 Eos # (Auto) 0.1 10^3/uL (0.0-0.8) 04/14/23 08:46 Baso # (Auto) 0.0 10^3/uL (0.0-0.1) 04/14/23 08:46 Nucleated RBC % (auto) 0 % 04/14/23 08:46 Nucleated RBCs # 0.0 /100WBC 04/14/23 08:46 Specimen Type Arterial 04/14/23 09:15 Sample Site Brachial, right 04/14/23 09:15 ABG pH 7.45 (7.35-7.45) 04/14/23 09:15 ABG pCO2 62.5 mmHg (35-45) H* 04/14/23 09:15 ABG pO2 43.7 mmHg (80.0-100.0) L 04/14/23 09:15 ABG PO2/FiO2 Ratio 0 04/14/23 09:15 ABG HCO3 42.9 mmol/L (22-26) H 04/14/23 09:15 ABG O2 Saturation 81.0 04/14/23 09:15 ABG Base Excess 16.8 mmol/L (-2.0-2.0) H 04/14/23 09:15 Jcarlos Test N/a 04/14/23 09:15 A-a O2 Gradient 10.6 mmHg (5-10) H 04/14/23 09:15 Hematocrit 25.9 % (42-52) L 04/14/23 09:15 Hgb O2 Saturation 78.7 % (95-100) L 04/14/23 09:15 Carboxyhemoglobin 2.2 %THgb (0.4-20.1) 04/14/23 09:15 Methemoglobin 0.5 % (0.4-1.5) 04/14/23 09:15 Total Hemoglobin 8.5 g/dL (14-18) L 04/14/23 09:15 Sodium 144.0 mmol/L (131-143) H 04/14/23 09:15 Potassium 3.1 mmol/L (3.5-5.0) L 04/14/23 09:15 Glucose 114.0 mg/dL (70-115) 04/14/23 09:15 Ionized Calcium 1.1 mmol/L (1.1-1.4) 04/14/23 09:15 O2 Delivery Device Nc 04/14/23 09:15 O2 Liters/Min 2.0 % 04/14/23 09:15 FiO2 28.0 % 04/14/23 09:15 Asphalt Paving Machine Operator ID [id number] 04/14/23 09:15 Sodium 142 mmol/L (136-145) 04/14/23 08:46 Potassium 4.3 mmol/L (3.5-5.1) 04/14/23 08:46 Chloride 95 mmol/L (98-107) L 04/14/23 08:46 Carbon Dioxide 40 mmol/L (22-29) H 04/14/23 08:46 Anion Gap 11.3 (5-19) 04/14/23 08:46 BUN 16 mg/dL (8-23) 04/14/23 08:46 Creatinine 0.5 mg/dL (0.7-1.2) L 04/14/23 08:46 GFR Calculation Not Reportable 04/14/23 08:46 Glucose 120 mg/dL (65-115) H 04/14/23 08:46 Calculated Osmolality 296 mOsm/kg (285-295) H 04/14/23 08:46 Calcium 8.5 mg/dL (8.5-10.5) 04/14/23 08:46 Total Bilirubin 0.6 mg/dL (0.15-1.2) 04/14/23 08:46 AST 23 U/L (0-40) 04/14/23 08:46 ALT 10 U/L (0-41) 04/14/23 08:46 Alkaline Phosphatase 85 U/L (40-130) 04/14/23 08:46 Troponin T Baseline 88 ng/L (0-15) H 04/14/23 08:46 Total Protein 7.6 g/dL (6.6-8.7) 04/14/23 08:46 Albumin 3.5 g/dL (3.5-5.2) 04/14/23 08:46 Globulin 4.1 g/dL (1.3-4.6) 04/14/23 08:46 Urine Color Yellow (Yellow) 04/14/23 10:12 Urine Appearance Clear (CLEAR) 04/14/23 10:12 Urine pH 7 (5-7) 04/14/23 10:12 Ur Specific [place] 1.005 (1.005-1.030) 04/14/23 10:12 Urine Protein Neg (Negative) 04/14/23 10:12 Urine Glucose (UA) Norm (Normal) 04/14/23 10:12 Urine Ketones Negative (Negative) 04/14/23 10:12 Urine Blood Neg (Negative) 04/14/23 10:12 Urine Nitrate Negative (Negative) 04/14/23 10:12 Urine Bilirubin Neg (Negative) 04/14/23 10:12 Urine Urobilinogen Norm mg/dL (Negative) 04/14/23 10:12 Ur Leukocyte Esterase 1+ (Negative) H 04/14/23 10:12 Urine RBC None /hpf (0-2) 04/14/23 10:12 Urine WBC 10-15 /hpf (0-5) H 04/14/23 10:12 Ur Squamous Epith Cells Rare /hpf (0-5) 04/14/23 10:12 Amorphous Sediment Not Reportable 04/14/23 10:12 Urine Bacteria Trace /hpf (NONE) 04/14/23 10:12 Coronavirus 229E (PCR) Not detected (NOT DETECT) 04/14/23 10:12 Influenza Type A Ag negative (Negative) 04/14/23 10:12 Influenza Type B Ag negative (Negative) 04/14/23 10:12 SARS-CoV-2 (PCR) Not detected (NOT DETECT) 04/14/23 10:12 All radiology interpretation(s) finalized by discharge Discharge Plan Discharge Patient Disposition: Placed in Observation Admit Provider: Joe Carrillo Clinical Impression: Pulmonary hypertension, Anemia, Acute respiratory failure with hypoxia and hypercapnia Pneumonia Qualifiers: Pneumonia type: due to unspecified organism Laterality: right Lung location: l ower lobe of lung Qualified Code(s): J18.9 - Pneumonia, unspecified organism Coding Level of Care Code ED Yard Switcher for Liv Vega
[2023-04-14 09:19] LABS: Alanine Aminotransferase 10 U/L (0-41); Albumin Level 3.5 g/dL (3.5-5.2); Alkaline Phosphatase 85 U/L (40-130); Blood Urea Nitrogen 16 mg/dL (8-23); Calcium 8.5 mg/dL (8.5-10.5); Carbon Dioxide 40 mmol/L (22-29); Chloride 95 mmol/L (98-107); Globulin 4.1 g/dL (1.3-4.6); Glucose 120 mg/dL (65-115); Osmolality Calculated 296 mOsm/kg (285-295); Sodium 142 mmol/L (136-145); Total Bilirubin 0.6 mg/dL (0.15-1.2); Total Protein 7.6 g/dL (6.6-8.7)
[2023-04-14 09:20] LABS: Troponin(5th) Baseline 88 ng/L (0-15)
[2023-04-14 09:30] LABS: ABG PH Result 7.45 (7.35-7.45); Alveolar-Arterial Oxygen Gradi 10.6 mmHg (5-10); Arterial Blood Gas Hematocrit 25.9 % (42-52); Base Excess ABG 16.8 mmol/L (-2.0-2.0); Blood Gas Operator Identificat GD; Blood Gas Sample Site Brachial, right; Blood Gas Sample Type Arterial; Carboxyhemoglobin 2.2 %THgb (0.4-20.1); HCO3 ABG 42.9 mmol/L (22-26); HGB O2 Sat 78.7 % (95-100); Ionized Calcium Level - ABG 1.1 mmol/L (1.1-1.4); Methemoglobin 0.5 % (0.4-1.5); Oxygen Device NC; PO2 ABG 43.7 mmHg (80.0-100.0); PO2 FiO2 Ratio Arterial Blood 0; Potassium Level - ABG 3.1 mmol/L (3.5-5.0); Total Hemoglobin 8.5 g/dL (14-18)
[2023-04-14 09:31] LABS: ABG PCO2 62.5 mmHg (35-45)
[2023-04-14 09:31] LABS: Anion Gap 11.3 (5-19); Creatinine Clr Calc Pharmacy 78.8941; Potassium 4.3 mmol/L (3.5-5.1)
[2023-04-14 09:32] LABS: Aspartate Amino Transferase 23 U/L (0-40)
--- NOTE | 2023-04-14 10:07 | PC.NURSE ---
Medication Delay: Ramos ordered @1004 delayed d/t blood cultures needing to be drawn
--- NOTE | 2023-04-14 10:29 | PC.NURSE ---
this nurse called Shweta at [facility] @[phone] to update nursing staff that pt is being admitted to Med-Surg unit
[2023-04-14 10:36] LABS: Influenza A by IFA negative (Negative); Influenza B by IFA negative (Negative)
[2023-04-14 10:37] LABS: Bilirubin Urine Neg (Negative); Blood Urine Neg (Negative); Glucose Urine UA Norm (Normal); Ketones Urine Negative (Negative); Nitrate Urine Negative (Negative); Protein Urine Neg (Negative); Specific Gravity, Urine 1.005 (1.005-1.030); Urine Appearance Clear (CLEAR); Urine Color Yellow (Yellow); Urobilinogen Urine Norm (Negative); pH Urine 7 (5-7)
[2023-04-14 10:38] LABS: Add Urine Culture? No; Add Urine Microscopic? YES; Bacteria Urine TRACE /hpf; Leukocyte Esterase Urine 1+ (Negative); Squamous Epithelial Cell Urine RARE /hpf (0-5)
--- NOTE | 2023-04-14 10:39 | ECG_ITS ---
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 Measurements Intervals [place] Rate: 78 P: 0 NV: 0 QRS: -20 QRSD: 139 T: 60 QT: 377 QTc: 431 Interpretive Statements Atrial fibrillation with demand V paced ELECTRONIC VENTRICULAR PACEMAKER -- CONTOUR ANALYSIS BASED ON INTRINSIC RHYTHM RIGHT BUNDLE BRANCH BLOCK [120+ ms QRS DURATION, UPRIGHT V1, 40+ ms S IN I/aVL/V4/V5/V6] MODERATE T-WAVE ABNORMALITY, CONSIDER LATERAL ISCHEMIA [-0.1+ mV T-WAVE IN I/aVL/V5/V6] Compared to ECG 04/14/2023 08:55:39 No significant changes Electronically Signed On 04-14-2023 15:36:00 DROP WIRE OPERATOR by Vinod Rabago M.D. [id number]
[2023-04-14 11:02] LABS: Troponin 5 2HR 75.79 ng/L (0-15)
[2023-04-14 11:06] LABS: Troponin 5 2HR Delta -12.21 ABS# (0-10)
[2023-04-14] MEDS: piperacillin-tazobactam 3.375 GM in sodium chloride 0.9% (plus) 50 ML IV ×2 (11:11→18:06)
[2023-04-14 11:13] LABS: NT Pro B Type Natriuretic Pept 2834 pg/mL (0-450); Procalcitonin 0.03 ng/mL (0-0.5)
[2023-04-14 12:03] LABS: Adenovirus Not Detected (NOT DETECT); Chlamydia Pneumoniae Not Detected (NOT DETECT); Coronavirus 229E,HKU1,NL63,OC4 Not Detected (NOT DETECT); Human Metapneumovirus Not Detected (NOT DETECT); Human Rhinovirus/Enterovirus Not Detected (NOT DETECT); Influenza A Not Detected (NOT DETECT); Influenza A H1 Not Detected (NOT DETECT); Influenza A H1-2009 Not Detected (NOT DETECT); Influenza A H3 Not Detected (NOT DETECT); Influenza B Not Detected (NOT DETECT); Mycoplasma Pneumoniae Not Detected (NOT DETECT); Parainfluenza Virus Type 1 Not Detected (NOT DETECT); Parainfluenza Virus Type 2 Not Detected (NOT DETECT); Parainfluenza Virus Type 3 Not Detected (NOT DETECT); Parainfluenza Virus Type 4 Not Detected (NOT DETECT); Respiratory Syncytial Virus A Not Detected (NOT DETECT); Respiratory Syncytial Virus B Not Detected (NOT DETECT); SARS-COV-2 Not Detected (NOT DETECT)
--- NOTE | 2023-04-14 14:35 | P.HP_ITS ---
Providers/Chief Complaint 2 Admitting Physician: Joe Carrillo DO Primary Care Provider: Paolo Ng Chief Complaint: SOB History of Present Illness Krzysztof Tay is a 82 year old male with a past medical history of congestive heart failure, COPD, chronic anemia, atrial fibrillation on Xarelto, CAD, dyslipidemia, who presented to ER today from Assisted Living with c/o worsening shortness of breath and decreased oxygen saturation. Patient reports for the last several days he has been a little more short of breath. EMS had reported that his oxygen saturation was in the low 80s prior to his arrival. They were able to get his sats recorded between 90 and 100 once the oximeter was changed and replaced on his ear. Patient says that he has been feeling a little weaker than normal. He denies any cough or fever, though he says that he has had some chills recently. In the ER, labs and imaging were obtained. He had an arterial blood gas taken that showed his CO2 at 63. His oxygen was also low at 44. Bicarb was at 42.9. His hemoglobin was 9.0, which is a little better than his normal. He has chronic anemia, and his hemoglobin has been in 8-9 range. He did have a positive troponin, with a negative delta. BNP was 2800. Chest x-ray was performed and showed a right lower lobe opacity that was concerning for consolidation. He did receive a dose of Zosyn in the ER, and Solu-Medrol was given per EMS. Review of Systems 2 Const: Reports: chills, body aches and fatigue; Denies: fever(s) ENMT: Denies: throat pain Card: Denies: chest pain or palpitations Resp: Reports: dyspnea, non-productive cough and wheezing; Denies: productive cough GI: Denies: abdominal pain, nausea or vomiting : Denies: flank pain or difficulty urinating Musc: Denies: neck pain or back pain Skin/Breast: Denies: rash, pruritus or erythema Neuro: Denies: headache(s) or numbness in extremities Psych: Denies: anxiety Medications/Allergies Home Medications Medication Instructions Recorded Confirmed Last Taken Type albuterol sulfate 90 mcg/actuation 2 puff inhalation Q4H PRN 01/09/23 04/14/23 Unknown History aerosol inhaler Shortness Of Breath Or Wheezing atorvastatin 40 mg tablet 40 mg PO BEDTIME@20 01/09/23 04/14/23 03/05/23 History budesonide-formoterol HFA 80 1 puff inhalation BID 01/09/23 04/14/23 03/06/23 History mcg-4.5 mcg/actuation aerosol inhaler (Symbicort) tamsulosin 0.4 mg capsule 0.4 mg PO DAILY@08 01/09/23 04/14/23 03/06/23 History metoprolol tartrate 25 mg tablet 25 mg PO BID@0900,2100 #60 tabs 01/16/23 04/14/23 02/08/23 Rx lorazepam 0.5 mg tablet 0.5 mg PO BID PRN anxiety #60 tabs 01/19/23 04/14/23 02/08/23 Rx acetaminophen 500 mg tablet 500 - 1,000 mg PO Q6H PRN Pain 02/09/23 04/14/23 03/04/23 History pantoprazole 40 mg tablet,delayed 40 mg PO DAILY@02/09/23 04/14/23 03/06/23 History release aspirin 81 mg tablet,delayed 81 mg PO DAILY@03/06/23 04/14/23 03/06/23 History release sucralfate 100 mg/mL oral 10 ml PO QID 03/06/23 04/14/23 Unknown History suspension furosemide 40 mg tablet 40 mg PO DAILY@08 #90 tabs 03/08/23 04/14/23 Unknown Rx potassium chloride 10 mEq 10 meq PO DAILY 04/14/23 04/14/23 Unknown History tablet,extended release rivaroxaban 20 mg tablet (Xarelto) 20 mg PO DAILY 04/14/23 04/14/23 Unknown History Allergies Allergy/AdvReac Type Severity Reaction Status Date / Time No Known Allergies Allergy Verified 04/14/23 08:53 PFSH Acute 2 PFSH: Medical History GI bleed GERD without esophagitis Chronic hypoxic respiratory failure Lives in assisted living facility Acute hypernatremia Pneumonia Pulmonary hypertension Abnormal stress test Paroxysmal atrial fibrillation with RVR Hypoxia MENDOZA (dyspnea on exertion) Acute exacerbation of chronic obstructive pulmonary disease Anemia Congestive heart failure Malnutrition of moderate degree Hyperkalemia Fall Troponin level elevated Acute hyponatremia BPH (benign prostatic hyperplasia) Orthostatic hypotension Stroke Chronic anticoagulation Paroxysmal A-fib Nocturnal hypoxia COPD (chronic obstructive pulmonary disease) Social History Smoking and tobacco/nicotine status: current every day tobacco/nicotine user Marital status: Single Vitals/I&O/Wt Last Vital Signs Temp 98.1 F 04/14/23 12:00 Pulse 82 04/14/23 13:47 Resp 18 04/14/23 13:40 BP 122/70 04/14/23 12:00 Pulse Ox 93 04/14/23 13:40 O2 Del Method Nasal Cannula 04/14/23 13:40 O2 Flow Rate 5 04/14/23 13:40 FiO2 32 04/14/23 11:25 04/13/23 04/14/23 04/14/23 22:59 06:59 14:59 Intake Total 50 / 50 Balance 50 / 50 Weight last 48 hrs Weight 160 lb Weight 160 lb Physical Exam 2 Narrative: General: No acute distress, AO x3 HEENT: PERRLA,EOMI. Chest: Mild increase in his work of breathing. Right lower lobe crackles present. Scattered wheezes throughout the lung cornejo. Heart: S1-S2 regular, no murmurs, no tachycardia, no gallops, no rubs Abdomen: Soft, nontender, nondistended no organomegaly, bowel sounds present Neuro: No focal deficits, no facial deformity, AO x3, power 5/5 in all limbs Data 04/14/23 08:46 04/14/23 08:46 Micro: Microbiology 04/14/23 10:30 Blood Culture - Preliminary Blood SPECIMEN COLLECTED 04/14/23 10:24 Blood Culture - Preliminary Blood SPECIMEN COLLECTED A&P Assessment and plan (1) Pneumonia: Qualifiers: Pneumonia type: due to unspecified organism Laterality: right Lung location: lower lobe of lung Qualified Code(s): J18.9 - Pneumonia, unspecified organism (2) COPD (chronic obstructive pulmonary disease): Qualifiers: COPD type: emphysema Emphysema type: panlobular Qualified Code(s): 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 (3) Acute respiratory failure with hypoxia and hypercapnia: (4) Congestive heart failure: Qualifiers: Heart failure chronicity: acute on chronic Heart failure type: d iastolic Qualified Code(s): I50.33 - Acute on chronic diastolic (congestive) heart failure (5) Atrial fibrillation: Qualifiers: Atrial fibrillation type: longstanding persistent Qualified Code(s): I 48.11 - Longstanding persistent atrial fibrillation (6) Mixed dyslipidemia: (7) Anemia: Qualifiers: Anemia type: unspecified type Qualified Code(s): D64.9 - Anemia, unspecified Plan 82 y/o M with PMH of congestive heart failure, COPD, chronic anemia, atrial fibrillation on Xarelto, CAD, dyslipidemia admitted for pneumonia, and acute respiratory failure. Admit to [facility]. Chest x-ray shows right lower lobe opacity, concerning for consolidation. Mild neutrophilia was noted on CBC. Arterial blood gas showed hypoxia with oxygen level in the 40s, hypercapnia with CO2 in the 60s. Received a dose of Zosyn and Solu-Medrol prior to admission. Blood cultures were obtained and are pending. Will continue with Zosyn for now. Pharmacy will dose. RAAT, O2 protocol initiated with plan to titrate oxygen to maintain sats around 90%. He is on 2L n/c baseline. DuoNebs every 4 hours as needed. Will continue his home medications Xarelto for VTE prophylaxis. Pantoprazole for GI prophylaxis. His hemoglobin is currently at 9.0, which is slightly better than his baseline. We will monitor for now. Will continue his metoprolol for his atrial fibrillation. His blood pressure and heart rate are currently well-controlled. Continue other home medications for chronic illnesses. Code Status: DNR IVF: None DVT PPx: Xarelto GI PPx: Protonix ABx: Zosyn Diet: Cardiac Discharge plan: Back to nursing home when appropriate Attestations 2 Medical Necessity Statement*: Patient will need greater than 2 midnight stay for IV antibiotics, cultures, and treatment of his acute respiratory failure. 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
--- NOTE | 2023-04-14 14:39 | ECG_ITS ---
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 Measurements Intervals [place] Rate: 81 P: 0 MT: 0 QRS: 75 QRSD: 149 T: -30 QT: 410 QTc: 479 Interpretive Statements Atrial fibrillation with demand V pacing ELECTRONIC VENTRICULAR PACEMAKER -- CONTOUR ANALYSIS BASED ON INTRINSIC RHYTHM RIGHT BUNDLE BRANCH BLOCK [120+ ms QRS DURATION, UPRIGHT V1, 40+ ms S IN I/aVL/V4/V5/V6] ST DEVIATION AND MODERATE T-WAVE ABNORMALITY, CONSIDER LATERAL ISCHEMIA [-0.1+ mV T-WAVE IN I/aVL/V5/V6] INTERPRETATION BASED ON A DEFAULT AGE OF 40 YEARS Compared to ECG 04/14/2023 08:47:51 T-wave abnormality now present Possible ischemia now present Atrial fibrillation no longer present Electronically Signed On 04-14-2023 15:35:34 MIXING PAN TENDER by Vinod Rabago M.D. [email or web address]/[id number] f
[2023-04-14 15:27] LABS: Troponin 5 6HR 62.47 ng/L (0-15)
[2023-04-14 15:35] LABS: Troponin 5 6HR Delta -25.53 ng/L (0-12)
[2023-04-14] MEDS: budesonide 0.5 mg/2 mL Neb INHALATION (19:43)
[2023-04-14] MEDS: metoprolol tartrate 25 mg Tablet PO (19:58)
[2023-04-14] MEDS: atorvastatin 40 mg Tablet PO (19:58)
[2023-04-15] VITALS (23 sets, daily range): BP systolic 100–136; BP diastolic 56–76; PULSE 62–89; RESP 16–26; TEMP 36.2–36.7; O2SAT 91–100
[2023-04-15] MEDS: piperacillin-tazobactam 3.375 GM in sodium chloride 0.9% (plus) 50 ML IV ×3 (02:25→18:02)
[2023-04-15] MEDS: ipratropium-albuterol 3 mL Neb INHALATION ×4 (02:54→19:59)
--- NOTE | 2023-04-15 02:59 | PC.RESP ---
Nurse placed patient on bipap without any notification to therapist. Therapist walked into room and patient was on bipap. There have been no clinical signs or symptoms for patient to be on bipap. Patient does not wear one at home. Patient does not wear oxygen at home. Patient is currently weaned down to 3LPM NC from 5LPM NC from the start of the night. No respiratory distress noted at this time.
[2023-04-15] MEDS: aspirin 81 mg EC Tablet PO (08:37)
[2023-04-15] MEDS: rivaroxaban 10 mg Tablet 20 MG PO (08:37)
[2023-04-15] MEDS: pantoprazole DR 40 mg Tablet PO (08:37)
[2023-04-15] MEDS: FUROsemide 40 mg Tablet PO (08:38)
[2023-04-15] MEDS: metoprolol tartrate 25 mg Tablet PO ×2 (08:38→20:48)
[2023-04-15] MEDS: potassium chloride ER 10 mEq Tablet PO (08:38)
[2023-04-15] MEDS: tamsulosin 0.4 mg Capsule 0.400000000000000022 MG PO (08:38)
[2023-04-15] MEDS: budesonide 0.5 mg/2 mL Neb INHALATION ×2 (09:10→19:59)
[2023-04-15 11:46] LABS: Basophils % 0.4 %; Eosinophils % 0.2 %; Hematocrit 26.4 % (37-53); Lymphocytes # 0.7 10^3/uL (0.8-4.8); Lymphocytes % 12.4 %; Mean Corpuscular HGB Conc 29.2 g/dL (30-55); Mean Corpuscular Hemoglobin 23.9 pg (27-33); Mean Platelet Volume 10.8 fL (7.4-10.4); Monocytes # 0.5 10^3/uL (0.2-0.9); Monocytes % 9.6 %; Neutrophils # 4.14 10^3/uL (1.8-7.7); Neutrophils % 76.8 %; Nucleated Red Blood Cells % 0 %; Platelet Count 163 10^3/cmm (157-399); Red Blood Count 3.22 10^6/uL (3.85-5.65); Red Cell Distribution Width 18.5 % (12.1-15.1); White Blood Count 5.39 10^3/uL (3.29-11.43)
[2023-04-15 12:10] LABS: Alanine Aminotransferase 7 U/L (0-41); Albumin Level 2.8 g/dL (3.5-5.2); Alkaline Phosphatase 61 U/L (40-130); Anion Gap 6.4 (5-19); Aspartate Amino Transferase 12 U/L (0-40); Blood Urea Nitrogen 21 mg/dL (8-23); C Reactive Protein 24.8 mg/L (0.0-4.9); Calcium 8.1 mg/dL (8.5-10.5); Carbon Dioxide 40 mmol/L (22-29); Chloride 95 mmol/L (98-107); Globulin 3.4 g/dL (1.3-4.6); Glucose 124 mg/dL (65-115); Osmolality Calculated 290 mOsm/kg (285-295); Potassium 3.4 mmol/L (3.5-5.1); Sodium 138 mmol/L (136-145); Total Bilirubin 0.4 mg/dL (0.15-1.2); Total Protein 6.2 g/dL (6.6-8.7)
[2023-04-15 12:11] LABS: Creatinine Clr Calc Pharmacy 78.6315
--- NOTE | 2023-04-15 15:30 | P.PN_ITS ---
Subjective 2 Subjective: Reports that he is feeling some better today. Denies pain. Was able to rest well. Medications: Reviewed: Yes Vitals/I&O/Wt Last Vital Signs Temp 97.8 F 04/15/23 11:50 Pulse 84 04/15/23 14:11 Resp 18 04/15/23 14:00 BP 100/63 04/15/23 11:50 Pulse Ox 100 04/15/23 14:00 O2 Del Method Nasal Cannula 04/15/23 14:00 O2 Flow Rate 3 04/15/23 14:00 FiO2 32 04/15/23 02:48 04/15/23 04/15/23 04/15/23 06:59 14:59 22:59 Intake Total 50 / 510 600 / 600 Output Total 150 / 950 625 / 625 Balance -100 / -440 -25 Weight last 48 hrs Weight 158 lb 9 oz Weight 160 lb Weight 160 lb Physical Exam 2 Narrative: General: No acute distress, AO x3 HEENT: PERRLA,EOMI. Chest: Mild increase in his work of breathing. Scattered crackles through the lung cornejo. Heart: S1-S2 regular, no murmurs, no tachycardia, no gallops, no rubs Abdomen: Soft, nontender, nondistended no organomegaly, bowel sounds present Neuro: No focal deficits, no facial deformity, AO x3, power 5/5 in all limbs Data 04/15/23 11:30 04/15/23 11:30 Micro: Microbiology 04/14/23 10:24 Blood Culture - Preliminary Blood NEGATIVE TO DATE 04/14/23 10:30 Blood Culture - Preliminary Blood NEGATIVE TO DATE A&P Assessment and plan (1) Pneumonia: Qualifiers: Laterality: right Lung location: lower lobe of lung Pneumonia type: d ue to unspecified organism Qualified Code(s): J18.9 - Pneumonia, unspecified organism (2) COPD (chronic obstructive pulmonary disease): Qualifiers: COPD type: emphysema Emphysema type: panlobular Qualified Code(s): 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 (3) Acute respiratory failure with hypoxia and hypercapnia: (4) Congestive heart failure: Qualifiers: Heart failure chronicity: acute on chronic Heart failure type: d iastolic Qualified Code(s): I50.33 - Acute on chronic diastolic (congestive) heart failure (5) Atrial fibrillation: Qualifiers: Atrial fibrillation type: longstanding persistent Qualified Code(s): I 48.11 - Longstanding persistent atrial fibrillation (6) Mixed dyslipidemia: (7) Anemia: Qualifiers: Anemia type: unspecified type Qualified Code(s): D64.9 - Anemia, unspecified Plan 82 y/o M with PMH of congestive heart failure, COPD, chronic anemia, atrial fibrillation on Xarelto, CAD, dyslipidemia admitted for pneumonia, and acute respiratory failure. Continue Inpatient monitoring. Blood cultures pending, negative to date. Will continue with Zosyn for now. Pharmacy will dose. RAAT, O2 protocol initiated with plan to titrate oxygen to maintain sats around 90%. He is on 2L n/c baseline. DuoNebs every 4 hours as needed. Continue daily lasix, I/O's, daily weights. Hgb dropped to 7.70. Will transfuse 2 units and recheck today. CRP elevated. Will continue his home medications Xarelto for VTE prophylaxis. Pantoprazole for GI prophylaxis. Will continue his metoprolol for his atrial fibrillation. BP, HR controlled. Continue other home medications for chronic illnesses. Code Status: DNR IVF: None DVT PPx: Xarelto GI PPx: Protonix ABx: Zosyn Diet: Cardiac Discharge plan: Back to group home when appropriate Attestations 2 Medical Necessity Statement*: Patient will need greater than 2 midnight stay for IV antibiotics, cultures, and treatment of his acute respiratory failure. 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
[2023-04-15] MEDS: saline nasal spray 44mL Btl 1 SPRAY NASAL (16:46)
[2023-04-15] MEDS: atorvastatin 40 mg Tablet PO (20:18)
[2023-04-16] VITALS (17 sets, daily range): BP systolic 112–169; BP diastolic 60–93; PULSE 66–104; RESP 16–22; TEMP 35.8–36.5; O2SAT 91–99
[2023-04-16] MEDS: saline nasal spray 44mL Btl 1 SPRAY NASAL ×2 (00:44→08:20)
[2023-04-16] MEDS: piperacillin-tazobactam 3.375 GM in sodium chloride 0.9% (plus) 50 ML IV ×2 (02:38→11:14)
[2023-04-16] MEDS: ipratropium-albuterol 3 mL Neb INHALATION ×2 (02:49→07:33)
[2023-04-16 07:27] LABS: Basophils % 0.8 %; Eosinophils # 0.1 10^3/uL (0.0-0.8); Eosinophils % 2.6 %; Hematocrit 33.7 % (37-53); Lymphocytes % 19.1 %; Mean Corpuscular HGB Conc 30.3 g/dL (30-55); Mean Corpuscular Hemoglobin 24.5 pg (27-33); Mean Platelet Volume 10.8 fL (7.4-10.4); Monocytes # 0.4 10^3/uL (0.2-0.9); Monocytes % 7.7 %; Neutrophils % 69.4 %; Nucleated Red Blood Cells % 0 %; Platelet Count 187 10^3/cmm (157-399); Red Blood Count 4.16 10^6/uL (3.85-5.65); Red Cell Distribution Width 17.5 % (12.1-15.1); White Blood Count 5.33 10^3/uL (3.29-11.43)
[2023-04-16] MEDS: budesonide 0.5 mg/2 mL Neb INHALATION (07:33)
[2023-04-16 07:41] LABS: C Reactive Protein 14.1 mg/L (0.0-4.9); Chloride 98 mmol/L (98-107); Potassium 4.2 mmol/L (3.5-5.1); Sodium 142 mmol/L (136-145)
[2023-04-16 08:12] LABS: Anion Gap 11.2 (5-19); Blood Urea Nitrogen 21 mg/dL (8-23); Calcium 8.1 mg/dL (8.5-10.5); Carbon Dioxide 37 mmol/L (22-29); Glucose 83 mg/dL (65-115); Osmolality Calculated 296 mOsm/kg (285-295); Phosphorus 3.4 mg/dL (2.5-4.5)
[2023-04-16 08:16] LABS: Ferritin 62 ng/mL (30-400); Iron 16 ug/dL (59-158)
[2023-04-16 08:17] LABS: Creatinine Clr Calc Pharmacy 78.8027
[2023-04-16] MEDS: tamsulosin 0.4 mg Capsule 0.400000000000000022 MG PO (08:19)
[2023-04-16] MEDS: FUROsemide 40 mg Tablet PO (08:19)
[2023-04-16] MEDS: pantoprazole DR 40 mg Tablet PO (08:19)
[2023-04-16] MEDS: potassium chloride ER 10 mEq Tablet PO (08:19)
[2023-04-16] MEDS: metoprolol tartrate 25 mg Tablet PO (08:19)
[2023-04-16 08:30] LABS: Vitamin B12 418 pg/mL (232-1245)
[2023-04-16 08:31] LABS: Folate Level 9.9 ng/mL (4.5-32.2)
--- NOTE | 2023-04-16 10:43 | P.DS_ITS ---
Discharge Providers Date of Admission: 04/14/23 13:30 Date of Discharge: April 16, 2023 Attending Provider at Admission: Joe Carrillo DO Attending Provider at Discharge: Trey Lindsey MD Primary Care Provider: Paolo Ng Diagnoses at Discharge Discharge Diagnosis (1) Pneumonia: Status: Acute Qualifiers: Laterality: right Lung location: lower lobe of lung Pneumonia type: due to unspecified organism Qualified Code(s): J18.9 - Pneumonia, unspecified organism (2) COPD (chronic obstructive pulmonary disease): Status: Acute Qualifiers: COPD type: emphysema Emphysema type: panlobular Qualified Code(s): J43.1 - Panlobular emphysema (3) Acute respiratory failure with hypoxia and hypercapnia: Status: Acute (4) Congestive heart failure: Status: Chronic Qualifiers: Heart failure chronicity: acute on chronic Heart failure type: diastolic Qualified Code(s): I50.33 - Acute on chronic diastolic (congestive) heart failure (5) Atrial fibrillation: Status: Acute Qualifiers: Atrial fibrillation type: longstanding persistent Qualified Code(s): I48.11 - Longstanding persistent atrial fibrillation (6) Mixed dyslipidemia: Status: Acute (7) Anemia: Status: Chronic Qualifiers: Anemia type: unspecified type Qualified Code(s): D64.9 - Anemia, unspecified Reason for Visit Reason for Visit: SOB Hospital Course Hospital Course [address] William presents to the hospital for worsening respiratory distress with anemia. Patient at baseline uses 2 to 3 L of oxygen, he was given 2 unit PRBC hemoglobin improved to 10.2 at the time of discharge, patient carries history of end-stage COPD and has congestive heart failure patient refuses his Lasix which terminates into exacerbation requiring frequent admissions in the hospital. He was started on antibiotics for possible pneumonia however x-ray is consistent with pleural effusion previous EGD colonoscopy did not show any sign of active GI bleed he will need outpatient small bowel study which Dr. William will be able to arrange outpatient Physical Exam Narrative: Awake and alert Currently on 2 L GCS 15 Pleasant cooperative Euvolemic Discharge Data Studies Completed and Pending Completed Studies During Hospitalization Category Date Time Status XR chest 1V portable [id number] Stat Exams 04/14/23 08:38 Completed Pending at discharge Category Date Time Status Blood Culture Stat Lab 04/14/23 10:30 Results Radiology Impressions Chest X-Ray 04/14/23 08:38 IMPRESSION: Increasing pleural and parenchymal opacities in the lower lung zones compared to 03/06/2023. Although pulmonary findings could relate to atelectasis, please correlate with clinical and laboratory data to exclude possibility of pneumonia, particularly in left lower lobe. Laboratory Results WBC 5.33 10^3/uL (3.29-11.43) 04/16/23 06:56 RBC 4.16 10^6/uL (3.85-5.65) 04/16/23 06:56 Hgb 10.20 g/dL (11.27-16.99) L D 04/16/23 06:56 Hct 33.7 % (37-53) L 04/16/23 06:56 MCV 81.0 fl (82-101) L 04/16/23 06:56 MCH 24.5 pg (27-33) L 04/16/23 06:56 MCHC 30.3 g/dL (30-55) 04/16/23 06:56 RDW 17.5 % (12.1-15.1) H 04/16/23 06:56 Plt Count 187 10^3/cmm (157-399) 04/16/23 06:56 MPV 10.8 fL (7.4-10.4) H 04/16/23 06:56 Neut % (Auto) 69.4 % 04/16/23 06:56 Lymph % (Auto) 19.1 % 04/16/23 06:56 [place] % (Auto) 7.7 % 04/16/23 06:56 Eos % (Auto) 2.6 % 04/16/23 06:56 Baso % (Auto) 0.8 % 04/16/23 06:56 Neut # (Auto) 3.70 10^3/uL (1.8-7.7) 04/16/23 06:56 Lymph # (Auto) 1.0 10^3/uL (0.8-4.8) 04/16/23 06:56 [place] # (Auto) 0.4 10^3/uL (0.2-0.9) 04/16/23 06:56 Eos # (Auto) 0.1 10^3/uL (0.0-0.8) 04/16/23 06:56 Baso # (Auto) 0.0 10^3/uL (0.0-0.1) 04/16/23 06:56 Nucleated RBC % (auto) 0 % 04/16/23 06:56 Nucleated RBCs # 0.0 /100WBC 04/16/23 06:56 Specimen Type Arterial 04/14/23 09:15 Sample Site Brachial, right 04/14/23 09:15 ABG pH 7.45 (7.35-7.45) 04/14/23 09:15 ABG pCO2 62.5 mmHg (35-45) H* 04/14/23 09:15 ABG pO2 43.7 mmHg (80.0-100.0) L 04/14/23 09:15 ABG PO2/FiO2 Ratio 0 04/14/23 09:15 ABG HCO3 42.9 mmol/L (22-26) H 04/14/23 09:15 ABG O2 Saturation 81.0 04/14/23 09:15 ABG Base Excess 16.8 mmol/L (-2.0-2.0) H 04/14/23 09:15 Jcarlos Test N/a 04/14/23 09:15 A-a O2 Gradient 10.6 mmHg (5-10) H 04/14/23 09:15 Hematocrit 25.9 % (42-52) L 04/14/23 09:15 Hgb O2 Saturation 78.7 % (95-100) L 04/14/23 09:15 Carboxyhemoglobin 2.2 %THgb (0.4-20.1) 04/14/23 09:15 Methemoglobin 0.5 % (0.4-1.5) 04/14/23 09:15 Total Hemoglobin 8.5 g/dL (14-18) L 04/14/23 09:15 Sodium 144.0 mmol/L (131-143) H 04/14/23 09:15 Potassium 3.1 mmol/L (3.5-5.0) L 04/14/23 09:15 Glucose 114.0 mg/dL (70-115) 04/14/23 09:15 Ionized Calcium 1.1 mmol/L (1.1-1.4) 04/14/23 09:15 O2 Delivery Device Nc 04/14/23 09:15 O2 Liters/Min 2.0 % 04/14/23 09:15 FiO2 28.0 % 04/14/23 09:15 Beef Lugger ID Gd 04/14/23 09:15 Sodium 142 mmol/L (136-145) 04/16/23 06:56 Potassium 4.2 mmol/L (3.5-5.1) 04/16/23 06:56 Chloride 98 mmol/L (98-107) 04/16/23 06:56 Carbon Dioxide 37 mmol/L (22-29) H 04/16/23 06:56 Anion Gap 11.2 (5-19) 04/16/23 06:56 BUN 21 mg/dL (8-23) 04/16/23 06:56 Creatinine 0.6 mg/dL (0.7-1.2) L 04/16/23 06:56 GFR Calculation Not Reportable 04/16/23 06:56 Glucose 83 mg/dL (65-115) 04/16/23 06:56 Calculated Osmolality 296 mOsm/kg (285-295) H 04/16/23 06:56 Calcium 8.1 mg/dL (8.5-10.5) L 04/16/23 06:56 Phosphorus 3.4 mg/dL (2.5-4.5) 04/16/23 06:56 Iron Cancelled 04/16/23 06:56 Ferritin Cancelled 04/16/23 06:56 Total Bilirubin 0.4 mg/dL (0.15-1.2) 04/15/23 11:30 AST 12 U/L (0-40) 04/15/23 11:30 ALT 7 U/L (0-41) 04/15/23 11:30 Alkaline Phosphatase 61 U/L (40-130) 04/15/23 11:30 Troponin T Baseline 88 ng/L (0-15) H 04/14/23 08:46 Troponin T 120 Minute 75.79 ng/L (0-15) H 04/14/23 10:30 Delta Troponin T -12.21 ABS# (0-10) L 04/14/23 10:30 Troponin T Hi Sens 6Hr 62.47 ng/L (0-15) H 04/14/23 14:52 Troponin T Hi Sens 6Hr Delta -25.53 ng/L (0-12) L 04/14/23 14:52 C-Reactive Protein 14.1 mg/L (0.0-4.9) H 04/16/23 06:56 NT-Pro-B Natriuret Pep 2834 pg/mL (0-450) H 04/14/23 10:30 Total Protein 6.2 g/dL (6.6-8.7) L 04/15/23 11:30 Albumin 2.8 g/dL (3.5-5.2) L 04/15/23 11:30 Globulin 3.4 g/dL (1.3-4.6) 04/15/23 11:30 Vitamin B12 Cancelled 04/16/23 06:56 Folate 9.9 ng/mL (4.5-32.2) 04/15/23 11:30 Procalcitonin 0.03 ng/mL (0-0.5) 04/14/23 10:30 Urine Color Yellow (Yellow) 04/14/23 10:12 Urine Appearance Clear (CLEAR) 04/14/23 10:12 Urine pH 7 (5-7) 04/14/23 10:12 Ur Specific [place] 1.005 (1.005-1.030) 04/14/23 10:12 Urine Protein Neg (Negative) 04/14/23 10:12 Urine Glucose (UA) Norm (Normal) 04/14/23 10:12 Urine Ketones Negative (Negative) 04/14/23 10:12 Urine Blood Neg (Negative) 04/14/23 10:12 Urine Nitrate Negative (Negative) 04/14/23 10:12 Urine Bilirubin Neg (Negative) 04/14/23 10:12 Urine Urobilinogen Norm mg/dL (Negative) 04/14/23 10:12 Ur Leukocyte Esterase 1+ (Negative) H 04/14/23 10:12 Urine RBC None /hpf (0-2) 04/14/23 10:12 Urine WBC 10-15 /hpf (0-5) H 04/14/23 10:12 Ur Squamous Epith Cells Rare /hpf (0-5) 04/14/23 10:12 Amorphous Sediment Not Reportable 04/14/23 10:12 Urine Bacteria Trace /hpf (NONE) 04/14/23 10:12 Coronavirus 229E (PCR) Not detected (NOT DETECT) 04/14/23 10:12 Influenza Type A Ag negative (Negative) 04/14/23 10:12 Influenza Type B Ag negative (Negative) 04/14/23 10:12 SARS-CoV-2 (PCR) Not detected (NOT DETECT) 04/14/23 10:12 Blood Type AB Positive 04/15/23 17:54 Rho(D) Type Rh positive 04/15/23 17:54 Antibody Screen Negative 04/15/23 17:54 Crossmatch See Detail 04/15/23 17:54 Vitals Last Vital Signs Temp 97.5 F L 04/16/23 07:26 Pulse 89 04/16/23 07:43 Resp 22 H 04/16/23 07:43 BP 142/85 04/16/23 07:26 Pulse Ox 96 04/16/23 07:43 O2 Del Method Nasal Cannula 04/16/23 07:43 O2 Flow Rate 2 04/16/23 07:43 FiO2 32 04/15/23 02:48 Discharge Plan Discharge Patient Disposition: Xfer SNF Condition: Stable Prescriptions: Continued lorazepam 0.5 mg tablet 0.5 mg PO BID PRN (Reason: anxiety) Qty: 60 2RF furosemide 40 mg tablet 40 mg PO DAILY@08 Qty: 90 1RF atorvastatin 40 mg tablet 40 mg PO BEDTIME@20 tamsulosin 0.4 mg capsule 0.4 mg PO DAILY@08 albuterol sulfate 90 mcg/actuation HFA aerosol inhaler 2 puff INHALATION Q4H PRN (Reason: Shortness Of Breath Or Wheezing) budesonide-formoterol [Symbicort] 80-4.5 mcg/actuation HFA aerosol inhaler 1 puff INHALATION BID metoprolol tartrate 25 mg Tablet 25 mg PO BID@0900,2100 Qty: 60 0RF sucralfate 100 mg/mL suspension 10 ml PO QID Rx Instructions: before meals and bedtime potassium chloride 10 mEq tablet extended release 10 meq PO DAILY acetaminophen 500 mg Tablet 500 - 1,000 mg PO Q6H PRN (Reason: Pain) pantoprazole 40 mg tablet,delayed release (DR/EC) 40 mg PO DAILY@08 Held Xarelto 20 mg tablet 20 mg PO DAILY Hold Instructions: Resume on 05/14/23. Discontinued aspirin 81 mg tablet,delayed release (DR/EC) 81 mg PO DAILY@08 Discharge Orders: Discharge Order (Routine); Ordered 04/16/23 Ordered By: Trey Lindsey Referrals: Joe Carrillo DO [Physician] - 7-10 days Brayan Johnson MD [Referring] - 3 weeks ([facility], [address], [place] [address] ) Paolo Ng MD [Primary Care Provider] - Discharge Diet: GI Soft Discharge Activity: Increase activity as tolerated Discharge Attestations Time Spent in Discharge Care*: greater than 30 min Quality Metrics Clinical Quality Measures [ No reported AMI, CVA or VTE this stay] Coding Level of Care Code Acute Code for Chg Fwd Diagnoses Pneumonia of right lower lobe due to infectious organism J18.9 Laterality: right Lung location: lower lobe of lung Pneumonia type: due to unspecified organism Panlobular emphysema J43.1 COPD type: emphysema Emphysema type: panlobular Acute respiratory failure with hypoxia and hypercapnia J96.01; J96.02 Acute on chronic diastolic congestive heart failure I50.33 Heart failure chronicity: acute on chronic Heart failure type: diastolic Longstanding persistent atrial fibrillation I48.11 Atrial fibrillation type: longstanding persistent Mixed dyslipidemia E78.2 Anemia, unspecified type D64.9 Anemia type: unspecified type
--- NOTE | 2023-04-16 11:02 | PC.CHAP ---
Pastoral Care Encounter/Spiritual Assessment Type of Contact [] Declined marketing effectiveness manager visit [] Patient/Family/Request visit [] Outpatient visit [] Follow-up visit [] Physician referral [] Code/Alert [x] Routine visit [] Staff referral [] Actively dying [x] Patient sleeping [] Family support [] [] Out of room [] Palliative care [] [] Receiving care in room [] Pre-surgical visit [] Trauma [] Long length of stay [] ICU visit [] Other: Relational/Emotional Strength [] Patient feels connected with others/family/visitors/staff [] Distress [] Loneliness/isolation [] Abandonment Spirituality of Patient [] Person of Leticia [] Attends Alevism of their Leticia [] Believes in Prayer [] Reads Bible or Latter-Day materials [] There are Spiritual issues to be addressed Automobile Body Customizer Interventions [] Prayer [] Active listening [] Non-anxious presence [] Spiritual/emotional support [] Crisis/trauma care [] Spiritual counseling [] Bereavement support [] Provided bereavement packet [] Provided Bible/devotional materials [] Provided toy/stuffed animal, coloring book to patient or family member [] Provided Communion [] Anointing/[place] [] Salvation [] Completed spiritual assessment [] Other: Impact on Illness or Injury [] Angry [] Fearful [] Anxious [] Often cries [] Exhaustion [] Unable to work [] Unable to attend orthodox [] Unable to walk/stand [] Unable to read [] Unable to drive [] Unable to eat/drink [] Unable to sleep [] Unable to be with family [] Patient intubated [] Other: Summary Time spent with patient
--- NOTE | 2023-04-16 11:34 | PC.SOCIAL ---
Pg 2 IMM Explained to pt's family Pg 2 IMM. No questions voiced. Provided pt a copy. Initialed, dated, & timed a copy & placed in chart.
== END 2023-04-16 12:00 | disposition home or self-care (01) | DRG 291 ==
LOC: ER 09:15 → MEDSURG 11:02
PROVIDERS: Admitting Provider Family Medicine; Emergency Provider Family Medicine; PCP Family Medicine; Visit Provider Internal Medicine
DX: I50.33 Acute on chronic diastolic (congestive) heart failure (principal); J96.21 Acute and chronic respiratory failure with hypoxia; J96.22 Acute and chronic respiratory failure with hypercapnia; I48.11 Longstanding persistent atrial fibrillation; E44.0 Moderate protein-calorie malnutrition; J43.1 Panlobular emphysema; D64.9 Anemia, unspecified; I25.10 Atherosclerotic heart disease of native coronary artery without angina pectoris; E78.2 Mixed hyperlipidemia; I27.20 Pulmonary hypertension, unspecified; N40.0 Benign prostatic hyperplasia without lower urinary tract symptoms; Z79.01 Long term (current) use of anticoagulants; Z11.52 Encounter for screening for COVID-19; Z68.20 Body mass index [BMI] 20.0-20.9, adult; Z72.0 Tobacco use; Z87.01 Personal history of pneumonia (recurrent); Z86.73 Personal history of transient ischemic attack (TIA), and cerebral infarction without residual deficits; Z91.81 History of falling
CPT/HCPCS: 36415; 36430; 36600; 71045; 80048; 80051; 80053; 81001; 82330; 82607; 82728; 82746; 82805; 83540; 83880; 84100; 84145; 84484; 85025; 86140; 86850; 86900; 86920; 87040; 87635; 87804; 93005; 94640; 94660; 94664; 96365; 99291; G0378; J2543; J7626; P9016

== ENCOUNTER 2023-04-26 09:46 | Outpatient (CLI) | payer MEDICARE, BC, SELFPAY ==
[2023-04-26 11:13] LABS: Basophils # 0.1 10^3/uL (0.0-0.1); Basophils % 1.8 %; Eosinophils # 0.1 10^3/uL (0.0-0.8); Eosinophils % 2.8 %; Hematocrit 36.9 % (37-53); Lymphocytes # 0.8 10^3/uL (0.8-4.8); Lymphocytes % 20.2 %; Mean Corpuscular HGB Conc 27.9 g/dL (30-55); Mean Corpuscular Hemoglobin 24.1 pg (27-33); Mean Corpuscular Volume 86.2 fl (82-101); Mean Platelet Volume 12.1 fL (7.4-10.4); Monocytes # 0.4 10^3/uL (0.2-0.9); Monocytes % 9.6 %; Neutrophils # 2.53 10^3/uL (1.8-7.7); Neutrophils % 65.3 %; Nucleated Red Blood Cells % 0 %; Platelet Count 134 10^3/cmm (157-399); Red Blood Count 4.28 10^6/uL (3.85-5.65); Red Cell Distribution Width 19.1 % (12.1-15.1); White Blood Count 3.87 10^3/uL (3.29-11.43)
== END 2023-04-26 09:47 | disposition home or self-care (01) ==
PROVIDERS: PCP Family Medicine; Visit Provider Family Medicine
DX: Z01.89 Encounter for other specified special examinations (principal)
CPT/HCPCS: 85025

== ENCOUNTER 2023-05-17 13:36 | Inpatient (IN) | payer MEDICARE, BC, SELFPAY ==
[2023-05-17 13:41] VITALS: BP 114/69; PULSE 85; RESP 18; TEMP 36.8; O2SAT 93
--- NOTE | 2023-05-17 13:44 | ED_ITS ---
HPI - SOB/Dyspnea 2 General: Chief Complaint: Shortness of Breath/Dyspnea Stated Complaint: COPD Time Seen by Provider: 05/17/23 13:44 History of Present Illness: HPI Narrative: 82-year-old male patient comes in today for complaints of shortness of breath starting this morning. Patient resides at [facility]. Patient at this time feels improved after receiving DuoNeb and 6 mg of dexamethasone and route to ER. Patient is alert and oriented. Patient appears chronically ill. Patient is on oxygen at 4 L per nasal cannula all the time. Patient is DNR. Review of Systems 2 General: Reports: 10 or more systems reviewed and unremarkable except in HPI and below PFSH ED 2 PFSH: Medical History GI bleed GERD without esophagitis Chronic hypoxic respiratory failure Lives in assisted living facility Acute hypernatremia Pneumonia Pulmonary hypertension Abnormal stress test Paroxysmal atrial fibrillation with RVR Hypoxia MENDOZA (dyspnea on exertion) Acute exacerbation of chronic obstructive pulmonary disease Anemia Congestive heart failure Malnutrition of moderate degree Hyperkalemia Fall Troponin level elevated Acute hyponatremia BPH (benign prostatic hyperplasia) Orthostatic hypotension Stroke Chronic anticoagulation Paroxysmal A-fib Nocturnal hypoxia COPD (chronic obstructive pulmonary disease) Social History Smoking and tobacco/nicotine status: current every day tobacco/nicotine user Marital status: Single Physical Exam 2 Const: COMMON NORMALS: alert HENMT: COMMON NORMALS: normocephalic HEAD & SCALP: normocephalic Neck/C-Spine: COMMON NORMALS: full ROM Resp: EFFORT & INSPECTION: Yes able to speak in complete sentences A USCULTATION: diminished lung sounds Cardio: COMMON NORMALS: regular rate RATE: regular rate GI: COMMON NORMALS: non-tender Back/Pelvis: COMMON NORMALS: thoracic and lumbar spine normal to inspection Extremity: COMMON NORMALS: full ROM Neuro: SENSORIUM/ORIENTATION: Yes alert Skin: NARRATIVE SKIN EXAM: Decreased skin turgor, senile purpura to the upper extremities. Course 2 Vital Signs: Vital signs: Vital Signs Temperature 98.3 F 05/17/23 13:41 Pulse Rate 81 05/17/23 15:00 Respiratory Rate 18 05/17/23 13:41 Blood Pressure 104/58 05/17/23 14:35 Pulse Oximetry 91 05/17/23 15:00 Oxygen Delivery Me thod Nasal Cannula 05/17/23 15:00 Oxygen Flow Rate 4 05/17/23 14:35 MDM - SOB/Dyspnea Medical Decision Making 82-year-old male patient brought in today by EMS from [facility] for concerns of difficulty breathing. Patient reports improvement of symptoms after receiving DuoNeb and 6 mg of dexamethasone and route from the [facility]. Patient is alert and oriented. Respirations are even and patient is able to speak full sentences. Lungs are decreased throughout. Skin is warm and dry. Turgor is fair. Abdomen soft nontender. Vital signs are normal. Differential diagnosis includes dehydration, chronic respiratory failure, acute exacerbation of COPD, CHF, pneumonia. 1423, chest x-ray notes a infiltrate with possible effusion in the right lower lung. ABG notes a pO2 in the 50s, and pCO2 also at 50. pH was 7.49. We continue to have problems maintaining patient's oxygen saturation above 84% on 4 L nasal cannula. I reviewed this with Dr. Davidson, attending ER physician, he suggested discussion with the hospitalist for admission for pneumonia with hypoxia. 1517, discussed patient with Dr. Colby who agreed for admission to observation for further evaluation and treatment. Lab Data 05/17/23 14:18 05/17/23 15:00 Labs/Radiology: Laboratory Results WBC 6.32 10^3/uL (3.29-11.43) 05/17/23 14:18 RBC 4.09 10^6/uL (3.85-5.65) 05/17/23 14:18 Hgb 10.00 g/dL (11.27-16.99) L 05/17/23 14:18 Hct 33.8 % (37-53) L 05/17/23 14:18 MCV 82.6 fl (82-101) 05/17/23 14:18 MCH 24.4 pg (27-33) L 05/17/23 14:18 MCHC 29.6 g/dL (30-55) L 05/17/23 14:18 RDW 20.2 % (12.1-15.1) H 05/17/23 14:18 Plt Count 150 10^3/cmm (157-399) L 05/17/23 14:18 MPV 11.8 fL (7.4-10.4) H 05/17/23 14:18 Neut % (Auto) 79.1 % 05/17/23 14:18 Lymph % (Auto) 8.4 % 05/17/23 14:18 [place] % (Auto) 9.8 % 05/17/23 14:18 Eos % (Auto) 1.7 % 05/17/23 14:18 Baso % (Auto) 0.8 % 05/17/23 14:18 Neut # (Auto) 5.00 10^3/uL (1.8-7.7) 05/17/23 14:18 Lymph # (Auto) 0.5 10^3/uL (0.8-4.8) L 05/17/23 14:18 [place] # (Auto) 0.6 10^3/uL (0.2-0.9) 05/17/23 14:18 Eos # (Auto) 0.1 10^3/uL (0.0-0.8) 05/17/23 14:18 Baso # (Auto) 0.1 10^3/uL (0.0-0.1) 05/17/23 14:18 Nucleated RBC % (auto) 0 % 05/17/23 14:18 Nucleated RBCs # 0.0 /100WBC 05/17/23 14:18 Specimen Type Arterial 05/17/23 13:56 Sample Site Brachial, left 05/17/23 13:56 ABG pH 7.49 (7.35-7.45) H 05/17/23 13:56 ABG pCO2 50.7 mmHg (35-45) H 05/17/23 13:56 ABG pO2 50.4 mmHg (80.0-100.0) L 05/17/23 13:56 ABG PO2/FiO2 Ratio 0 05/17/23 13:56 ABG HCO3 38.9 mmol/L (22-26) H 05/17/23 13:56 ABG Base Excess 13.9 mmol/L (-2.0-2.0) H 05/17/23 13:56 Jcarlos Test Pos 05/17/23 13:56 Hematocrit 30.0 % (42-52) L 05/17/23 13:56 O2 Delivery Device Nc 05/17/23 13:56 O2 Liters/Min 4.0 % 05/17/23 13:56 FiO2 36.0 % 05/17/23 13:56 Campground Caretaker ID Cak 05/17/23 13:56 Sodium Cancelled 05/17/23 14:18 Potassium Cancelled 05/17/23 14:18 Chloride Cancelled 05/17/23 14:18 Carbon Dioxide Cancelled 05/17/23 14:18 Anion Gap Cancelled 05/17/23 14:18 BUN Cancelled 05/17/23 14:18 Creatinine Cancelled 05/17/23 14:18 GFR Calculation Cancelled 05/17/23 14:18 Glucose Cancelled 05/17/23 14:18 Calculated Osmolality Cancelled 05/17/23 14:18 Calcium Cancelled 05/17/23 14:18 Total Bilirubin Cancelled 05/17/23 14:18 AST Cancelled 05/17/23 14:18 ALT Cancelled 05/17/23 14:18 Alkaline Phosphatase Cancelled 05/17/23 14:18 Total Protein Cancelled 05/17/23 14:18 Albumin Cancelled 05/17/23 14:18 Globulin Cancelled 05/17/23 14:18 Influenza Type A Ag negative (Negative) 05/17/23 14:38 Influenza Type B Ag negative (Negative) 05/17/23 14:38 SARS-CoV-2 Ag (Rapid) negative (Negative) 05/17/23 14:38 All radiology interpretation(s) finalized by discharge EKG Data EKG 1: I personally reviewed and interpreted this EKG as follows: EKG Interpretation Date: 05/17/23 EKG interpretation time: 14:15 Prior EKG tracings: available for review Interpretation: EKG shows slightly irregular rate at 88 bpm. Artifact is present. No ST elevation is noted. Patient does have an occasional PVC. Possible atrial fibs versus a sinus arrhythmia. Patient does have a atrial fibs with on demand V pacing noted in last EKG reports. No significant changes from prior exams. Computer Generated Interpretation: Atrial fibrillation, right bundle branch block, moderate T wave abnormality, consider lateral ischemia, abnormal EKG, unconfirmed report. Discharge Plan Discharge Patient Disposition: Placed in Observation Clinical Impression: Hypoxia Pneumonia Qualifiers: Pneumonia type: due to unspecified organism Laterality: right Lung location: l ower lobe of lung Qualified Code(s): J18.9 - Pneumonia, unspecified organism Coding Level of Care Code ED Triple Drum Operator for Liv Vega
--- NOTE | 2023-05-17 13:45 | XR_ITS ---
WS: [id number] Exam: XR chest 1V portable [id number] Date/Time of Exam: 05/17/2023 2:08 PM Reason For Exam: dyspnea Comparison 03/06/2023. There is infiltrate in the middle and lower lobes of the RIGHT lung with increasing RIGHT pleural eff usion since the last study. The LEFT lung is generally clear. No pneumothorax. Heart size is within n ormal limits. The mediastinum is normal in contour. A permanent cardiac pacer seen over the LEFT ches t. Bony structures are intact. IMPRESSION1. Infiltrate and/or atelectasis in the middle and lower lobes of the RIGHT lung with right -sided pleural effusion which has increased.
[2023-05-17 14:07] LABS: Blood Gas Allen Test Pos; Blood Gas Sample Type Arterial
--- NOTE | 2023-05-17 14:07 | ECG_ITS ---
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 Measurements Intervals [place] Rate: 88 P: 0 MI: 0 QRS: 83 QRSD: 142 T: -21 QT: 354 QTc: 429 Interpretive Statements ATRIAL FIBRILLATION RIGHT BUNDLE BRANCH BLOCK [120+ ms QRS DURATION, UPRIGHT V1, 40+ ms S IN I/aVL/V4/V5/V6] MODERATE T-WAVE ABNORMALITY, CONSIDER LATERAL ISCHEMIA [-0.1+ mV T-WAVE IN I/aVL/V5/V6] Compared to ECG 04/14/2023 10:36:59 Ventricular-paced complex(es) or rhythm no longer present T-wave abnormality still present Possible ischemia still present Electronically Signed On 05-17-2023 16:13:34 CDT by Gabriele Mello M.D. [email or web address] elin
[2023-05-17 14:15] LABS: ABG PCO2 50.7 mmHg (35-45); ABG PH Result 7.49 (7.35-7.45); Base Excess ABG 13.9 mmol/L (-2.0-2.0); Blood Gas Operator Identificat CAK; Blood Gas Sample Site Brachial, left; HCO3 ABG 38.9 mmol/L (22-26); Oxygen Device NC; PO2 ABG 50.4 mmHg (80.0-100.0); PO2 FiO2 Ratio Arterial Blood 0
[2023-05-17] MEDS: sodium chloride 0.9% 500 ML 999 ML IV (14:29)
[2023-05-17 14:35] VITALS: BP 104/58; PULSE 78; O2SAT 90
[2023-05-17 14:38] LABS: Basophils # 0.1 10^3/uL (0.0-0.1); Basophils % 0.8 %; Eosinophils # 0.1 10^3/uL (0.0-0.8); Eosinophils % 1.7 %; Hematocrit 33.8 % (37-53); Lymphocytes # 0.5 10^3/uL (0.8-4.8); Lymphocytes % 8.4 %; Mean Corpuscular HGB Conc 29.6 g/dL (30-55); Mean Corpuscular Hemoglobin 24.4 pg (27-33); Mean Corpuscular Volume 82.6 fl (82-101); Mean Platelet Volume 11.8 fL (7.4-10.4); Monocytes # 0.6 10^3/uL (0.2-0.9); Monocytes % 9.8 %; Neutrophils % 79.1 %; Nucleated Red Blood Cells % 0 %; Platelet Count 150 10^3/cmm (157-399); Red Blood Count 4.09 10^6/uL (3.85-5.65); Red Cell Distribution Width 20.2 % (12.1-15.1); White Blood Count 6.32 10^3/uL (3.29-11.43)
[2023-05-17 15:00] VITALS: PULSE 81; O2SAT 91
[2023-05-17 15:12] LABS: Influenza A by IFA negative (Negative); Influenza B by IFA negative (Negative)
[2023-05-17 15:14] LABS: SARS Covid-2 Antigen negative (Negative)
[2023-05-17] MEDS: piperacillin-tazobactam 3.375 GM in sodium chloride 0.9% (plus) 50 ML IV ×2 (15:14→23:20)
--- NOTE | 2023-05-17 15:15 | US_ITS ---
WS: [id number] INDICATION: Pleural effusion TECHNIQUE: Ultrasound chest FINDINGS: No significant fluid in the LEFT pleural space. Small RIGHT pleural effusion with compressive atelectasis RIGHT lower lobe. There is some drainable f luid but probably too small to safely perform thoracentesis at this time. IMPRESSION: See above
[2023-05-17 15:30] VITALS: BP 102/70; PULSE 77; O2SAT 95
[2023-05-17 15:32] LABS: Alanine Aminotransferase 13 U/L (0-41); Albumin Level 3.5 g/dL (3.5-5.2); Alkaline Phosphatase 99 U/L (40-130); Anion Gap 12.1 (5-19); Aspartate Amino Transferase 20 U/L (0-40); Blood Urea Nitrogen 16 mg/dL (8-23); Calcium 8.5 mg/dL (8.5-10.5); Carbon Dioxide 35 mmol/L (22-29); Chloride 99 mmol/L (98-107); Globulin 3.6 g/dL (1.3-4.6); Glucose 104 mg/dL (65-115); Osmolality Calculated 295 mOsm/kg (285-295); Potassium 4.1 mmol/L (3.5-5.1); Sodium 142 mmol/L (136-145); Total Bilirubin 0.5 mg/dL (0.15-1.2); Total Protein 7.1 g/dL (6.6-8.7)
[2023-05-17 16:00] VITALS: BP 119/74; PULSE 96; O2SAT 97
[2023-05-17 19:49] VITALS: BP 116/66; PULSE 71; RESP 20; TEMP 36.5; O2SAT 98
--- NOTE | 2023-05-17 19:51 | P.HP_ITS ---
Providers/Chief Complaint 2 Admitting Physician: Traci Harvey MD Primary Care Provider: Joe Carrillo DO Chief Complaint: COPD History of Present Illness Krzysztof Tay is a 82 year old male [facility] in [facility] due to worsening dyspnea, productive cough. In ER with finding of hypoxemia, pO2 50.4 on ABG on his usual 4 L nasal cannula oxygen. Chest x-ray with infiltrate and/or atelectasis in the middle and lower lobes of the right lung with right- sided pleural effusion which has increased. Review of Systems 2 Const: Denies: fever(s), chills, body aches or malaise ENMT: Denies: throat pain Card: Denies: chest pain, edema, pre-syncope or dyspnea on exertion Resp: Reports: dyspnea, productive cough and change in phlegm color; Denies: hemoptysis GI: Denies: abdominal pain, nausea, vomiting, diarrhea, constipation, hematochezia or melena : Denies: flank pain, difficulty urinating, urinary frequency or hematuria Musc: Denies: back pain, joint swelling or joint redness Skin/Breast: Denies: rash or new lesions Neuro: Denies: headache(s), dizziness or confusion Medications/Allergies Home Medications Medication Instructions Recorded Confirmed Last Taken Type albuterol sulfate 90 mcg/actuation 2 puff inhalation Q4H PRN 01/09/23 05/17/23 Unknown History aerosol inhaler Shortness Of Breath Or Wheezing atorvastatin 40 mg tablet 40 mg PO BEDTIME@20 01/09/23 05/17/23 05/16/23 History budesonide-formoterol HFA 80 1 puff inhalation BID 01/09/23 05/17/23 05/17/23 History mcg-4.5 mcg/actuation aerosol inhaler (Symbicort) tamsulosin 0.4 mg capsule 0.4 mg PO DAILY@08 01/09/23 05/17/23 05/17/23 History metoprolol tartrate 25 mg tablet 25 mg PO BID@0900,2100 #60 tabs 01/16/23 05/17/23 05/17/23 Rx lorazepam 0.5 mg tablet 0.5 mg PO BID PRN anxiety #60 tabs 01/19/23 05/17/23 02/08/23 Rx acetaminophen 500 mg tablet 500 - 1,000 mg PO Q6H PRN Pain 02/09/23 05/17/23 03/04/23 History pantoprazole 40 mg tablet,delayed 40 mg PO DAILY@08 02/09/23 05/17/23 05/17/23 History release sucralfate 100 mg/mL oral 10 ml PO BID 03/06/23 05/17/23 05/17/23 History suspension furosemide 40 mg tablet 40 mg PO DAILY@08 #90 tabs 03/08/23 05/17/23 05/17/23 Rx potassium chloride 10 mEq 10 meq PO DAILY 04/14/23 05/17/23 05/17/23 History tablet,extended release ipratropium 0.5 mg-albuterol 3 mg 3 ml inhalation Q6H PRN Shortness 05/17/23 05/17/23 Unknown History (2.5 mg base)/3 mL nebulization Of Breath Or Wheezing soln midodrine 5 mg tablet 5 mg PO BID 05/17/23 05/17/23 05/17/23 History Allergies Allergy/AdvReac Type Severity Reaction Status Date / Time No Known Allergies Allergy Verified 05/17/23 14:23 PFSH Acute 2 PFSH: Medical History Acute respiratory failure with hypoxia and hypercapnia Anemia Pneumonia Mixed dyslipidemia Atrial fibrillation GI bleed GERD without esophagitis Chronic hypoxic respiratory failure Lives in assisted living facility Acute hypernatremia Pneumonia Pulmonary hypertension Abnormal stress test Paroxysmal atrial fibrillation with RVR Hypoxia MENDOZA (dyspnea on exertion) Acute exacerbation of chronic obstructive pulmonary disease Anemia Congestive heart failure Malnutrition of moderate degree Hyperkalemia Fall Troponin level elevated Acute hyponatremia BPH (benign prostatic hyperplasia) Orthostatic hypotension Stroke Chronic anticoagulation Paroxysmal A-fib Nocturnal hypoxia COPD (chronic obstructive pulmonary disease) Social History Smoking and tobacco/nicotine status: current every day tobacco/nicotine user Marital status: Single Vitals/I&O/Wt Last Vital Signs Temp 97.7 F 05/17/23 19:49 Pulse 71 05/17/23 19:49 Resp 20 H 05/17/23 19:49 BP 116/66 05/17/23 19:49 Pulse Ox 98 05/17/23 19:49 O2 Del Method Nasal Cannula 05/17/23 19:49 O2 Flow Rate 4 05/17/23 14:35 05/17/23 05/17/23 05/17/23 06:59 14:59 22:59 Intake Total 550 / 550 Balance 550 / 550 Physical Exam 2 Const: COMMON NORMALS: patient oriented x3 and alert GENERAL APPEARANCE: c ooperative ORIENTATION/CONSCIOUSNESS: Yes awake HENMT: COMMON NORMALS: oropharynx normal Neck/C-Spine: COMMON NORMALS: no JVD Resp: COMMON NORMALS: normal respiratory effort and clear to auscultation bilaterally AUSCULTATION: diminished lung sounds on the right in the lower lung cornejo Cardio: COMMON NORMALS: no JVD, regular rhythm, S1 normal heart sound present, S2 normal heart sound present and No murmurs present (Cardio) RHYTHM: regular rhythm HEART SOUNDS: S1 normal heart sound present and S2 normal heart sound present GI: COMMON NORMALS: Normal to inspection, nondistended, normoactive bowel sounds present, Soft to palpation and non-tender PALPATION: Yes Soft to palpation Extremity: COMMON NORMALS: no joint enlargement and no pedal edema Neuro: COMMON NORMALS: patient oriented x3 and moves all extremities S ENSORIUM/ORIENTATION: Yes alert Skin: COMMON NORMALS: no rashes or lesions noted GENERAL SKIN EXAM: no rashes or lesions noted Data 05/17/23 14:18 05/17/23 15:00 Micro: Microbiology 05/17/23 15:03 Blood Culture - Preliminary Blood SPECIMEN COLLECTED 05/17/23 15:00 Blood Culture - Preliminary Blood SPECIMEN COLLECTED A&P Assessment and plan (1) Pneumonitis: Acute on chronic respiratory failure with hypoxemia on usual 4 L nasal cannula oxygen, tachypnea. Worsening dyspnea, cough, noted right middle and lower lobe infiltrates, concern for pneumonitis, he otherwise is afebrile, without leukocytosis, reviewed vitals, CBC, ABG with noted hypokalemia, reviewed CMP, rapid influenza, rapid COVID-19, chest x-ray,EKG on my interpretation with atrial fibrillation, right bundle branch block, T wave inversion V4, V5, somewhat jagged baseline in 1 2 and aVL, difficult to interpret, no sign of obvious TX. Pending cardiac read. Reviewed ER provider note, discussed with ER provider. Concern for aspiration pneumonitis, possible aspiration pneumonia. He does report having cough intermittently with drinking water. States that he is on dysphagia diet have history of dysphagia in the past. Continue Zosyn for possible aspiration pneumonia. Reassess oxygenation. Will request assessment by speech therapy, modified barium swallow. Obtain sputum culture, urine bacterial antigens, MRSA PCR. (2) Pleural effusion: Right-sided pleural effusion, question of possible parapneumonic effusion, although it no signs of sepsis, hemodynamically stable, less likely empyema. Obtain chest ultrasound to assess for any drainable effusion. Plan GERD: Continue Protonix Pulmonary hypertension: Normally on 4 L of oxygen Paroxysmal A-fib: Previously on Xarelto but was discontinued after anemia requiring blood transfusion during last admission. Attestations 2 Medical Necessity Statement*: Place in observation for additional assessment management of pneumonitis, possible aspiration pneumonia with worsening dyspnea and gentleman with chronic hypoxia, pleural effusion, history of dysphagia. Diagnoses Pneumonitis J98.4 Pleural effusion J90
[2023-05-17] MEDS: metoprolol tartrate 25 mg Tablet PO (20:37)
[2023-05-17] MEDS: heparin 5,000 unit/mL INJ 1 mL 5000 UNIT SUBCUT (20:38)
[2023-05-17] MEDS: pantoprazole 40 mg SDV IVP (20:52)
[2023-05-18] VITALS (13 sets, daily range): BP systolic 107–149; BP diastolic 50–66; PULSE 61–92; RESP 16–20; TEMP 36.3–36.9; O2SAT 92–98
[2023-05-18] MEDS: ipratropium-albuterol 3 mL Neb INHALATION ×4 (03:00→20:56)
[2023-05-18 05:11] LABS: Basophils % 0.7 %; Hematocrit 31.9 % (37-53); Lymphocytes # 0.6 10^3/uL (0.8-4.8); Lymphocytes % 12.7 %; Mean Corpuscular HGB Conc 29.5 g/dL (30-55); Mean Corpuscular Hemoglobin 23.9 pg (27-33); Mean Platelet Volume 11.4 fL (7.4-10.4); Monocytes # 0.5 10^3/uL (0.2-0.9); Monocytes % 10.4 %; Neutrophils # 3.28 10^3/uL (1.8-7.7); Nucleated Red Blood Cells % 0 %; Platelet Count 151 10^3/cmm (157-399); Red Blood Count 3.94 10^6/uL (3.85-5.65); Red Cell Distribution Width 20.1 % (12.1-15.1); White Blood Count 4.32 10^3/uL (3.29-11.43)
[2023-05-18 05:33] LABS: Anion Gap 10.8 (5-19); Blood Urea Nitrogen 18 mg/dL (8-23); Calcium 8.5 mg/dL (8.5-10.5); Carbon Dioxide 36 mmol/L (22-29); Chloride 99 mmol/L (98-107); Creatinine Clr Calc Pharmacy 66.9588; Glucose 121 mg/dL (65-115); Osmolality Calculated 297 mOsm/kg (285-295); Potassium 3.8 mmol/L (3.5-5.1); Sodium 142 mmol/L (136-145)
[2023-05-18] MEDS: piperacillin-tazobactam 3.375 GM in sodium chloride 0.9% (plus) 50 ML IV ×2 (06:27→14:24)
--- NOTE | 2023-05-18 09:07 | PC.CHAP ---
Pastoral Care Encounter/Spiritual Assessment Type of Contact [] Declined motorcoach operator visit [] Patient/Family/Request visit [] Outpatient visit [] Follow-up visit [] Physician referral [] Code/Alert [] Routine visit [] Staff referral [] Actively dying [x] Patient sleeping [] Family support [] [] Out of room [] Palliative care [] [] Receiving care in room [] Pre-surgical visit [] Trauma [] Long length of stay [] ICU visit [] Other: Relational/Emotional Strength [] Patient feels connected with others/family/visitors/staff [] Distress [] Loneliness/isolation [] Abandonment Spirituality of Patient [] Person of Leticia [] Attends Yazidism of their Leticia [] Believes in Prayer [] Reads Bible or Anglican materials [] There are Spiritual issues to be addressed Wet [employer] [place] Interventions [] Prayer [] Active listening [] Non-anxious presence [] Spiritual/emotional support [] Crisis/trauma care [] Spiritual counseling [] Bereavement support [] Provided bereavement packet [] Provided Bible/devotional materials [] Provided toy/stuffed animal, coloring book to patient or family member [] Provided Communion [] Anointing/[place] [] Salvation [] Completed spiritual assessment [] Other: Impact on Illness or Injury [] Angry [] Fearful [] Anxious [] Often cries [] Exhaustion [] Unable to work [] Unable to attend muslim [] Unable to walk/stand [] Unable to read [] Unable to drive [] Unable to eat/drink [] Unable to sleep [] Unable to be with family [] Patient intubated [] Other: Summary Time spent with patient
--- NOTE | 2023-05-18 09:30 | FL_ITS ---
WS: [id number] Exam: FL barium swallow modifd [id number] Date/Time of Exam: 05/18/2023 9:30 AM Reason For Exam: Oropharyngeal dysphagia Fluoroscopy time: 1min [id number] minutes # of spot films: Modified barium swallow test was performed in conjunction with the speech therapy service. The patient experienced mild penetration into the laryngeal inlet when ingesting thin liquid barium s olution. The patient tolerated the remaining consistencies of barium mixture foodstuffs without aspir ation or penetration. The patient swallowed a barium tablet without complication or difficulty. IMPRESSION: 1. The patient experienced mild penetration into the laryngeal inlet when swallowing thin liquids. Th e remaining aspects of the test were unremarkable. A separate report with recommendations will follow from the speech therapy service.
[2023-05-18] MEDS: sucralfate 1 gm/10 mL Oral Liq UDC PO ×2 (09:46→18:02)
[2023-05-18] MEDS: tamsulosin 0.4 mg Capsule 0.400000000000000022 MG PO (09:47)
[2023-05-18] MEDS: metoprolol tartrate 25 mg Tablet PO ×2 (09:47→20:36)
[2023-05-18] MEDS: midodrine 5 mg TABLET PO ×2 (09:47→18:02)
[2023-05-18] MEDS: heparin 5,000 unit/mL INJ 1 mL 5000 UNIT SUBCUT ×2 (09:47→20:34)
[2023-05-18] MEDS: FUROsemide 40 mg Tablet PO (09:47)
--- NOTE | 2023-05-18 16:53 | P.PN_ITS ---
Subjective 2 Subjective: He feels he is showing some improvement. Feeling slightly better today. Awaiting MBS. Vitals/I&O/Wt Last Vital Signs Temp 98.0 F 05/18/23 16:00 Pulse 76 05/18/23 16:00 Resp 16 05/18/23 16:00 BP 113/57 05/18/23 16:00 Pulse Ox 98 05/18/23 16:00 O2 Del Method Nasal Cannula 05/18/23 16:00 O2 Flow Rate 5 05/18/23 16:00 05/18/23 05/18/23 05/18/23 06:59 14:59 22:59 Intake Total 230 / 1020 290 / 290 Output Total 350 / 550 Balance -120 / 470 290 / 290 Weight last 48 hrs Weight 66.497 kg Physical Exam 2 Narrative: Sitting up in bed. In good spirits. Const: COMMON NORMALS: patient oriented x3 and alert GENERAL APPEARANCE: c ooperative ORIENTATION/CONSCIOUSNESS: Yes awake HENMT: COMMON NORMALS: oropharynx normal Neck/C-Spine: COMMON NORMALS: no JVD Resp: AUSCULTATION: wheezes and diminished lung sounds on the right in the lower lung cornejo Cardio: COMMON NORMALS: no JVD, regular rhythm, S1 normal heart sound present, S2 normal heart sound present and No murmurs present (Cardio) RHYTHM: regular rhythm HEART SOUNDS: S1 normal heart sound present and S2 normal heart sound present GI: COMMON NORMALS: Normal to inspection, nondistended, normoactive bowel sounds present, Soft to palpation and non-tender PALPATION: Yes Soft to palpation Extremity: COMMON NORMALS: no joint enlargement and no pedal edema Neuro: COMMON NORMALS: patient oriented x3 and moves all extremities S ENSORIUM/ORIENTATION: Yes alert Skin: COMMON NORMALS: no rashes or lesions noted GENERAL SKIN EXAM: no rashes or lesions noted Data 05/18/23 04:28 05/18/23 04:28 Micro: Microbiology 05/17/23 15:00 Blood Culture - Preliminary Blood NEGATIVE TO DATE 05/17/23 15:03 Blood Culture - Preliminary Blood NEGATIVE TO DATE 05/17/23 20:30 Legionella Urinary Antigen - Final Urine,Clean Catch Bacterial Antigens - Final A&P Assessment and plan (1) Pneumonitis: Suspected aspiration pneumonia. Reviewed vitals, CBC, BMP, blood culture, urine bacterial antigens, urine Legionella chest, discussed with pillowcase cleaner. Reviewed ST note. Trial of soft and bite-size, regular liquid diet. Aspiration precautions. Acute on chronic respiratory failure with hypoxemia requiring 5 L of oxygen whereas usual 4 L nasal cannula oxygen. Subjectively feels slightly better today. But as soon as he was noticing it went into a bout of cough with wheezing. Tachypnea with improvement. With airway reactivity continue breathing treatments. Hold off steroids. Concern for aspiration pneumonitis, possible aspiration pneumonia. He does report having cough intermittently with drinking water. States that he is on dysphagia diet have history of dysphagia in the past. Switch antibiotic to Augmentin. Check procalcitonin. Stop Zosyn for possible aspiration pneumonia. Reassess oxygenation. Obtain sputum culture, urine bacterial antigens, MRSA PCR. (2) Pleural effusion: Reviewed chest ultrasound - small effusion, not drainable. Right-sided pleural effusion, question of possible parapneumonic effusion, although it no signs of sepsis, hemodynamically stable, less likely empyema. Plan GERD: Continue Protonix Pulmonary hypertension: Normally on 4 L of oxygen Paroxysmal A-fib: Previously on Xarelto but was discontinued after anemia requiring blood transfusion during last admission. Attestations 2 Medical Necessity Statement*: Requires further admission for assessment management of pneumonitis with send oxygen requirement, concern for aspiration pneumonia, optimization of diet consistency to help avoid further aspiration. and High MDM includes amount and/or complexity of data reviewed/ordered [ resulted lab(s)/test(s), ordered lab(s)/test(s) and other healthcare professional discussion] as documented Diagnoses Pneumonitis J98.4 Pleural effusion J90
[2023-05-18] MEDS: pantoprazole 40 mg SDV IVP (20:34)
[2023-05-18] MEDS: atorvastatin 40 mg Tablet PO (20:36)
[2023-05-18] MEDS: amoxicillin-clav 875-125 mg Tablet 1 TAB PO (20:36)
[2023-05-19] VITALS (13 sets, daily range): BP systolic 109–169; BP diastolic 64–82; PULSE 56–97; RESP 17–21; TEMP 36.3–37.3; O2SAT 76–97
--- NOTE | 2023-05-19 00:10 | USR_ITS ---
PROCEDURE INFORMATION: Exam: US Duplex Lower Extremity Veins, Bilateral Exam date and time: 05/19/2023 8:59 AM Age: 82 years old Clinical indication: Edema, localized; Lower extremity, bilateral; Additional info: Swelling TECHNIQUE: Imaging protocol: Real-time duplex ultrasound of the bilateral extremities with 2-D loomis scale, color Doppler flow and spectral waveform analysis including responses to compression and other maneuvers (when performed) with image documentation. Complete exam focused on the lower extremity veins. COMPARISON: CT angio chest w abd pel w con 01/09/2023 2:40 PM FINDINGS: Right deep veins: Unremarkable. The common femoral, femoral, proximal profunda femoral and popliteal veins are patent without thrombus. Normal Doppler waveforms. Normal compressibility and/or augmentation response. Left deep veins: Unremarkable. The common femoral, femoral, proximal profunda femoral and popliteal veins are patent without thrombus. Normal Doppler waveforms. Normal compressibility and/or augmentation response. Superficial veins: Greater saphenous veins at the saphenofemoral junctions are patent bilaterally without thrombus. Soft tissues: Unremarkable. US/CV venous duplex [facility] [id number] IMPRESSION: 1. No deep venous thrombosis demonstrated of visualized portions right leg. 2. No deep venous thrombosis demonstrated of visualized portions left leg.
[2023-05-19 03:14] LABS: Basophils % 0.5 %; Eosinophils % 0.4 %; Hematocrit 32.5 % (37-53); Lymphocytes # 0.7 10^3/uL (0.8-4.8); Mean Corpuscular HGB Conc 29.8 g/dL (30-55); Mean Corpuscular Volume 80.2 fl (82-101); Monocytes # 0.6 10^3/uL (0.2-0.9); Monocytes % 10.7 %; Neutrophils # 4.21 10^3/uL (1.8-7.7); Neutrophils % 76.2 %; Nucleated Red Blood Cells % 0 %; Platelet Count 160 10^3/cmm (157-399); Red Blood Count 4.05 10^6/uL (3.85-5.65); Red Cell Distribution Width 20.8 % (12.1-15.1); White Blood Count 5.52 10^3/uL (3.29-11.43)
[2023-05-19 03:37] LABS: Anion Gap 11.7 (5-19); Blood Urea Nitrogen 20 mg/dL (8-23); Calcium 8.5 mg/dL (8.5-10.5); Carbon Dioxide 36 mmol/L (22-29); Chloride 98 mmol/L (98-107); Creatinine Clr Calc Pharmacy 66.9588; Glucose 100 mg/dL (65-115); Osmolality Calculated 297 mOsm/kg (285-295); Potassium 3.7 mmol/L (3.5-5.1); Sodium 142 mmol/L (136-145)
[2023-05-19 03:39] LABS: Procalcitonin 0.06 ng/mL (0-0.5)
--- NOTE | 2023-05-19 06:02 | PC.NURSE ---
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 measured circumference at the largest part of the calves and marked for continued monitoring. R leg measured 37.1cm while the L measured 31.5cm, was swollen and warm to the touch. patient has hx of afib, not on anticoagulant d/t recent anemia on last admit requiring blood transfusion. dr card was notified of this information and hospitalist ordered venous duplex for patient.
[2023-05-19] MEDS: ipratropium-albuterol 3 mL Neb INHALATION ×3 (08:44→19:56)
[2023-05-19] MEDS: midodrine 5 mg TABLET PO ×2 (09:29→17:00)
[2023-05-19] MEDS: amoxicillin-clav 875-125 mg Tablet 1 TAB PO ×2 (09:29→17:00)
[2023-05-19] MEDS: sucralfate 1 gm/10 mL Oral Liq UDC PO ×2 (09:29→17:00)
[2023-05-19] MEDS: tamsulosin 0.4 mg Capsule 0.400000000000000022 MG PO (09:29)
[2023-05-19] MEDS: pantoprazole DR 40 mg Tablet PO ×2 (09:30→17:00)
[2023-05-19] MEDS: metoprolol tartrate 25 mg Tablet PO ×2 (09:30→20:54)
[2023-05-19] MEDS: heparin 5,000 unit/mL INJ 1 mL 5000 UNIT SUBCUT ×2 (09:30→20:54)
[2023-05-19] MEDS: FUROsemide 40 mg Tablet PO (09:30)
[2023-05-19] MEDS: predniSONE 10 mg Tablet PO (17:00)
--- NOTE | 2023-05-19 17:58 | P.PN_ITS ---
Subjective 2 Subjective: He is not feeling better today, feeling worse. Weaker. Had a more difficult time trying to get up and get around with a walker. Vitals/I&O/Wt Last Vital Signs Temp 97.4 F L 05/19/23 16:00 Pulse 83 05/19/23 16:00 Resp 97 H 05/19/23 16:00 BP 158/73 05/19/23 16:00 Pulse Ox 94 05/19/23 16:00 O2 Del Method Nasal Cannula 05/19/23 16:00 O2 Flow Rate 4 05/19/23 16:00 05/19/23 05/19/23 05/19/23 06:59 14:59 22:59 Intake Total 240 / 820 480 / 480 240 / 720 Output Total 225 / 650 1250 / 1250 Balance 15 / 170 480 / 480 -1010 / -530 Weight last 48 hrs Weight 68.629 kg Weight 66.497 kg Physical Exam 2 Narrative: Sitting up in bed. In good spirits. Const: COMMON NORMALS: patient oriented x3 and alert GENERAL APPEARANCE: c ooperative ORIENTATION/CONSCIOUSNESS: Yes awake HENMT: COMMON NORMALS: oropharynx normal Neck/C-Spine: COMMON NORMALS: no JVD Resp: COMMON NORMALS: normal respiratory effort AUSCULTATION: wheezes and diminished lung sounds Cardio: COMMON NORMALS: no JVD, regular rhythm, S1 normal heart sound present, S2 normal heart sound present and No murmurs present (Cardio) RHYTHM: regular rhythm HEART SOUNDS: S1 normal heart sound present and S2 normal heart sound present GI: COMMON NORMALS: Normal to inspection, nondistended, normoactive bowel sounds present, Soft to palpation and non-tender PALPATION: Yes Soft to palpation Extremity: COMMON NORMALS: no joint enlargement and no pedal edema Neuro: COMMON NORMALS: patient oriented x3 and moves all extremities S ENSORIUM/ORIENTATION: Yes alert Skin: COMMON NORMALS: no rashes or lesions noted GENERAL SKIN EXAM: no rashes or lesions noted Data 05/19/23 02:30 05/19/23 02:30 Micro: Microbiology 05/17/23 15:00 Blood Culture - Preliminary Blood NEGATIVE TO DATE 05/17/23 15:03 Blood Culture - Preliminary Blood NEGATIVE TO DATE A&P Assessment and plan (1) Pneumonitis: He is feeling weaker today, he is having worse wheezing. Diminished air entry. Tachypnea. It appears he has bronchial inflammatory component to his pneumonitis with acute bronchitis. Add inhaled budesonide as well as low-dose prednisone as discussed with him. Continue breathing treatments. Reviewed vitals, CBC, BMP, procalcitonin. No signs of ongoing sepsis. Procalcitonin is not elevated. On Augmentin, if showing improvement consider de-escalation. Reviewed urine bacterial antigens, negative. Reviewed blood culture, negative. Trial of soft and bite-size, regular liquid diet. Aspiration precautions. Concern for aspiration pneumonitis, possible aspiration pneumonia. He does report having cough intermittently with drinking water. States that he is on dysphagia diet have history of dysphagia in the past. (2) Pleural effusion: Reviewed chest ultrasound - small effusion, not drainable. Right-sided pleural effusion, question of possible parapneumonic effusion, although it no signs of sepsis, hemodynamically stable, less likely empyema. Plan Generalized weakness: Having more difficult time trying to get up and walk around with a walker. Lives in assisted living. Will obtain PT assessment. GERD: Continue Protonix Pulmonary hypertension: Normally on 4 L of oxygen Paroxysmal A-fib: Previously on Xarelto but was discontinued after anemia requiring blood transfusion during last admission. Attestations 2 Medical Necessity Statement*: Continue admission for assessment and management of pneumonitis, concern for aspiration pneumonia, treatment of worsened dyspnea, generalized weakness with acute bronchitis, reactive airways. Diagnoses Pneumonitis J98.4 Pleural effusion J90
[2023-05-19] MEDS: budesonide 0.5 mg/2 mL Neb INHALATION (19:56)
[2023-05-19] MEDS: atorvastatin 40 mg Tablet PO (20:54)
[2023-05-20] VITALS (13 sets, daily range): BP systolic 118–137; BP diastolic 64–75; PULSE 72–103; RESP 16–24; TEMP 36.4–36.8; O2SAT 90–98
[2023-05-20 02:47] LABS: Basophils % 0.2 %; Eosinophils % 0.2 %; Hematocrit 31.2 % (37-53); Lymphocytes # 0.5 10^3/uL (0.8-4.8); Lymphocytes % 7.9 %; Mean Corpuscular HGB Conc 29.8 g/dL (30-55); Mean Corpuscular Hemoglobin 24.2 pg (27-33); Mean Platelet Volume 11.9 fL (7.4-10.4); Monocytes # 0.5 10^3/uL (0.2-0.9); Monocytes % 9.3 %; Neutrophils # 4.75 10^3/uL (1.8-7.7); Neutrophils % 82.1 %; Nucleated Red Blood Cells % 0 %; Platelet Count 134 10^3/cmm (157-399); Red Blood Count 3.85 10^6/uL (3.85-5.65); Red Cell Distribution Width 20.5 % (12.1-15.1); White Blood Count 5.79 10^3/uL (3.29-11.43)
[2023-05-20] MEDS: ipratropium-albuterol 3 mL Neb INHALATION ×4 (02:59→20:26)
[2023-05-20 03:14] LABS: Anion Gap 9.5 (5-19); Blood Urea Nitrogen 13 mg/dL (8-23); Calcium 8.3 mg/dL (8.5-10.5); Carbon Dioxide 38 mmol/L (22-29); Chloride 95 mmol/L (98-107); Creatinine Clr Calc Pharmacy 77.3047; Glucose 118 mg/dL (65-115); Osmolality Calculated 289 mOsm/kg (285-295); Potassium 3.5 mmol/L (3.5-5.1); Sodium 139 mmol/L (136-145)
[2023-05-20] MEDS: budesonide 0.5 mg/2 mL Neb INHALATION ×2 (08:33→20:26)
[2023-05-20] MEDS: predniSONE 10 mg Tablet PO (08:46)
[2023-05-20] MEDS: sucralfate 1 gm/10 mL Oral Liq UDC PO ×2 (08:46→18:07)
[2023-05-20] MEDS: amoxicillin-clav 875-125 mg Tablet 1 TAB PO ×2 (08:46→18:07)
[2023-05-20] MEDS: heparin 5,000 unit/mL INJ 1 mL 5000 UNIT SUBCUT ×2 (08:47→19:19)
[2023-05-20] MEDS: FUROsemide 40 mg Tablet PO (08:47)
[2023-05-20] MEDS: tamsulosin 0.4 mg Capsule 0.400000000000000022 MG PO (08:47)
[2023-05-20] MEDS: midodrine 5 mg TABLET PO ×2 (08:47→18:07)
[2023-05-20] MEDS: pantoprazole DR 40 mg Tablet PO ×2 (08:47→18:07)
[2023-05-20] MEDS: metoprolol tartrate 25 mg Tablet PO ×2 (08:50→20:37)
--- NOTE | 2023-05-20 18:53 | PM.PN ---
Subjective Subjective: Subjectively he feels slightly less weak today. States that he got up with physical therapy today. Respiratory houser, however, he is more wheezing. Coughing. Vitals/I&O/Wt Last Vital Signs Temp 97.7 F 05/20/23 16:31 Pulse 103 H 05/20/23 16:31 Resp 20 H 05/20/23 16:31 BP 137/66 05/20/23 16:31 Pulse Ox 90 05/20/23 16:31 O2 Del Method Nasal Cannula 05/20/23 16:31 O2 Flow Rate 4 05/20/23 13:40 05/20/23 05/20/23 05/20/23 06:59 14:59 22:59 Intake Total 480 / 480 360 / 840 Output Total 250 / 1750 1100 / 1100 Balance -250 / -910 480 / 480 -740 / -260 Weight last 48 hrs Weight 64.728 kg Weight 68.629 kg Physical Exam Narrative: Sitting up in bed. In good spirits. Const: COMMON NORMALS: patient oriented x3 and alert GENERAL APPEARANCE: cooperative ORIENTATION/CONSCIOUSNESS: Yes awake HENMT: COMMON NORMALS: oropharynx normal Neck/C-Spine: COMMON NORMALS: no JVD Resp: EFFORT & INSPECTION: Yes tachypneic AUSCULTATION: wheezes and diminished lung sounds on the right in the lower lung cornejo Cardio: COMMON NORMALS: no JVD, regular rhythm, S1 normal heart sound present, S2 normal heart sound present and No murmurs present (Cardio) RHYTHM: regular rhythm HEART SOUNDS: S1 normal heart sound present and S2 normal heart sound present GI: COMMON NORMALS: Normal to inspection, nondistended, normoactive bowel sounds present, Soft to palpation and non-tender PALPATION: Yes Soft to palpation Extremity: COMMON NORMALS: no joint enlargement and no pedal edema Neuro: COMMON NORMALS: patient oriented x3 and moves all extremities SENSORIUM/ORIENTATION: Yes alert Skin: COMMON NORMALS: no rashes or lesions noted GENERAL SKIN EXAM: no rashes or lesions noted Data 05/20/23 01:58 05/20/23 01:58 A&P Assessment and plan (1) Pneumonitis: Worsened bronchitis. Worsened wheezzing and air entry. Worsened respiratory status per respiratory therapy. Will go ahead and increase prednisone, give 20 mg now and increase to 20 daily. Continue budesonide. Continue breathing treatments. Reassess. Reviewed vitals, BMP, reviewed PT note. Bronchial inflammatory component to his pneumonitis with acute bronchitis. Add inhaled budesonide as well as low-dose prednisone as discussed with him. Continue breathing treatments. Reviewed vitals, CBC, BMP, procalcitonin. No signs of ongoing sepsis. Procalcitonin is not elevated. On Augmentin, if showing improvement consider de-escalation. Reviewed urine bacterial antigens, negative. Reviewed blood culture, negative. Trial of soft and bite-size, regular liquid diet. Aspiration precautions. Concern for aspiration pneumonitis, possible aspiration pneumonia. He does report having cough intermittently with drinking water. States that he is on dysphagia diet have history of dysphagia in the past. (2) Pleural effusion: Reviewed chest ultrasound - small effusion, not drainable. Right-sided pleural effusion, question of possible parapneumonic effusion, although it no signs of sepsis, hemodynamically stable, less likely empyema. Plan Generalized weakness: Feels slightly stronger. Continue treatment of acute bronchitis, pneumonitis with airway reactive disease. Reviewed PT note. Recommendation for SNF. Consult piano case and bench assembler. PT assessment. Having more difficult time trying to get up and walk around with a walker. Lives in assisted living. GERD: Continue Protonix Pulmonary hypertension: Normally on 4 L of oxygen Paroxysmal A-fib: Previously on Xarelto but was discontinued after anemia requiring blood transfusion during last admission. Attestations Medical Necessity Statement*: Continue admission for assessment and management of pneumonitis, concern for aspiration pneumonia, treatment of worsened dyspnea, generalized weakness with acute bronchitis, reactive airways. Diagnoses Pneumonitis J98.4 Pleural effusion J90
[2023-05-20] MEDS: atorvastatin 40 mg Tablet PO (19:20)
[2023-05-20] MEDS: predniSONE 10 mg Tablet 20 MG PO (19:20)
[2023-05-20] MEDS: LORazepam 0.5 mg Tablet PO (20:37)
[2023-05-20] MEDS: haloperidol inj 5 mg/mL INJ 1 mL IVP (23:38)
--- NOTE | 2023-05-20 23:47 | PC.NURSE ---
PATIENT AGITATION pt sundowns at night. has increasingly gotten more agitated and confused the last nights video games storywriter has had pt. continues to set bed alarm off every 10 min. is very agitated and upset at the moment, not redirectable, yanking at his nasal cannula, wanting to leave to work on his car. video games storywriter given prn po 0.5mg lorazepam at 2030, with no effect. NOC hospitalist Dr Monet notified of pt status, telephone order given for IVP haldol 5mg. during administration pt was combative towards staff despite explanation and attempted reorientation and redirection.
[2023-05-21] VITALS (12 sets, daily range): BP systolic 113–151; BP diastolic 55–88; PULSE 81–109; RESP 16–30; TEMP 36.2–36.7; O2SAT 92–99
[2023-05-21] MEDS: LORazepam 2 mg/mL INJ 10 mL MDV IVP (01:13)
[2023-05-21 02:54] LABS: Hematocrit 32.6 % (37-53); Lymphocytes # 0.5 10^3/uL (0.8-4.8); Lymphocytes % 14.2 %; Mean Corpuscular HGB Conc 29.1 g/dL (30-55); Mean Corpuscular Volume 82.3 fl (82-101); Mean Platelet Volume 11.3 fL (7.4-10.4); Monocytes # 0.3 10^3/uL (0.2-0.9); Monocytes % 7.9 %; Neutrophils # 2.57 10^3/uL (1.8-7.7); Neutrophils % 77.6 %; Nucleated Red Blood Cells % 0 %; Platelet Count 141 10^3/cmm (157-399); Red Blood Count 3.96 10^6/uL (3.85-5.65); Red Cell Distribution Width 20.4 % (12.1-15.1); White Blood Count 3.31 10^3/uL (3.29-11.43)
--- NOTE | 2023-05-21 03:18 | PC.NURSE ---
PT CONTINUED AGITATION patient had continued to be agitated, impulsive, attempting to climb over bed rails, pulling at tv and iv poles; unable to be redirected after the IVP of haldol and combative incident. aide ambulated with patient who had dressed himself in shirt and boxers, down the carter to sit in a chair. patient had new skin tear to L shoulder and L hebert, both covered with optifoam drsg. Dr was called with updated pt status, and order given for 2mg IVP lorazepam was given. patient was reaching out to things that were not there, mimicked the action of pulling money from pants and offered to staff when administration of lorazepam was being done. patient was placed with two person assist into wheelchair and taken back to room on baseline 4l nc that he had taken off before leaving the room. pt placed in bed with rails up x2 with. report given to NARCISA Schneider who assumed total care of patient for closer observation.
[2023-05-21 03:19] LABS: Anion Gap 10.5 (5-19); Blood Urea Nitrogen 13 mg/dL (8-23); Calcium 8.2 mg/dL (8.5-10.5); Carbon Dioxide 38 mmol/L (22-29); Chloride 95 mmol/L (98-107); Creatinine Clr Calc Pharmacy 65.1775; Glucose 152 mg/dL (65-115); Osmolality Calculated 293 mOsm/kg (285-295); Potassium 3.5 mmol/L (3.5-5.1); Sodium 140 mmol/L (136-145)
--- NOTE | 2023-05-21 06:19 | PC.NURSE ---
Patient has been resting in bed since going back to bed after receiving Ativan.
[2023-05-21] MEDS: ipratropium-albuterol 3 mL Neb INHALATION ×3 (07:33→20:49)
[2023-05-21] MEDS: budesonide 0.5 mg/2 mL Neb INHALATION ×2 (07:33→20:49)
[2023-05-21] MEDS: heparin 5,000 unit/mL INJ 1 mL 5000 UNIT SUBCUT ×2 (09:06→19:41)
--- NOTE | 2023-05-21 09:35 | PC.CHAP ---
Pastoral Care Encounter/Spiritual Assessment Type of Contact [] Declined bone grinder visit [] Patient/Family/Request visit [] Outpatient visit [] Follow-up visit [] Physician referral [] Code/Alert [x] Routine visit [] Staff referral [] Actively dying [] Patient sleeping [] Family support [] [] Out of room [] Palliative care [] [] Receiving care in room [] Pre-surgical visit [] Trauma [] Long length of stay [] ICU visit [] Other: Relational/Emotional Strength [] Patient feels connected with others/family/visitors/staff [] Distress [] Loneliness/isolation [] Abandonment Spirituality of Patient [] Person of Leticia [] Attends Mosque of their Leticia [] Believes in Prayer [] Reads Bible or Anabaptism materials [] There are Spiritual issues to be addressed Copyist Interventions [x] Prayer [] Active listening [] Non-anxious presence [] Spiritual/emotional support [] Crisis/trauma care [] Spiritual counseling [] Bereavement support [] Provided bereavement packet [] Provided Bible/devotional materials [] Provided toy/stuffed animal, coloring book to patient or family member [] Provided Communion [] Anointing/[place] [] Salvation [] Completed spiritual assessment [] Other: Impact on Illness or Injury [] Angry [] Fearful [] Anxious [] Often cries [] Exhaustion [] Unable to work [] Unable to attend taoist [] Unable to walk/stand [] Unable to read [] Unable to drive [] Unable to eat/drink [] Unable to sleep [] Unable to be with family [] Patient intubated [] Other: Summary sleep and with 3 nurses Time spent with patient
--- NOTE | 2023-05-21 10:50 | PC.SOCIAL ---
Pg 2 IMM Called & left a message on pt's DIL voicemail explaining IMM. A copy left at pt's bedside. Provided call back number if she has any questions. Initialed, dated, & timed a copy & placed in chart.
[2023-05-21] MEDS: amoxicillin-clav 875-125 mg Tablet 1 TAB PO (11:58)
[2023-05-21] MEDS: midodrine 5 mg TABLET PO (11:58)
[2023-05-21] MEDS: metoprolol tartrate 25 mg Tablet PO (11:58)
[2023-05-21] MEDS: FUROsemide 40 mg Tablet PO (11:58)
[2023-05-21] MEDS: pantoprazole DR 40 mg Tablet PO (11:58)
[2023-05-21] MEDS: tamsulosin 0.4 mg Capsule 0.400000000000000022 MG PO (11:58)
[2023-05-21] MEDS: sucralfate 1 gm/10 mL Oral Liq UDC PO (11:59)
[2023-05-21] MEDS: predniSONE 10 mg Tablet 20 MG PO (11:59)
--- NOTE | 2023-05-21 11:59 | PC.NURSE ---
Meds were delayed due to patient being sedated from overnight meds. This nurse was able to get patient to take meds crushed in applesauce at [phone]. Provider aware meds would be delayed.
--- NOTE | 2023-05-21 13:25 | XRR_ITS ---
PROCEDURE INFORMATION: Exam: XR Chest Exam date and time: 05/21/2023 12:44 PM Age: 82 years old Clinical indication: Other: Hypoxia; Prior surgery; Surgery date: 6+ months; Surgery type: Pacer TECHNIQUE: Imaging protocol: Radiologic exam of the chest. Views: 1 view. COMPARISON: CR XR chest 1V portable [id number] 05/17/2023 2:14 PM FINDINGS: Lungs: No new focal consolidation. Similar right mid and lower lung opacities. Pleural spaces: Unchanged right-sided pleural effusion. No pneumothorax. Heart/Mediastinum: Heart size is unchanged. Bones/joints: No acute findings. XR/XR chest 1V portable [id number] IMPRESSION: Grossly unchanged right pleural effusion and overlying atelectasis/consolidation.
[2023-05-21 13:36] LABS: Arterial Blood Gas Hematocrit 32.7 % (42-52); Base Excess ABG 14.2 mmol/L (-2.0-2.0); Blood Gas Allen Test Pos; Blood Gas Sample Type Arterial; Carboxyhemoglobin 1.2 %THgb (0.4-20.1); HCO3 ABG 41.6 mmol/L (22-26); HGB O2 Sat 90.6 % (95-100); Ionized Calcium Level - ABG 1.1 mmol/L (1.1-1.4); Methemoglobin 0.6 % (0.4-1.5); Oxygen Saturation ABG 92.3; PO2 ABG 66.3 mmHg (80.0-100.0); Potassium Level - ABG 3.3 mmol/L (3.5-5.0); Total Hemoglobin 10.7 g/dL (14-18)
[2023-05-21 13:37] LABS: Blood Gas Operator Identificat MONRO; Blood Gas Sample Site Brachial, right; Oxygen Device NC
[2023-05-21 13:38] LABS: ABG PCO2 67.7 mmHg (35-45)
--- NOTE | 2023-05-21 15:23 | P.PN_ITS ---
Subjective 2 Subjective: Seen multiple times during the day. H&P and labs appreciated. Hospital course appreciated. Overnight seems patient had mild agitation for which he received 5 mg of IV Haldol and 2 mg of IV Ativan. The morning examination patient is somnolent, only moving his limbs to verbal and noxious stimuli. Later in the day as per the nurse he was slightly waking up for which she was given his oral medications after which she desaturated requiring up to oxygen mask to maintain saturation over 90%. Vitals/I&O/Wt Last Vital Signs Temp 97.7 F 05/21/23 12:00 Pulse 86 05/21/23 14:10 Resp 30 H 05/21/23 14:10 BP 143/79 05/21/23 12:00 Pulse Ox 97 05/21/23 14:10 O2 Del Method Oxymask 05/21/23 14:10 O2 Flow Rate 9 05/21/23 14:10 05/21/23 05/21/23 05/21/23 06:59 14:59 22:59 Intake Total 120 / 1200 Output Total 200 / 200 Balance 120 / 0 -200 / -200 Weight last 48 hrs Weight 64.047 kg Weight 64.728 kg Physical Exam 2 Narrative: General: Somnolent, responds to noxious stimuli, maintaining airway HEENT: PERRLA, pupils bilaterally equal and reactive Chest: Bilateral bronchial breath sounds all over lung cornejo with occasional rhonchi and coarse crackles CVS: S1-S2 regular, no murmurs, no tachycardia, no gallops, no rubs Abdomen: Soft, nontender, no organomegaly, bowel sounds present Neuro: No focal deficits, no facial deformity, Data 05/21/23 02:11 05/21/23 02:11 A&P Assessment and plan (1) Pneumonitis: Acute on chronic most likely in COPD exacerbation in setting of bronchitis versus aspiration pneumonitis. Getting worse and by aspiration pneumonitis. Continue with nebulization treatment. Switch to IV Solu-Medrol 20 mg 3 times daily. Pro-Omari negative, respiratory viral panel negative. Repeat ABG and chest x-ray. Sputum culture pending, MRSA swab still not collected. As patient is currently n.p.o. will give 1 more dose of IV ceftriaxone. Currently NPO. Restart back on dysphagia diet once patient is more awake. Wean oxygenation keeping saturation over 88%. (2) Pleural effusion: Reviewed chest ultrasound - small effusion, not drainable. Right-sided pleural effusion, question of possible parapneumonic effusion, although it no signs of sepsis, hemodynamically stable, less likely empyema. (3) Chronic hypoxic respiratory failure: Plan Somnolence: Most likely in setting of overmedication overnight for mild agitation versus sundowning. Hold off on for any further benzos or Haldol. If needed we will plan for sitter. Generalized weakness: Feels slightly stronger. Continue treatment of acute bronchitis, pneumonitis with airway reactive disease. Reviewed PT note. Recommendation for SNF. Consult behavioral health case manager. PT assessment. Having more difficult time trying to get up and walk around with a walker. Lives in assisted living. GERD: Continue Protonix Pulmonary hypertension: Normally on 4 L of oxygen Paroxysmal A-fib: Previously on Xarelto but was discontinued after anemia requiring blood transfusion during last admission. DNR/DNI. Dysphagia level 6 diet once more awake. Currently NPO. Protonix will be sufficient for DVT prophylaxis. Attestations 2 Medical Necessity Statement*: Requires further hospitalization for management of hypoxia in setting of COPD exacerbation, pneumonitis, acute metabolic encephalopathy in setting of polypharmacy Diagnoses Pneumonitis J98.4 Pleural effusion J90 Chronic hypoxic respiratory failure J96.11
[2023-05-21] MEDS: cefTRIAXone 1,000 MG in sodium chloride 0.9% (plus) 50 ML 100 MG IV (16:53)
[2023-05-21] MEDS: methylPREDNISolone sod succ 40 mg/mL INJ 30 MG IVP ×2 (16:53→23:28)
[2023-05-21 17:34] LABS: ABG PH Result 7.39 (7.35-7.45); Alveolar-Arterial Oxygen Gradi 9.2 mmHg (5-10); Base Excess ABG 14.8 mmol/L (-2.0-2.0); Blood Gas Allen Test Pos; Blood Gas Operator Identificat MONRO; Blood Gas Sample Site Brachial, right; Blood Gas Sample Type Arterial; Carboxyhemoglobin 1.2 %THgb (0.4-20.1); HCO3 ABG 42.3 mmol/L (22-26); HGB O2 Sat 93.6 % (95-100); Ionized Calcium Level - ABG 1.1 mmol/L (1.1-1.4); Methemoglobin 0.4 % (0.4-1.5); Oxygen Device OXY MASK; Oxygen Saturation ABG 95.2; PO2 ABG 71.2 mmHg (80.0-100.0); PO2 FiO2 Ratio Arterial Blood 0; Potassium Level - ABG 3.2 mmol/L (3.5-5.0); Total Hemoglobin 10.4 g/dL (14-18)
[2023-05-21 17:35] LABS: ABG PCO2 69.6 mmHg (35-45)
[2023-05-22] VITALS (8 sets, daily range): BP systolic 98–154; BP diastolic 55–76; PULSE 61–92; RESP 16–20; TEMP 36.2–36.6; O2SAT 90–100; BMI 17.9
--- NOTE | 2023-05-22 02:30 | PC.NURSE ---
Patient's heart rate has been in 120's to 140's in afib, scheduled po metoprolol was not administered at bedtime due to patient being NPO from altered mental status. Patient is still not alert enough to safely swallow pills. Patient is also sounding fluid overloaded, crackles heard in lungs bilaterally and has JVD. Dr. Dasilva notified of this and order recieved for 5mg metoprolol IVP once and 40mg lasix IVP once.
[2023-05-22] MEDS: FUROsemide 10 mg/mL SDV 4mL 40 MG IVP (02:38)
[2023-05-22] MEDS: metoprolol tartrate 1 mg/1 mL SDV 5 mL 5 MG IVP (02:52)
[2023-05-22] MEDS: ipratropium-albuterol 3 mL Neb INHALATION ×2 (03:23→09:12)
[2023-05-22 04:48] LABS: Basophils % 0.2 %; Hematocrit 36.7 % (37-53); Lymphocytes # 0.4 10^3/uL (0.8-4.8); Lymphocytes % 6.4 %; Mean Corpuscular HGB Conc 28.9 g/dL (30-55); Mean Corpuscular Hemoglobin 23.8 pg (27-33); Mean Corpuscular Volume 82.5 fl (82-101); Mean Platelet Volume 11.2 fL (7.4-10.4); Monocytes # 0.2 10^3/uL (0.2-0.9); Monocytes % 3.7 %; Neutrophils # 4.88 10^3/uL (1.8-7.7); Neutrophils % 89.5 %; Nucleated Red Blood Cells % 0 %; Platelet Count 162 10^3/cmm (157-399); Red Blood Count 4.45 10^6/uL (3.85-5.65); Red Cell Distribution Width 20.2 % (12.1-15.1); White Blood Count 5.45 10^3/uL (3.29-11.43)
[2023-05-22 05:06] LABS: Alanine Aminotransferase 11 U/L (0-41); Albumin Level 3.5 g/dL (3.5-5.2); Alkaline Phosphatase 76 U/L (40-130); Anion Gap 9.5 (5-19); Aspartate Amino Transferase 18 U/L (0-40); Blood Urea Nitrogen 11 mg/dL (8-23); Calcium 8.4 mg/dL (8.5-10.5); Chloride 97 mmol/L (98-107); Creatinine Clr Calc Pharmacy 63.7154; Globulin 3.8 g/dL (1.3-4.6); Glucose 146 mg/dL (65-115); Osmolality Calculated 302 mOsm/kg (285-295); Potassium 3.5 mmol/L (3.5-5.1); Sodium 145 mmol/L (136-145); Total Bilirubin 0.4 mg/dL (0.15-1.2); Total Protein 7.3 g/dL (6.6-8.7)
[2023-05-22 05:16] LABS: Carbon Dioxide 42 mmol/L (22-29)
[2023-05-22] MEDS: budesonide 0.5 mg/2 mL Neb INHALATION (09:12)
--- NOTE | 2023-05-22 09:26 | PM.DCS ---
Discharge Providers Date of Admission: 05/18/23 18:00 Date of Discharge: May 22, 2023 Attending Provider at Admission: Traci Harvey MD Attending Provider at Discharge: Jet uDnn MD Primary Care Provider: Joe Carrillo DO Diagnoses at Discharge Discharge Diagnosis (1) Pneumonitis: Status: Acute (2) Pleural effusion: Status: Acute (3) Chronic hypoxic respiratory failure: Status: Chronic Reason for Visit Reason for Visit: COPD Brief History: History as per HPI: Krzysztof Tay is a 82 year old male is [facility] in [facility] due to worsening dyspnea, productive cough. In ER with finding of hypoxemia, pO2 50.4 on ABG on his usual 4 L nasal cannula oxygen. Chest x-ray with infiltrate and/or atelectasis in the middle and lower lobes of the right lung with right-sided pleural effusion which has increased. Hospital Course Hospital Course Patient was admitted to the hospital further evaluation and management of hypoxia with concerns for pneumonitis initially aspiration in nature leading to COPD exacerbation. Pneumonia was ruled out with negative sputum culture, respiratory viral panel. On admission he was found to have hypoxia and mild hypercapnia which was at his baseline. He was started on broad-spectrum IV antibiotics which were later transitioned over to oral Augmentin along with oral steroids. Patient continued to improve and is at his baseline oxygen supplementation. He was seen by speech therapy during hospitalization and diet was modified accordingly. He also underwent modified barium swallow study. Unfortunately patient will always be at a risk of aspiration given his mentation, age and COPD. Safe discharge plan were discussed in detail with patient and caregiver at bedside. They are agreeable to continue with aspiration precaution, modified diet for now knowing that he will always greater risk of aspiration. He is been discharged in hemodynamically stable condition on his inhaler treatment, aspiration precaution with level 6 dysphagia diet, mildly thickened fluids and oral Augmentin for 5 days along with steroid taper. Physical Exam Narrative: General: No acute distress, AO x 3 HEENT: PERRLA, pupils bilaterally equal and reactive Chest: Bilateral bronchial breath sounds all over lung cornejo with occasional rhonchi and coarse crackles CVS: S1-S2 regular, no murmurs, no tachycardia, no gallops, no rubs Abdomen: Soft, nontender, no organomegaly, bowel sounds present Neuro: No focal deficits, no facial deformity, Discharge Data Studies Completed and Pending Completed Studies During Hospitalization Category Date Time Status FL barium swallow modifd [id number] Routine Exams 05/18/23 09:30 Completed XR chest 1V portable [id number] Routine Exams 05/21/23 13:25 Completed XR chest 1V portable [id number] Stat Exams 05/17/23 13:45 [place] [id number] Routine Ultrasound 05/19/23 00:10 Completed [place] chest [id number] Stat Ultrasound 05/17/23 15:15 Completed Pending at discharge Category Date Time Status Blood Culture Stat Lab 05/17/23 15:03 Results Complete Blood Count w/Auto AM LABS Lab 05/23/23 04:00 Ordered MRSA [Methicillin Resistant S.aureu] Routine Lab 05/17/23 23:25 Received Sputum Culture and Gram Stain Routine Lab 05/17/23 19:52 Uncollected Radiology Impressions Venous Duplex 05/19/23 00:10 IMPRESSION: 1. No deep venous thrombosis demonstrated of visualized portions right leg. 2. No deep venous thrombosis demonstrated of visualized portions left leg. Chest X-Ray 05/21/23 13:25 IMPRESSION: Grossly unchanged right pleural effusion and overlying atelectasis/consolidation. Microbiology 05/17/23 15:00 Blood Blood Culture - Preliminary NEGATIVE TO DATE 05/17/23 15:03 Blood Blood Culture - Preliminary NEGATIVE TO DATE 05/17/23 20:30 Urine,Clean Catch Legionella Urinary Antigen - Final 05/17/23 20:30 Urine,Clean Catch Bacterial Antigens - Final Laboratory Results WBC 5.45 10^3/uL (3.29-11.43) 05/22/23 04:33 RBC 4.45 10^6/uL (3.85-5.65) 05/22/23 04:33 Hgb 10.60 g/dL (11.27-16.99) L 05/22/23 04:33 Hct 36.7 % (37-53) L 05/22/23 04:33 MCV 82.5 fl (82-101) 05/22/23 04:33 MCH 23.8 pg (27-33) L 05/22/23 04:33 MCHC 28.9 g/dL (30-55) L 05/22/23 04:33 RDW 20.2 % (12.1-15.1) H 05/22/23 04:33 Plt Count 162 10^3/cmm (157-399) 05/22/23 04: MPV 11.2 fL (7.4-10.4) H 05/22/23 04:33 Neut % (Auto) 89.5 % 05/22/23 04:33 Lymph % (Auto) 6.4 % 05/22/23 04:33 [place] % (Auto) 3.7 % 05/22/23 04:33 Eos % (Auto) 0.0 % 05/22/23 04:33 Baso % (Auto) 0.2 % 05/22/23 04:33 Neut # (Auto) 4.88 10^3/uL (1.8-7.7) 05/22/23 04:33 Lymph # (Auto) 0.4 10^3/uL (0.8-4.8) L 05/22/23 04:33 [place] # (Auto) 0.2 10^3/uL (0.2-0.9) 05/22/23 04:33 Eos # (Auto) 0.0 10^3/uL (0.0-0.8) 05/22/23 04:33 Baso # (Auto) 0.0 10^3/uL (0.0-0.1) 05/22/23 04: Nucleated RBC % (auto) 0 % 05/22/23 04: Nucleated RBCs # 0.0 /100WBC 05/22/23 04:33 Specimen Type Arterial 05/21/23 17:22 Sample Site Brachial, right 05/21/23 17:22 ABG pH 7.39 (7.35-7.45) 05/21/23 17:22 ABG pCO2 69.6 mmHg (35-45) H* 05/21/23 17:22 ABG pO2 71.2 mmHg (80.0-100.0) L 05/21/23 17:22 ABG PO2/FiO2 Ratio 0 05/21/23 17:22 ABG HCO3 42.3 mmol/L (22-26) H 05/21/23 17:22 ABG O2 Saturation 95.2 05/21/23 17:22 ABG Base Excess 14.8 mmol/L (-2.0-2.0) H 05/21/23 17:22 Jcarlos Test Pos 05/21/23 17:22 A-a O2 Gradient 9.2 mmHg (5-10) 05/21/23 17:22 Hematocrit 32.0 % (42-52) L 05/21/23 17:22 Hgb O2 Saturation 93.6 % (95-100) L 05/21/23 17:22 Carboxyhemoglobin 1.2 %THgb (0.4-20.1) 05/21/23 17:22 Methemoglobin 0.4 % (0.4-1.5) 05/21/23 17:22 Total Hemoglobin 10.4 g/dL (14-18) L 05/21/23 17:22 Sodium 143.0 mmol/L (131-143) 05/21/23 17:22 Potassium 3.2 mmol/L (3.5-5.0) L 05/21/23 17:22 Glucose 126.0 mg/dL (70-115) H 05/21/23 17:22 Ionized Calcium 1.1 mmol/L (1.1-1.4) 05/21/23 17:22 O2 Delivery Device Oxy mask 05/21/23 17:22 O2 Liters/Min 3.0 % 05/21/23 17:22 FiO2 32.0 % 05/21/23 17:22 Environmental Journalist ID Monro 05/21/23 17:22 Sodium 145 mmol/L (136-145) 05/22/23 04:33 Potassium 3.5 mmol/L (3.5-5.1) 05/22/23 04:33 Chloride 97 mmol/L (98-107) L 05/22/23 04:33 Carbon Dioxide 42 mmol/L (22-29) H* 05/22/23 04:33 Anion Gap 9.5 (5-19) 05/22/23 04:33 BUN 11 mg/dL (8-23) 05/22/23 04:33 Creatinine 0.4 mg/dL (0.7-1.2) L 05/22/23 04:33 GFR Calculation Not Reportable 05/22/23 04:33 Glucose 146 mg/dL (65-115) H 05/22/23 04:33 Calculated Osmolality 302 mOsm/kg (285-295) H 05/22/23 04:33 Calcium 8.4 mg/dL (8.5-10.5) L 05/22/23 04:33 Total Bilirubin 0.4 mg/dL (0.15-1.2) 05/22/23 04:33 AST 18 U/L (0-40) 05/22/23 04:33 ALT 11 U/L (0-41) 05/22/23 04:33 Alkaline Phosphatase 76 U/L (40-130) 05/22/23 04:33 Total Protein 7.3 g/dL (6.6-8.7) 05/22/23 04:33 Albumin 3.5 g/dL (3.5-5.2) 05/22/23 04:33 Globulin 3.8 g/dL (1.3-4.6) 05/22/23 04:33 Procalcitonin 0.06 ng/mL (0-0.5) 05/19/23 02:30 Influenza Type A Ag negative (Negative) 05/17/23 14:38 Influenza Type B Ag negative (Negative) 05/17/23 14:38 SARS-CoV-2 Ag (Rapid) negative (Negative) 05/17/23 14:38 Vitals Last Vital Signs Temp 97.1 F L 05/22/23 08:00 Pulse 80 05/22/23 09:14 Resp 16 05/22/23 09:14 BP 154/76 05/22/23 08:00 Pulse Ox 98 05/22/23 09:14 O2 Del Method Oxymask 05/22/23 09:14 O2 Flow Rate 4 05/22/23 09:14 Discharge Plan Discharge Patient Disposition: Home Condition: Stable Prescriptions: New prednisone 10 mg tablet See Taper PO DIRECTED Qty: 42 0RF Taper: predniSONE 60-10 60 mg Daily for 2 Days and 0 Hour 50 mg Daily for 2 Days and 0 Hour 40 mg Daily for 2 Days and 0 Hour 30 mg Daily for 2 Days and 0 Hour 20 mg Daily for 2 Days and 0 Hour 10 mg Daily for 2 Days and 0 Hour Rx Instructions: see taper instructions amoxicillin-pot clavulanate 875-125 mg Tablet 1 tab PO BID Qty: 10 0RF Continued lorazepam 0.5 mg tablet 0.5 mg PO BID PRN (Reason: anxiety) Qty: 60 2RF furosemide 40 mg tablet 40 mg PO DAILY@08 Qty: 90 1RF tamsulosin 0.4 mg capsule 0.4 mg PO DAILY@08 albuterol sulfate 90 mcg/actuation HFA aerosol inhaler 2 puff INHALATION Q4H PRN (Reason: Shortness Of Breath Or Wheezing) budesonide-formoterol [Symbicort] 80-4.5 mcg/actuation HFA aerosol inhaler 1 puff INHALATION BID metoprolol tartrate 25 mg Tablet 25 mg PO BID@0900,2100 Qty: 60 0RF sucralfate 100 mg/mL suspension 10 ml PO BID Rx Instructions: before meals and bedtime potassium chloride 10 mEq tablet extended release 10 meq PO DAILY acetaminophen 500 mg Tablet 500 - 1,000 mg PO Q6H PRN (Reason: Pain) pantoprazole 40 mg tablet,delayed release (DR/EC) 40 mg PO DAILY@08 ipratropium-albuterol 0.5 mg-3 mg(2.5 mg base)/3 mL Solution For Nebulization 3 ml INHALATION Q6H PRN (Reason: Shortness Of Breath Or Wheezing) midodrine 5 mg Tablet 5 mg PO BID Rx Instructions: do not give last dose of day after 6PM or within 4 hrs of bedtime Discontinued atorvastatin 40 mg tablet 40 mg PO BEDTIME@20 Discharge Orders: Discharge Order (Routine); Ordered 05/22/23 Ordered By: Jet Dunn Referrals: Joe Carrillo DO [Primary Care Provider] - 05/29/23 1:15 pm Discharge Diet: As Directed Discharge Activity: Resume usual activity and Increase activity as tolerated Patient Instructions: Pneumonitis (GEN), Pleural Effusion (GEN), Pneumonia (GEN), Opioid Safety, Pneumonia Stoplight, Aspiration Precautions (ED), Aspiration Precautions (GEN) Activity Restrictions/Additional Instructions: Continue with aspiration precautions. Please make sure that you are setting up during meals. Eat your meals slowly. Continue level 6 dysphagia diet. Take Augmentin twice daily which is the antibiotic for next 5 days. You will be on steroid taper. Discharge Attestations Time Spent in Discharge Care*: greater than 30 min Specific Discharge Activities: educating patient, educating and/or supporting family/caregiver, discussing with pcp/other providers, discussing with corrections caseworker/social workers/dc planners, documenting/other paperwork and evaluating patient/reviewing data Status at Discharge: Cognitive status at discharge: mildly impaired cognition, Behavioral status at discharge: cooperative, Functional status at discharge: other assisted ambulation, Overall status at discharge: patient is back to baseline Quality Metrics Clinical Quality Measures [ No reported AMI, CVA or VTE this stay] Coding Level of Care Code 13722 Total time (in minutes) for Discharge: 60 Diagnoses Pneumonitis J98.4 Pleural effusion J90 Chronic hypoxic respiratory failure J96.11
[2023-05-22] MEDS: methylPREDNISolone sod succ 40 mg/mL INJ 30 MG IVP (09:41)
[2023-05-22] MEDS: sucralfate 1 gm/10 mL Oral Liq UDC PO (09:42)
[2023-05-22] MEDS: tamsulosin 0.4 mg Capsule 0.400000000000000022 MG PO (09:42)
[2023-05-22] MEDS: FUROsemide 40 mg Tablet PO (09:42)
[2023-05-22] MEDS: pantoprazole DR 40 mg Tablet PO (09:42)
[2023-05-22] MEDS: amoxicillin-clav 875-125 mg Tablet 1 TAB PO (09:42)
[2023-05-22] MEDS: heparin 5,000 unit/mL INJ 1 mL 5000 UNIT SUBCUT (09:42)
[2023-05-22] MEDS: metoprolol tartrate 25 mg Tablet PO (09:42)
--- NOTE | 2023-05-22 09:50 | PC.CHAP ---
Pastoral Care Encounter/Spiritual Assessment Type of Contact [] Declined it manager visit [] Patient/Family/Request visit [] Outpatient visit [] Follow-up visit [] Physician referral [] Code/Alert [] Routine visit [] Staff referral [] Actively dying [x] Patient sleeping [] Family support [] [] Out of room [] Palliative care [] [] Receiving care in room [] Pre-surgical visit [] Trauma [] Long length of stay [] ICU visit [] Other: Relational/Emotional Strength [] Patient feels connected with others/family/visitors/staff [] Distress [] Loneliness/isolation [] Abandonment Spirituality of Patient [] Person of Leticia [] Attends Nondenominational of their [place] [] Believes in Prayer [] Reads Bible or Mandaeism materials [] There are Spiritual issues to be addressed Percussion Tuner Interventions [] Prayer [] Active listening [] Non-anxious presence [] Spiritual/emotional support [] Crisis/trauma care [] Spiritual counseling [] Bereavement support [] Provided bereavement packet [] Provided Bible/devotional materials [] Provided toy/stuffed animal, coloring book to patient or family member [] Provided Communion [] Anointing/[place] [] Salvation [] Completed spiritual assessment [] Other: Impact on Illness or Injury [] Angry [] Fearful [] Anxious [] Often cries [] Exhaustion [] Unable to work [] Unable to attend hinduism [] Unable to walk/stand [] Unable to read [] Unable to drive [] Unable to eat/drink [] Unable to sleep [] Unable to be with family [] Patient intubated [] Other: Summary Time spent with patient
--- NOTE | 2023-05-22 12:12 | PC.NURSE ---
Report called and given to Yesy at [facility].
[2023-05-22] MEDS: midodrine 5 mg TABLET PO (13:05)
[2023-05-23 14:05] LABS: Methicillin-Resist S.aureu PCR NOT DETECTED (NOT DETECTED)
== END 2023-05-22 14:50 | disposition home or self-care (01) | DRG 206 ==
LOC: ER 16:15 → MEDSURG 17:49
PROVIDERS: Internal Medicine; Admitting Provider Internal Medicine; Emergency Provider Nurse Practitioner Family; PCP Family Medicine; Visit Provider Student in an Organized Health Care Education/Training Program
DX: J98.4 Other disorders of lung (principal); J96.11 Chronic respiratory failure with hypoxia; J90 Pleural effusion, not elsewhere classified; K21.9 Gastro-esophageal reflux disease without esophagitis; I27.20 Pulmonary hypertension, unspecified; I48.0 Paroxysmal atrial fibrillation; Z66 Do not resuscitate; Z99.81 Dependence on supplemental oxygen; Z72.0 Tobacco use; J44.9 Chronic obstructive pulmonary disease, unspecified; R45.1 Restlessness and agitation; R40.0 Somnolence
CPT/HCPCS: 36415; 36600; 71045; 74230; 76604; 80048; 80051; 80053; 82330; 82803; 82805; 84145; 85025; 86403; 87040; 87426; 87449; 87641; 87804; 92610; 92611; 93005; 93970; 94640; 96365; 96372; 97116; 97163; 97530; 99285; C9113; G0378; J0696; J1630; J1644; J1940; J2060; J2543; J2920; J3490; J7040; J7512; J7626

== ENCOUNTER → 2023-06-11 14:35 | Outpatient (BNVA) | payer MEDICARE, BC, SELFPAY | PROVIDERS: PCP Family Medicine; Referring Provider Family Medicine; Visit Provider Internal Medicine Cardiovascular Disease | DX: R94.39 Abnormal result of other cardiovascular function study (principal); I48.20 Chronic atrial fibrillation, unspecified; R06.02 Shortness of breath; I50.32 Chronic diastolic (congestive) heart failure; I07.1 Rheumatic tricuspid insufficiency; E78.2 Mixed hyperlipidemia; Z95.0 Presence of cardiac pacemaker; I71.43 Infrarenal abdominal aortic aneurysm, without rupture; J43.1 Panlobular emphysema; D64.9 Anemia, unspecified; F17.200 Nicotine dependence, unspecified, uncomplicated | CPT/HCPCS: 36415; 80048; 83880; 99205 ==

== ENCOUNTER 2023-08-21 07:26 | Observation (INO) | payer MEDICARE, BC, SELFPAY ==
[2023-08-21] VITALS (12 sets, daily range): BP systolic 125–158; BP diastolic 50–77; PULSE 64–93; RESP 18–20; TEMP 36.3–37; O2SAT 92–100; BMI 19.3; BMI 19.6
--- NOTE | 2023-08-21 07:29 | ECG_ITS ---
[facility] Test Date: 2023-08-21 Pat Name: Krzysztof Tay Department: Room: Gender: Male Finish Patcher: : 1940 Requested By: Garry Guaman Order Number: [id number] Raphael MD: Vinod Rabago M.D. Measurements Intervals [place] Rate: 73 P: 0 MS: 0 QRS: 95 QRSD: 145 T: 3 QT: 386 QTc: 427 Interpretive Statements Atrial fibrillation with demand V pacing ELECTRONIC VENTRICULAR PACEMAKER -- CONTOUR ANALYSIS BASED ON INTRINSIC RHYTHM RIGHT BUNDLE BRANCH BLOCK [120+ ms QRS DURATION, UPRIGHT V1, 40+ ms S IN I/aVL/V4/V5/V6] MARKED T-WAVE ABNORMALITY, CONSIDER ANTEROLATERAL ISCHEMIA [-0.5+ mV T-WAVE IN I/aVL/V3-V6] Compared to ECG 05/17/2023 14:07:43 Atrial fibrillation no longer present T-wave abnormality still present Possible ischemia still present Electronically Signed On 08-21-2023 21:56:16 CDT by Vinod Rabago M.D. [id number]
--- NOTE | 2023-08-21 07:29 | ECG_ITS ---
[facility] Test Date: 2023-08-21 Pat Name: Krzysztof Tay Department: Room: Gender: Male Groover Operator: : 1940 Requested By: Garry Guaman Order Number: [id number] Raphael MD: Vinod Rabago M.D. Measurements Intervals [place] Rate: 73 P: 0 LA: 0 QRS: 95 QRSD: 145 T: 3 QT: 386 QTc: 427 Interpretive Statements UNCERTAIN IRREGULAR RHYTHM ELECTRONIC VENTRICULAR PACEMAKER -- CONTOUR ANALYSIS BASED ON INTRINSIC RHYTHM RIGHT BUNDLE BRANCH BLOCK [120+ ms QRS DURATION, UPRIGHT V1, 40+ ms S IN I/aVL/V4/V5/V6] MARKED T-WAVE ABNORMALITY, CONSIDER ANTEROLATERAL ISCHEMIA [-0.5+ mV T-WAVE IN I/aVL/V3-V6] Compared to ECG 05/17/2023 14:07:43 Atrial fibrillation no longer present T-wave abnormality still present Possible ischemia still present Electronically Signed On 08-21-2023 21:55:47 CDT by Vinod Rabago M.D. [id number]
--- NOTE | 2023-08-21 07:29 | XR_ITS ---
WS: [id number] XR chest 1V portable [id number] REASON FOR EXAM: dyspnea/cough FINDINGS: Moderate tortuosity and ectasia of the thoracic aorta. Mild cardiomegaly. Left chest cardiac device with trans left subclavian vein leads to the right atrium and right ventric ular apex. Chronic reticular interstitial opacities in the right lower lung. Enlarged upper lobe pulmonary veins bilaterally. Flattening of the right humeral diaphragmatic contour with indistinctness of the lateral right hemidi aphragm and obliteration of the right costophrenic angle. Significantly resolved right pleural effusi on. Cannot exclude small residual right pleural effusion. Left hemithorax without significant abnormality. XR/XR chest 1V portable [id number] IMPRESSION: No new findings compared to previous examination. Significant improvement in previous right pleural effusion. Residual right pleu ral fluid may be present.
--- NOTE | 2023-08-21 07:35 | ED_ITS ---
HPI - Altered Mental Status General: Stated Complaint: AMS Time Seen by Provider: 08/21/23 07:29 [facility] ED PFSH: Medical History Abnormal stress test Anemia Acute respiratory failure with hypoxia and hypercapnia Anemia Pneumonia Mixed dyslipidemia Atrial fibrillation GI bleed GERD without esophagitis Chronic hypoxic respiratory failure Lives in assisted living facility Acute hypernatremia Pneumonia Pulmonary hypertension Paroxysmal atrial fibrillation with RVR Hypoxia MENDOZA (dyspnea on exertion) Acute exacerbation of chronic obstructive pulmonary disease Congestive heart failure Malnutrition of moderate degree Hyperkalemia Fall Troponin level elevated Acute hyponatremia BPH (benign prostatic hyperplasia) Orthostatic hypotension Stroke Chronic anticoagulation Paroxysmal A-fib Nocturnal hypoxia COPD (chronic obstructive pulmonary disease) Social History Smoking and tobacco/nicotine status: current every day tobacco/nicotine user Marital status: Single Discharge Plan Discharge Condition: Stable Prescriptions: No Action lorazepam 0.5 mg tablet 0.5 mg PO BID PRN (Reason: anxiety) Qty: 60 2RF furosemide 40 mg tablet 40 mg PO DAILY@08 Qty: 90 1RF tamsulosin 0.4 mg capsule 0.4 mg PO DAILY@08 albuterol sulfate 90 mcg/actuation HFA aerosol inhaler 2 puff INHALATION Q4H PRN (Reason: Shortness Of Breath Or Wheezing) budesonide-formoterol [Symbicort] 80-4.5 mcg/actuation HFA aerosol inhaler 1 puff INHALATION BID metoprolol tartrate 25 mg Tablet 25 mg PO BID@0900,2100 Qty: 60 0RF sucralfate 100 mg/mL suspension 10 ml PO BID Rx Instructions: before meals and bedtime potassium chloride 10 mEq tablet extended release 10 meq PO DAILY acetaminophen 500 mg Tablet 500 - 1,000 mg PO Q6H PRN (Reason: Pain) pantoprazole 40 mg tablet,delayed release (DR/EC) 40 mg PO DAILY@08 ipratropium-albuterol 0.5 mg-3 mg(2.5 mg base)/3 mL Solution For Nebulization 3 ml INHALATION Q6H PRN (Reason: Shortness Of Breath Or Wheezing) midodrine 5 mg Tablet 5 mg PO BID Rx Instructions: do not give last dose of day after 6PM or within 4 hrs of bedtime amoxicillin-pot clavulanate 875-125 mg Tablet 1 tab PO BID Qty: 10 0RF prednisone 10 mg tablet See Taper PO DIRECTED Qty: 42 0RF Taper: predniSONE 60-10 60 mg Daily for 2 Days and 0 Hour 50 mg Daily for 2 Days and 0 Hour 40 mg Daily for 2 Days and 0 Hour 30 mg Daily for 2 Days and 0 Hour 20 mg Daily for 2 Days and 0 Hour 10 mg Daily for 2 Days and 0 Hour Rx Instructions: see taper instructions Referrals: Joe Carrillo DO [Primary Care Provider] - Coding Level of Care Code ED Answering Service Operator for Minag Gary
--- NOTE | 2023-08-21 07:43 | CTR_ITS ---
PROCEDURE INFORMATION: Exam: CTA Head With Contrast, Arteriography Exam date and time: 08/21/2023 7:55 AM Age: 82 years old Clinical indication: Drowsiness or somnolence; Additional info: Symptoms of acute CVA TECHNIQUE: Imaging protocol: Computed tomographic angiography of the head with contrast. Exam focused on the arteries. 3D rendering (Not supervised by radiologist): MIP and/or 3D reconstructed images were created by the technologist. Radiation optimization: All CT scans at this facility use at least one of these dose optimization techniques: automated exposure control; mA and/or kV adjustment per patient size (includes targeted exams where dose is matched to clinical indication); or iterative reconstruction. Contrast material: OMNI 350; Contrast volume: 100 ml; Contrast route: INTRAVENOUS (IV); COMPARISON: CT head thrombolytic [id number] 08/21/2023 7:46 AM RADIATION DOSE METRICS: Total DLP (mGy-cm): 545.56 FINDINGS: ANTERIOR CIRCULATION: Right internal carotid artery: Intracranial segment is patent with no significant stenosis. No aneurysm. Right middle cerebral artery: No occlusion or significant stenosis. No aneurysm. Right anterior cerebral artery: No occlusion or significant stenosis. No aneurysm. Left internal carotid artery: Intracranial segment is patent with no significant stenosis. No aneurysm. Left middle cerebral artery: No occlusion or significant stenosis. No aneurysm. Left anterior cerebral artery: No occlusion or significant stenosis. No aneurysm. POSTERIOR CIRCULATION: Right vertebral artery: No occlusion or significant stenosis. No aneurysm. Left vertebral artery: No occlusion or significant stenosis. No aneurysm. Basilar artery: No occlusion or significant stenosis. No aneurysm. Right posterior cerebral artery: origin. No occlusion or significant stenosis. No aneurysm. Left posterior cerebral artery: origin. No occlusion or significant stenosis. No aneurysm. Brain: Stable diffuse volume loss with chronic right frontal and left temporal lobe infarcts. No definite mass, mass effect, or midline shift. Cerebral ventricles: Ventricles are in proportion to the degree of atrophy. Paranasal sinuses: Small left maxillary sinus mucous retention cyst. Bones/joints: Unremarkable. No acute fracture. Soft tissues: Unremarkable. PROCEDURE INFORMATION: Exam: CTA Neck With Contrast Exam date and time: 08/21/2023 7:55 AM Age: 82 years old Clinical indication: Drowsiness or somnolence; Additional info: Symptoms of acute CVA TECHNIQUE: Imaging protocol: Computed tomographic angiography of the neck with contrast. Exam focused on the cervical segments of the vasculature. 3D rendering (Not supervised by radiologist): MIP and/or 3D reconstructed images were created by the technologist. Radiation optimization: All CT scans at this facility use at least one of these dose optimization techniques: automated exposure control; mA and/or kV adjustment per patient size (includes targeted exams where dose is matched to clinical indication); or iterative reconstruction. Contrast material: OMNI 350; Contrast volume: 100 ml; Contrast route: INTRAVENOUS (IV); COMPARISON: 1. CT cervical spin wo con* [id number] 01/09/2023 2:[address] head thrombolytic [id number] 08/21/2023 7:46 AM RADIATION DOSE METRICS: Total DLP (mGy-cm): 545.56 FINDINGS: Tubes, catheters and devices: Left chest generator with partially visualized cardiac leads. Right common carotid artery: Atherosclerosis without significant stenosis. No dissection or occlusion. Right internal carotid artery: Atherosclerosis without stenosis of the extracranial segment. No dissection or occlusion. Right external carotid artery: No occlusion or stenosis of the origin. Left common carotid artery: Atherosclerosis without significant. No dissection or occlusion. Left internal carotid artery: Atherosclerosis with mild stenosis of the proximal extracranial segment. No dissection or occlusion. Left external carotid artery: No occlusion or stenosis of the origin. Right vertebral artery: No stenosis. No dissection or occlusion. Left vertebral artery: Atherosclerosis with moderate focal stenosis at the C5-C6 level, axial images 145 and 146 of series 5. No dissection or occlusion. Soft tissues: Unremarkable. No significant soft tissue swelling. Bones/joints: No acute fracture. Multilevel, multifactorial cervical spine degenerative change with moderate to severe right osseous neural foraminal narrowing at C3-C4, right C4-C5, bilateral C5-C6, and left C6-C7. Moderate spinal canal stenosis at C5-C6. These changes are stable from December 2022. Lungs: Emphysematous change of the imaged upper lungs. Left upper lobe ground-glass opacity measures approximately 3.6 x 2.0 cm on axial image 38 of series 5. Pleural spaces: Partially visualized small right pleural effusion. CT/CT angio headneck* [id number] IMPRESSION: No large vessel stenosis or occlusion. IMPRESSION: 1. Atherosclerosis with mild stenosis of the proximal left ICA and moderate focal stenosis at the left vertebral artery C5-C6 level. 2. Stable multilevel, multifactorial cervical spine degenerative change with most significant sites of spinal canal and neural foraminal narrowing as above. 3. Left upper lobe ground-glass opacity may be infectious or inflammatory. Recommend imaging followup to resolution to exclude an underlying lesion. 4. Partially visualized right pleural effusion. REFERENCES: NASCET CRITERIA. The degree of stenosis in the cervical segment of the internal carotid artery is based on NASCET criteria. Normal is no stenosis. Mild is less than 50% stenosis. Moderate is 50-69% stenosis. Severe is 70% to 99% stenosis. Total occlusion is no detectable patent lumen.
--- NOTE | 2023-08-21 07:44 | CTR_ITS ---
PROCEDURE INFORMATION: Exam: CT Head Without Contrast Exam date and time: 08/21/2023 7:46 AM Age: 82 years old Clinical indication: Stroke-like symptoms; Drowsines/somnolence; Additional info: Symptoms of acute stroke TECHNIQUE: Imaging protocol: Computed tomography of the head without contrast. Radiation optimization: All CT scans at this facility use at least one of these dose optimization techniques: automated exposure control; mA and/or kV adjustment per patient size (includes targeted exams where dose is matched to clinical indication); or iterative reconstruction. Other technique: STROKE PROTOCOL was implemented. COMPARISON: CT head wo con* [id number] 03/06/2023 10:35 AM RADIATION DOSE METRICS: Total DLP (mGy-cm): 3617.2 FINDINGS: Brain: Stable diffuse cerebral atrophy. No hemorrhage. No evidence of acute territorial infarct. Stable cystic encephalomalacia and gliosis at the right frontal lobe as well as the left temporal lobe. Background cerebral white matter hypoattenuation likely on the basis of chronic microvascular ischemic change. No mass effect. Cerebral ventricles: Ventricles are in proportion to the degree of atrophy. Paranasal sinuses: Left maxillary sinus mucous retention cyst. Otherwise clear without air-fluid levels. Mastoid air cells: Visualized mastoid air cells are well aerated. Bones: Unremarkable. No acute fracture. Soft tissues: Unremarkable. Vasculature: Bilateral ICA and vertebral artery calcifications. CT/CT head thrombolytic [id number] IMPRESSION: 1. No acute intracranial findings. 2. Stable chronic changes to include chronic sequela of prior right frontal and left temporal lobe infarcts. ASSESSMENT: ASPECTS ([place] Stroke Program Early CT Score) is 10.
--- NOTE | 2023-08-21 07:45 | W.ED.NEUROSD ---
HPI - Neuro Symptoms/Deficit General: Chief Complaint: Altered Mental Status Stated Complaint: AMS Time Seen by Provider: 08/21/23 07:29 Source: patient Mode of arrival: ambulatory History of Present Illness: 82-year-old male brought in by EMS found on the floor poorly responsive. He normally lives in independent living [facility] and is very active. Staff reports they typically do not have much interactive with him because of his level of independence. The only complaint they were able to get from that his left arm was . He is normally on 3 L by oxygen. Shortly after entering the room stroke alert was called. He was initially brought in as an altered mental status. His last known well was sometime when he went to bed last evening. He was found down this morning with symptoms. We did contact the custodial again to try to get him more specific last known well. Because of his level of independence the best we could identify was sometime last evening. Based on the time the day of his presentation his last known well would be estimated to be approximately 8 to 10 hours ago. Onset (ago): hour(s) (Exact time uncertain see notes above) Location: speech, left face, dysarthria, left arm, left leg, ataxia and altered Severity: severe Relieving factors: none Exacerbating factors: none Context: found down Review of Systems General: Reports: ROS unobtainable due to mental status [facility] ED PFSH: Medical History Abnormal stress test Anemia Acute respiratory failure with hypoxia and hypercapnia Anemia Pneumonia Mixed dyslipidemia Atrial fibrillation GI bleed GERD without esophagitis Chronic hypoxic respiratory failure Lives in assisted living facility Acute hypernatremia Pneumonia Pulmonary hypertension Paroxysmal atrial fibrillation with RVR Hypoxia MENDOZA (dyspnea on exertion) Acute exacerbation of chronic obstructive pulmonary disease Congestive heart failure Malnutrition of moderate degree Hyperkalemia Fall Troponin level elevated Acute hyponatremia BPH (benign prostatic hyperplasia) Orthostatic hypotension Stroke Chronic anticoagulation Paroxysmal A-fib Nocturnal hypoxia COPD (chronic obstructive pulmonary disease) Social History Smoking and tobacco/nicotine status: current every day tobacco/nicotine user Marital status: Single NIH stroke score NIHSS: Level Of Consciousness - 1a: 3 Level Of Consciousness Questions - 1b: Neither Correct Level Of Consciousness Commands - 1c: Neither Correct Best Gaze - 2: Partial Gaze Palsy Visual Arnett - 3: No Visual Loss Facial Palsy - 4: Minor Paralysis Motor Arm Right - 5: No Drift Motor Arm Left - 5: Effort Against [place] Motor Leg Right - 6: No Drift Motor Leg Left - 6: Effort Against [place] Limb Ataxia - 7: Present In One Limb Sensory - 8: Mild To Moderate Loss Best Language - 9: Severe Aphasia Dysarthia - 10: Mild/Moderate Dysarthia Extinction And Inattention - 11: 2 Score: Total Score: 20 Physical Exam Const: ORIENTATION/CONSCIOUSNESS: Yes awake HENMT: COMMON NORMALS: normocephalic, atraumatic and hearing grossly normal bilaterally HEAD & SCALP: normocephalic and atraumatic Resp: COMMON NORMALS: normal respiratory effort, No retractions, No use of accessory muscles and clear to auscultation bilaterally AUSCULTATION: clear to auscultation bilaterally Cardio: COMMON NORMALS: regular rate, regular rhythm and No murmurs present (Cardio) RATE: regular rate RHYTHM: regular rhythm GI: COMMON NORMALS: Soft to palpation and No hepatosplenomegaly present AUSCULTATION: Yes normoactive bowel sounds PALPATION: Yes Soft to palpation, No Tenderness to palpation present (GI), No Guarding due to palpation present (GI) and Yes No hepatosplenomegaly present Extremity: COMMON NORMALS: normal to inspection, capillary refill normal, no clubbing, cyanosis or edema, no calf tenderness and no pedal edema Skin: COMMON NORMALS: no rashes or lesions noted GENERAL SKIN EXAM: no rashes or lesions noted Course Vital Signs: Vital signs: Vital Signs Temperature 97.7 F 08/21/23 07:47 Pulse Rate 64 08/21/23 09:40 Respiratory Rate 20 H 08/21/23 07:47 Blood Pressure 125/50 08/21/23 09:40 Pulse Oximetry 100 08/21/23 09:40 Oxygen Delivery Me thod Room Air 08/21/23 09:40 Oxygen Flow Rate 3 08/21/23 08:14 MDM - Neuro Symptoms/Deficit Medical Decision Making Initially patient presented as altered mental status from the custodial when he came to the room to evaluate him. Initial brief exam gave significant concern for stroke. Stroke alert was called. He had reported that his left arm was he does not react with sharp stimuli to the left side of the face but does react on the right seems to have a partial gaze defect to the right. He has previously had a right-sided frontal stroke noted on the CT. We did try to get a better last known well because of his level of independence they really do not have a certain time sometime last evening. If he went to bed around 9 or 10 last evening he would be 8 to 9 hours out possibly more. He is outside the window for TNKase. Repeat exam family is present one of the phone numbers thought they had talked him yesterday Member the exact time they think it was sometime between 9 AM and noon. They state he has had episodes like this before where he spent almost unresponsive. When I returned to the room to talk to them he is completely changed all of his deficits seem to have resolved he is awake alert he follows commands he is interactive and talking. He has weakness on his right leg that he relates due to previous hip surgery. Sensation is normal he is using his left hand freely and he has no arm drift now. He lifts his left leg and holds it in extension as requested. Will place on observation for TIA. His troponin is elevated a second 1 has decreased he is not having any chest pain his EKG shows paced rhythm without acute changes. Medical Records I reviewed the patient's medical records. Lab Data I reviewed the patient's lab results. 08/21/23 07:43 08/21/23 07:43 Radiology Impressions Chest X-Ray 08/21/23 07:29 IMPRESSION: No new findings compared to previous examination. Significant improvement in previous right pleural effusion. Residual right pleural fluid may be present. Head/Neck CTA 08/21/23 07:43 IMPRESSION: No large vessel stenosis or occlusion. IMPRESSION: 1. Atherosclerosis with mild stenosis of the proximal left ICA and moderate focal stenosis at the left vertebral artery C5-C6 level. 2. Stable multilevel, multifactorial cervical spine degenerative change with most significant sites of spinal canal and neural foraminal narrowing as above. 3. Left upper lobe ground-glass opacity may be infectious or inflammatory. Recommend imaging followup to resolution to exclude an underlying lesion. 4. Partially visualized right pleural effusion. REFERENCES: NASCET CRITERIA. The degree of stenosis in the cervical segment of the internal carotid artery is based on NASCET criteria. Normal is no stenosis. Mild is less than 50% stenosis. Moderate is 50-69% stenosis. Severe is 70% to 99% stenosis. Total occlusion is no detectable patent lumen. Head CT 08/21/23 07:44 IMPRESSION: 1. No acute intracranial findings. 2. Stable chronic changes to include chronic sequela of prior right frontal and left temporal lobe infarcts. ASSESSMENT: ASPECTS ([place] Stroke Program Early CT Score) is 10. ADDENDUM: 08/21/23 0810 THIS REPORT CONTAINS FINDINGS THAT MAY BE CRITICAL TO PATIENT CARE. The findings were verbally communicated via telephone conference with DIAN SPANN at 8:07 AM CDT on 08/21/2023. The findings were acknowledged and understood. Laboratory Results WBC 4.92 10^3/uL (3.29-11.43) 08/21/23 07:43 RBC 4.45 10^6/uL (3.85-5.65) 08/21/23 07:43 Hgb 11.50 g/dL (11.27-16.99) 08/21/23 07:43 Hct 37.6 % (37-53) 08/21/23 07:43 MCV 84.5 fl (82-101) 08/21/23 07:43 MCH 25.8 pg (27-33) L 08/21/23 07:43 MCHC 30.6 g/dL (30-55) 08/21/23 07:43 RDW 18.3 % (12.1-15.1) H 08/21/23 07:43 Plt Count 212 10^3/cmm (157-399) 08/21/23 07:43 MPV 10.7 fL (7.4-10.4) H 08/21/23 07:43 Neut % (Auto) 63.1 % 08/21/23 07:43 Lymph % (Auto) 19.7 % 08/21/23 07:43 [place] % (Auto) 13.2 % 08/21/23 07:43 Eos % (Auto) 2.4 % 08/21/23 07:43 Baso % (Auto) 1.4 % 08/21/23 07:43 Neut # (Auto) 3.10 10^3/uL (1.8-7.7) 08/21/23 07:43 Lymph # (Auto) 1.0 10^3/uL (0.8-4.8) 08/21/23 07:43 [place] # (Auto) 0.7 10^3/uL (0.2-0.9) 08/21/23 07:43 Eos # (Auto) 0.1 10^3/uL (0.0-0.8) 08/21/23 07:43 Baso # (Auto) 0.1 10^3/uL (0.0-0.1) 08/21/23 07:43 Nucleated RBC % (auto) 0 % 08/21/23 07:43 Nucleated RBCs # 0.0 /100WBC 08/21/23 07:43 PT 13.30 SECONDS (12.1-14.9) 08/21/23 07:43 INR 0.98 (0.8-1.2) 08/21/23 07:43 APTT 34.4 SECONDS (23.9-36.7) 08/21/23 07:43 Sodium 140 mmol/L (136-145) 08/21/23 07:43 Potassium 4.8 mmol/L (3.5-5.1) 08/21/23 07:43 Chloride 98 mmol/L (98-107) 08/21/23 07:43 Carbon Dioxide 36 mmol/L (22-29) H 08/21/23 07:43 Anion Gap 10.8 (5-19) 08/21/23 07:43 BUN 22 mg/dL (8-23) 08/21/23 07:43 Creatinine 0.7 mg/dL (0.7-1.2) 08/21/23 07:43 GFR Calculation Not Reportable 08/21/23 07:43 Glucose 93 mg/dL (65-115) 08/21/23 07:43 POC Glucose 84 mg/dL (70-110) 08/21/23 07:43 Calculated Osmolality 293 mOsm/kg (285-295) 08/21/23 07:43 Lactic Acid 0.8 mmol/L (0.5-2.2) 08/21/23 07:43 Calcium 9.3 mg/dL (8.5-10.5) 08/21/23 07:43 Total Bilirubin 0.4 mg/dL (0.15-1.2) 08/21/23 07:43 AST 14 U/L (0-40) 08/21/23 07:43 ALT 7 U/L (0-41) 08/21/23 07:43 Alkaline Phosphatase 94 U/L (40-130) 08/21/23 07:43 Creatine Kinase 67 U/L (39-308) 08/21/23 07:43 Troponin T Baseline 102 ng/L (0-15) H* 08/21/23 07:43 Troponin T 120 Minute 92.93 ng/L (0-15) H 08/21/23 09:42 Delta Troponin T -9.07 ABS# (0-10) L 08/21/23 09:42 Total Protein 7.6 g/dL (6.6-8.7) 08/21/23 07:43 Albumin 4.0 g/dL (3.5-5.2) 08/21/23 07:43 Globulin 3.6 g/dL (1.3-4.6) 08/21/23 07:43 Lipase 48 U/L (13-60) 08/21/23 07:43 All radiology interpretation(s) finalized by discharge Discharge Plan Discharge Patient Disposition: Placed in Observation Clinical Impression: TIA (transient ischemic attack), Atrial fibrillation, CAD (coronary artery disease), Elevated troponin Condition: Stable Prescriptions: No Action lorazepam 0.5 mg tablet 0.5 mg PO BID PRN (Reason: anxiety) Qty: 60 2RF furosemide 40 mg tablet 40 mg PO DAILY@08 Qty: 90 1RF tamsulosin 0.4 mg capsule 0.4 mg PO DAILY@08 albuterol sulfate 90 mcg/actuation HFA aerosol inhaler 2 puff INHALATION Q4H PRN (Reason: Shortness Of Breath Or Wheezing) budesonide-formoterol [Symbicort] 80-4.5 mcg/actuation HFA aerosol inhaler 1 puff INHALATION BID metoprolol tartrate 25 mg Tablet 25 mg PO BID@0900,2100 Qty: 60 0RF sucralfate 100 mg/mL suspension 10 ml PO BID Rx Instructions: before meals and bedtime potassium chloride 10 mEq tablet extended release 10 meq PO DAILY Leg Cramp Relief Capsule 1 - 2 cap PO Q6H PRN (Reason: LEG CRAMPS) acetaminophen 500 mg Tablet 500 - 1,000 mg PO Q6H PRN (Reason: Pain) pantoprazole 40 mg tablet,delayed release (DR/EC) 40 mg PO DAILY@08 ipratropium-albuterol 0.5 mg-3 mg(2.5 mg base)/3 mL Solution For Nebulization 3 ml INHALATION Q6H PRN (Reason: Shortness Of Breath Or Wheezing) midodrine 5 mg Tablet 5 mg PO BID Rx Instructions: do not give last dose of day after 6PM or within 4 hrs of bedtime Referrals: Joe Carrillo DO [Primary Care Provider] - Patient Instructions: Altered Mental Status (ED) Coding Level of Care Code ED Biofuels Manager for Liv Vega
[2023-08-21 07:53] LABS: Basophils # 0.1 10^3/uL (0.0-0.1); Basophils % 1.4 %; Eosinophils # 0.1 10^3/uL (0.0-0.8); Eosinophils % 2.4 %; Hematocrit 37.6 % (37-53); Lymphocytes % 19.7 %; Mean Corpuscular HGB Conc 30.6 g/dL (30-55); Mean Corpuscular Hemoglobin 25.8 pg (27-33); Mean Corpuscular Volume 84.5 fl (82-101); Mean Platelet Volume 10.7 fL (7.4-10.4); Monocytes # 0.7 10^3/uL (0.2-0.9); Monocytes % 13.2 %; Neutrophils % 63.1 %; Nucleated Red Blood Cells % 0 %; Platelet Count 212 10^3/cmm (157-399); Red Blood Count 4.45 10^6/uL (3.85-5.65); Red Cell Distribution Width 18.3 % (12.1-15.1); White Blood Count 4.92 10^3/uL (3.29-11.43)
[2023-08-21 08:07] LABS: INR 0.98 (0.8-1.2)
[2023-08-21 08:08] LABS: Partial Thromboplastin Time 34.4 SECONDS (23.9-36.7)
[2023-08-21] MEDS: iohexol 350 mg/mL 500 mL Btl (per mL) IV (08:14)
[2023-08-21 08:15] LABS: Alanine Aminotransferase 7 U/L (0-41); Alkaline Phosphatase 94 U/L (40-130); Anion Gap 10.8 (5-19); Aspartate Amino Transferase 14 U/L (0-40); Blood Urea Nitrogen 22 mg/dL (8-23); Calcium 9.3 mg/dL (8.5-10.5); Carbon Dioxide 36 mmol/L (22-29); Chloride 98 mmol/L (98-107); Creatine Phosphokinase 67 U/L (39-308); Creatinine Clr Calc Pharmacy 68.9676; Globulin 3.6 g/dL (1.3-4.6); Glucose 93 mg/dL (65-115); Lipase 48 U/L (13-60); Osmolality Calculated 293 mOsm/kg (285-295); Potassium 4.8 mmol/L (3.5-5.1); Sodium 140 mmol/L (136-145); Total Bilirubin 0.4 mg/dL (0.15-1.2); Total Protein 7.6 g/dL (6.6-8.7)
[2023-08-21 08:16] LABS: Lactic Sepsis W/Reflex 0.8 mmol/L (0.5-2.2)
[2023-08-21 08:17] LABS: Troponin(5th) Baseline 102 ng/L (0-15)
[2023-08-21 08:19] LABS: Glucose Point of Care 84 mg/dL (70-110)
--- NOTE | 2023-08-21 09:11 | ECG_ITS ---
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 Measurements Intervals [place] Rate: 63 P: 0 CO: 0 QRS: 87 QRSD: 149 T: 42 QT: 398 QTc: 409 Interpretive Statements Possible atrial fibrillation with demand V paced rhythm ELECTRONIC VENTRICULAR PACEMAKER -- CONTOUR ANALYSIS BASED ON INTRINSIC RHYTHM RIGHT BUNDLE BRANCH BLOCK [120+ ms QRS DURATION, UPRIGHT V1, 40+ ms S IN I/aVL/V4/V5/V6] MARKED T-WAVE ABNORMALITY, CONSIDER ANTEROLATERAL ISCHEMIA [-0.5+ mV T-WAVE IN I/aVL/V3-V6] Compared to ECG 08/21/2023 07:29:57 No significant changes Heavy baseline artifact, need to repeat Electronically Signed On 08-21-2023 22:12:55 CDT by Vinod Rabago M.D. [email or web address]
--- NOTE | 2023-08-21 09:35 | PC.PHAR ---
PT IS FROM [facility]
[2023-08-21 10:14] LABS: Troponin 5 2HR 92.93 ng/L (0-15)
[2023-08-21 10:18] LABS: Troponin 5 2HR Delta -9.07 ABS# (0-10)
[2023-08-21 10:43] LABS: Add Urine Microscopic? NO; Charge for UA Resulting for Rev
[2023-08-21 10:49] LABS: Urine Appearance Clear (CLEAR); Urine Color Yellow (Yellow); pH Urine 8 (5-7)
[2023-08-21 10:50] LABS: Bilirubin Urine Neg (Negative); Blood Urine Neg (Negative); Glucose Urine UA Norm (Normal); Ketones Urine Negative (Negative); Leukocyte Esterase Urine Negative (Negative); Nitrate Urine Negative (Negative); Protein Urine Neg (Negative); Specific Gravity, Urine 1.005 (1.005-1.030); Urobilinogen Urine Neg (Negative)
[2023-08-21 10:53] LABS: Amphetamines Screen Urine Negative (Negative); Barbiturates Screen Urine Negative (Negative); Benzodiazepines Screen Urine Negative (Negative); Cocaine Screen Urine Negative (Negative); Opiate Screen Urine Negative (Negative); PCP Screen Urine Negative (Negative); THC Screen Urine Negative (Negative)
--- NOTE | 2023-08-21 11:39 | P.HP_ITS ---
Providers/Chief Complaint 2 Admitting Physician: Douglas Flynn MD Primary Care Provider: Joe Carrillo DO Chief Complaint: AMS History of Present Illness Krzysztof Tay is a 82 year old male with past history of COPD on 2 to 4 L of oxygen, CO2 retention, stroke, A-fib, pacemaker placement and others who presents to the hospital after being found on the floor at his nursing facility. Apparently this morning, he was found on the floor in front of his recliner sitting. There was concern he may have slipped out of his recliner. He was confused, and not following directions but moving all of his extremities. The nurse reported he seemed very anxious and panicked and they tried to calm him down. He received an Ativan 0.5 mg which he rarely uses. When his oxygen level was noted to be lower, they called the ambulance to have him brought into the hospital. At the hospital he was less responsive and a stroke alert was called. When I am evaluating the patient, the son reports he is getting back to normal. He is moving all his extremities. He is still somewhat slower in his mentation than usual but he has some gaps from previous strokes. He does have a history of atrial fibrillation, but was taken off anticoagulation secondary to persistent anemia and GI bleeding. No recent fever, obvious aspiration. Currently on a regular diet, with aspiration precautions being sitting up. He is usually alert and oriented. He is able to ambulate. Review of Systems 2 General: Reports: 10 or more systems reviewed and unremarkable except in HPI and below Card: Denies: chest pain Resp: Denies: dyspnea GI: Denies: abdominal pain, nausea or vomiting Medications/Allergies Home Medications Medication Instructions Recorded Confirmed Last Taken Type albuterol sulfate 90 mcg/actuation 2 puff inhalation Q4H PRN 01/09/23 08/21/23 Unknown History aerosol inhaler Shortness Of Breath Or Wheezing budesonide-formoterol HFA 80 1 puff inhalation BID 01/09/23 08/21/23 08/20/23 History mcg-4.5 mcg/actuation aerosol inhaler (Symbicort) tamsulosin 0.4 mg capsule 0.4 mg PO DAILY@08 01/09/23 08/21/23 08/20/23 History metoprolol tartrate 25 mg tablet 25 mg PO BID@0900,2100 #60 tabs 01/16/23 08/21/23 08/20/23 Rx lorazepam 0.5 mg tablet 0.5 mg PO BID PRN anxiety #60 tabs 01/19/23 08/21/23 08/21/23 Rx acetaminophen 500 mg tablet 500 - 1,000 mg PO Q6H PRN Pain 02/09/23 08/21/23 08/19/23 History pantoprazole 40 mg tablet,delayed 40 mg PO DAILY@08 02/09/23 08/21/23 08/20/23 History release sucralfate 100 mg/mL oral 10 ml PO BID 03/06/23 08/21/23 08/21/23 History suspension furosemide 40 mg tablet 40 mg PO DAILY@08 #90 tabs 03/08/23 08/21/23 08/20/23 Rx potassium chloride 10 mEq 10 meq PO DAILY 04/14/23 08/21/23 08/20/23 History tablet,extended release ipratropium 0.5 mg-albuterol 3 mg 3 ml inhalation Q6H PRN Shortness 05/17/23 08/21/23 Unknown History (2.5 mg base)/3 mL nebulization Of Breath Or Wheezing soln midodrine 5 mg tablet 5 mg PO BID 05/17/23 08/21/23 08/20/23 History quinine-vitamin E capsule 1 - 2 cap PO Q6H PRN LEG CRAMPS 08/21/23 08/21/23 06/22/23 History Allergies Allergy/AdvReac Type Severity Reaction Status Date / Time No Known Allergies Allergy Verified 08/21/23 07:45 PFSH Acute 2 PFSH: Medical History (Updated 08/21/23 @ 11:52 by Douglas Flynn MD) Stroke Abnormal stress test Anemia Acute respiratory failure with hypoxia and hypercapnia Anemia Pneumonia Mixed dyslipidemia Atrial fibrillation GI bleed GERD without esophagitis Chronic hypoxic respiratory failure Lives in assisted living facility Acute hypernatremia Pneumonia Pulmonary hypertension Paroxysmal atrial fibrillation with RVR Hypoxia MENDOZA (dyspnea on exertion) Acute exacerbation of chronic obstructive pulmonary disease Congestive heart failure Malnutrition of moderate degree Hyperkalemia Fall Troponin level elevated Acute hyponatremia BPH (benign prostatic hyperplasia) Orthostatic hypotension Chronic anticoagulation Paroxysmal A-fib Nocturnal hypoxia COPD (chronic obstructive pulmonary disease) Social History Smoking and tobacco/nicotine status: current every day tobacco/nicotine user Marital status: Single Vitals/I&O/Wt Last Vital Signs Temp 97.7 F 08/21/23 07:47 Pulse 72 08/21/23 11:04 Resp 20 H 08/21/23 07:47 BP 125/50 08/21/23 11:04 Pulse Ox 96 08/21/23 11:06 O2 Del Method Nasal Cannula 08/21/23 11:06 O2 Flow Rate 3 08/21/23 11:06 Weight last 48 hrs Weight 68.492 kg Physical Exam 2 Narrative: General exam alert, some confusion but can follow all instructions. Neuro: No obvious focal deficits. Moving all extremities. No facial droop. Some confusion noted. HEENT: Atraumatic normocephalic. Oropharynx clear Neck is supple Cardiovascular regular in rhythm without murmur Lungs clear Abdomen is soft positive bowel sounds Extremities no cyanosis clubbing or edema, cap refill brisk Skin no rash Data 08/21/23 07:43 08/21/23 07:43 Other Labs: PT and PTT are normal LFTs are normal Calcium and albumin is normal Troponin 102 with repeat of 93 Lipase is normal Urinalysis negative Urine drug screen negative Chest x-ray reviewed by me demonstrates pacemaker, no acute infiltrate Head CT reviewed by me demonstrates old stroke right frontal and left temporal Head and neck CT no large vessel occlusion EKG reviewed by me paced rhythm, paced ventricular A&P Assessment and plan (1) Acute encephalopathy: Patient was found this morning with confusion. There is no clear indication that he had a focal neurologic deficit other than perhaps his confusion. This could potentially be a CVA, although symptomatology is resolving rather quickly. Other etiologies could have been a syncopal event, CO2 retention, arrhythmia, etc. Medication effect could also be in play as he received Ativan prior to coming to the emergency department. At this point he appears to be doing better and symptomatology is resolving. Placed on low-dose aspirin 81 mg, Lipitor 40 mg. These are indicated secondary to his past history of CVA. Although he does have a history of atrial fibrillation, anticoagulation was stopped previously secondary to GI bleeding and anemia. Will not restart this, risk is too great, this was discussed with son who agrees. Pacemaker check Telemetry Neurologic checks Fall precautions Cautious hydration considering past history of CHF, preserved EF PT consult (2) Stroke: See above, stroke not confirmed (3) COPD (chronic obstructive pulmonary disease): Patient with significant COPD. 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 Continue metoprolol History of pacemaker Multiple other medical problems as outlined in past medical history Allow natural Heparin for DVT prophylaxis Attestations 2 Medical Necessity Statement*: Will need less than 2 midnight stay for evaluation and treatment of acute encephalopathy. Diagnoses Acute encephalopathy G93.40 Stroke I63.9 Panlobular emphysema J43.1 COPD type: emphysema Emphysema type: panlobular Time Spent (min) 46
[2023-08-21 12:28] LABS: ABG PCO2 55.6 mmHg (35-45); ABG PH Result 7.41 (7.35-7.45); Arterial Blood Gas Hematocrit 34.8 % (42-52); Base Excess ABG 8.9 mmol/L (-2.0-2.0); Blood Gas Allen Test Pos; Blood Gas Operator Identificat WALCI; Blood Gas Sample Site Radial, right; Blood Gas Sample Type Arterial; HCO3 ABG 35.1 mmol/L (22-26); Oxygen Device NC; PO2 ABG 85.8 mmHg (80.0-100.0)
[2023-08-21] MEDS: heparin 5,000 unit/mL INJ 1 mL 5000 UNIT SUBCUT (14:14)
[2023-08-21] MEDS: sodium chloride 0.9% 1,000 ML 50 ML IV (14:14)
--- NOTE | 2023-08-21 14:23 | ECG_ITS ---
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 Measurements Intervals [place] Rate: 68 P: -74 IN: 300 QRS: -87 QRSD: 171 T: 81 QT: 463 QTc: 495 Interpretive Statements ELECTRONIC VENTRICULAR PACEMAKER ABNORMAL RHYTHM ECG Compared to ECG 08/21/2023 09:11:04 Right bundle-branch block no longer present T-wave abnormality no longer present Possible ischemia no longer present Electronically Signed On 08-21-2023 22:13:50 CDT by Vinod Rabago M.D. [id number]
[2023-08-21 15:12] LABS: Troponin 5 6HR 86.47 ng/L (0-15)
[2023-08-21 15:13] LABS: Troponin 5 6HR Delta -15.53 ng/L (0-12)
[2023-08-21] MEDS: sucralfate 1 gm/10 mL Oral Liq UDC PO (16:55)
[2023-08-21] MEDS: budesonide 0.5 mg/2 mL Neb INHALATION (21:20)
[2023-08-21] MEDS: ipratropium-albuterol 3 mL Neb INHALATION (21:20)
[2023-08-21] MEDS: metoprolol tartrate 25 mg Tablet PO (21:46)
[2023-08-21] MEDS: atorvastatin 40 mg Tablet PO (21:46)
[2023-08-22] VITALS (9 sets, daily range): BP systolic 109–145; BP diastolic 59–74; PULSE 63–79; RESP 16–19; TEMP 36.4–36.9; O2SAT 90–99
[2023-08-22] MEDS: heparin 5,000 unit/mL INJ 1 mL 5000 UNIT SUBCUT (01:10)
[2023-08-22] MEDS: ipratropium-albuterol 3 mL Neb INHALATION ×2 (02:02→08:52)
[2023-08-22 07:10] LABS: Basophils % 0.7 %; Eosinophils # 0.1 10^3/uL (0.0-0.8); Eosinophils % 1.8 %; Hematocrit 35.7 % (37-53); Lymphocytes # 0.9 10^3/uL (0.8-4.8); Lymphocytes % 20.6 %; Mean Corpuscular HGB Conc 30.5 g/dL (30-55); Mean Corpuscular Hemoglobin 25.3 pg (27-33); Mean Platelet Volume 11.2 fL (7.4-10.4); Monocytes # 0.6 10^3/uL (0.2-0.9); Monocytes % 14.1 %; Neutrophils % 62.6 %; Nucleated Red Blood Cells % 0 %; Platelet Count 200 10^3/cmm (157-399); Red Cell Distribution Width 18.2 % (12.1-15.1); White Blood Count 4.47 10^3/uL (3.29-11.43)
[2023-08-22 07:32] LABS: Anion Gap 13.9 (5-19); Blood Urea Nitrogen 15 mg/dL (8-23); Calcium 9.1 mg/dL (8.5-10.5); Carbon Dioxide 30 mmol/L (22-29); Chloride 100 mmol/L (98-107); Creatinine Clr Calc Pharmacy 68.6484; Glucose 84 mg/dL (65-115); Osmolality Calculated 290 mOsm/kg (285-295); Potassium 3.9 mmol/L (3.5-5.1); Sodium 140 mmol/L (136-145)
[2023-08-22] MEDS: budesonide 0.5 mg/2 mL Neb INHALATION (08:52)
[2023-08-22] MEDS: midodrine 5 mg TABLET PO (10:30)
[2023-08-22] MEDS: aspirin 81 mg EC Tablet PO (10:30)
[2023-08-22] MEDS: tamsulosin 0.4 mg Capsule PO (10:30)
[2023-08-22] MEDS: metoprolol tartrate 25 mg Tablet PO (10:30)
[2023-08-22] MEDS: pantoprazole DR 40 mg Tablet PO (10:30)
[2023-08-22] MEDS: sucralfate 1 gm/10 mL Oral Liq UDC PO (10:30)
[2023-08-22] MEDS: sodium chloride 0.9% 1,000 ML 50 ML IV (10:30)
--- NOTE | 2023-08-22 12:28 | P.DS_ITS ---
Discharge Providers Date of Admission: 08/21/23 11:35 Date of Discharge: August 22, 2023 Attending Provider at Admission: Douglas Flynn MD Attending Provider at Discharge: Douglas Flynn MD Primary Care Provider: Joe Carrillo DO Diagnoses at Discharge Discharge Diagnosis (1) Acute encephalopathy: Status: Acute (2) Stroke: Status: Acute (3) COPD (chronic obstructive pulmonary disease): Status: Chronic Qualifiers: COPD type: emphysema Emphysema type: panlobular Qualified Code(s): J43.1 - Panlobular emphysema Reason for Visit Reason for Visit: AMS Hospital Course Hospital Course Patient is an 82-year-old white male with history of stroke who presented to the emergency department after being found down at the nursing facility the morning of admission. He was confused at that time, and there was concern of a TIA. Multiple other etiologies were also entertained, and apparently he had received an Ativan prior to coming in as well. At the nursing facility the nurse was originally not concerned with stroke, more that he was panicked and his oxygen saturation was slightly low. On arrival to the emergency department a stroke alert was initially called and CT and CTA were essentially negative for any new findings. While in the emergency department he had significant improvement, coming to near baseline. He was observed in the hospital overnight. No significant arrhythmias. Pacemaker was interrogated and no significant arrhythmias mapped to the time of concern. It was noted that his device was near end-of-life for battery and I placed a call to cardiology clinic to make sure he can be followed up on promptly and talked with the nurse practitioner there. Other studies included an ABG, demonstrated some CO2 retention but not significant for the patient's baseline. Troponin was elevated but showed no significant trend. Secondary to atrial fibrillation history, past history of stroke I did put him on low-dose aspirin and statin. I did not put him on anticoagulation as he had been on this before, and suffered GI bleeding as well as anemia requiring transfusion. I also discontinued his Lasix and potassium in case this is contributed to his fall. At discharge family reported he was essentially at baseline. I described the addition of aspirin and statin to them, need for follow-up, and they were able to ask questions. I also discontinued his lorazepam. Physical Exam Narrative: General exam no distress Neck is supple Cardiovascular regular in rhythm, heart sounds distant Lungs clear Abdomen soft Extremities no sinus clubbing or edema Discharge Data Studies Completed and Pending Completed Studies During Hospitalization Category Date Time Status CT angio headneck* [id number] Stat Cat Scan 08/21/23 07:[address] head thrombolytic [id number] Stat Cat Scan 08/21/23 07:44 Completed XR chest 1V portable [id number] Stat Exams 08/21/23 07:29 Completed Radiology Impressions Chest X-Ray 08/21/23 07:29 IMPRESSION: No new findings compared to previous examination. Significant improvement in previous right pleural effusion. Residual right pleural fluid may be present. Head/Neck CTA 08/21/23 07:43 IMPRESSION: No large vessel stenosis or occlusion. IMPRESSION: 1. Atherosclerosis with mild stenosis of the proximal left ICA and moderate focal stenosis at the left vertebral artery C5-C6 level. 2. Stable multilevel, multifactorial cervical spine degenerative change with most significant sites of spinal canal and neural foraminal narrowing as above. 3. Left upper lobe ground-glass opacity may be infectious or inflammatory. Recommend imaging followup to resolution to exclude an underlying lesion. 4. Partially visualized right pleural effusion. REFERENCES: NASCET CRITERIA. The degree of stenosis in the cervical segment of the internal carotid artery is based on NASCET criteria. Normal is no stenosis. Mild is less than 50% stenosis. Moderate is 50-69% stenosis. Severe is 70% to 99% stenosis. Total occlusion is no detectable patent lumen. Head CT 08/21/23 07:44 IMPRESSION: 1. No acute intracranial findings. 2. Stable chronic changes to include chronic sequela of prior right frontal and left temporal lobe infarcts. ASSESSMENT: ASPECTS ([place] Stroke Program Early CT Score) is 10. ADDENDUM: 08/21/23 0810 THIS REPORT CONTAINS FINDINGS THAT MAY BE CRITICAL TO PATIENT CARE. The findings were verbally communicated via telephone conference with DIAN SPANN at 8:07 AM CDT on 08/21/2023. The findings were acknowledged and understood. Laboratory Results WBC 4.47 10^3/uL (3.29-11.43) 08/22/23 06:16 RBC 4.30 10^6/uL (3.85-5.65) 08/22/23 06:16 Hgb 10.90 g/dL (11.27-16.99) L 08/22/23 06:16 Hct 35.7 % (37-53) L 08/22/23 06:16 MCV 83.0 fl (82-101) 08/22/23 06:16 MCH 25.3 pg (27-33) L 08/22/23 06:16 MCHC 30.5 g/dL (30-55) 08/22/23 06:16 RDW 18.2 % (12.1-15.1) H 08/22/23 06:16 Plt Count 200 10^3/cmm (157-399) 08/22/23 06:16 MPV 11.2 fL (7.4-10.4) H 08/22/23 06:16 Neut % (Auto) 62.6 % 08/22/23 06:16 Lymph % (Auto) 20.6 % 08/22/23 06:16 [place] % (Auto) 14.1 % 08/22/23 06:16 Eos % (Auto) 1.8 % 08/22/23 06:16 Baso % (Auto) 0.7 % 08/22/23 06:16 Neut # (Auto) 2.80 10^3/uL (1.8-7.7) 08/22/23 06:16 Lymph # (Auto) 0.9 10^3/uL (0.8-4.8) 08/22/23 06:16 [place] # (Auto) 0.6 10^3/uL (0.2-0.9) 08/22/23 06:16 Eos # (Auto) 0.1 10^3/uL (0.0-0.8) 08/22/23 06:16 Baso # (Auto) 0.0 10^3/uL (0.0-0.1) 08/22/23 06:16 Nucleated RBC % (auto) 0 % 08/22/23 06:16 Nucleated RBCs # 0.0 /100WBC 08/22/23 06:16 PT 13.30 SECONDS (12.1-14.9) 08/21/23 07:43 INR 0.98 (0.8-1.2) 08/21/23 07:43 APTT 34.4 SECONDS (23.9-36.7) 08/21/23 07:43 Specimen Type Arterial 08/21/23 12:17 Sample Site Radial, right 08/21/23 12:17 ABG pH 7.41 (7.35-7.45) 08/21/23 12:17 ABG pCO2 55.6 mmHg (35-45) H 08/21/23 12:17 ABG pO2 85.8 mmHg (80.0-100.0) 08/21/23 12:17 ABG HCO3 35.1 mmol/L (22-26) H 08/21/23 12:17 ABG Base Excess 8.9 mmol/L (-2.0-2.0) H 08/21/23 12:17 Jcarlos Test Pos 08/21/23 12:17 Hematocrit 34.8 % (42-52) L 08/21/23 12:17 O2 Delivery Device Nc 08/21/23 12:17 O2 Liters/Min 3.0 % 08/21/23 12:17 Human Resources File Clerk ID Wal[place] 08/21/23 12:17 Sodium 140 mmol/L (136-145) 08/22/23 06:16 Potassium 3.9 mmol/L (3.5-5.1) 08/22/23 06:16 Chloride 100 mmol/L (98-107) 08/22/23 06:16 Carbon Dioxide 30 mmol/L (22-29) H 08/22/23 06:16 Anion Gap 13.9 (5-19) 08/22/23 06:16 BUN 15 mg/dL (8-23) 08/22/23 06:16 Creatinine 0.5 mg/dL (0.7-1.2) L 08/22/23 06:16 GFR Calculation Not Reportable 08/22/23 06:16 Glucose 84 mg/dL (65-115) 08/22/23 06:16 POC Glucose 84 mg/dL (70-110) 08/21/23 07:43 Calculated Osmolality 290 mOsm/kg (285-295) 08/22/23 06:16 Lactic Acid 0.8 mmol/L (0.5-2.2) 08/21/23 07:43 Calcium 9.1 mg/dL (8.5-10.5) 08/22/23 06:16 Total Bilirubin 0.4 mg/dL (0.15-1.2) 08/21/23 07:43 AST 14 U/L (0-40) 08/21/23 07:43 ALT 7 U/L (0-41) 08/21/23 07:43 Alkaline Phosphatase 94 U/L (40-130) 08/21/23 07:43 Creatine Kinase 67 U/L (39-308) 08/21/23 07:43 Troponin T Baseline 102 ng/L (0-15) H* 08/21/23 07:43 Troponin T 120 Minute 92.93 ng/L (0-15) H 08/21/23 09:42 Delta Troponin T -9.07 ABS# (0-10) L 08/21/23 09:42 Troponin T Hi Sens 6Hr 86.47 ng/L (0-15) H 08/21/23 14:09 Troponin T Hi Sens 6Hr Delta -15.53 ng/L (0-12) L 08/21/23 14:09 Total Protein 7.6 g/dL (6.6-8.7) 08/21/23 07:43 Albumin 4.0 g/dL (3.5-5.2) 08/21/23 07:43 Globulin 3.6 g/dL (1.3-4.6) 08/21/23 07:43 Lipase 48 U/L (13-60) 08/21/23 07:43 Urine Color Yellow (Yellow) 08/21/23 10:34 Urine Appearance Clear (CLEAR) 08/21/23 10:34 Urine pH 8 (5-7) H 08/21/23 10:34 Ur Specific [place] 1.005 (1.005-1.030) 08/21/23 10:34 Urine Protein Neg (Negative) 08/21/23 10:34 Urine Glucose (UA) Norm (Normal) 08/21/23 10:34 Urine Ketones Negative (Negative) 08/21/23 10:34 Urine Blood Neg (Negative) 08/21/23 10:34 Urine Nitrate Negative (Negative) 08/21/23 10:34 Urine Bilirubin Neg (Negative) 08/21/23 10:34 Urine Urobilinogen Neg mg/dL (Negative) 08/21/23 10:34 Ur Leukocyte Esterase Negative (Negative) 08/21/23 10:34 Urine Opiates Screen Negative ng/mL (Negative) 08/21/23 10:34 Ur Barbiturates Screen Negative ng/mL (Negative) 08/21/23 10:34 Ur Phencyclidine Scrn Negative ng/mL (Negative) 08/21/23 10:34 Ur Amphetamines Screen Negative ng/mL (Negative) 08/21/23 10:34 U Benzodiazepines Scrn Negative ng/mL (Negative) 08/21/23 10:34 Urine Cocaine Screen Negative ng/mL (Negative) 08/21/23 10:34 U Marijuana (THC) Screen Negative ng/mL (Negative) 08/21/23 10:34 Vitals Last Vital Signs Temp 98.3 F 08/22/23 12:03 Pulse 69 08/22/23 12:03 Resp 17 08/22/23 12:03 BP 109/59 08/22/23 12:03 Pulse Ox 96 08/22/23 12:03 O2 Del Method Nasal Cannula 08/22/23 12:03 O2 Flow Rate 3 08/22/23 08:54 Discharge Plan Discharge Patient Disposition: Home Condition: Stable Prescriptions: New aspirin 81 mg Tablet,Delayed Release (Dr/Ec) 81 mg PO DAILY Qty: 30 0RF atorvastatin 40 mg Tablet 40 mg PO BEDTIME Qty: 30 0RF Continued tamsulosin 0.4 mg capsule 0.4 mg PO DAILY@08 albuterol sulfate 90 mcg/actuation HFA aerosol inhaler 2 puff INHALATION Q4H PRN (Reason: Shortness Of Breath Or Wheezing) budesonide-formoterol [Symbicort] 80-4.5 mcg/actuation HFA aerosol inhaler 1 puff INHALATION BID metoprolol tartrate 25 mg Tablet 25 mg PO BID@0900,2100 Qty: 60 0RF sucralfate 100 mg/mL suspension 10 ml PO BID Rx Instructions: before meals and bedtime quinine-vitamin E Capsule 1 - 2 cap PO Q6H PRN (Reason: LEG CRAMPS) acetaminophen 500 mg Tablet 500 - 1,000 mg PO Q6H PRN (Reason: Pain) pantoprazole 40 mg tablet,delayed release (DR/EC) 40 mg PO DAILY@08 ipratropium-albuterol 0.5 mg-3 mg(2.5 mg base)/3 mL Solution For Nebulization 3 ml INHALATION Q6H PRN (Reason: Shortness Of Breath Or Wheezing) midodrine 5 mg Tablet 5 mg PO BID Rx Instructions: do not give last dose of day after 6PM or within 4 hrs of bedtime Discontinued lorazepam 0.5 mg tablet 0.5 mg PO BID PRN (Reason: anxiety) Qty: 60 2RF furosemide 40 mg tablet 40 mg PO DAILY@08 Qty: 90 1RF potassium chloride 10 mEq tablet extended release 10 meq PO DAILY Discharge Orders: Discharge Order (Routine); Ordered 08/22/23 Ordered By: Douglas Flynn Referrals: [facility] [Other] Joe Carrillo, [Primary Care Provider] - 4-7 days (We have notified your physician's clinic of the need for a follow-up appointment to be scheduled. If you have not heard from them within the next 2 business days, please call them directly. ) Marcela Weinstein FNP [Nurse Practitioner] - 09/12/23 3:00 pm (History of pacemaker, evaluation of this demonstrates CK in less than 3 months ) Discharge Diet: Usual diet Discharge Activity: Increase activity as tolerated Patient Instructions: Altered Mental Status (ED), Opioid Safety Activity Restrictions/Additional Instructions: 3 L of oxygen per nasal cannula. Titrate to keep sat approximately 90 to 92%. May wean if oxygen saturation adequate. Take all medicine as prescribed Monitor for any bleeding or anemia CBC and BMP in 1 week Arrange follow-up with cardiology clinic in 2 weeks regarding pacemaker, CK within 3 months Lasix and potassium was stopped. Monitor for any fluid overload Monitor for continued need for midodrine. This will be continued on discharge. Return for any concerns Discharge Attestations Time Spent in Discharge Care*: greater than 30 min Status at Discharge: Cognitive status at discharge: mildly impaired cognition , Behavioral status at discharge: cooperative , Quality Metrics Clinical Quality Measures [ No reported AMI, CVA or VTE this stay] Coding Level of Care Code 34354 Total time (in minutes) for Discharge: 36 Diagnoses Acute encephalopathy G93.40 Stroke I63.9 Panlobular emphysema J43.1 COPD type: emphysema Emphysema type: panlobular
--- NOTE | 2023-08-22 12:59 | PC.NURSE ---
This nurse called report to nurse Yesy at [facility].
== END 2023-08-22 13:05 | disposition home or self-care (01) ==
LOC: ER 10:44 → MEDSURG 15:09
PROVIDERS: Admitting Provider Internal Medicine; Emergency Provider Family Medicine; PCP Family Medicine; Visit Provider Internal Medicine
DX: I63.9 Cerebral infarction, unspecified (principal); R29.720 NIHSS score 20; G93.40 Encephalopathy, unspecified; J43.1 Panlobular emphysema; Z86.73 Personal history of transient ischemic attack (TIA), and cerebral infarction without residual deficits; Z99.81 Dependence on supplemental oxygen; I48.91 Unspecified atrial fibrillation; Z95.0 Presence of cardiac pacemaker; E78.2 Mixed hyperlipidemia; I50.9 Heart failure, unspecified; N40.0 Benign prostatic hyperplasia without lower urinary tract symptoms; I48.0 Paroxysmal atrial fibrillation; F17.200 Nicotine dependence, unspecified, uncomplicated
CPT/HCPCS: 36415; 36416; 36600; 70450; 70496; 70498; 71045; 80048; 80053; 80306; 81003; 82550; 82803; 82962; 83605; 83690; 84484; 85025; 85610; 85730; 93005; 94640; 96372; 99285; G0378; J1644; J7030; J7626; Q9967

== ENCOUNTER → 2023-09-10 14:01 | Outpatient (BNVA) | payer MEDICARE, BC, SELFPAY | PROVIDERS: PCP Family Medicine; Visit Provider Internal Medicine Cardiovascular Disease | DX: I50.33 Acute on chronic diastolic (congestive) heart failure (principal); Z95.0 Presence of cardiac pacemaker; I95.1 Orthostatic hypotension; I48.11 Longstanding persistent atrial fibrillation; E78.2 Mixed hyperlipidemia; I07.1 Rheumatic tricuspid insufficiency; Z72.0 Tobacco use | CPT/HCPCS: 99214 ==

== ENCOUNTER 2023-12-29 23:37 | Emergency (ER) | payer MEDICARE, SELFPAY ==
[2023-12-29 23:37] VITALS: BP 85/39; PULSE 72; RESP 18; TEMP 37.4; O2SAT 97; BMI 21.2
--- NOTE | 2023-12-29 23:46 | XRR_ITS ---
PROCEDURE INFORMATION: Exam: XR Chest Exam date and time: 12/29/2023 11:47 PM Age: 83 years old Clinical indication: Cough and shortness of breath; Prior surgery; Surgery date: 6+ months; Surgery type: Pacer; Patient HX: Cough with SOB and hypoxia TECHNIQUE: Imaging protocol: Radiologic exam of the chest. Views: 1 view. COMPARISON: CR XR chest 1V portable [id number] 08/21/2023 8:06 AM FINDINGS: Tubes, catheters and devices: A pacemaker device is present, and its leads are in appropriate position. Lungs: Visualized portions of the lungs are clear. Pleural spaces: Unremarkable. No pleural effusion. No pneumothorax. Heart/Mediastinum: Heart is upper limits of normal in size. Bones/joints: Unremarkable. XR/XR chest 1V portable [id number] IMPRESSION: No acute infiltrate.
[2023-12-29] MEDS: ipratropium-albuterol 3 mL Neb INHALATION (23:48)
[2023-12-29 23:49] VITALS: PULSE 77; RESP 18; O2SAT 96
[2023-12-29 23:52] LABS: Basophils % 0.3 %; Eosinophils % 0.2 %; Hematocrit 36.3 % (37-53); Lymphocytes # 0.6 10^3/uL (0.8-4.8); Lymphocytes % 5.7 %; Mean Corpuscular HGB Conc 31.4 g/dL (30-55); Mean Corpuscular Hemoglobin 27.2 pg (27-33); Mean Corpuscular Volume 86.6 fl (82-101); Mean Platelet Volume 11.7 fL (7.4-10.4); Monocytes % 9.6 %; Neutrophils # 8.71 10^3/uL (1.8-7.7); Neutrophils % 83.8 %; Nucleated Red Blood Cells % 0 %; Platelet Count 157 10^3/cmm (157-399); Red Blood Count 4.19 10^6/uL (3.85-5.65); Red Cell Distribution Width 18.9 % (12.1-15.1); White Blood Count 10.39 10^3/uL (3.29-11.43)
[2023-12-29 23:55] VITALS: PULSE 77; RESP 18; O2SAT 96
[2023-12-30] MEDS: sodium chloride 0.9% 1,000 ML 999 ML IV (00:01)
[2023-12-30] MEDS: piperacillin-tazobactam 4.5 GM in sodium chloride 0.9% (plus) 50 ML IV (00:01)
[2023-12-30 00:03] LABS: INR 1.04 (0.8-1.2)
[2023-12-30 00:15] LABS: ABG PCO2 38.6 mmHg (35-45); ABG PH Result 7.51 (7.35-7.45); Arterial Blood Gas Hematocrit 34.2 % (42-52); Base Excess ABG 7.5 mmol/L (-2.0-2.0); Blood Gas Allen Test Pos; Blood Gas Sample Site Brachial, right; Blood Gas Sample Type Arterial; HGB O2 Sat 95.1 % (95-100); Methemoglobin 1.1 % (0.4-1.5); Oxygen Device NC; PO2 ABG 77.2 mmHg (80.0-100.0); Total Hemoglobin 11.2 g/dL (14-18)
[2023-12-30 00:18] LABS: Alanine Aminotransferase 7 U/L (0-41); Albumin Level 3.7 g/dL (3.5-5.2); Alkaline Phosphatase 77 U/L (40-130); Anion Gap 15.4 (5-19); Aspartate Amino Transferase 14 U/L (0-40); Blood Urea Nitrogen 19 mg/dL (8-23); Calcium 8.5 mg/dL (8.5-10.5); Carbon Dioxide 32 mmol/L (22-29); Chloride 99 mmol/L (98-107); Creatinine Clr Calc Pharmacy 57.0412; Globulin 3.4 g/dL (1.3-4.6); Glucose 121 mg/dL (65-115); NT Pro B Type Natriuretic Pept 2111 pg/mL (0-450); Osmolality Calculated 298 mOsm/kg (285-295); Potassium 4.4 mmol/L (3.5-5.1); Sodium 142 mmol/L (136-145); Total Bilirubin 0.8 mg/dL (0.15-1.2); Total Protein 7.1 g/dL (6.6-8.7)
--- NOTE | 2023-12-30 00:44 | W.ED.SOB ---
HPI - SOB/Dyspnea General: Chief Complaint: Shortness of Breath/Dyspnea Stated Complaint: SOB Time Seen by Provider: 12/29/23 23:39 History of Present Illness: HPI Narrative: 83-year-old male who is on oxygen with a history of end-stage COPD. He presents with shortness of breath, cough with sputum production. He does not know if he has had a fever or not. He states that he usually uses 4 L. Ambulance was called due to acute shortness of breath this evening. He says the sputum is white. No increased leg swelling. Related Data Home Medications Medication Instructions Recorded Confirmed albuterol sulfate 90 mcg/actuation 2 puff inhalation Q4H PRN 01/09/23 09/18/23 aerosol inhaler Shortness Of Breath Or Wheezing budesonide-formoterol HFA 80 1 puff inhalation BID 01/09/23 09/18/23 mcg-4.5 mcg/actuation aerosol inhaler (Symbicort) tamsulosin 0.4 mg capsule 0.4 mg PO DAILY@01/09/23 09/18/23 acetaminophen 500 mg tablet 500 - 1,000 mg PO Q6H PRN Pain 02/09/23 09/18/23 pantoprazole 40 mg tablet,delayed 40 mg PO DAILY@08 02/09/23 09/18/23 release sucralfate 100 mg/mL oral 10 ml PO BID 03/06/23 09/18/23 suspension midodrine 5 mg tablet 5 mg PO BID 05/17/23 09/18/23 quinine-vitamin E capsule 1 - 2 cap PO Q6H PRN LEG CRAMPS 08/21/23 09/18/23 Previous Rx's Medication Instructions Recorded metoprolol tartrate 25 mg tablet 25 mg PO BID@0900,2100 #60 tabs 01/16/23 aspirin 81 mg tablet,delayed 81 mg PO DAILY #30 tabs 08/22/23 release atorvastatin 40 mg tablet 40 mg PO BEDTIME #30 tabs 08/22/23 doxycycline hyclate 100 mg tablet 100 mg PO BID 7 days #14 tabs 12/30/23 ipratropium 0.5 mg-albuterol 3 mg 3 ml inhalation Q6H PRN Shortness 12/30/23 (2.5 mg base)/3 mL nebulization Of Breath Or Wheezing #60 mL soln methylprednisolone 4 mg tablets in See Rx Instructions PO .COMPLEX 12/30/23 a dose pack (Medrol (Luis A)) #21 ea Allergies Allergy/AdvReac Type Severity Reaction Status Date / Time No Known Allergies Allergy Verified 09/18/23 06:58 [facility] PFSH: Medical History Stroke Abnormal stress test Anemia Acute respiratory failure with hypoxia and hypercapnia Anemia Pneumonia Mixed dyslipidemia Atrial fibrillation Patient has a history of severe GI bleed. For that reason, he is not on any oral anticoagulant GI bleed GERD without esophagitis Chronic hypoxic respiratory failure Lives in assisted living facility Acute hypernatremia Pneumonia Pulmonary hypertension Paroxysmal atrial fibrillation with RVR Hypoxia MENDOZA (dyspnea on exertion) Acute exacerbation of chronic obstructive pulmonary disease Congestive heart failure Malnutrition of moderate degree Hyperkalemia Fall Troponin level elevated Acute hyponatremia BPH (benign prostatic hyperplasia) Orthostatic hypotension Chronic anticoagulation Paroxysmal A-fib Nocturnal hypoxia COPD (chronic obstructive pulmonary disease) Social History Smoking and tobacco/nicotine status: current some day tobacco/nicotine user Marital status: Single Physical Exam Const: GENERAL APPEARANCE: cooperative, ill appearing and frail appearing HENMT: COMMON NORMALS: normocephalic, atraumatic and Normal external nose present HEAD & SCALP: normocephalic and atraumatic FACE & SINUS: normal facial exam and face symmetric NOSE: Normal external nose present Eye: COMMON NORMALS: Equal, round and reactive pupils present and EOMs intact bilaterally PUPIL: Yes Equal, round and reactive pupils present Neck/C-Spine: GENERAL: Yes trachea midline Chest: CHEST: Yes Symmetrical chest wall rise Resp: EFFORT & INSPECTION: Yes tachypneic and Yes labored (Mildly) AUSCULTATION: wheezes Cardio: COMMON NORMALS: regular rate and regular rhythm RATE: regular rate RHYTHM: regular rhythm GI: COMMON NORMALS: Normal to inspection, nondistended, normoactive bowel sounds present Extremity: COMMON NORMALS: no pedal edema Neuro: LUPIS COMA SCALE: document GCS findings Hollywood coma scale eye opening: Spontaneous Lupis coma scale verbal response: Orientated Lupis coma scale motor response: Obey commands Hollywood coma scale total score: 15 SENSORY EXAM: Yes extremities (intact) Psych: COMMON NORMALS: speech normal SPEECH: Yes normal speech Skin: COMMON NORMALS: no rashes or lesions noted GENERAL SKIN EXAM: no rashes or lesions noted Course Vital Signs: Vital signs: Vital Signs Temperature 99.4 F 12/29/23 23:37 Pulse Rate 56 L 12/30/23 03:11 Respiratory Rate 20 H 12/30/23 03:11 Blood Pressure 97/54 12/30/23 03:11 Pulse Oximetry 98 12/30/23 03:11 Oxygen Delivery Me thod Nasal Cannula 12/30/23 00:55 Oxygen Flow Rate 4 12/30/23 00:55 MDM - SOB/Dyspnea Medical Decision Making Temperature is mildly elevated hypotensive on arrival. Current blood pressure 105/48. Hemoglobin is 11.4. White blood cell count is 10.4. Creatinine is 1.1. Lactic acid is 2. BNP is 2000. pH is 7.51 with a pO2 of 77 on his home 4 L. Chest x-ray is not significantly different from August. Patient appears improved after fluid bolus, DuoNeb treatment. He is satting 94% and above on his home 4 L. Blood pressure is now 100/55. Chest x-ray is nonacute. [facility] Lab Data 12/29/23 23:42 12/29/23 23:42 Labs/Radiology: Radiology Impressions Chest X-Ray 12/29/23 23:46 IMPRESSION: No acute infiltrate. Laboratory Results WBC 10.39 10^3/uL (3.29-11.43) 12/29/23 23:42 RBC 4.19 10^6/uL (3.85-5.65) 12/29/23 23:42 Hgb 11.40 g/dL (11.27-16.99) 12/29/23 23:42 Hct 36.3 % (37-53) L 12/29/23 23:42 MCV 86.6 fl (82-101) 12/29/23 23:42 MCH 27.2 pg (27-33) 12/29/23 23:42 MCHC 31.4 g/dL (30-55) 12/29/23 23:42 RDW 18.9 % (12.1-15.1) H 12/29/23 23:42 Plt Count 157 10^3/cmm (157-399) 12/29/23 23:42 MPV 11.7 fL (7.4-10.4) H 12/29/23 23:42 Neut % (Auto) 83.8 % 12/29/23 23:42 Lymph % (Auto) 5.7 % 12/29/23 23:42 Swisher % (Auto) 9.6 % 12/29/23 23:42 Eos % (Auto) 0.2 % 12/29/23 23:42 Baso % (Auto) 0.3 % 12/29/23 23:42 Neut # (Auto) 8.71 10^3/uL (1.8-7.7) H 12/29/23 23:42 Lymph # (Auto) 0.6 10^3/uL (0.8-4.8) L 12/29/23 23:42 Swisher # (Auto) 1.0 10^3/uL (0.2-0.9) H 12/29/23 23:42 Eos # (Auto) 0.0 10^3/uL (0.0-0.8) 12/29/23 23:42 Baso # (Auto) 0.0 10^3/uL (0.0-0.1) 12/29/23 23:42 Nucleated RBC % (auto) 0 % 12/29/23 23:42 Nucleated RBCs # 0.0 /100WBC 12/29/23 23:42 PT 13.90 SECONDS (12.1-14.9) 12/29/23 23:42 INR 1.04 (0.8-1.2) 12/29/23 23:42 Specimen Type Arterial 12/30/23 00:05 Sample Site Brachial, right 12/30/23 00:05 ABG pH 7.51 (7.35-7.45) H 12/30/23 00:05 ABG pCO2 38.6 mmHg (35-45) 12/30/23 00:05 ABG pO2 77.2 mmHg (80.0-100.0) L 12/30/23 00:05 ABG HCO3 31.0 mmol/L (22-26) H 12/30/23 00:05 ABG Base Excess 7.5 mmol/L (-2.0-2.0) H 12/30/23 00:05 Jcarlos Test Pos 12/30/23 00:05 Hematocrit 34.2 % (42-52) L 12/30/23 00:05 Hgb O2 Saturation 95.1 % (95-100) 12/30/23 00:05 Carboxyhemoglobin 1.0 %THgb (0.4-20.1) 12/30/23 00:05 Methemoglobin 1.1 % (0.4-1.5) 12/30/23 00:05 Total Hemoglobin 11.2 g/dL (14-18) L 12/30/23 00:05 O2 Delivery Device Nc 12/30/23 00:05 O2 Liters/Min 4.0 % 12/30/23 00:05 Pattern Illustrator ID [email or web address] 12/30/23 00:05 Sodium 142 mmol/L (136-145) 12/29/23 23:42 Potassium 4.4 mmol/L (3.5-5.1) 12/29/23 23:42 Chloride 99 mmol/L (98-107) 12/29/23 23:42 Carbon Dioxide 32 mmol/L (22-29) H 12/29/23 23:42 Anion Gap 15.4 (5-19) 12/29/23 23:42 BUN 19 mg/dL (8-23) 12/29/23 23:42 Creatinine 1.1 mg/dL (0.7-1.2) 12/29/23 23:42 GFR Calculation Not Reportable 12/29/23 23:42 Glucose 121 mg/dL (65-115) H 12/29/23 23:42 Calculated Osmolality 298 mOsm/kg (285-295) H 12/29/23 23:42 Lactic Acid 2.0 mmol/L (0.5-2.2) 12/29/23 23:42 Calcium 8.5 mg/dL (8.5-10.5) 12/29/23 23:42 Total Bilirubin 0.8 mg/dL (0.15-1.2) 12/29/23 23:42 AST 14 U/L (0-40) 12/29/23 23:42 ALT 7 U/L (0-41) 12/29/23 23:42 Alkaline Phosphatase 77 U/L (40-130) 12/29/23 23:42 NT-Pro-B Natriuret Pep 2111 pg/mL (0-450) H 12/29/23 23:42 Total Protein 7.1 g/dL (6.6-8.7) 12/29/23 23:42 Albumin 3.7 g/dL (3.5-5.2) 12/29/23 23:42 Globulin 3.4 g/dL (1.3-4.6) 12/29/23 23:42 Coronavirus (PCR) Negative (Negative) 12/30/23 00:05 Influenza A (PCR) Negative (Negative) 12/30/23 00:05 Influenza Type B (PCR) Negative (Negative) 12/30/23 00:05 RSV (PCR) Negative (Negative) 12/30/23 00:05 All radiology interpretation(s) finalized by discharge Discharge Plan Discharge Patient Disposition: Home Clinical Impression: Chronic hypoxic respiratory failure COPD (chronic obstructive pulmonary disease) Qualifiers: COPD type: emphysema Emphysema type: panlobular Qualified Code(s): J43.1 - Panlobular emphysema Condition: Stable Prescriptions: New doxycycline hyclate 100 mg tablet 100 mg PO BID 7 Days Qty: 14 0RF methylprednisolone [Medrol (Luis A)] 4 mg tablets,dose pack See Rx Instructions .ROUTE .COMPLEX Qty: 21 0RF Rx Instructions: orally per package directions Continued ipratropium-albuterol 0.5 mg-3 mg(2.5 mg base)/3 mL Solution For Nebulization 3 ml INHALATION Q6H PRN (Reason: Shortness Of Breath Or Wheezing) Qty: 60 0RF No Action tamsulosin 0.4 mg capsule 0.4 mg PO DAILY@08 albuterol sulfate 90 mcg/actuation HFA aerosol inhaler 2 puff INHALATION Q4H PRN (Reason: Shortness Of Breath Or Wheezing) budesonide-formoterol [Symbicort] 80-4.5 mcg/actuation HFA aerosol inhaler 1 puff INHALATION BID metoprolol tartrate 25 mg Tablet 25 mg PO BID@0900,2100 Qty: 60 0RF sucralfate 100 mg/mL suspension 10 ml PO BID Rx Instructions: before meals and bedtime quinine-vitamin E Capsule 1 - 2 cap PO Q6H PRN (Reason: LEG CRAMPS) aspirin 81 mg Tablet,Delayed Release (Dr/Ec) 81 mg PO DAILY Qty: 30 0RF atorvastatin 40 mg Tablet 40 mg PO BEDTIME Qty: 30 0RF acetaminophen 500 mg Tablet 500 - 1,000 mg PO Q6H PRN (Reason: Pain) pantoprazole 40 mg tablet,delayed release (DR/EC) 40 mg PO DAILY@08 midodrine 5 mg Tablet 5 mg PO BID Rx Instructions: do not give last dose of day after 6PM or within 4 hrs of bedtime Discharge Orders: Discharge ED (Routine); Ordered 12/30/23 Ordered By: Jignesh Webb Referrals: Joe Carrillo, [Primary Care Provider] - 1-3 days Patient Instructions: COPD (Chronic Obstructive Pulmonary Disease) (ED), Opioid Safety, Pain Management Activity Restrictions/Additional Instructions: Use the DuoNeb treatments every 6 hours while awake for the first 48 hours whether you are short of breath or not, then as needed following that. Stay on your home 4 L at all times while you are ill. Other medications as directed. Return for worsening shortness of breath despite treatment, fever despite 2-3 doses of antibiotics, other concerning symptoms. See your doctor next week. Coding Level of Care Code ED Chief Inspector for Liv Vega
[2023-12-30 00:50] LABS: Covid PCR NEGATIVE (Negative); Influenza A NEGATIVE (Negative); Influenza B NEGATIVE (Negative); Respiratory Syncytial Virus Ce NEGATIVE (Negative)
[2023-12-30 00:55] VITALS: BP 105/48; PULSE 62; RESP 22; O2SAT 97
[2023-12-30 03:11] VITALS: BP 97/54; PULSE 56; RESP 20; O2SAT 98
== END 2023-12-30 03:13 | disposition home or self-care (01) ==
PROVIDERS: Emergency Provider Emergency Medicine; PCP Family Medicine
DX: J96.11 Chronic respiratory failure with hypoxia (principal); Z99.81 Dependence on supplemental oxygen; Z72.0 Tobacco use; J43.1 Panlobular emphysema; Z11.52 Encounter for screening for COVID-19; Z79.82 Long term (current) use of aspirin; I11.0 Hypertensive heart disease with heart failure; I50.9 Heart failure, unspecified
CPT/HCPCS: 0241U; 36415; 36600; 71045; 80053; 82805; 83605; 83880; 85025; 85610; 87040; 94640; 96374; 99284; J2543; J7030

== ENCOUNTER → 2024-01-03 14:18 | Outpatient (BNVA) | payer MEDICARE, BC, SELFPAY | PROVIDERS: PCP Family Medicine; Visit Provider Internal Medicine Cardiovascular Disease | DX: I25.118 Atherosclerotic heart disease of native coronary artery with other forms of angina pectoris (principal); Z79.01 Long term (current) use of anticoagulants; R06.02 Shortness of breath; Z45.010 Encounter for checking and testing of cardiac pacemaker pulse generator [battery]; I50.33 Acute on chronic diastolic (congestive) heart failure; I48.11 Longstanding persistent atrial fibrillation; E78.2 Mixed hyperlipidemia; I71.43 Infrarenal abdominal aortic aneurysm, without rupture; I07.1 Rheumatic tricuspid insufficiency; F17.200 Nicotine dependence, unspecified, uncomplicated | CPT/HCPCS: 99204 ==

== ENCOUNTER 2024-01-04 16:05 | Outpatient (CLI) | payer MEDICARE, BC, SELFPAY ==
[2024-01-04 16:31] LABS: Basophils % 0.4 %; Eosinophils % 0.3 %; Hematocrit 39.1 % (37-53); Lymphocytes # 1.2 10^3/uL (0.8-4.8); Lymphocytes % 16.2 %; Mean Corpuscular Hemoglobin 28.2 pg (27-33); Mean Corpuscular Volume 88.1 fl (82-101); Mean Platelet Volume 11.3 fL (7.4-10.4); Monocytes # 0.7 10^3/uL (0.2-0.9); Monocytes % 9.3 %; Neutrophils # 5.41 10^3/uL (1.8-7.7); Neutrophils % 72.9 %; Nucleated Red Blood Cells % 0 %; Platelet Count 236 10^3/cmm (157-399); Red Blood Count 4.44 10^6/uL (3.85-5.65); Red Cell Distribution Width 18.2 % (12.1-15.1); White Blood Count 7.42 10^3/uL (3.29-11.43)
[2024-01-04 16:57] LABS: Anion Gap 15.7 (5-19); Blood Urea Nitrogen 27 mg/dL (8-23); Carbon Dioxide 33 mmol/L (22-29); Chloride 99 mmol/L (98-107); Glucose 126 mg/dL (65-115); Osmolality Calculated 301 mOsm/kg (285-295); Potassium 5.7 mmol/L (3.5-5.1); Sodium 142 mmol/L (136-145)
== END 2024-01-04 16:06 | disposition home or self-care (01) ==
PROVIDERS: PCP Family Medicine; Visit Provider Internal Medicine Cardiovascular Disease
DX: I25.118 Atherosclerotic heart disease of native coronary artery with other forms of angina pectoris (principal); R06.02 Shortness of breath; Z79.01 Long term (current) use of anticoagulants
CPT/HCPCS: 80048; 85025; 85610; 86850; 86900

== ENCOUNTER 2024-01-07 07:29 | Outpatient (CLI) | payer MEDICARE, BC, SELFPAY ==
[2024-01-07] VITALS (15 sets, daily range): BP systolic 88–130; BP diastolic 55–68; PULSE 60–91; RESP 8–24; TEMP 36.4–37; O2SAT 91–98; BMI 21.3
--- NOTE | 2024-01-07 08:08 | W.PM.OPSUD ---
Surgery/Procedure H&P Update DATE OF PROCEDURE: January 25, 2024 DATE H&P PERFORMED: 01/03/24 H&P UPDATE INFORMATION: I have reviewed H&P completed within last 30 days, I have examined patient prior to procedure and No changes to prior documentation PREOP DIAGNOSIS: Pacemaker CK PRIMARY INDICATION FOR PROCEDURE: Pacemaker CK/symptomatic bradycardia PLANNED PROCEDURE: Operation Date: 01/07/24 08:30 Proposed Procedures p Pacemaker Generator Change - REM/REP Dual PPM(Not Applicable) - Vinod Rabago MD PATIENT REASSESSED PRIOR TO SEDATION, WITH NO CHANGE NOTED: Yes PHYSICAL EXAM: alert, oriented x 3 and clear to auscultation bilaterally AIRWAY EVAL/ANESTHESIA PLAN: normal airway, see other exam findings, ASA III, Monitored Anesthesia, Local Anesthesia, Risks, benefits & alternatives of sedation and/or procedure discussed and Patient agrees to continue as planned
--- NOTE | 2024-01-07 11:03 | PC.NURSE ---
Pt transferred to 2nd Floor Pt transferred to 271 via bed at this time. Hand off report given to Ritika BREWSTER. Family at bedside. Pressure drsg intact to L subclavian, C/D/I.
--- NOTE | 2024-01-07 13:26 | P.OP_ITS ---
Operative Report Date of procedure: January 07, 2024 Surgeon: Vinod Rabago MD Procedure: PROCEDURE: PACEMAKER REVISION PREOPERATIVE DIAGNOSIS: Pacemaker elective replacement indication. POSTOPERATIVE DIAGNOSIS: Pacemaker elective replacement indication. ESTIMATED BLOOD LOSS: None COMPLICATIONS: None. BRIEF HISTORY: The patient is 83-year-old white male/female who had a permanent pacemaker implantation for symptomatic bradycardia/atrial fibrillation. The patient was found to have elective replacement indication, during routine office followup evaluation. For further management of patient's condition for the symp tomatic bradycardia, the patient required a pacemaker revision. The procedure was explained to the patient and and his family in detail with the risks and benefits. The risks of bleeding, hematoma, vascular injury, infection and other concomitant complications were explained in detail, which the patient understood well and consented to proceed. PROCEDURES PERFORMED: 1. Explantation of the old pacemaker generator. 2. Implantation of the new generator. The patient brought to the Cardiac Neurologist. The left side of the neck and the subclavian area were cleaned and draped in a sterile fashion. 1% Xylocaine was used for local anesthetic agent. A 2 inch long incision was made just below the previous pacemaker scar. By sharp and blunt dissection, the pacemaker pocket was accessed. The old generator was delivered from the pocket. The generator was detached from the lead. The new Medtronic generator was attached to the lead. The pacemaker pocket was copiously irrigated with vancomycin solution. Complete hemostasis was achieved. The lead was positioned behind the generator and the generator was attached to the pectoralis fascia by suturing with 0 Surgilon. Sponge counts were confirmed. The pacemaker pocket was closed in layers. Skin was approximated using 4-0 Vicryl. EXPLANTED DEVICE: Pacemaker Generator: Brand: Ronald CUBA Model number: 2240. Serial number: [id number]. Date of implant: 01/19/2014 IMPLANTED DEVICES: Ventricular Lead: Date of implantation: 01/18/2007 Model number: 1888 TC/58 Serial number: [id number] Make: [employer]. Atrial lead Date of implantation: 01/18/2007 Model number: 1888 TC/52 Serial number: [id number] Make: [employer] Implanted Generator: Date of implantation : 01/07/2024 Brand: Ronald GARCÍA. Model number: [id number] Serial number: [id number] Make: [employer] Stimulation Threshold: The ventricular sensing was 6.3 millivolts. Ventricular lead impedance was 400 ohms and the pacing threshold was 1.25 volts at 0.5 milliseconds. The atrial sensing was 1.8 millivolts. Atrial lead impedance was 360 ohms and the pacing threshold was was not obtained since the patient is in atrial fibrillation The pacemaker was set for VVIR mode with an upper rate of 120 and a lower rate of 60. A pressure dressing was applied over the pacemaker site. The patient was transferred back to medical floor in stable condition. Sponge counts were correct.
[2024-01-07] MEDS: ceFAZolin 2,000 mg SDV 2000 MG IVP ×2 (14:40→22:57)
[2024-01-07] MEDS: albuterol 2.5 mg/3 mL Neb INHALATION ×2 (15:50→19:38)
[2024-01-07] MEDS: sodium chloride 0.9% 1,000 ML 75 ML IV (17:57)
[2024-01-07] MEDS: sucralfate 1 gm/10 mL Oral Liq UDC PO (17:58)
[2024-01-07] MEDS: midodrine 5 mg TABLET PO (17:58)
[2024-01-07] MEDS: budesonide 0.5 mg/2 mL Neb INHALATION (19:38)
[2024-01-07] MEDS: metoprolol tartrate 25 mg Tablet PO (21:28)
[2024-01-07] MEDS: atorvastatin 40 mg Tablet PO (21:28)
[2024-01-08] VITALS (7 sets, daily range): BP systolic 98–117; BP diastolic 52–65; PULSE 60–72; RESP 15–18; TEMP 36.4–37.3; O2SAT 94–97
--- NOTE | 2024-01-08 02:46 | PC.NURSE ---
pt shabazz episode of 17 beats of Vtach, asymptomatic, denied chest pain or SOB, call placed to Dr. Rabago
[2024-01-08] MEDS: acetaminophen 500 mg Tablet PO (05:16)
--- NOTE | 2024-01-08 06:00 | ECG_ITS ---
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[id number] Requested By: Vinod Rabago Order Number: [id number] Reading MD: HERNESTO KELLY Measurements Intervals Ellis Rate: 61 P: 127 TN: 248 QRS: 39 QRSD: 152 T: 0 QT: 429 QTc: 435 Interpretive Statements ELECTRONIC VENTRICULAR PACEMAKER -- CONTOUR ANALYSIS BASED ON INTRINSIC RHYTHM INTRAVENTRICULAR CONDUCTION DELAY [130+ ms QRS DURATION] Compared to ECG 08/21/2023 14:23:02 Intraventricular conduction delay now present Electronically Signed On 01-09-2024 18:16:03 APPLICATION SPEC by HERNESTO KELLY [email or web address]
[2024-01-08] MEDS: ceFAZolin 2,000 mg SDV 2000 MG IVP (06:18)
[2024-01-08] MEDS: sodium chloride 0.9% 1,000 ML 75 ML IV (06:19)
--- NOTE | 2024-01-08 08:15 | P.PN_ITS ---
Subjective 2 Subjective: Patient had the pacemaker revision yesterday. He had an uneventful postprocedure course. No hematoma bleeding from the pacemaker site. The pacemaker was interrogated today. Function was found to be appropriate. Medications: Medication Review Details: Current Medications Acetaminophen (Acetaminophen 500 Mg Tablet) 500 - 1,000 mg PO Q6H PRN PRN Reason: Pain Last Admin: 01/08/24 05:16 Dose: 1,000 mg Albuterol Sulfate (Albuterol 2.5 Mg/3 Ml Neb) 2.5 mg INHALATION Q4H PRN PRN Reason: Shortness Of Breath Or Wheezing Albuterol Sulfate (Albuterol 2.5 Mg/3 Ml Neb) 2.5 mg INHALATION QID.RESPIRATORY [facility] Last Admin: 01/07/24 19:38 Dose: 2.5 mg Aspirin (Aspirin 81 Mg Ec Tablet) 81 mg PO DAILY [facility] Atorvastatin Calcium (Atorvastatin 40 Mg Tablet) 40 mg PO BEDTIME [facility] Last Admin: 01/07/24 21:28 Dose: 40 mg Budesonide (Budesonide 0.5 Mg/2 Ml Neb) 0.5 mg INHALATION BID.RESPIRATORY RAJEEV Last Admin: 01/07/24 19:38 Dose: 0.5 mg Sodium Chloride (Sodium Chloride 0.9%) 1,000 mls @ 75 mls/hr IV .[id number] [facility] Last Admin: 01/08/24 06:19 Dose: 75 mls/hr Metoprolol Tartrate (Metoprolol Tartrate 25 Mg Tablet) 25 mg PO BID@0900,2100 [facility] Last Admin: 01/07/24 21:28 Dose: 25 mg Midodrine (Midodrine 5 Mg Tablet) 5 mg PO BID RAJEEV Last Admin: 01/07/24 17:58 Dose: 5 mg Pantoprazole Sodium (Pantoprazole Dr 40 Mg Tablet) 40 mg PO DAILY@08 [facility] Potassium Chloride (Potassium Chloride Er 10 Meq Tablet) 10 meq PO DAILY [facility] Sucralfate (Sucralfate 1 Gm/10 Ml Oral Liq Udc) 1 gm PO BID [facility] Last Admin: 01/07/24 17:58 Dose: 1 gm Tamsulosin HCl (Tamsulosin 0.4 Mg Capsule) 0.4 mg PO DAILY@08 [facility] Vitals/I&O/Wt Last Vital Signs Temp 97.6 F 01/08/24 07:37 Pulse 61 01/08/24 07:37 Resp 17 01/08/24 07:37 BP 117/65 01/08/24 07:37 Pulse Ox 97 01/08/24 07:37 O2 Del Method Nasal Cannula 01/08/24 07:37 O2 Flow Rate 4 01/08/24 07:37 01/07/24 01/08/24 01/08/24 22:59 06:59 14:59 Intake Total 480 / 480 1167.5 / 1647.5 Output Total 150 / 150 375 / 525 Balance 330 / 330 792.5 / 1122.5 Weight last 48 hrs Weight 143 lb 9.6 oz Weight 143 lb 4 oz Weight 166 lb Physical Exam 2 Narrative: GENERAL: The patient is alert and oriented times three. Not in any acute distress. HEENT: No significant pallor, icterus or lymphadenopathy.Oral cavity: There are no mucous membrane lesions. NECK: Trachea appears to be central. No masses noted. No JVD or thyromegaly appreciated. RESPIRATORY: Chest is symmetrical. No intercostals muscle retraction or any accessory muscle activation. There is no chest wall tenderness. Breath sounds are heard bilaterally. No rales or rhonchi heard. No evidence of any consolidation. BREASTS: Deferred. HEART: The heart sounds are normal. No S3 or S4. No significant murmurs. No pericardial rub ABDOMEN: No vessel pulsations or distention. No tenderness. No organomegaly appreciated. Bowel sounds are normally heard. : Deferred. RECTAL: Deferred. LYMPHATIC: No lymphadenopathy noted in the neck. EXTREMITIES: No edema or cyanosis. No clubbing. MUSCULOSKELETAL: No acute joint deformities or swelling SKIN: There are no significant rashes or ecchymosis NEUROPSYCHIATRIC: The patient is alert and oriented x3. Appears to be in a good mood. No tremors or rigidity noted. Data 01/08/24 08:48 A&P Assessment and plan (1) Pacemaker at end of battery life: Status post pacemaker revision, currently pacemaker function is appropriate. (2) Chronic diastolic heart failure: Currently compensated (3) Severe tricuspid regurgitation: Stable with no specific symptoms (4) Chronic atrial fibrillation with rapid ventricular response: Patient is not able to tolerate oral anticoagulant. He is on antiplatelet drug. (5) Mixed dyslipidemia: Continue on the current management (6) CAD (coronary artery disease): Clinically stable with no specific symptoms. Qualifiers: Coronary Disease-Associated Artery/Lesion type: soboba artery [place] vs. transplanted heart: soboba heart Associated angina: without angina Qualified Code(s): I25.10 - Atherosclerotic heart disease of soboba coronary artery without angina pectoris Plan Send the patient remained stable with no new symptoms, he is being discharged home today. Advised to continue on the above medications. He also is advised to take Keflex 500 milligrams by mouth every six hours for five days; multivitamin one tablet by mouth daily for two weeks; Hydrocodone/ Patient will be coming back to the office next week for a wound check and pacemaker interrogation. In the event of the patient developing any unusual pain, swelling or bleeding at the pacemaker site, is instructed to call us or come back to the hospital. Patient will be taking the antibiotics and the multivitamins as instructed. May continue taking the other medications as below. Attestations 2 Medical Necessity Statement*: Patient is being discharged today. Coding Level of Care Code 90689 Diagnoses Pacemaker at end of battery life Z45.010 Chronic diastolic heart failure I50.32 Severe tricuspid regurgitation I07.1 Chronic atrial fibrillation with rapid ventricular response I48.20 Mixed dyslipidemia E78.2 Coronary artery disease involving soboba coronary artery of soboba heart without angina pectoris I25.10 Coronary Disease-Associated Artery/Lesion type: soboba artery [place] vs. transplanted heart: soboba heart Associated angina: without angina
[2024-01-08] MEDS: budesonide 0.5 mg/2 mL Neb INHALATION (08:30)
[2024-01-08] MEDS: albuterol 2.5 mg/3 mL Neb INHALATION ×2 (08:31→12:06)
[2024-01-08 09:28] LABS: Anion Gap 10.2 (5-19); Blood Urea Nitrogen 21 mg/dL (8-23); Calcium 8.3 mg/dL (8.5-10.5); Carbon Dioxide 32 mmol/L (22-29); Chloride 102 mmol/L (98-107); Creatinine Clr Calc Pharmacy 64.4575; Glucose 138 mg/dL (65-115); Osmolality Calculated 297 mOsm/kg (285-295); Potassium 3.2 mmol/L (3.5-5.1); Sodium 141 mmol/L (136-145)
[2024-01-08] MEDS: metoprolol tartrate 25 mg Tablet PO (09:30)
[2024-01-08] MEDS: aspirin 81 mg EC Tablet PO (09:30)
[2024-01-08] MEDS: potassium chloride ER 10 mEq Tablet PO (09:30)
[2024-01-08] MEDS: pantoprazole DR 40 mg Tablet PO (09:30)
[2024-01-08] MEDS: sucralfate 1 gm/10 mL Oral Liq UDC PO (09:30)
[2024-01-08] MEDS: midodrine 5 mg TABLET PO (09:30)
[2024-01-08] MEDS: tamsulosin 0.4 mg Capsule PO (09:30)
--- NOTE | 2024-01-08 09:53 | PC.CHAP ---
Pastoral Care Encounter/Spiritual Assessment Type of Contact [] Declined performance test architect visit [] Patient/Family/Request visit [] Outpatient visit [] Follow-up visit [] Physician referral [] Code/Alert [x] Routine visit [] Staff referral [] Actively dying [] Patient sleeping [] Family support [] [] Out of room [] Palliative care [] [] Receiving care in room [] Pre-surgical visit [] Trauma [] Long length of stay [] ICU visit [] Other: Relational/Emotional Strength [x] Patient feels connected with others/family/visitors/staff [] Distress [] Loneliness/isolation [] Abandonment Spirituality of Patient [x] Person of Leticia [] Attends Restoration of their Leticia [x] Believes in Prayer [] Reads Bible or Baptist materials [] There are Spiritual issues to be addressed Grinding Wheel 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 Interventions [x] Prayer [x] Active listening [] Non-anxious presence [x] Spiritual/emotional support [] Crisis/trauma care [] Spiritual counseling [] Bereavement support [] Provided bereavement packet [] Provided Bible/devotional materials [] Provided toy/stuffed animal, coloring book to patient or family member [] Provided Communion [] Anointing/[place] [] Salvation [x] Completed spiritual assessment [] Other: Impact on Illness or Injury [] Angry [] Fearful [] Anxious [] Often cries [] Exhaustion [] Unable to work [] Unable to attend nondenominational [] Unable to walk/stand [] Unable to read [] Unable to drive [] Unable to eat/drink [] Unable to sleep [] Unable to be with family [] Patient intubated [] Other: Summary Time spent with patient 5 min
--- NOTE | 2024-01-08 12:42 | PC.NURSE ---
Called report to KUMAR Rock at [facility]. Stated medications have been sent to their Pharmacy.
== END 2024-01-08 16:50 | disposition home or self-care (01) ==
LOC: CCL 07:40 → MEDSURG 01-08 08:51
PROVIDERS: Nurse Practitioner Family; Visit Provider Internal Medicine Cardiovascular Disease
DX: Z45.010 Encounter for checking and testing of cardiac pacemaker pulse generator [battery] (principal); I50.32 Chronic diastolic (congestive) heart failure; I07.1 Rheumatic tricuspid insufficiency; I48.20 Chronic atrial fibrillation, unspecified; E78.2 Mixed hyperlipidemia; I25.10 Atherosclerotic heart disease of native coronary artery without angina pectoris; J44.9 Chronic obstructive pulmonary disease, unspecified; N40.0 Benign prostatic hyperplasia without lower urinary tract symptoms; F17.200 Nicotine dependence, unspecified, uncomplicated
CPT/HCPCS: 33228; 36415; 80048; 93005; 94640; 97165; 99152; 99153; A4216; C1769; J0690; J2250; J3010; J3370; J7030; J7050; J7613; J7626

== ENCOUNTER → 2024-02-08 09:37 | Outpatient (BNVA) | payer MEDICARE, BC, SELFPAY | PROVIDERS: Visit Provider Nurse Practitioner Family | DX: Z95.0 Presence of cardiac pacemaker (principal); I48.11 Longstanding persistent atrial fibrillation; I10 Essential (primary) hypertension | CPT/HCPCS: 99214 ==

== ENCOUNTER 2024-03-06 06:40 | Emergency (ER) | payer MEDICARE, BC, SELFPAY ==
[2024-03-06 06:42] VITALS: BP 94/47; PULSE 60; RESP 18; TEMP 36.8; O2SAT 88; BMI 23.7
--- NOTE | 2024-03-06 06:55 | XRR_ITS ---
PROCEDURE INFORMATION: Exam: XR Lumbosacral Spine Exam date and time: 03/06/2024 7:10 AM Age: 83 years old Clinical indication: Injury or trauma; Fall; Blunt trauma (contusions or hematomas); Additional info: Fall back pain TECHNIQUE: Imaging protocol: Radiologic exam of the lumbosacral spine. Views: 2 or 3 views. COMPARISON: CT angio chest w abd pel w con 01/09/2023 2:40 PM FINDINGS: Bones/joints: Disc space narrowing and spurring L4 through S1. Anatomic alignment. No lytic or sclerotic bone lesion. Prior surgery at L4-L5. Right hip replacement. No acute fracture. Normal alignment. Soft tissues: Unremarkable. Vasculature: IVC filter.. XR/XR lumbar spine 2-3V* [id number] IMPRESSION: Lower lumbar degenerative changes.
--- NOTE | 2024-03-06 06:56 | XRR_ITS ---
PROCEDURE INFORMATION: Exam: XR Thoracic Spine Exam date and time: 03/06/2024 7:10 AM Age: 83 years old Clinical indication: Injury or trauma; Fall; Blunt trauma (contusions or hematomas); Additional info: Fall back pain TECHNIQUE: Imaging protocol: Radiologic exam of the thoracic spine. Views: 3 views. COMPARISON: CR XR lumbar spine 2-3V* [id number] 03/06/2024 7:10 AM FINDINGS: Bones/joints: Multilead pacemaker/defibrillator. Mild multilevel marginal spurring. No fracture or dislocation. . No acute fracture. Normal alignment. Soft tissues: Unremarkable. XR/XR thoracic spine 3V* [id number] IMPRESSION: No acute findings.
--- NOTE | 2024-03-06 07:04 | XRR_ITS ---
PROCEDURE INFORMATION: Exam: XR Chest Exam date and time: 03/06/2024 7:22 AM Age: 83 years old Clinical indication: Injury or trauma; Fall; Blunt trauma (contusions or hematomas) TECHNIQUE: Imaging protocol: Radiologic exam of the chest. Views: 1 view. COMPARISON: CR XR chest 1V portable [id number] 12/29/2023 11:47 PM FINDINGS: Tubes, catheters and devices: Two lead pacemaker/defibrillator. Lungs: Unremarkable. No consolidation. Pleural spaces: Unremarkable. No pleural effusion. No pneumothorax. Heart/Mediastinum: Unremarkable. No cardiomegaly. Bones/joints: Unremarkable. XR/XR chest 1V portable [id number] IMPRESSION: No acute cardiopulmonary disease.
--- NOTE | 2024-03-06 07:05 | CT_ITS ---
WS: [id number] CT HEAD TECHNIQUE: Noncontrast CT of the head obtained from the skullbase to the vertex. CLINICAL INFORMATION: fall COMPARISON: 08/21/2023 DLP: 1287.[address] scans at [facility] use at least one of these dose optimization techniques: automated e xposure control; mA and/or kV adjustment per patient size (includes targeted exams where dose is matc hed to clinical indication); or iterative reconstruction. FINDINGS: No evidence of intracranial hemorrhage or mass effect. Ventricular system and basal cisterns are gaines nt. Moderate small vessel changes with moderate parenchymal volume loss. No extra-axial fluid collect ions. No evidence of mass or mass effect. Vascular calcification. Chronic infarcst with encephalomala mark RIGHT frontal and RIGHT temporoparietal lobes. RIGHT frontal infarct is unchanged. RIGHT temporop arietal infarct appears progressed compared to 08/21/2023 but has a chronic appearance. Numerous tiny c hronic lacunar infarcts in the cerebellum. Vascular calcification. Additional chronic LEFT posterior temporal infarct with encephalomalacia. This appears unchanged. Bilateral maxillary sinusitis RIGHT greater than LEFT with air-fluid levels. Sphenoid sinusitis. Mas toid air cells are well aerated. Normal posterior nasopharynx. CT/CT head wo con* [id number] IMPRESSION: 1. No evidence of intracranial hemorrhage or mass effect. 2. Chronic infarcts in the RIGHT frontal and RIGHT temporal parietal lobes. RI GHT temporoparietal infarct appears progressed compared to 08/21/2023 but has a c hronic appearance. 3. Additional chronic LEFT posterior temporal infarct appears unchanged.a 4. Numerous tiny chronic lacunar infarcts in the cerebellum. 5. Paranasal sinusitis.
--- NOTE | 2024-03-06 07:05 | ECG_ITS ---
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 In Charge: : 1940 Requested By: Giovani Long Order Number: [id number] Reading MD: HERNESTO KELLY Measurements Intervals [place] Rate: 61 P: 0 DC: 0 QRS: 89 QRSD: 143 T: 163 QT: 442 QTc: 448 Interpretive Statements ATRIAL FIBRILLATION ELECTRONIC VENTRICULAR PACEMAKER -- CONTOUR ANALYSIS BASED ON INTRINSIC RHYTHM RIGHT BUNDLE BRANCH BLOCK [120+ ms QRS DURATION, UPRIGHT V1, 40+ ms S IN I/aVL/V4/V5/V6] MARKED T-WAVE ABNORMALITY, CONSIDER ANTEROLATERAL ISCHEMIA [-0.5+ mV T-WAVE IN I/aVL/V3-V6] MODERATE T-WAVE ABNORMALITY, CONSIDER INFERIOR ISCHEMIA [-0.1+ mV T-WAVE IN II/aVF] Compared to ECG 01/08/2024 06:50:24 Right bundle-branch block now present Electronically Signed On 03-07-2024 23:27:27 OPERATING ROOM TECHNOLOGIST by HERNESTO KELLY [id number]
[2024-03-06 07:50] LABS: Basophils % 0.4 %; Eosinophils # 0.1 10^3/uL (0.0-0.8); Eosinophils % 0.9 %; Hematocrit 35.8 % (37-53); Lymphocytes # 0.5 10^3/uL (0.8-4.8); Lymphocytes % 4.5 %; Mean Corpuscular HGB Conc 32.1 g/dL (30-55); Mean Corpuscular Hemoglobin 28.8 pg (27-33); Mean Corpuscular Volume 89.7 fl (82-101); Mean Platelet Volume 10.3 fL (7.4-10.4); Monocytes # 1.1 10^3/uL (0.2-0.9); Monocytes % 10.3 %; Neutrophils # 9.26 10^3/uL (1.8-7.7); Neutrophils % 83.5 %; Nucleated Red Blood Cells % 0 %; Platelet Count 196 10^3/cmm (157-399); Red Blood Count 3.99 10^6/uL (3.85-5.65); White Blood Count 11.08 10^3/uL (3.29-11.43)
[2024-03-06 08:12] LABS: Troponin(5th) Baseline 121 ng/L (0-15)
[2024-03-06 08:19] VITALS: BP 100/53; O2SAT 98
[2024-03-06 08:22] LABS: Alanine Aminotransferase 8 U/L (0-41); Albumin Level 3.7 g/dL (3.5-5.2); Alkaline Phosphatase 86 U/L (40-130); Aspartate Amino Transferase 15 U/L (0-40); Blood Urea Nitrogen 26 mg/dL (8-23); Calcium 8.8 mg/dL (8.5-10.5); Carbon Dioxide 31 mmol/L (22-29); Chloride 99 mmol/L (98-107); Creatinine Clr Calc Pharmacy 54.6817; Globulin 3.2 g/dL (1.3-4.6); Glucose 112 mg/dL (65-115); Osmolality Calculated 300 mOsm/kg (285-295); Sodium 142 mmol/L (136-145); Total Bilirubin 0.7 mg/dL (0.15-1.2); Total Protein 6.9 g/dL (6.6-8.7)
--- NOTE | 2024-03-06 08:23 | ED_ITS ---
HPI - Fall 2 General: Chief Complaint: Fall Stated Complaint: fall Time Seen by Provider: 03/06/24 07:42 History of Present Illness: Patient presents emergency department complaining he fell at home.Patient states that he woke up at about 6:00 in the morning. He states he was walking to the table. He does not remember falling however why he fell. He states he does not have a headache and does not think he hit his head. He states he has some pain in his low and mid back after the fall but no other injury other than some abrasions. He states his tetanus is up-to-date. He denies any fever or recent illness. No headache. No chest pain or palpitations or shortness of breath. Denies any new cough. He states he is on oxygen at home. No abdominal pain vomiting or diarrhea. No black or bloody stools. He does not know if he is on a blood thinner but medications he takes. He states he lives at home on his own. He states that he does not remember falling but knows that it was about 6:00 this morning. He does not think he was on the floor for very long. He denies any focal numbness weakness or tingling in his arms or legs except for he states that his right leg does not work because he has had a prior stroke. He states his right leg has not worked for a long time. No abdominal pain. No change in urination. No nasal congestion. He states he feels fine other than some mild discomfort in his mid low back from the fall. Patient's xpkcukan-pb-owm arrived and states that it is not unusual for him to not recall events that she is falling this morning. The patient is fully alert and oriented. Patient seems improved after IV fluid bolus and Tylenol. Patient has clear mentation. He Is requesting discharge back to assisted living. I advised patient clear cause for his fever and fall is not found in discussed admission to the hospital for further observation and evaluation for cause of the fever and his fall. The patient thanks me but he states that his lkdurvmv-dx-avs can check on him and he is requesting discharge home. He states he does not need to be in the hospital.Patient shows capacity. He is fully alert and oriented and understands limits of ED evaluation and treatment. Advised risk of progression of illness and worsening. Patient has no cough to suggest occult pneumonia. I have reexamined his abdomen and he still has no abdominal pain and no abdominal tenderness to suggest intra-abdominal infection. Per patient request will discharge home. Patient family states he did have pacemaker replacement about 2 weeks ago. Bacteremia would be less likely in this delayed fashion. The pacemaker site is well-appearing and appears well-healed.Patient does have artificial hip according to the nrxpcjve-tl-fbf however patient has no pain in his hip or pain with ambulation. The patient insist that he will be fine and is up walking in the hallway. He walks up and down the hallway briskly with his walker. He states he feels fine and he wants to go. Ivwfprvm-id-hco states that he does drink alcohol from time to time and she was not surprised that he did not recall his fall as she states that is not unusual for him. I discussed with her my concerns regarding no clear source for the fever and his unknown episode this morning. She states he is at assisted living and they do have nurses that round and administer medication. I recommended frequent checks on him and communication with nursing to make sure patient has Tylenol as needed to help reduce fever and confusion as directed and advised signs of worsening to watch and return for and pending blood cultures and broad differential limits of ED evaluation. I discussed potential for occult bacteremia. Advised immediate return if any change in his condition or he changes his mind for any reason. Related Data Home Medications Medication Instructions Recorded Confirmed albuterol sulfate 90 mcg/actuation 2 puff inhalation Q4H PRN 01/09/23 03/06/24 aerosol inhaler Shortness Of Breath Or Wheezing budesonide-formoterol HFA 80 1 puff inhalation BID 01/09/23 03/06/24 mcg-4.5 mcg/actuation aerosol inhaler (Symbicort) tamsulosin 0.4 mg capsule 0.4 mg PO DAILY@01/09/23 03/06/24 acetaminophen 500 mg tablet 500 - 1,000 mg PO Q6H PRN Pain 02/09/23 03/06/24 pantoprazole 40 mg tablet,delayed 40 mg PO DAILY@02/09/23 03/06/24 release sucralfate 100 mg/mL oral 10 ml PO BID 03/06/23 03/06/24 suspension midodrine 5 mg tablet 5 mg PO BID 05/17/23 03/06/24 potassium chloride 10 mEq 10 meq PO DAILY 01/03/24 03/06/24 tablet,extended release(part/cryst) lorazepam 0.5 mg tablet 0.5 mg PO TID PRN Anxiety 03/06/24 03/06/24 quinine-vitamin E capsule 1 - 2 cap PO Q6H PRN leg cramps 03/06/24 03/06/24 Previous Rx's Medication Instructions Recorded metoprolol tartrate 25 mg tablet 25 mg PO BID@0900,2100 #60 tabs 01/16/23 aspirin 81 mg tablet,delayed 81 mg PO DAILY #30 tabs 08/22/23 release atorvastatin 40 mg tablet 40 mg PO BEDTIME #30 tabs 08/22/23 ipratropium 0.5 mg-albuterol 3 mg 3 ml inhalation Q6H PRN Shortness 12/30/23 (2.5 mg base)/3 mL nebulization Of Breath Or Wheezing #60 mL soln Allergies Allergy/AdvReac Type Severity Reaction Status Date / Time No Known Allergies Allergy Verified 03/06/24 06:47 [facility] ED 2 PFSH: Medical History Stroke Abnormal stress test Anemia Acute respiratory failure with hypoxia and hypercapnia Anemia Pneumonia Mixed dyslipidemia Atrial fibrillation Patient has a history of severe GI bleed. For that reason, he is not on any oral anticoagulant GI bleed GERD without esophagitis Chronic hypoxic respiratory failure Lives in assisted living facility Acute hypernatremia Pneumonia Pulmonary hypertension Paroxysmal atrial fibrillation with RVR Hypoxia MENDOZA (dyspnea on exertion) Acute exacerbation of chronic obstructive pulmonary disease Congestive heart failure Malnutrition of moderate degree Hyperkalemia Fall Troponin level elevated Acute hyponatremia BPH (benign prostatic hyperplasia) Orthostatic hypotension Chronic anticoagulation Paroxysmal A-fib Nocturnal hypoxia COPD (chronic obstructive pulmonary disease) Social History Smoking and tobacco/nicotine status: current every day tobacco/nicotine user Marital status: Single Physical Exam 2 Narrative: EXAM NARRATIVE: Patient is sitting up alert and oriented. He is moving his neck freely. No visible trauma to his head. His neck is supple. No cervical motion tenderness. No focal vertebral tenderness over the back. No chest wall tenderness. Lung sounds are mildly diminished bilaterally but no crackles. Heart regular rhythm. Abdomen soft nontender with no guarding or rebound. Patient has some skin tears on his right elbow and left leg. No bony tenderness. He moves his elbow and leg freely and states he does not have anything broken. No CVA tenderness. Patient is oriented to person place and time. He can tell me the year or month and day of the week. Course 2 Vital Signs: Vital signs: Vital Signs Temperature 102.0 F H 03/06/24 08:28 Pulse Rate 62 03/06/24 14:36 Respiratory Rate 18 03/06/24 06:42 Blood Pressure 130/72 03/06/24 14:36 Pulse Oximetry 95 03/06/24 14:36 Oxygen Delivery Me thod Room Air 03/06/24 06:42 MDM - Fall Medical Decision Making Patient presents after ground-level fall. X-ray did lumbar and thoracic spine plain film with low pretest probability based on exam and history. No fracture or acute process per radiology. Patient however found to have a fever. I treated his fever with Tylenol. Patient does not recall the fall and certainly concern for syncope. Seizure, syncope, fall with loss of consciousness, broad differential. Patient has no focal deficits here that he states are new. He states his right leg weakness is chronic. I ordered CT of the head and chest x- ray to evaluate for pneumonia. Chest x-ray was negative for acute process and CT of the head negative for acute process per radiology other than showing chronic strokes and paranasal sinusitis. COVID and influenza a influenza B and RSV test were ordered and these were negative. Urinalysis is ordered but he has not been able to provide urine specimen. Creatinine returned elevated compared to prior creatinine. Patient given 1 L normal saline IV fluid bolus. Blood cultures were ordered. CBC CMP troponin and lactic were ordered. Lactic was 1.2. Troponin was elevated however delta troponin was not significant elevated Combined with low pretest probability as patient denies any chest pain or chest discomfort.Patient EKG to my interpretation shows paced rhythm with a rate of [address] segment changes. Lab Data 03/06/24 07:45 03/06/24 07:45 Radiology Impressions Lumbar Spine X-Ray 03/06/24 06:55 IMPRESSION: Lower lumbar degenerative changes. Thoracic Spine X-Ray 03/06/24 06:56 IMPRESSION: No acute findings. Chest X-Ray 03/06/24 07:04 IMPRESSION: No acute cardiopulmonary disease. Head CT 03/06/24 07:05 IMPRESSION: 1. No evidence of intracranial hemorrhage or mass effect. 2. Chronic infarcts in the RIGHT frontal and RIGHT temporal parietal lobes. RIGHT temporoparietal infarct appears progressed compared to 08/21/2023 but has a chronic appearance. 3. Additional chronic LEFT posterior temporal infarct appears unchanged.a 4. Numerous tiny chronic lacunar infarcts in the cerebellum. 5. Paranasal sinusitis. Laboratory Results WBC 11.08 10^3/uL (3.29-11.43) 03/06/24 07:45 RBC 3.99 10^6/uL (3.85-5.65) 03/06/24 07:45 Hgb 11.50 g/dL (11.27-16.99) 03/06/24 07:45 Hct 35.8 % (37-53) L 03/06/24 07:45 MCV 89.7 fl (82-101) 03/06/24 07:45 MCH 28.8 pg (27-33) 03/06/24 07:45 MCHC 32.1 g/dL (30-55) 03/06/24 07:45 RDW 17.0 % (12.1-15.1) H 03/06/24 07:45 Plt Count 196 10^3/cmm (157-399) 03/06/24 07:45 MPV 10.3 fL (7.4-10.4) 03/06/24 07:45 Neut % (Auto) 83.5 % 03/06/24 07:45 Lymph % (Auto) 4.5 % 03/06/24 07:45 Imperial % (Auto) 10.3 % 03/06/24 07:45 Eos % (Auto) 0.9 % 03/06/24 07:45 Baso % (Auto) 0.4 % 03/06/24 07:45 Neut # (Auto) 9.26 10^3/uL (1.8-7.7) H 03/06/24 07:45 Lymph # (Auto) 0.5 10^3/uL (0.8-4.8) L 03/06/24 07:45 Imperial # (Auto) 1.1 10^3/uL (0.2-0.9) H 03/06/24 07:45 Eos # (Auto) 0.1 10^3/uL (0.0-0.8) 03/06/24 07:45 Baso # (Auto) 0.0 10^3/uL (0.0-0.1) 03/06/24 07:45 Nucleated RBC % (auto) 0 % 03/06/24 07:45 Nucleated RBCs # 0.0 /100WBC 03/06/24 07:45 Sodium 142 mmol/L (136-145) 03/06/24 07:45 Potassium 4.0 mmol/L (3.5-5.1) 03/06/24 07:45 Chloride 99 mmol/L (98-107) 03/06/24 07:45 Carbon Dioxide 31 mmol/L (22-29) H 03/06/24 07:45 Anion Gap 16.0 (5-19) 03/06/24 07:45 BUN 26 mg/dL (8-23) H 03/06/24 07:45 Creatinine 1.2 mg/dL (0.7-1.2) 03/06/24 07:45 GFR Calculation Not Reportable 03/06/24 07:45 Glucose 112 mg/dL (65-115) 03/06/24 07:45 Calculated Osmolality 300 mOsm/kg (285-295) H 03/06/24 07:45 Lactic Acid 1.2 mmol/L (0.5-2.2) 03/06/24 09:33 Calcium 8.8 mg/dL (8.5-10.5) 03/06/24 07:45 Total Bilirubin 0.7 mg/dL (0.15-1.2) 03/06/24 07:45 AST 15 U/L (0-40) 03/06/24 07:45 ALT 8 U/L (0-41) 03/06/24 07:45 Alkaline Phosphatase 86 U/L (40-130) 03/06/24 07:45 Troponin T Baseline 121 ng/L (0-15) H* 03/06/24 07:45 Troponin T 120 Minute 117.4 ng/L (0-15) H 03/06/24 09:33 Delta Troponin T -3.6 ABS# (0-10) L 03/06/24 09:33 Troponin T Hi Sens 6Hr 97.29 ng/L (0-15) H 03/06/24 13:39 Troponin T Hi Sens 6Hr Delta -23.71 ng/L (0-12) L 03/06/24 13:39 Total Protein 6.9 g/dL (6.6-8.7) 03/06/24 07:45 Albumin 3.7 g/dL (3.5-5.2) 03/06/24 07:45 Globulin 3.2 g/dL (1.3-4.6) 03/06/24 07:45 Urine Color Yellow (Yellow) 03/06/24 12:57 Urine Appearance Clear (CLEAR) 03/06/24 12:57 Urine pH 5.5 (5-7) 03/06/24 12:57 Ur Specific [place] 1.019 (1.005-1.030) 03/06/24 12:57 Urine Protein Negative (Negative) 03/06/24 12:57 Urine Glucose (UA) Negative (Normal) 03/06/24 12:57 Urine Ketones Trace (Negative) 03/06/24 12:57 Urine Blood Negative (Negative) 03/06/24 12:57 Urine Nitrate Negative (Negative) 03/06/24 12:57 Urine Bilirubin Negative (Negative) 03/06/24 12:57 Urine Urobilinogen 1.0 mg/dL (Negative) 03/06/24 12:57 Ur Leukocyte Esterase Trace (Negative) A 03/06/24 12:57 Urine RBC 0-2 /hpf (0-2) 03/06/24 12:57 Urine WBC 0-5 /hpf (0-5) 03/06/24 12:57 Ur Squamous Epith Cells 0-5 /hpf (0-5) 03/06/24 12:57 Amorphous Sediment Not Reportable 03/06/24 12:57 Urine Bacteria None seen /hpf (NONE) 03/06/24 12:57 Hyaline Casts 32.24 /lpf 03/06/24 12:57 Coronavirus (PCR) Negative (Negative) 03/06/24 08:45 Influenza A (PCR) Negative (Negative) 03/06/24 08:45 Influenza Type B (PCR) Negative (Negative) 03/06/24 08:45 RSV (PCR) Negative (Negative) 03/06/24 08:45 All radiology interpretation(s) finalized by discharge Discharge Plan Discharge Patient Disposition: Home Clinical Impression: Fever, Fall Condition: Stable Prescriptions: No Action potassium chloride 10 mEq tablet,ER particles/crystals 10 meq PO DAILY tamsulosin 0.4 mg capsule 0.4 mg PO DAILY@08 albuterol sulfate 90 mcg/actuation HFA aerosol inhaler 2 puff INHALATION Q4H PRN (Reason: Shortness Of Breath Or Wheezing) budesonide-formoterol [Symbicort] 80-4.5 mcg/actuation HFA aerosol inhaler 1 puff INHALATION BID metoprolol tartrate 25 mg Tablet 25 mg PO BID@0900,2100 Qty: 60 0RF sucralfate 100 mg/mL suspension 10 ml PO BID Rx Instructions: before meals and bedtime aspirin 81 mg Tablet,Delayed Release (Dr/Ec) 81 mg PO DAILY Qty: 30 0RF atorvastatin 40 mg Tablet 40 mg PO BEDTIME Qty: 30 0RF lorazepam 0.5 mg Tablet 0.5 mg PO TID PRN (Reason: Anxiety) Leg Cramp Relief Capsule 1 - 2 cap PO Q6H PRN (Reason: leg cramps ) acetaminophen 500 mg Tablet 500 - 1,000 mg PO Q6H PRN (Reason: Pain) pantoprazole 40 mg tablet,delayed release (DR/EC) 40 mg PO DAILY@08 midodrine 5 mg Tablet 5 mg PO BID Rx Instructions: do not give last dose of day after 6PM or within 4 hrs of bedtime ipratropium-albuterol 0.5 mg-3 mg(2.5 mg base)/3 mL Solution For Nebulization 3 ml INHALATION Q6H PRN (Reason: Shortness Of Breath Or Wheezing) Qty: 60 0RF Discharge Orders: Discharge ED (Routine); Ordered 03/06/24 Ordered By: Billy Olvera Activity Restrictions/Additional Instructions: Fall precautions. Monitor your temperature and take Tylenol [id number] as directed for fever. Do not drink alcohol. Please return if you develop confusion, abdominal pain, difficulty breathing more than normal, any worsening or concerns including increased weakness or any change of mind for any reason. Please follow-up on your test results with your doctor. Recheck with your doctor in the next 2 to 3 days. Coding Level of Care Code ED Power Ballast Machine Operator for Liv Vega
[2024-03-06 08:28] VITALS: TEMP 38.9
[2024-03-06] MEDS: acetaminophen 325 mg Tablet 650 MG PO (08:43)
[2024-03-06] MEDS: sodium chloride 0.9% 1,000 ML 999 ML IV ×2 (08:43→12:04)
--- NOTE | 2024-03-06 09:05 | ECG_ITS ---
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
[2024-03-06 09:43] LABS: Covid PCR NEGATIVE (Negative); Influenza A NEGATIVE (Negative); Influenza B NEGATIVE (Negative); Respiratory Syncytial Virus Ce NEGATIVE (Negative)
[2024-03-06 09:58] LABS: Lactic Sepsis W/Reflex 1.2 mmol/L (0.5-2.2)
[2024-03-06 10:01] LABS: Troponin 5 2HR 117.4 ng/L (0-15); Troponin 5 2HR Delta -3.6 ABS# (0-10)
[2024-03-06 11:47] VITALS: BP 130/70; PULSE 60; O2SAT 98
--- NOTE | 2024-03-06 12:36 | ECG_ITS ---
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
[2024-03-06 13:02] LABS: Bilirubin Urine Negative (Negative); Blood Urine Negative (Negative); Glucose Urine UA Negative (Normal); Ketones Urine Trace (Negative); Leukocyte Esterase Urine Trace (Negative); Nitrate Urine Negative (Negative); Protein Urine Negative (Negative); Specific Gravity, Urine 1.019 (1.005-1.030); Urine Appearance Clear (CLEAR); Urine Color Yellow (Yellow); pH Urine 5.5 (5-7)
[2024-03-06 13:06] LABS: Bacteria Urine None Seen /hpf; Hyaline Casts Urine 32.24 /lpf; RBC Urine 0-2 /hpf (0-2); Squamous Epithelial Cell Urine 0-5 /hpf (0-5); WBC Urine 0-5 /hpf (0-5)
[2024-03-06 13:07] VITALS: PULSE 62; O2SAT 94
[2024-03-06 13:23] LABS: Add Urine Culture? No; UA Slide Review UA Slide Review Perf
[2024-03-06 14:03] LABS: Troponin 5 6HR 97.29 ng/L (0-15)
[2024-03-06 14:05] LABS: Troponin 5 6HR Delta -23.71 ng/L (0-12)
[2024-03-06 14:36] VITALS: BP 130/72; PULSE 62; O2SAT 95
== END 2024-03-06 14:38 | disposition home or self-care (01) ==
PROVIDERS: Emergency Medicine; Emergency Provider Emergency Medicine
DX: F50.9 Eating disorder, unspecified (principal); W19.XXXA Unspecified fall, initial encounter; Z79.82 Long term (current) use of aspirin; Z11.52 Encounter for screening for COVID-19; Z72.0 Tobacco use; J44.9 Chronic obstructive pulmonary disease, unspecified; I11.0 Hypertensive heart disease with heart failure; I50.9 Heart failure, unspecified
CPT/HCPCS: 12345; 36415; 70450; 71045; 72072; 72100; 80053; 81001; 83605; 84484; 85025; 87040; 87637; 93005; 96360; 96361; 99285; J7030

== ENCOUNTER 2024-05-26 19:18 | Emergency (ER) | payer MEDICARE, BC, SELFPAY ==
[2024-05-26] VITALS (11 sets, daily range): BP systolic 68–114; BP diastolic 43–59; PULSE 61–111; RESP 20; TEMP 36.5; O2SAT 92–100; BMI 18.6
--- NOTE | 2024-05-26 19:24 | XRR_ITS ---
PROCEDURE INFORMATION: Exam: XR Chest Exam date and time: 05/26/2024 7:43 PM Age: 83 years old Clinical indication: Injury or trauma; Fall; Blunt trauma (contusions or hematomas); Prior surgery; Surgery date: 6+ months; Surgery type: Pacer; Additional info: Syncope TECHNIQUE: Imaging protocol: Radiologic exam of the chest. Views: 1 view. COMPARISON: CR XR chest 1V portable [id number] 03/06/2024 7:22 AM FINDINGS: Tubes, catheters and devices: Pacer device noted in the left chest wall. Lungs: Hyperinflated lungs. No consolidation. Pleural spaces: Unremarkable. No pleural effusion. No pneumothorax. Heart/Mediastinum: Unremarkable. No cardiomegaly. Bones/joints: Unremarkable. XR/XR chest 1V portable [id number] IMPRESSION: No acute findings.
--- NOTE | 2024-05-26 19:24 | ECG_ITS ---
[facility] Date: 2024-05-26 Pat Name: Krzysztof Tay Department: Room: Gender: Male Pourer Buggy Ladle: : 1940 Requested By: Shravan Davidson Order Number: [id number] Raphael MD: Gabriele Mello M.D. Measurements Intervals [place] Rate: 64 P: 0 NH: 0 QRS: 56 QRSD: 144 T: -34 QT: 439 QTc: 453 Interpretive Statements UNCERTAIN IRREGULAR RHYTHM ELECTRONIC VENTRICULAR PACEMAKER -- CONTOUR ANALYSIS BASED ON INTRINSIC RHYTHM INDETERMINATE AXIS RIGHT BUNDLE BRANCH BLOCK [120+ ms QRS DURATION, UPRIGHT V1, 40+ ms S IN I/aVL/V4/V5/V6] MARKED T-WAVE ABNORMALITY, CONSIDER ANTEROLATERAL ISCHEMIA [-0.5+ mV T-WAVE IN I/aVL/V3-V6] Compared to ECG 03/06/2024 12:36:19 Indeterminate axis now present Right bundle-branch block now present T-wave abnormality now present Possible ischemia now present Electronically Signed On 05-26-2024 22:22:13 CDT by Gabriele Mello M.D. [id number]
--- NOTE | 2024-05-26 19:24 | XRR_ITS ---
PROCEDURE INFORMATION: Exam: XR Right Knee Exam date and time: 05/26/2024 7:46 PM Age: 83 years old Clinical indication: Injury or trauma; Fall; Blunt trauma; Knee; Right TECHNIQUE: Imaging protocol: Radiologic exam of the right knee. Views: 3 views. COMPARISON: No relevant prior studies available. FINDINGS: Bones/joints: Generalized osseous demineralization. No acute fracture. Mild tricompartmental DJD of the knee. Soft tissues: Normal. XR/XR knee RT 3V* [id number] IMPRESSION: No acute findings.
[2024-05-26] MEDS: sodium chloride 0.9% 1,000 ML 999 ML IV (19:41)
--- NOTE | 2024-05-26 19:42 | W.ED.SYNCOPE ---
HPI - Syncope General: Chief Complaint: Syncope Stated Complaint: syncope, Fall Time Seen by Provider: 05/26/24 19:22 Source: patient and EMS Mode of arrival: EMS Limitations: no limitations History of Present Illness: 83-year-old male is here from assisted living is found on the floor after a syncopal event. Patient denies hitting his head he did hit his right knee he has an abrasion to his right knee he states he has hypotension at baseline was found to [facility] at the [facility]. He denies any pain anywhere he does have an abrasion to his right knee. Associated symptoms: Deny abdominal pain, chest pain, fever(s), headache(s) or nausea Related Data Home Medications ?Medication ?Instructions ?Recorded ?Confirmed albuterol sulfate 90 mcg/actuation 2 puff inhalation Q4H PRN 01/09/23 03/06/24 aerosol inhaler Shortness Of Breath Or Wheezing budesonide-formoterol HFA 80 1 puff inhalation BID 01/09/23 03/06/24 mcg-4.5 mcg/actuation aerosol inhaler (Symbicort) tamsulosin 0.4 mg capsule 0.4 mg PO DAILY@01/09/23 03/06/24 acetaminophen 500 mg tablet 500 - 1,000 mg PO Q6H PRN Pain 02/09/23 03/06/24 pantoprazole 40 mg tablet,delayed 40 mg PO DAILY@02/09/23 03/06/24 release sucralfate 100 mg/mL oral 10 ml PO BID 03/06/23 03/06/24 suspension midodrine 5 mg tablet 5 mg PO BID 05/17/23 03/06/24 potassium chloride 10 mEq 10 meq PO DAILY 01/03/24 03/06/24 tablet,extended release(part/cryst) lorazepam 0.5 mg tablet 0.5 mg PO TID PRN Anxiety 03/06/24 03/06/24 quinine-vitamin E capsule 1 - 2 cap PO Q6H PRN leg cramps 03/06/24 03/06/24 Previous Rx's ?Medication ?Instructions ?Recorded metoprolol tartrate 25 mg tablet 25 mg PO BID@0900,2100 #60 tabs 01/16/23 aspirin 81 mg tablet,delayed 81 mg PO DAILY #30 tabs 08/22/23 release atorvastatin 40 mg tablet 40 mg PO BEDTIME #30 tabs 08/22/23 ipratropium 0.5 mg-albuterol 3 mg 3 ml inhalation Q6H PRN Shortness 12/30/23 (2.5 mg base)/3 mL nebulization Of Breath Or Wheezing #60 mL soln Allergies Allergy/AdvReac Type Severity Reaction Status Date / Time No Known Allergies Allergy Verified 03/06/24 06:47 Review of Systems Const: Denies: fever(s), chills, body aches or change in appetite Eyes: Denies: blurry vision or eye discomfort ENMT: Denies: throat pain or dental pain Card: Reports: syncope; Denies: chest pain Resp: Denies: dyspnea GI: Denies: abdominal pain, nausea, vomiting or diarrhea Musc: Denies: neck pain or back pain Skin/Breast: Denies: rash Neuro: Denies: headache(s) PFSH ED PFSH: Medical History Stroke Abnormal stress test Anemia Acute respiratory failure with hypoxia and hypercapnia Anemia Pneumonia Mixed dyslipidemia Atrial fibrillation Patient has a history of severe GI bleed. For that reason, he is not on any oral anticoagulant GI bleed GERD without esophagitis Chronic hypoxic respiratory failure Lives in assisted living facility Acute hypernatremia Pneumonia Pulmonary hypertension Paroxysmal atrial fibrillation with RVR Hypoxia MENDOZA (dyspnea on exertion) Acute exacerbation of chronic obstructive pulmonary disease Congestive heart failure Malnutrition of moderate degree Hyperkalemia Fall Troponin level elevated Acute hyponatremia BPH (benign prostatic hyperplasia) Orthostatic hypotension Chronic anticoagulation Paroxysmal A-fib Nocturnal hypoxia COPD (chronic obstructive pulmonary disease) Social History Smoking and tobacco/nicotine status: current every day tobacco/nicotine user Marital status: Single Physical Exam Const: COMMON NORMALS: patient oriented x3 HENMT: COMMON NORMALS: normocephalic and atraumatic HEAD & SCALP: normocephalic and atraumatic Eye: COMMON NORMALS: conjunctivae normal CONJUNCTIVA: Yes conjunctivae normal Neck/C-Spine: COMMON NORMALS: full ROM and supple Chest: COMMONS NORMALS: normal inspection of the chest and normal palpation of entire chest wall Resp: COMMON NORMALS: normal respiratory effort, No retractions, No use of accessory muscles and clear to auscultation bilaterally AUSCULTATION: clear to auscultation bilaterally Cardio: COMMON NORMALS: regular rate, regular rhythm and No murmurs present (Cardio) RATE: regular rate RHYTHM: regular rhythm GI: COMMON NORMALS: Normal to inspection, nondistended, normoactive bowel sounds present, Soft to palpation, non-tender and no masses PALPATION: Yes Soft to palpation Extremity: COMMON NORMALS: full ROM Neuro: COMMON NORMALS: patient oriented x3, moves all extremities and no focal motor deficits Psych: COMMON NORMALS: mental status grossly normal, Normal thought process present and cooperative THOUGHT PROCESS: Normal thought process present Skin: COMMON NORMALS: no rashes or lesions noted NARRATIVE SKIN EXAM: skin tear to right knee GENERAL SKIN EXAM: no rashes or lesions noted Course Vital Signs: Vital signs: Vital Signs Temperature 97.7 F 05/26/24 19:26 Pulse Rate 62 05/26/24 21:00 Respiratory Rate 20 H 05/26/24 19:42 Blood Pressure 103/54 05/26/24 21:00 Pulse Oximetry 97 05/26/24 21:00 Oxygen Delivery Me thod Nasal Cannula 05/26/24 21:00 Oxygen Flow Rate 4 05/26/24 20:10 MDM - Syncope Medical Decision Making Patient presents here after syncopal event he does have some hypotension is improved here after IV fluids I did offer him admission but he adamantly states he does not want to be admitted to the hospital and would like to go back to the [facility] will discharge at this time. Medical Records I reviewed the patient's medical records. Lab Data I reviewed the patient's lab results. 05/26/24 19:30 05/26/24 19:30 Radiology Impressions Chest X-Ray 05/26/24 19:24 IMPRESSION: No acute findings. Knee X-Ray 05/26/24 19:24 IMPRESSION: No acute findings. Laboratory Results WBC 7.62 10^3/uL (3.29-11.43) 05/26/24 19:30 RBC 4.28 10^6/uL (3.85-5.65) 05/26/24 19:30 Hgb 12.80 g/dL (11.27-16.99) 05/26/24 19:30 Hct 40.4 % (37-53) 05/26/24 19:30 MCV 94.4 fl (82-101) 05/26/24 19: MCH 29.9 pg (27-33) 05/26/24 19: MCHC 31.7 g/dL (30-55) 05/26/24 19: RDW 17.6 % (12.1-15.1) H 05/26/24 19:30 Plt Count 194 10^3/cmm (157-399) 05/26/24 19: MPV 11.1 fL (7.4-10.4) H 05/26/24 19:30 Neut % (Auto) 77.2 % 05/26/24 19:30 Lymph % (Auto) 10.5 % 05/26/24 19:30 [place] % (Auto) 10.5 % 05/26/24 19: Eos % (Auto) 0.9 % 05/26/24 19: Baso % (Auto) 0.5 % 05/26/24: Neut # (Auto) 5.88 10^3/uL (1.8-7.7) 05/26/24 19:30 Lymph # (Auto) 0.8 10^3/uL (0.8-4.8) 05/26/24 19: [place] # (Auto) 0.8 10^3/uL (0.2-0.9) 05/26/24 19: Eos # (Auto) 0.1 10^3/uL (0.0-0.8) 05/26/24 19: Baso # (Auto) 0.0 10^3/uL (0.0-0.1) 05/26/24: Nucleated RBC % (auto) 0 % 05/26/24: Nucleated RBCs # 0.0 /100WBC 05/26/24 19:30 Sodium 140 mmol/L (136-145) 05/26/24 19:30 Potassium 4.6 mmol/L (3.5-5.1) 05/26/24 19:30 Chloride 98 mmol/L (98-107) 05/26/24 19:30 Carbon Dioxide 27 mmol/L (22-29) 05/26/24 19:30 Anion Gap 19.6 (5-19) H 05/26/24 19:30 BUN 26 mg/dL (8-23) H 05/26/24 19:30 Creatinine 1.3 mg/dL (0.7-1.2) H 05/26/24 19:30 GFR Calculation Not Reportable 05/26/24 19: Glucose 148 mg/dL (65-115) H 05/26/24 19:30 Calculated Osmolality 298 mOsm/kg (285-295) H 05/26/24 19: Lactic Acid 3.0 mmol/L (0.5-2.2) H 05/26/24 19: Calcium 9.2 mg/dL (8.5-10.5) 05/26/24 19: Total Bilirubin 0.7 mg/dL (0.15-1.2) 05/26/24: AST 22 U/L (0-40) 05/26/24: ALT 12 U/L (0-41) 05/26/24 19: Alkaline Phosphatase 88 U/L (40-130) 05/26/24 19: Total Protein 7.7 g/dL (6.6-8.7) 05/26/24 19: Albumin 4.2 g/dL (3.5-5.2) 05/26/24 19: Globulin 3.5 g/dL (1.3-4.6) 05/26/24 19:30 Urine Color Yellow (Yellow) 05/26/24 20:20 Urine Appearance Clear (CLEAR) 05/26/24 20:20 Urine pH 6.5 (5-7) 05/26/24 20:20 Ur Specific [place] 1.010 (1.005-1.030) 05/26/24 20:20 Urine Protein Neg (Negative) 05/26/24 20:20 Urine Glucose (UA) Norm (Normal) 05/26/24 20:20 Urine Ketones Negative (Negative) 05/26/24 20:20 Urine Blood Neg (Negative) 05/26/24 20:20 Urine Nitrate Negative (Negative) 05/26/24 20:20 Urine Bilirubin Neg (Negative) 05/26/24 20:20 Urine Urobilinogen Norm mg/dL (Negative) 05/26/24 20:20 Ur Leukocyte Esterase Negative (Negative) 05/26/24 20:20 Amorphous Sediment Not Reportable 05/26/24 20:20 All radiology interpretation(s) finalized by discharge EKG Data EKG 1: I personally reviewed and interpreted this EKG as follows: EKG interpretation date: 05/26/24 EKG interpretation time: 19:35 Interpretation: nsr hr [address] elevation qrs 144 qtc 448 Discharge Plan Discharge Patient Disposition: Home Clinical Impression: Syncope Condition: Stable Prescriptions: No Action potassium chloride 10 mEq tablet,ER particles/crystals 10 meq PO DAILY tamsulosin 0.4 mg capsule 0.4 mg PO DAILY@08 albuterol sulfate 90 mcg/actuation HFA aerosol inhaler 2 puff INHALATION Q4H PRN (Reason: Shortness Of Breath Or Wheezing) budesonide-formoterol [Symbicort] 80-4.5 mcg/actuation HFA aerosol inhaler 1 puff INHALATION BID metoprolol tartrate 25 mg Tablet 25 mg PO BID@0900,2100 Qty: 60 0RF sucralfate 100 mg/mL suspension 10 ml PO BID Rx Instructions: before meals and bedtime aspirin 81 mg Tablet,Delayed Release (Dr/Ec) 81 mg PO DAILY Qty: 30 0RF atorvastatin 40 mg Tablet 40 mg PO BEDTIME Qty: 30 0RF lorazepam 0.5 mg Tablet 0.5 mg PO TID PRN (Reason: Anxiety) Leg Cramp Relief Capsule 1 - 2 cap PO Q6H PRN (Reason: leg cramps ) acetaminophen 500 mg Tablet 500 - 1,000 mg PO Q6H PRN (Reason: Pain) pantoprazole 40 mg tablet,delayed release (DR/EC) 40 mg PO DAILY@08 midodrine 5 mg Tablet 5 mg PO BID Rx Instructions: do not give last dose of day after 6PM or within 4 hrs of bedtime ipratropium-albuterol 0.5 mg-3 mg(2.5 mg base)/3 mL Solution For Nebulization 3 ml INHALATION Q6H PRN (Reason: Shortness Of Breath Or Wheezing) Qty: 60 0RF Discharge Orders: Discharge ED (Routine); Ordered 05/26/24 Ordered By: Shravan Davidson Discharge Diet: Advance as tolerated Discharge Activity: Resume usual activity Patient Instructions: Syncope (ED) Print Language: Greenlandic Coding Level of Care Code ED Rn Clinical Resource for Minag Gary
[2024-05-26 19:43] LABS: Basophils % 0.5 %; Eosinophils # 0.1 10^3/uL (0.0-0.8); Eosinophils % 0.9 %; Hematocrit 40.4 % (37-53); Lymphocytes # 0.8 10^3/uL (0.8-4.8); Lymphocytes % 10.5 %; Mean Corpuscular HGB Conc 31.7 g/dL (30-55); Mean Corpuscular Hemoglobin 29.9 pg (27-33); Mean Corpuscular Volume 94.4 fl (82-101); Mean Platelet Volume 11.1 fL (7.4-10.4); Monocytes # 0.8 10^3/uL (0.2-0.9); Monocytes % 10.5 %; Neutrophils # 5.88 10^3/uL (1.8-7.7); Neutrophils % 77.2 %; Nucleated Red Blood Cells % 0 %; Platelet Count 194 10^3/cmm (157-399); Red Blood Count 4.28 10^6/uL (3.85-5.65); Red Cell Distribution Width 17.6 % (12.1-15.1); White Blood Count 7.62 10^3/uL (3.29-11.43)
[2024-05-26 20:00] LABS: Alanine Aminotransferase 12 U/L (0-41); Albumin Level 4.2 g/dL (3.5-5.2); Alkaline Phosphatase 88 U/L (40-130); Anion Gap 19.6 (5-19); Aspartate Amino Transferase 22 U/L (0-40); Blood Urea Nitrogen 26 mg/dL (8-23); Calcium 9.2 mg/dL (8.5-10.5); Carbon Dioxide 27 mmol/L (22-29); Chloride 98 mmol/L (98-107); Creatinine Clr Calc Pharmacy 40.0529; Globulin 3.5 g/dL (1.3-4.6); Glucose 148 mg/dL (65-115); Osmolality Calculated 298 mOsm/kg (285-295); Potassium 4.6 mmol/L (3.5-5.1); Sodium 140 mmol/L (136-145); Total Bilirubin 0.7 mg/dL (0.15-1.2); Total Protein 7.7 g/dL (6.6-8.7)
[2024-05-26 20:28] LABS: Add Urine Microscopic? NO
[2024-05-26 20:54] LABS: Bilirubin Urine Neg (Negative); Blood Urine Neg (Negative); Glucose Urine UA Norm (Normal); Ketones Urine Negative (Negative); Leukocyte Esterase Urine Negative (Negative); Nitrate Urine Negative (Negative); Protein Urine Neg (Negative); Urine Appearance Clear (CLEAR); Urine Color Yellow (Yellow); Urobilinogen Urine Norm (Negative); pH Urine 6.5 (5-7)
[2024-05-26 20:55] LABS: Charge for UA Resulting for Rev
--- NOTE | 2024-05-26 21:15 | PC.NURSE ---
attempted twice to call [facility] in regards to pt being dc. will try again.
[2024-05-26 21:27] LABS: Reflex Lactate Order REFLEX LACTIC ORDERD
--- NOTE | 2024-05-26 21:38 | PC.NURSE ---
attempted to call [place] two more times, no answer, pt's daughter notified and aware.
== END 2024-05-26 21:38 | disposition home or self-care (01) ==
PROVIDERS: Emergency Provider Emergency Medicine
DX: R55 Syncope and collapse (principal); Z79.82 Long term (current) use of aspirin; Z72.0 Tobacco use; J44.9 Chronic obstructive pulmonary disease, unspecified; E78.2 Mixed hyperlipidemia; I11.0 Hypertensive heart disease with heart failure; I50.9 Heart failure, unspecified
CPT/HCPCS: 36415; 71045; 73562; 80053; 81003; 83605; 85025; 93005; 96360; 99285; J7030

== ENCOUNTER 2024-06-02 18:15 | Emergency (ER) | payer BC, MEDICARE, SELFPAY ==
[2024-06-02 18:22] VITALS: BP 112/74; PULSE 78; RESP 16; O2SAT 94; BMI 21.8
[2024-06-02 18:24] VITALS: TEMP 36.7
--- NOTE | 2024-06-02 18:26 | XRR_ITS ---
PROCEDURE INFORMATION: Exam: XR Chest Exam date and time: 06/02/2024 6:30 PM Age: 83 years old Clinical indication: Other: Weakness syncope; Prior surgery; Surgery date: 6+ months; Surgery type: Pacer TECHNIQUE: Imaging protocol: Radiologic exam of the chest. Views: 1 view. COMPARISON: CR (CHEST, ) 05/26/2024 7:43 PM FINDINGS: Limitations: Patient rotation. Tubes, catheters and devices: Left chest wall implantable pacer. Lungs: Stable mild pulmonary hyperinflation. Stable mild interstitial coarsening. Consolidation Pleural spaces: No pleural effusion or pneumothorax. Heart/Mediastinum: Probable cardiomegaly though patient rotation limits evaluation. Vasculature: Atherosclerotic calcifications of the aorta are noted. Bones/joints: No acute osseous abnormalities are seen. XR/XR chest 1V portable [id number] IMPRESSION: No acute cardiopulmonary disease.
--- NOTE | 2024-06-02 18:29 | ECG_ITS ---
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 Measurements Intervals [place] Rate: 91 P: 0 HI: 0 QRS: 89 QRSD: 149 T: -80 QT: 359 QTc: 442 Interpretive Statements ATRIAL FIBRILLATION RIGHT BUNDLE BRANCH BLOCK [120+ ms QRS DURATION, UPRIGHT V1, 40+ ms S IN I/aVL/V4/V5/V6] MARKED T-WAVE ABNORMALITY, CONSIDER ANTEROLATERAL ISCHEMIA [-0.5+ mV T-WAVE IN I/aVL/V3-V6] MODERATE T-WAVE ABNORMALITY, CONSIDER INFERIOR ISCHEMIA [-0.1+ mV T-WAVE IN II/aVF] Compared to ECG 05/26/2024 19:35:51 Ventricular-paced complex(es) or rhythm no longer present Indeterminate axis no longer present T-wave abnormality still present Possible ischemia still present Electronically Signed On 06-02-2024 21:29:39 CDT by Vinod Rabago M.D. [email or web address]
--- NOTE | 2024-06-02 18:29 | W.ED.SYNCOPE ---
HPI - Syncope General: Chief Complaint: Syncope Stated Complaint: weakness Time Seen by Provider: 06/02/24 18:16 History of Present Illness: Patient is a generally well-appearing 83-year-old [facility] from [facility] for [facility] episode. He denies harm himself or falling associated with this. He states that he frequently feels lightheaded when he stands up. He has been treated for this in the past and currently takes midodrine 5 mg tablets twice daily. He states that he feels the same today as he does every day and that he has felt this way for a long time. He denies any recent cough, chest pain, shortness of breath, headache, belly pain, nausea, vomiting, diarrhea, fever, dysuria, frequency, or other symptoms of infection. He denies any recent medication changes. He states that today he felt lightheaded and that they found his blood pressure to be low prompting them to call EMS for him to be transferred to the hospital for evaluation. On arrival, blood pressures 110/75 and he feels to be at baseline. Related Data Home Medications ?Medication ?Instructions ?Recorded ?Confirmed albuterol sulfate 90 mcg/actuation 2 puff inhalation Q4H PRN 01/09/23 03/06/24 aerosol inhaler Shortness Of Breath Or Wheezing budesonide-formoterol HFA 80 1 puff inhalation BID 01/09/23 03/06/24 mcg-4.5 mcg/actuation aerosol inhaler (Symbicort) tamsulosin 0.4 mg capsule 0.4 mg PO DAILY@01/09/23 03/06/24 acetaminophen 500 mg tablet 500 - 1,000 mg PO Q6H PRN Pain 02/09/23 03/06/24 pantoprazole 40 mg tablet,delayed 40 mg PO DAILY@02/09/23 03/06/24 release sucralfate 100 mg/mL oral 10 ml PO BID 03/06/23 03/06/24 suspension midodrine 5 mg tablet 5 mg PO BID 05/17/23 03/06/24 potassium chloride 10 mEq 10 meq PO DAILY 01/03/24 03/06/24 tablet,extended release(part/cryst) lorazepam 0.5 mg tablet 0.5 mg PO TID PRN Anxiety 03/06/24 03/06/24 quinine-vitamin E capsule 1 - 2 cap PO Q6H PRN leg cramps 03/06/24 03/06/24 Previous Rx's ?Medication ?Instructions ?Recorded metoprolol tartrate 25 mg tablet 25 mg PO BID@0900,2100 #60 tabs 01/16/23 aspirin 81 mg tablet,delayed 81 mg PO DAILY #30 tabs 08/22/23 release atorvastatin 40 mg tablet 40 mg PO BEDTIME #30 tabs 08/22/23 ipratropium 0.5 mg-albuterol 3 mg 3 ml inhalation Q6H PRN Shortness 12/30/23 (2.5 mg base)/3 mL nebulization Of Breath Or Wheezing #60 mL soln Allergies Allergy/AdvReac Type Severity Reaction Status Date / Time No Known Allergies Allergy Verified 03/06/24 06:47 [facility], [facility] ED PFSH: Medical History Stroke Abnormal stress test Anemia Acute respiratory failure with hypoxia and hypercapnia Anemia Pneumonia Mixed dyslipidemia Atrial fibrillation Patient has a history of severe GI bleed. For that reason, he is not on any oral anticoagulant GI bleed GERD without esophagitis Chronic hypoxic respiratory failure Lives in assisted living facility Acute hypernatremia Pneumonia Pulmonary hypertension Paroxysmal atrial fibrillation with RVR Hypoxia MENDOZA (dyspnea on exertion) Acute exacerbation of chronic obstructive pulmonary disease Congestive heart failure Malnutrition of moderate degree Hyperkalemia Fall Troponin level elevated Acute hyponatremia BPH (benign prostatic hyperplasia) Orthostatic hypotension Chronic anticoagulation Paroxysmal A-fib Nocturnal hypoxia COPD (chronic obstructive pulmonary disease) Social History Smoking and tobacco/nicotine status: current every day tobacco/nicotine user Marital status: Single Physical Exam Const: COMMON NORMALS: no acute distress, patient oriented x3 and alert HENMT: COMMON NORMALS: normocephalic and atraumatic HEAD & SCALP: normocephalic and atraumatic Eye: COMMON NORMALS: Equal, round and reactive pupils present, EOMs intact bilaterally and no scleral icterus PUPIL: Yes Equal, round and reactive pupils present Resp: COMMON NORMALS: normal respiratory effort (Mild wheezes in all lung cornejo. Diminished in all lung cornejo) and No retractions Cardio: COMMON NORMALS: regular rate, regular rhythm and No murmurs present (Cardio) RATE: regular rate RHYTHM: regular rhythm GI: COMMON NORMALS: Normal to inspection, nondistended, normoactive bowel sounds present, Soft to palpation and non-tender PALPATION: Yes Soft to palpation Neuro: COMMON NORMALS: patient oriented x3 SENSORIUM/ORIENTATION: Yes alert Skin: COMMON NORMALS: no rashes or lesions noted GENERAL SKIN EXAM: no rashes or lesions noted Course Vital Signs: Vital signs: Vital Signs Temperature 98.1 F 06/02/24 18:24 Pulse Rate 76 06/02/24 20:05 Respiratory Rate 16 06/02/24 18:22 Blood Pressure 111/79 06/02/24 20:05 Pulse Oximetry 99 06/02/24 20:05 Oxygen Delivery Me thod Nasal Cannula 06/02/24 18:22 Oxygen Flow Rate 2 06/02/24 18:22 MDM - Syncope Medical Decision Making In summary, patient is a generally well-appearing 83-year-old [facility] light[facility]ness. Orthostatic vital signs are positive with a heart rate jumps 20 bpm and systolic blood pressure that dropped 20 points when going from lying down to standing up. He already takes midodrine and he states that he feels no different today than he has for a long time. I do not appreciate any new factors such as ACS, PE, infection, or dehydration. He was given a 500 mL bolus of fluid and he states that he feels at his baseline. We discussed the importance of getting up slowly to avoid passing out and falling. He shows good understanding and will be discharged in stable condition. Lab Data 06/02/24 18:48 06/02/24 18:25 Radiology Impressions Chest X-Ray 06/02/24 18:26 IMPRESSION: No acute cardiopulmonary disease. Laboratory Results WBC 8.64 10^3/uL (3.29-11.43) 06/02/24 18:48 Corrected WBC Cancelled 06/02/24 18:25 RBC 4.00 10^6/uL (3.85-5.65) 06/02/24 18:48 Hgb 11.70 g/dL (11.27-16.99) 06/02/24 18:48 Hct 36.4 % (37-53) L 06/02/24 18:48 MCV 91.0 fl (82-101) 06/02/24 18:48 MCH 29.3 pg (27-33) 06/02/24 18:48 MCHC 32.1 g/dL (30-55) 06/02/24 18:48 RDW 17.5 % (12.1-15.1) H 06/02/24 18:48 Plt Count 222 10^3/cmm (157-399) 06/02/24 18:48 MPV 10.5 fL (7.4-10.4) H 06/02/24 18:48 Gran % Cancelled 06/02/24 18:25 Neut % (Auto) 75.4 % 06/02/24 18:48 Lymph % (Auto) 11.2 % 06/02/24 18:48 [place] % (Auto) 11.2 % 06/02/24 18:48 Eos % (Auto) 1.2 % 06/02/24 18:48 Baso % (Auto) 0.5 % 06/02/24 18:48 Neut # (Auto) 6.52 10^3/uL (1.8-7.7) 06/02/24 18:48 Lymph # (Auto) 1.0 10^3/uL (0.8-4.8) 06/02/24 18:48 [place] # (Auto) 1.0 10^3/uL (0.2-0.9) H 06/02/24 18:48 Eos # (Auto) 0.1 10^3/uL (0.0-0.8) 06/02/24 18:48 Baso # (Auto) 0.0 10^3/uL (0.0-0.1) 06/02/24 18:48 Absolute Gran (auto) Cancelled 06/02/24 18:25 Nucleated RBC % (auto) 0 % 06/02/24 18:48 Nucleated RBCs # 0.0 /100WBC 06/02/24 18:48 Sodium 136 mmol/L (136-145) 06/02/24 18:25 Potassium 4.6 mmol/L (3.5-5.1) 06/02/24 18:25 Chloride 98 mmol/L (98-107) 06/02/24 18:25 Carbon Dioxide 27 mmol/L (22-29) 06/02/24 18:25 Anion Gap 15.6 (5-19) 06/02/24 18:25 BUN 22 mg/dL (8-23) 06/02/24 18:25 Creatinine 0.9 mg/dL (0.7-1.2) 06/02/24 18:25 GFR Calculation Not Reportable 06/02/24 18:25 Glucose 137 mg/dL (65-115) H 06/02/24 18:25 Calculated Osmolality 287 mOsm/kg (285-295) 06/02/24 18: Calcium 8.5 mg/dL (8.5-10.5) 06/02/24 18: Total Bilirubin 0.5 mg/dL (0.15-1.2) 06/02/24 18: AST 24 U/L (0-40) 06/02/24: ALT 12 U/L (0-41) 06/02/24 18: Alkaline Phosphatase 99 U/L (40-130) 06/02/24 18: Troponin T Baseline 127 ng/L (0-15) H* 06/02/24 18: Total Protein 7.1 g/dL (6.6-8.7) 06/02/24 18:25 Albumin 3.8 g/dL (3.5-5.2) 06/02/24 18: Globulin 3.3 g/dL (1.3-4.6) 06/02/24 18:25 XR interpretation done by ED provider, pending radiology final review EKG Data EKG 1: Interpretation: EKG interpreted by me: Time?1828?atrial fibrillation, rate of 91, no obvious ST segment elevation or depression, lateral inferior T wave inversions, QTc = 407 Discharge Plan Discharge Patient Disposition: Home Clinical Impression: Chronic orthostatic hypotension Condition: Stable Prescriptions: No Action potassium chloride 10 mEq tablet,ER particles/crystals 10 meq PO DAILY tamsulosin 0.4 mg capsule 0.4 mg PO DAILY@08 albuterol sulfate 90 mcg/actuation HFA aerosol inhaler 2 puff INHALATION Q4H PRN (Reason: Shortness Of Breath Or Wheezing) budesonide-formoterol [Symbicort] 80-4.5 mcg/actuation HFA aerosol inhaler 1 puff INHALATION BID metoprolol tartrate 25 mg Tablet 25 mg PO BID@0900,2100 Qty: 60 0RF sucralfate 100 mg/mL suspension 10 ml PO BID Rx Instructions: before meals and bedtime aspirin 81 mg Tablet,Delayed Release (Dr/Ec) 81 mg PO DAILY Qty: 30 0RF atorvastatin 40 mg Tablet 40 mg PO BEDTIME Qty: 30 0RF lorazepam 0.5 mg Tablet 0.5 mg PO TID PRN (Reason: Anxiety) Leg Cramp Relief Capsule 1 - 2 cap PO Q6H PRN (Reason: leg cramps ) acetaminophen 500 mg Tablet 500 - 1,000 mg PO Q6H PRN (Reason: Pain) pantoprazole 40 mg tablet,delayed release (DR/EC) 40 mg PO DAILY@08 midodrine 5 mg Tablet 5 mg PO BID Rx Instructions: do not give last dose of day after 6PM or within 4 hrs of bedtime ipratropium-albuterol 0.5 mg-3 mg(2.5 mg base)/3 mL Solution For Nebulization 3 ml INHALATION Q6H PRN (Reason: Shortness Of Breath Or Wheezing) Qty: 60 0RF Discharge Orders: Discharge ED (Routine); Ordered 06/02/24 Ordered By: Joe Wright Discharge Diet: Usual diet Discharge Activity: Resume usual activity Patient Instructions: Hypotension (ED) Activity Restrictions/Additional Instructions: CBC, CMP, troponin, EKG, chest x-ray are all reassuring at this time. Everything appears stable. His blood pressure did drop 20 points when going from laying down to standing, but he states that he has felt lightheaded standing up for a long time and today is no different. There is no evidence of infection, dehydration, new heart disease, or anything else requiring hospitalization or further workup. He just needs to be very conscious of when getting up from laying down and needs to keep up with his fluid intake to avoid dehydration. 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
[2024-06-02 18:56] LABS: Basophils % 0.5 %; Eosinophils # 0.1 10^3/uL (0.0-0.8); Eosinophils % 1.2 %; Hematocrit 36.4 % (37-53); Lymphocytes % 11.2 %; Mean Corpuscular HGB Conc 32.1 g/dL (30-55); Mean Corpuscular Hemoglobin 29.3 pg (27-33); Mean Platelet Volume 10.5 fL (7.4-10.4); Monocytes % 11.2 %; Neutrophils # 6.52 10^3/uL (1.8-7.7); Neutrophils % 75.4 %; Nucleated Red Blood Cells % 0 %; Platelet Count 222 10^3/cmm (157-399); Red Cell Distribution Width 17.5 % (12.1-15.1); White Blood Count 8.64 10^3/uL (3.29-11.43)
[2024-06-02 18:57] LABS: Troponin(5th) Baseline 127 ng/L (0-15)
[2024-06-02 18:58] LABS: Alanine Aminotransferase 12 U/L (0-41); Albumin Level 3.8 g/dL (3.5-5.2); Alkaline Phosphatase 99 U/L (40-130); Aspartate Amino Transferase 24 U/L (0-40); Blood Urea Nitrogen 22 mg/dL (8-23); Calcium 8.5 mg/dL (8.5-10.5); Carbon Dioxide 27 mmol/L (22-29); Chloride 98 mmol/L (98-107); Globulin 3.3 g/dL (1.3-4.6); Glucose 137 mg/dL (65-115); Osmolality Calculated 287 mOsm/kg (285-295); Sodium 136 mmol/L (136-145); Total Bilirubin 0.5 mg/dL (0.15-1.2); Total Protein 7.1 g/dL (6.6-8.7)
[2024-06-02 19:00] VITALS: BP 111/65; BP 84/45; BP 90/49; PULSE 107; PULSE 108; PULSE 83
[2024-06-02 19:02] LABS: Anion Gap 15.6 (5-19); Potassium 4.6 mmol/L (3.5-5.1)
[2024-06-02 19:33] VITALS: BP 114/66; PULSE 77; O2SAT 95
[2024-06-02] MEDS: sodium chloride 0.9% 500 ML IV (19:49)
[2024-06-02 20:05] VITALS: BP 111/79; PULSE 76; O2SAT 99
--- NOTE | 2024-06-02 20:18 | PC.NURSE ---
Yesy BREWSTER at [place] provided pt report. Daughter in law contacted and provided with pt update.
[2024-06-02 20:52] VITALS: BP 138/73; PULSE 82; O2SAT 99
== END 2024-06-02 20:45 | disposition home or self-care (01) ==
PROVIDERS: Emergency Provider Student in an Organized Health Care Education/Training Program
DX: I95.1 Orthostatic hypotension (principal); Z79.82 Long term (current) use of aspirin; Z72.0 Tobacco use; J44.9 Chronic obstructive pulmonary disease, unspecified; E78.2 Mixed hyperlipidemia; I10 Essential (primary) hypertension; I11.0 Hypertensive heart disease with heart failure; I50.9 Heart failure, unspecified
CPT/HCPCS: 36415; 71045; 80053; 84484; 85025; 93005; 96360; 99285; J7040

== ENCOUNTER 2024-07-01 09:02 | Outpatient (CLI) | payer OTHER, SELFPAY ==
--- NOTE | 2024-07-01 09:05 | USCV_ITS ---
Krzysztof Tya Age: 83 Gender: M : 1940 Exam Date: 07/01/2024 09:31 Ordering Phys: Patrick Singer Technologist: Exam Location: [facility] [place] Indication: cp sob BP: 134 / 75 HR: 65 Rhythm: Sinus Technical Quality: Adequate MEASUREMENTS (Male / Female) Normal Values 2D ECHO LV Diastolic Diameter PLAX 4.9 cm 4.2 - 5.9 / 3.9 - 5.3 cm IVS Diastolic Thickness 1.3 cm 0.6 - 1.0 / 0.6 - 0.9 cm IVS Systolic Thickness 1.7 cm LVPW Diastolic Thickness 1.1 cm 0.6 - 1.0 / 0.6 - 0.9 cm LVPW Systolic Thickness 1.6 cm LVOT Diameter 2.4 cm LV Ejection Fraction 2D Teich 67.9 % LV Ejection Fraction MOD 4C 75.8 % LA Diameter 3.4 cm M-MODE LA Ao Ratio MM 1.0 AV Cusp Separation MM 2.0 cm DOPPLER AV Peak Velocity 90.0 cm/s LVOT Peak Velocity 40.0 cm/s AV Area Cont Eq vti 2.6 cm squared AV Area Cont Eq pk 2.1 cm squared MV Area PHT 5.3 cm squared Mitral E to A Ratio 1.8 TV Peak Velocity 299.5 cm/s TR Peak Velocity 340.0 cm/s TR Peak Gradient 46.2 mmHg TV Peak E Velocity 94.0 cm/s PV Peak Velocity 101.7 cm/s FINDINGS Left Ventricle Technically limited quality echocardiogram. LV systolic function is grossly normal. Right Ventricle Grossly dilated. Pacemaker lead seen Right Atrium Dilated Left Atrium Normal in size Mitral Valve Structurally normal valve. Mild mitral regurgitation Aortic Valve Aortic valve is thickened. No significant stenosis noted Tricuspid Valve Mild tricuspid regurgitation. RVSP is 45-50 mmHg. This is consistent with moderate pulmonary hypertension Pulmonic Valve Not well visualized Pericardium Normal Aorta Normal in size IVC Dilated CONCLUSIONS Technically limited quality echocardiogram. LV systolic function is grossly normal. RV appears dilated. Pacemaker lead seen. RA is dilated. Mild mitral regurgitation. Mild tricuspid regurgitation. Moderate pulmonary hypertension IVC is dilated Gabriele Mello MD (Electronically Signed) Final Date: 06 Jul 2024 14:49 S
== END 2024-07-01 09:03 | disposition home or self-care (01) ==
PROVIDERS: PCP Family Medicine; Visit Provider Chiropractor
DX: I25.10 Atherosclerotic heart disease of native coronary artery without angina pectoris (principal); Z96.89 Presence of other specified functional implants; I34.0 Nonrheumatic mitral (valve) insufficiency; I35.8 Other nonrheumatic aortic valve disorders; I07.1 Rheumatic tricuspid insufficiency; I87.8 Other specified disorders of veins
CPT/HCPCS: 93306

== ENCOUNTER 2024-09-06 11:08 | Outpatient (CLI) | payer OTHER, SELFPAY ==
[2024-09-06 11:41] LABS: Hematocrit 33.4 % (37-53); Hemoglobin 10.80 g/dL (11.27-16.99); Mean Corpuscular HGB Conc 32.3 g/dL (30-55); Mean Corpuscular Hemoglobin 30.4 pg (27-33); Mean Corpuscular Volume 94.1 fl (82-101); Nucleated Red Blood Cells % 0 %; Platelet Count 224 10^3/cmm (157-399); Red Blood Count 3.55 10^6/uL (3.85-5.65); White Blood Count 6.04 10^3/uL (3.29-11.43)
[2024-09-06 12:07] LABS: Alanine Aminotransferase 24 U/L (0-41); Albumin Level 3.5 g/dL (3.5-5.2); Alkaline Phosphatase 92 U/L (40-130); Anion Gap 14.7 (5-19); Aspartate Amino Transferase 26 U/L (0-40); Blood Urea Nitrogen 13 mg/dL (8-23); Calcium 8.7 mg/dL (8.5-10.5); Carbon Dioxide 27 mmol/L (22-29); Chloride 103 mmol/L (98-107); Cholesterol 112 mg/dL (0-200); Globulin 2.4 g/dL (1.3-4.6); Glucose 58 mg/dL (65-115); HDL Cholesterol 68 mg/dL (60-100); Osmolality Calculated 288 mOsm/kg (285-295); Potassium 4.7 mmol/L (3.5-5.1); Sodium 140 mmol/L (136-145); Total Protein 5.9 g/dL (6.6-8.7); Triglycerides 55 mg/dL (0-150)
== END 2024-09-06 11:09 | disposition home or self-care (01) ==
PROVIDERS: PCP Family Medicine; Visit Provider Family Medicine
DX: I10 Essential (primary) hypertension (principal)
CPT/HCPCS: 80053; 80061; 85025

== ENCOUNTER 2024-09-16 14:08 | Outpatient (CLI) | payer MEDICARE, BC, SELFPAY ==
[2024-09-16 15:10] LABS: C.Diff PCR (Lab) NEGATIVE (Negative)
== END 2024-09-16 14:09 | disposition home or self-care (01) ==
PROVIDERS: PCP Family Medicine; Visit Provider Family Medicine
DX: A04.72 Enterocolitis due to Clostridium difficile, not specified as recurrent (principal)
CPT/HCPCS: 83630; 87493

== ENCOUNTER 2024-11-19 21:23 | Emergency (ER) | payer BC, MEDICARE, SELFPAY ==
[2024-11-19 21:24] VITALS: BP 170/83; PULSE 127; RESP 28; TEMP 37.7; O2SAT 98; BMI 19.2
--- OUTSIDE RECORDS SUMMARY | 2024-11-19 21:31 | XMS_ITS | Data Portability ---
Author Organization TONYA Ng, [facility] Address [address] [place] [address] Care Team Providers Care Workers Compensation Attorney Name Role Phone WERNER NG Primary Care Provider [facility] ( SANDRITA RIDDLE) ORTHOPEDIC ENGEL Orthopedic Surgeon Assessment Encounter Date Assessment Date Assessment LastModified by Organization Details LastModified Time 12/20/2022 12/20/2022 All procedures/clari ts/and dx from discharge reviewed with pt. Medications reviewed and reconciled. Pt educated on medications and expected recovery time. Not available 12/20/2022 12:17:20 Plan of Treatment Reminders Order Date Submit Date Provider Last Modified By Organization Details Last Modified Time Details Appointments None recorded. Lab BMP, serum or plasma 2022 023 MACK Not available 3 08:18:45 CBC w/ auto diff 2022 023 MACK Not available 3 08:30:28 CMP, serum or plasma 2022 023 MACK Not available 3 08:30:26 lipid panel, serum 2022 023 MACK Not available 3 08:30:27 PSA, serum or plasma 2022 023 MACK Not available 3 08:30:28 Referral home health referral 2022 023 [facility], [address], [place], [address], 3 12:15:47 Procedures None recorded. Surgeries None recorded. Imaging None recorded. Medication Orders bisoprolol fumarate 5 mg tablet 2022 023 [facility], [address] [facility], [place], [address], 3 12:17:25 bisoprolol fumarate 5 mg tablet 2022 023 MACK Janine Edwards, [address] [facility], [place], [address], 3 12:17:59 penicillin V potassium 500 mg tablet 2022 023 [facility], [facility] [place], [address], 3 12:17:26 furosemide 80 mg tablet 2022 023 MACK Janine Edwards, [address] [facility] [place], [address], 3 17:02:53 potassium chloride ER 20 mEq tablet,exte nded release 2022 023 MACK Janine Edwards, [address] [facility] [place], [address], 3 17:02:54 doxycycline hyclate 100 mg capsule 2022 023 NUNNELLY Janinelucero Edwards, [address] [facility] [place], [address], 3 10:57:38 albuterol sulfate HFA 90 mcg/actuati on aerosol inhaler 2022 023 [facility], [address] [facility], [place], [address], 3 11:26:30 atenolol 50 mg tablet [email or web address] [facility], [address] [facility], [place], [address], 12:11:41 Patient TargetsNo targets recorded. Patient Instructions Encounter Date Encounter Id Patient Instructions Last Modified By Organization Details Last Modified Time 03/02/2022 [id number] chronic obstruct ana pulmonary disease (COPD): care instructions Not available 03/02/2022 11:26:27 lumbar spinal stenosis: care instructions Not available 03/02/2022 11:26:28 atrial fibrillation: care instructions Not available 03/02/2022 11:26:28 advance care planning: care instructions Not available 03/02/2022 11:26:28 Screening Recommendations 1. Vaccines Pneumococcal Influenza: Shingles: Tetanus: 2. Prostate Cancer Screening Recommend your next PSA screening In: Recommend your next Digital Prostate Exam In: 3. Colorectal cancer Screening Colonoscopy Your next one in: Fecal Occult Blood No screening necessary 4. Eye Exam Screening Your next exam in: 5. Cholesterol Screening Your next screening in: 6. Diabetes Screening Your next screening in: [email or web address] Not available 03/02/2022 10:41:14 07/24/2022 [id number] Peripheral Arter ial Disease (PAD): Care Instructions Not available 07/24/2022 11:27:55 leg and ankle edema: care instructions Not available 07/24/2022 11:27:55 atrial fibrillation: care instructions Not available 07/24/2022 11:27:55 08/31/2022 [id number] chronic obstruct ana pulmonary disease (COPD): care instructions Not available 08/31/2022 11:27:45 lumbar spinal stenosis: care instructions Not available 08/31/2022 11:27:45 atrial fibrillation: care instructions Not available 08/31/2022 11:27:45 10/25/2022 [id number] atrial fibrillation: care instructions Not available 10/25/2022 14:28:32 chronic obstruct ana pulmonary disease (COPD): care instructions Not available 10/25/2022 14:28:32 learning about c opd and how to prevent lung infections Not available 10/25/2022 14:28:31 12/20/2022 [id number] chronic obstruct ana pulmonary disease (COPD): care instructions Not available 12/20/2022 12:17:22 atrial fibrillation: care instructions Not available 12/20/2022 12:17:22 chronic obstruct ana pulmonary disease (COPD): care instructions Not available 12/20/2022 14:14:12 learning about c opd and how to prevent lung infections Not available 12/20/2022 14:14:12 Reason for Referral Home Health Referral for Tarsha lulitis of lower limb Referring Physician: Werner Ng, Family Medicine, Encounter Date: 07/24/2022 Results Created Date Observation Date Name Description Value Unit Range Abnormal Flag Note LastModifiedBy Organization Detail LastModifiedTime 03/02/19 23 03/03/2022 COMP METAB OLIC PANEL sodium 131 mEq/L 135-14 6 low Not Available [facility] [address] [place], [address], 03/03/2022 08:30:26 03/02/19 23 03/03/2022 COMP METAB OLIC PANEL potassium 4.6 mEq/L 3.5-5. 4 Not Available [facility] [address] [place], [address], 03/03/2022 08:30:26 03/02/19 23 03/03/2022 COMP METAB OLIC PANEL chloride 94 mEq/L 95-107 low Not Available [facility] [address] [place], [address], 03/03/2022 08:30:26 03/02/19 23 03/03/2022 COMP METAB OLIC PANEL carbon dioxide 25 mEq/L 19-31 Not Available [facility] [address] [place], [address], 03/03/2022 08:30:26 03/02/19 23 03/03/2022 COMP METAB OLIC PANEL anion gap 12 mEq/L 7-23 Not Available [facility] [address] [facility] [place], [address], 03/03/2022 08:30:26 03/02/19 23 03/03/2022 COMP METAB OLIC PANEL glucose fasting 102 mg/dL 70-99 high Not Available [facility] [address] [place], [address], 03/03/2022 08:30:26 03/02/19 23 03/03/2022 COMP METAB OLIC PANEL urea nitrogen (BUN) 12 mg/dL 8-23 Not Available [facility] [address] [facility] [place], [address], 03/03/2022 08:30:26 03/02/19 23 03/03/2022 COMP METAB OLIC PANEL creatinine 0.65 mg/dL 0.80-1 .40 low Not Available [facility] [address] [facility] [place], [address], 03/03/2022 08:30:26 03/02/19 23 03/03/2022 COMP METAB OLIC PANEL 2020 CKD-epi eGFR-cr 95 mL/mi n/1.7 3m'2 >59 Not Available [facility] [address] [facility] [place], [address], 03/03/2022 08:30:26 03/02/19 23 03/03/2022 COMP METAB OLIC PANEL BUN/creatini ne ratio 18 ratio Not Available [facility] [address] [facility] [place], [address], 03/03/2022 08:30:26 03/02/19 23 03/03/2022 COMP METAB OLIC PANEL calcium total 9.1 mg/dL 8.5-10 .5 Not Available [facility] [address] [place], [place], [address], 03/03/2022 08:30:26 03/02/19 23 03/03/2022 COMP METAB OLIC PANEL protein total 7.3 g/dL 6.1-8. 3 Not Available [facility] [address] [place], [address], 03/03/2022 08:30:26 03/02/19 23 03/03/2022 COMP METAB OLIC PANEL albumin 4.7 g/dL 3.5-5. 2 Not Available [facility] [address] [place], [address], 03/03/2022 08:30:26 03/02/19 23 03/03/2022 COMP METAB OLIC PANEL globulin 2.6 g/dL 1.7-4. 3 Not Available [facility] [address] [place], [address], 03/03/2022 08:30:26 03/02/19 23 03/03/2022 COMP METAB OLIC PANEL A/G ratio 1.8 ratio 0.9-2. 8 Not Available [facility] [address] [place], [address], 03/03/2022 08:30:26 03/02/19 23 03/03/2022 COMP METAB OLIC PANEL bilirubin total 0.7 mg/dL 0.0-1. 2 Not Available [facility] [address] [place], [address], 03/03/2022 08:30:26 03/02/19 23 03/03/2022 COMP METAB OLIC PANEL alkaline phosphatase 101 U/L 40-125 Not Available [facility] [address] [place], [address], 03/03/2022 08:30:26 03/02/19 23 03/03/2022 COMP METAB OLIC PANEL AST (SGOT) 39 U/L 9-50 Not Available [facility] [address] [place], [address], 03/03/2022 08:30:26 03/02/19 23 03/03/2022 COMP METAB OLIC PANEL ALT (SGPT) 26 U/L 5-50 Not Available [facility] [address], [place], [address], 03/03/2022 08:30:26 03/02/19 23 03/03/2022 LIPID PROFI LE cholesterol 133 mg/dL <200 Not Available [facility] [address] [place], [place], [address], 03/03/2022 08:30:27 03/02/19 23 03/03/2022 LIPID PROFI LE triglyceride s 40 mg/dL 0-149 Not Available [facility] [address] [place], [address], 03/03/2022 08:30:27 03/02/19 23 03/03/2022 LIPID PROFI LE HDL cholesterol 79 mg/dL >39 Not Available [facility] [address] [place], [place], [address], 03/03/2022 08:30:27 03/02/19 23 03/03/2022 LIPID PROFI LE LDL cholesterol 43 mg/dL <100 Not Available [facility] [address] [place], [place], [address], 03/03/2022 08:30:27 03/02/19 23 03/03/2022 LIPID PROFI LE non HDL cholesterol 54 mg/dL <130 Not Available [facility] [address] [place], [address], 03/03/2022 08:30:27 03/02/19 23 03/03/2022 LIPID PROFI LE coronary risk ratio 1.68 <4.97 Comme nt for LIPID PROFI LE Non-H DL [facility] stero l is a brianne r indic ator for cardi ovasc ular risk than LDL-C holes terol for patie nts who have incre ased trigl yceri aakash or are non-f astin g. Non-H DL [facility] stero l: < 130 mg/dL (Opti mal) < 160 mg/dL (Near Optim al/Ab ove Optim al) LDL [place] stero l: < 100 mg/dL (Opti mal) < 130 mg/dL (Near Optim al/Ab ove Optim al) Coron ham Risk Ratio : [place] ge for males < 4.97 Not Available [facility] [address] [place], [address], 03/03/2022 08:30:27 03/02/19 23 03/03/2022 PSA PSA 0.42 NG/mL 0.00-4 .00 Comme nt for PSA Test perfo rmed using the Avani elect avani milum inesc ent immun oassa y (ECLI A). Not Available [facility] [address] [facility] [place], [address], 03/03/2022 08:30:27 03/02/19 23 03/03/2022 CBC WITH DIFFE RENTI AL WBC 3.9 K/uL 4.0-11 .0 low Not Available [facility] [address] [facility] [place], [address], 03/03/2022 08:30:28 03/02/19 23 03/03/2022 CBC WITH DIFFE RENTI AL RBC 4.77 M/uL 4.30-5 .70 Not Available [facility] [address] [place], [address], 03/03/2022 08:30:28 03/02/19 23 03/03/2022 CBC WITH DIFFE RENTI AL hemoglobin 14.8 g/dL 13.0-1 7.5 Not Available [facility] [address] [place], [address], 03/03/2022 08:30:28 03/02/19 23 03/03/2022 CBC WITH DIFFE RENTI AL hematocrit 42.8 % 39.0-5 5.0 Not Available [facility] [address] [place], [place], [address], 03/03/2022 08:30:28 03/02/19 23 03/03/2022 CBC WITH DIFFE RENTI AL MCV 89.7 fL 78.0-1 02.0 Not Available [facility] [address] [place], [place], [address], 03/03/2022 08:30:28 03/02/19 23 03/03/2022 CBC WITH DIFFE RENTI AL MCH 31.0 pg 25.0-3 5.0 Not Available [facility] [address] [place], [place], [address], 03/03/2022 08:30:28 03/02/19 23 03/03/2022 CBC WITH DIFFE RENTI AL MCHC 34.6 g/dL 30.0-3 8.0 Not Available [facility] [address] [place], [place], [address], 03/03/2022 08:30:28 03/02/19 23 03/03/2022 CBC WITH DIFFE RENTI AL RDW 12.9 % 11.5-1 6.0 Not Available [facility] [address] [place], [place], [address], 03/03/2022 08:30:28 03/02/19 23 03/03/2022 CBC WITH DIFFE RENTI AL platelet count 147 K/uL 150-45 0 low Not Available [facility] [address] [place], [address], 03/03/2022 08:30:28 03/02/19 23 03/03/2022 CBC WITH DIFFE RENTI AL abs neutrophils 2.4 K/uL 1.8-7. 0 Not Available [facility] [address] [place], [place], [address], 03/03/2022 08:30:28 03/02/19 23 03/03/2022 CBC WITH DIFFE RENTI AL abs lymphocytes 0.9 K/uL 1.0-4. 0 low Not Available [facility] [address] [place], [address], 03/03/2022 08:30:28 03/02/19 23 03/03/2022 CBC WITH DIFFE RENTI AL abs monocytes 0.5 K/uL 0.1-1. 1 Not Available [facility] [address] [place], [place], [address], 03/03/2022 08:30:28 03/02/19 23 03/03/2022 CBC WITH DIFFE RENTI AL abs eosinophils 0.1 K/uL 0.0-0. 5 Not Available [facility] [address] [place], [place], [address], 03/03/2022 08:30:28 03/02/19 23 03/03/2022 CBC WITH DIFFE RENTI AL abs basophils 0.0 K/uL 0.0-0. 3 Not Available [facility] [address] [place], [place], [address], 03/03/2022 08:30:28 03/02/19 23 03/03/2022 CBC WITH DIFFE RENTI AL abs immature grans 0.0 K/uL 0.0-0. 1 Not Available [facility] [address] [place], [address], 03/03/2022 08:30:28 03/02/19 23 03/03/2022 CBC WITH DIFFE RENTI AL neutrophils 62.5 % Not Available [facility] [address] [place], [address], 03/03/2022 08:30:28 03/02/19 23 03/03/2022 CBC WITH DIFFE RENTI AL lymphocytes 22.4 % Not Available [facility] [address] [place], [address], 03/03/2022 08:30:28 03/02/19 23 03/03/2022 CBC WITH DIFFE RENTI AL monocytes 12.5 % Not Available [facility] [address] [place], [place], [address], 03/03/2022 08:30:28 03/02/19 23 03/03/2022 CBC WITH DIFFE RENTI AL eosinophils 1.5 % Not Available [facility] [address] [place], [place], [address], 03/03/2022 08:30:28 03/02/19 23 03/03/2022 CBC WITH DIFFE RENTI AL basophils 0.8 % Not Available [facility] [address] [place], [place], [address], 03/03/2022 08:30:28 03/02/19 23 03/03/2022 CBC WITH DIFFE RENTI AL immature grans 0.3 % Not Available [facility] [address] [place], [place], [address], 03/03/2022 08:30:28 03/02/19 23 03/03/2022 CBC WITH DIFFE RENTI AL nucleated RBCs <1.0 /100_ WBCs <1 Not Available [facility] [address] [place], [place], [address], 03/03/2022 08:30:28 07/25/19 23 07/25/2022 BASIC METAB OLIC PANEL sodium 131 mEq/L 135-14 6 low Not Available [facility] [address] [place], [place], [address], 07/25/2022 08:18:45 07/25/19 23 07/25/2022 BASIC METAB OLIC PANEL potassium 4.0 mEq/L 3.5-5. 4 Not Available [facility] [address] [place], [place], [address], 07/25/2022 08:18:45 07/25/19 23 07/25/2022 BASIC METAB OLIC PANEL chloride 92 mEq/L 95-107 low Not Available [facility] [address] [place], [place], [address], 07/25/2022 08:18:45 07/25/19 23 07/25/2022 BASIC METAB OLIC PANEL carbon dioxide 28 mEq/L 19-31 Not Available [facility] [address] [place], [place], [address], 07/25/2022 08:18:45 07/25/19 23 07/25/2022 BASIC METAB OLIC PANEL anion gap 11 mEq/L 7-23 Not Available [facility] [address] [place], [address], 07/25/2022 08:18:45 07/25/19 23 07/25/2022 BASIC METAB OLIC PANEL glucose non-fasting 147 mg/dL 70-139 high Not Available [facility] [address] [place], [place], [address], 07/25/2022 08:18:45 07/25/19 23 07/25/2022 BASIC METAB OLIC PANEL urea nitrogen (BUN) 10 mg/dL 8-23 Not Available [facility] [address] [facility] [place], [address], 07/25/2022 08:18:45 07/25/19 23 07/25/2022 BASIC METAB OLIC PANEL creatinine 0.68 mg/dL 0.80-1 .40 low Not Available [facility] [address] [facility] [place], [address], 07/25/2022 08:18:45 07/25/19 23 07/25/2022 BASIC METAB OLIC PANEL 2020 CKD-epi eGFR-cr 93 mL/mi n/1.7 3m'2 >59 Not Available [facility] [address] [facility] [place], [address], 07/25/2022 08:18:45 07/25/19 23 07/25/2022 BASIC METAB OLIC PANEL calcium total 8.8 mg/dL 8.5-10 .5 Not Available [facility] [address] [facility] [place], [address], 07/25/2022 08:18:45 07/25/19 23 07/25/2022 BASIC METAB OLIC PANEL BUN/creatini ne ratio 15 ratio Not Available [facility] [address] [facility] [place], [address], 07/25/2022 08:18:45 Result Notes None recorded. Problems Name Problem SNOMED Code Status Onset Date Resolution Date Notes Provider Name and Address Organization Details Recorded Time Epidermoid cyst 631434704 TONYA Bruno 9 10:15:41 Spinal stenosis of lumbar region 51450904 TONYA Bruno 9 10:15:41 Atrial fibrillation [id number] TONYA Bruno - Werner Berenice 9 10:15:41 Pulmonary emphysema 63141759 Active Little salasTONYA Werner Berenice 9 10:15:41 Hypercholester olemia 49810787 Active 2022 TONYA Carlson Vijay Ng 3 16:58:29 Problem Notes None recorded. Procedures Surgical History Date Name Laterality Status Provider Name and Address Organization Details Recorded Time 3 ACP w/ MAWV completed Tank Ley TONYA Roqueibner 03/02/2022 10:41:14 3 Medicare AWV completed Tank Ley TONYA Ng 03/02/2022 10:41:14 2 ACP w/ MAWV completed Little Laz Ng 02/23/2021 11:16:30 2 Medicare AWV completed Little Laz Ng 02/23/2021 11:16:30 5 I&D completed Werner Ng MD [facility] [place], [address], TONYA Ng 06/23/2014 13:43:02 Back Surgery completed Little Ng 12/01/2013 17:30:36 Orthopedic Surgery completed Kristin Ng 07/02/2017 10:50:28 Imaging Results None recorded. Procedure Notes None recorded. Medical Equipment None Reported. Allergies No known drug allergies Medications Name Sig Start Date Stop Date Status Note LastModified by Organization Details LastModified Time Miralax 17 gram oral powder packet Take 1 packet every day by oral route as needed. 06/04 completed Not Available Not Available Not Available furosemide 40 mg tablet TAKE ONE TABLET BY MOUTH EVERY DAY active Not Available Not Available No t Available atorvastati n 40 mg tablet TAKE 1 TABLET AT BEDTIME 2022 active Not Available Not Available Not Avai lable potassium chloride ER 10 mEq capsule,ext ended release TAKE ONE TABLET BY MOUTH ONE TIME DAILY NEED VALID SCRIPT active Not Available Not Available No t Available prednisone 10 mg tablet for 16 days 08/02 completed Not Available Not Available Not Available doxycycline hyclate 100 mg capsule Take 1 capsule twice a day by oral route for 10 days. 08/31 completed Not Available Not Available Not Available penicillami ne 250 mg capsule active Not Available Not Available Not Available Klor-Con 10 mEq tablet,exte nded release Take 1 tablet every day by oral route. 07/02 completed Not Available Not Available Not Available ceftriaxone 2 gram intravenous solution Inject 2 g every day by intraveno us route. 07/02 completed Not Available Not Available Not Available valacyclovi r 1 gram tablet Take 1 tablet every 12 hours by oral route. 07/05 completed Not Available Not Available Not Available hydrocodone 5 mg-acetamin ophen 325 mg tablet TAKE 1 TABLET EVERY 4 HOURS NEEDED 07/02 completed Not Available Not Available Not Available sucralfate 100 mg/mL oral suspension TAKE 10mL BY MOUTH BEFORE MEALS AND AT BEDTIME active Not Available Not Available No t Available cefepime 2 gram solution for injection twice a day until 06/14/1706/05 completed Not Available Not Available Not Available midodrine 5 mg tablet TAKE ONE TABLET BY MOUTH TWICE DAILY active Not Available Not Available No t Available penicillin V potassium 500 mg tablet TAKE ONE TABLET BY MOUTH TWICE DAILY 2022 active Not Available Not Available Not Avai lable hydrocodone 10 mg-acetamin ophen 325 mg tablet Take 1 tablet every 4 hours by oral route as needed. 06/04 completed Not Available Not Available Not Available aspirin 81 mg tablet,jose yed release TAKE ONE TABLET BY MOUTH DAILY active Not Available Not Available No t Available tramadol 50 mg tablet Take 1 tablet 4 times a day by oral route as needed. 08/02 completed Not Available Not Available Not Available bisoprolol fumarate 5 mg tablet Take 1 tablet every day by oral route. 2022 active Not Available Not Available Not Avai lable prednisone 10 mg tablets in a dose pack Take 1 package every day by oral route as directed. 07/05 completed Not Available Not Available Not Available Guaiatussin AC 10 mg-100 mg/5 mL oral liquid 07/13 completed Not Available Not Available Not Available potassium chloride ER 20 mEq tablet,exte nded release(par t/cryst) TAKE ONE TABLET BY MOUTH EVERY DAY 12/26 completed Not Available Not Available Not Available diphenhydra mine 50 mg/mL injection solution 07/02 completed Not Available Not Available Not Available oxycodone-a cetaminophe n 10 mg-325 mg tablet 10/04 completed Not Available Not Available Not Available tamsulosin 0.4 mg capsule TAKE 1 CAPSULE DAILY AT BEDTIME 2022 active Not Available Not Available Not Avai lable furosemide 80 mg tablet Take 1 tablet every day by oral route for 30 days. 01/10 completed Not Available Not Available Not Available cephalexin 500 mg capsule active Not Available Not Available Not Available pantoprazol e 40 mg tablet,jose yed release TAKE ONE TABLET BY MOUTH TWICE DAILY FOR TWO WEEKS THEN ONCE DAILY THEREAFTE R active Not Available Not Available No t Available mirtazapine 30 mg tablet Take 1 tablet every day by oral route. 07/02 completed Not Available Not Available Not Available ferrous sulfate 325 mg (65 mg iron) tablet Take 1 tablet twice a day by oral route. 08/01 completed Not Available Not Available Not Available gabapentin 300 mg capsule Take 1 capsule twice a day by oral route as needed. 07/13 completed Not Available Not Available Not Available Tylenol 325 mg tablet Take 1 tablet every 4 hours by oral route as needed. 07/13 completed Not Available Not Available Not Available midodrine 2.5 mg tablet Take 2 tablets 3 times a day by oral route. 07/02 completed Not Available Not Available Not Available mirtazapine 15 mg tablet TAKE 1 TABLET DAILY AT BEDTIME 2022 active Not Available Not Available Not Avai lable sodium chloride 0.9 % intravenous solution 07/02 completed Not Available Not Available Not Available ergocalcife rol (vitamin D2) 1,250 mcg (50,000 unit) capsule Take 1 capsule every week by oral route. 07/13 completed Not Available Not Available Not Available lorazepam 1 mg tablet Take 1 tablet every 6 hours by oral route as needed. 07/02 completed Not Available Not Available Not Available Ativan 0.5 mg tablet Take 1 tablet every 6 hours by oral route. 08/02 completed Not Available Not Available Not Available levofloxaci n 750 mg tablet Take 1 tablet every day by oral route for 5 days. 08/02 completed Not Available Not Available Not Available fludrocorti sone 0.1 mg tablet Take 2 tablets every day by oral route. 07/02 completed Not Available Not Available Not Available atenolol 50 mg tablet TAKE 1 TABLET DAILY 12/20 completed Not Available Not Available Not Available ceftriaxone 2 gram solution for injection 07/02 completed Not Available Not Available Not Available Ventolin HFA 90 mcg/actuati on aerosol inhaler USE 2 INHALATIO NS BY MOUTH EVERY 6 HOURS NEEDED 2022 active Not Available Not Available Not Avai lable Bactrim DS 800 mg-160 mg tablet Take 1 tablet every 12 hours by oral route for 7 days. 01/10 completed Not Available Not Available Not Available enoxaparin 40 mg/0.4 mL subcutaneou s syringe Inject 0.4 mL every day by subcutane ous route for 4 days. 06/04 completed Not Available Not Available Not Available metoprolol tartrate 25 mg tablet TAKE ONE TABLET BY MOUTH TWICE DAILY AT 9am AND 9pm active Not Available Not Available No t Available Spiriva with HandiHaler 18 mcg and inhalation capsules Inhale 1 capsule every day by inhalatio n route. 01/10 completed Not Available Not Available Not Available Culturelle 1 tablet twice a day. 07/13 completed Not Available Not Available Not Available DuoNeb Inhale 1 dose three times a day. 07/05 completed Not Available Not Available Not Available Symbicort 80 mcg-4.5 mcg/actuati on HFA aerosol inhaler Inhale 2 puffs twice a day by inhalatio n route. 07/02 completed Not Available Not Available Not Available Xarelto 10 mg tablet Take 1 tablet every day by oral route. 07/02 completed Not Available Not Available Not Available Xarelto 20 mg tablet TAKE 1 TABLET DAILY 2022 active Not Available Not Available Not Avai lable potassium chloride ER 20 mEq tablet,exte nded release Take 1 tablet every day by oral route. 01/10 completed Not Available Not Available Not Available Vitals Date Recorded Body height Body mass index (BMI) Body weight Heart rate Body temperature Oxygen saturation Oxygen saturation in Arterial blood by Pulse oximetry Systolic And Diastolic Provider Name and Address Organization Details Last Updated DateTime 3 187.96 cm 21.7 kg/m2 92601.1 1 g 88 /min 98 [degF] 86 % 86 % 178/82 mm[Hg] Tanktony Galarzaamadou Ng 3 10:45:47 Date Recorded Body height Body mass index (BMI) Body weight Body temperature Heart rate Oxygen saturation Oxygen saturation in Arterial blood by Pulse oximetry Systolic And Diastolic Provider Name and Address Organization Details Last Updated DateTime 3 187.96 cm 23.1 kg/m2 00157.6 3 g 97.8 [degF] 90 /min 88 % 88 % 138/83 mm[Hg] Tank Leyamadou Ng 3 11:11:20 Date Recorded Body height Body mass index (BMI) Body weight Heart rate Oxygen saturation Oxygen saturation in Arterial blood by Pulse oximetry Body temperature Systolic And Diastolic Provider Name and Address Organization Details Last Updated DateTime 3 187.96 cm 22.3 kg/m2 91924.0 7 g 84 /min 88 % 88 % 98 [degF] 109/63 mm[Hg] Tanktony Ng 3 10:59:26 Date Recorded Oxygen saturation Oxygen saturation in Arterial blood by Pulse oximetry Inhaled oxygen flow rate Provider Name and Address Organization Details Last Updated DateTime 10/25/2022 84 % 84 % 2 L/min Werner Ng MD [address] [place], [address], TONYA Ng 10/25/2022 14:30:22 Date Recorded Body height Heart rate Body temperature Systolic And Diastolic Provider Name and Address Organization Details Last Updated DateTime 10/25/2022 187.96 cm 60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
--- NOTE | 2024-11-19 21:46 | ECG_ITS ---
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 Measurements Intervals Brooks Rate: 114 P: 0 ND: 0 QRS: 87 QRSD: 129 T: 60 QT: 334 QTc: 462 Interpretive Statements ATRIAL FIBRILLATION WITH RAPID VENTRICULAR RESPONSE RIGHT BUNDLE BRANCH BLOCK [120+ ms QRS DURATION, UPRIGHT V1, 40+ ms S IN I/aVL/V4/V5/V6] Compared to ECG 06/02/2024 18:29:10 T-wave abnormality no longer present Possible ischemia no longer present Electronically Signed On 11-20-2024 08:31:46 CDT by Gabriele Mello M.D. [id number]
[2024-11-19 22:04] VITALS: BP 148/75; PULSE 113; O2SAT 96
[2024-11-19 22:30] VITALS: BP 141/75; PULSE 111; O2SAT 98
[2024-11-19 23:00] VITALS: BP 135/71; PULSE 102; O2SAT 91
--- NOTE | 2024-11-19 23:07 | PC.NURSE ---
Dr. Wright voiced to have replace concentrator that was broken, notified and contacted [facility], awaiting return call.
[2024-11-20 00:26] VITALS: BP 136/83; PULSE 96; O2SAT 97
[2024-11-20 01:10] VITALS: BP 143/80; PULSE 87; O2SAT 95
--- NOTE | 2024-11-20 04:49 | W.ED.SOB ---
HPI - SOB/Dyspnea General: Chief Complaint: Shortness of Breath/Dyspnea Stated Complaint: sob Time Seen by Provider: 11/19/24 21:39 History of Present Illness: HPI Narrative: 83-year-old male with history of stroke, abnormal stress test, anemia, acute on chronic respiratory failure with hypoxia and hypercapnia, prior pneumonia, atrial fibrillation, gastrointestinal bleeds, gastroesophageal reflux disease, congestive heart failure, chronic obstructive pulmonary disease, and pulmonary hypertension, residing in an assisted living facility, presents with shortness of breath. Per EMS, patient typically uses 4 L oxygen via concentrator at baseline; device reportedly malfunctioned and patient was not receiving oxygen. No recent fever, cough, or chest pain. Patient received albuterol and dexamethasone by EMS. On arrival, patient speaking in full sentences, states he is comfortable, denies distress, had supper, and declines food/drink. Denies chest pain and cough. Related Data Home Medications ?Medication ?Instructions ?Recorded ?Confirmed albuterol sulfate 90 mcg/actuation 2 puff inhalation Q4H PRN 01/09/23 03/06/24 aerosol inhaler Shortness Of Breath Or Wheezing budesonide-formoterol HFA 80 1 puff inhalation BID 01/09/23 03/06/24 mcg-4.5 mcg/actuation aerosol inhaler (Symbicort) tamsulosin 0.4 mg capsule 0.4 mg PO DAILY@01/09/23 03/06/24 acetaminophen 500 mg tablet 500 - 1,000 mg PO Q6H PRN Pain 02/09/23 03/06/24 pantoprazole 40 mg tablet,delayed 40 mg PO DAILY@02/09/23 03/06/24 release sucralfate 100 mg/mL oral 10 ml PO BID 03/06/23 03/06/24 suspension midodrine 5 mg tablet 5 mg PO BID 05/17/23 03/06/24 potassium chloride 10 mEq 10 meq PO DAILY 01/03/24 03/06/24 tablet,extended release(part/cryst) lorazepam 0.5 mg tablet 0.5 mg PO TID PRN Anxiety 03/06/24 03/06/24 quinine-vitamin E capsule 1 - 2 cap PO Q6H PRN leg cramps 03/06/24 03/06/24 Previous Rx's ?Medication ?Instructions ?Recorded metoprolol tartrate 25 mg tablet 25 mg PO BID@0900,2100 #60 tabs 01/16/23 aspirin 81 mg tablet,delayed 81 mg PO DAILY #30 tabs 08/22/23 release atorvastatin 40 mg tablet 40 mg PO BEDTIME #30 tabs 08/22/23 ipratropium 0.5 mg-albuterol 3 mg 3 ml inhalation Q6H PRN Shortness 12/30/23 (2.5 mg base)/3 mL nebulization Of Breath Or Wheezing #60 mL soln Allergies Allergy/AdvReac Type Severity Reaction Status Date / Time No Known Allergies Allergy Verified 03/06/24 06:47 [facility] ED PFS: Medical History (Updated 11/20/24 @ 00:33 by Joe Wright MD) Stroke Abnormal stress test Anemia Acute respiratory failure with hypoxia and hypercapnia Anemia Pneumonia Mixed dyslipidemia Atrial fibrillation Patient has a history of severe GI bleed. For that reason, he is not on any oral anticoagulant GI bleed GERD without esophagitis Chronic hypoxic respiratory failure Lives in assisted living facility Acute hypernatremia Pneumonia Pulmonary hypertension Paroxysmal atrial fibrillation with RVR Hypoxia MENDOZA (dyspnea on exertion) Acute exacerbation of chronic obstructive pulmonary disease Congestive heart failure Malnutrition of moderate degree Hyperkalemia Fall Troponin level elevated Acute hyponatremia BPH (benign prostatic hyperplasia) Orthostatic hypotension Chronic anticoagulation Paroxysmal A-fib Nocturnal hypoxia COPD (chronic obstructive pulmonary disease) Social History Smoking and tobacco/nicotine status: current every day tobacco/nicotine user Marital status: Single Physical Exam Const: COMMON NORMALS: no acute distress, patient oriented x3 and alert HENMT: COMMON NORMALS: normocephalic and atraumatic HEAD & SCALP: normocephalic and atraumatic Eye: COMMON NORMALS: Equal, round and reactive pupils present, EOMs intact bilaterally and no scleral icterus PUPIL: Yes Equal, round and reactive pupils present Resp: COMMON NORMALS: normal respiratory effort OTHER: Mild wheezes in all lung cornejo. Mildly increased work of breathing Cardio: COMMON NORMALS: No murmurs present (Cardio) OTHER: Tachycardic, irregularly irregular GI: COMMON NORMALS: Normal to inspection, nondistended, normoactive bowel sounds present, Soft to palpation and non-tender PALPATION: Yes Soft to palpation Neuro: COMMON NORMALS: patient oriented x3 SENSORIUM/ORIENTATION: Yes alert Skin: COMMON NORMALS: no rashes or lesions noted GENERAL SKIN EXAM: no rashes or lesions noted Course Vital Signs: Vital signs: Vital Signs Temperature 100 F H 11/19/24 21:24 Pulse Rate 87 11/20/24 01:10 Respiratory Rate 28 H 11/19/24 21:24 Blood Pressure 143/80 11/20/24 01:10 Pulse Oximetry 95 11/20/24 01:10 Oxygen Delivery Me thod Nasal Cannula 11/20/24 00:26 Oxygen Flow Rate 4 11/20/24 00:26 MDM - SOB/Dyspnea Medical Decision Making 83-year-old male with extensive cardiopulmonary history presents with shortness of breath after reported failure of home oxygen concentrator; baseline reportedly 4 L oxygen. No fever, cough, or chest pain. Received albuterol and dexamethasone via EMS. Patient comfortable and in no distress on evaluation. Vital signs notable for BP 170/83, HR 127, RR 28, SpO2 98%. Physical exam shows mild diffuse wheezes, tachycardia with irregularly irregular rhythm, alert and oriented times three, speaking full sentences. Shortness of breath likely due to loss of home oxygen from concentrator malfunction per history. Hypercapnic respiratory failure less suspected given intact mentation and no somnolence. No infectious symptoms to suggest pneumonia. Atrial fibrillation with tachycardia appears baseline per chart and provider comment. Plan is to arrange replacement of the home oxygen concentrator via supplier/home health, keep patient comfortable, and coordinate with facility. No additional tests or treatments specified beyond EMS-administered albuterol and dexamethasone. No radiology studies performed this visit Discharge Plan Discharge Patient Disposition: Home Clinical Impression: Suspected condition not found Condition: Stable Prescriptions: No Action potassium chloride 10 mEq tablet,ER particles/crystals 10 meq PO DAILY tamsulosin 0.4 mg capsule 0.4 mg PO DAILY@08 albuterol sulfate 90 mcg/actuation HFA aerosol inhaler 2 puff INHALATION Q4H PRN (Reason: Shortness Of Breath Or Wheezing) budesonide-formoterol [Symbicort] 80-4.5 mcg/actuation HFA aerosol inhaler 1 puff INHALATION BID metoprolol tartrate 25 mg Tablet 25 mg PO BID@0900,2100 Qty: 60 0RF sucralfate 100 mg/mL suspension 10 ml PO BID Rx Instructions: before meals and bedtime aspirin 81 mg Tablet,Delayed Release (/Ec) 81 mg PO DAILY Qty: 30 0RF atorvastatin 40 mg Tablet 40 mg PO BEDTIME Qty: 30 0RF lorazepam 0.5 mg Tablet 0.5 mg PO TID PRN (Reason: Anxiety) Leg Cramp Relief Capsule 1 - 2 cap PO Q6H PRN (Reason: leg cramps ) acetaminophen 500 mg Tablet 500 - 1,000 mg PO Q6H PRN (Reason: Pain) pantoprazole 40 mg tablet,delayed release (DR/EC) 40 mg PO DAILY@08 midodrine 5 mg Tablet 5 mg PO BID Rx Instructions: do not give last dose of day after 6PM or within 4 hrs of bedtime ipratropium-albuterol 0.5 mg-3 mg(2.5 mg base)/3 mL Solution For Nebulization 3 ml INHALATION Q6H PRN (Reason: Shortness Of Breath Or Wheezing) Qty: 60 0RF Discharge Orders: Discharge ED (Routine); Ordered 11/20/24 Ordered By: Joe Wright Referrals: Robert Giordano MD [Primary Care Provider, Family Practice] Patient Instructions: Patient Portal & Marsha Instructions Activity Restrictions/Additional Instructions: Your vital signs and EKG are reassuring. as long as you are able to receive your normal nasal cannula oxygen supplementation you should be safe to follow-up with your primary care doctor as you normally would and take your medications as you normally do Print Language: [place] Coding Level of Care Code ED Truck Greaser for Liv Vega
== END 2024-11-20 01:11 | disposition home or self-care (01) ==
PROVIDERS: Emergency Provider Student in an Organized Health Care Education/Training Program; PCP Family Medicine
DX: Z03.89 Encounter for observation for other suspected diseases and conditions ruled out (principal); Z79.82 Long term (current) use of aspirin; Z72.0 Tobacco use; J44.9 Chronic obstructive pulmonary disease, unspecified; E78.2 Mixed hyperlipidemia; I11.0 Hypertensive heart disease with heart failure; I50.9 Heart failure, unspecified
CPT/HCPCS: 93005; 99283

== ENCOUNTER 2024-11-28 04:26 | Emergency (ER) | payer BC, MEDICARE, SELFPAY ==
[2024-11-28 04:30] VITALS: BP 139/78; PULSE 68; RESP 20; TEMP 36.9; O2SAT 99; BMI 18.6
--- NOTE | 2024-11-28 04:31 | CTR_ITS ---
PROCEDURE INFORMATION: Exam: CT Head Without Contrast Exam date and time: 11/28/2024 5:24 AM Age: 83 years old Clinical indication: Injury or trauma; Fall; Blunt trauma (contusions or hematomas); Additional info: Fall, loc, on blood thinner TECHNIQUE: Imaging protocol: Computed tomography of the head without contrast. Radiation optimization: All CT scans at this facility use at least one of these dose optimization techniques: automated exposure control; mA and/or kV adjustment per patient size (includes targeted exams where dose is matched to clinical indication); or iterative reconstruction. COMPARISON: CT head wo con* [id number] 03/06/2024 7:32 AM RADIATION DOSE METRICS: Total DLP (mGy-cm): 1314.98 FINDINGS: Brain: Multiple chronic infarcts are identified most notable in the right frontotemporal lobe. There is no evidence of acute parenchymal hemorrhage, extra-axial collection, or acute infarction. There is no mass effect, midline shift, or downward herniation. Cerebral ventricles: No ventriculomegaly. Paranasal sinuses: Visualized sinuses are unremarkable. No fluid levels. Mastoid air cells: Visualized mastoid air cells are well aerated. Bones: Unremarkable. No acute fracture. Soft tissues: Unremarkable. CT/CT head wo con* [id number] IMPRESSION: 1. No evidence of acute intracranial process. 2. Multiple chronic infarcts.
--- NOTE | 2024-11-28 04:32 | XRR_ITS ---
PROCEDURE INFORMATION: Exam: XR Chest Exam date and time: 11/28/2024 5:33 AM Age: 83 years old Clinical indication: Injury or trauma; Fall; Blunt trauma (contusions or hematomas); Prior surgery; Surgery date: 6+ months; Surgery type: Pacemaker; Additional info: Fall, HX copd, mildly tachypneic TECHNIQUE: Imaging protocol: Radiologic exam of the chest. Views: 1 view. COMPARISON: CR (CHEST, ) 06/02/2024 6:30 PM FINDINGS: Tubes, catheters and devices: There is a left chest wall pacemaker with leads projecting to the right atrium and right ventricle. Lungs: There appears to be a small developing right lower lobe infiltrate and small right pleural effusion. Pleural spaces: There is no pneumothorax. Heart/Mediastinum: Unremarkable. No cardiomegaly. Bones/joints: Unremarkable. XR/XR chest 1V portable [id number] IMPRESSION: Small developing right lower lobe infiltrate/effusion.
[2024-11-28 04:39] VITALS: BP 139/78; PULSE 68; RESP 20; TEMP 36.9; O2SAT 99
--- NOTE | 2024-11-28 04:46 | ECG_ITS ---
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1940 Requested By: Richard Myles Order Number: [id number] Reading MD: HERNESTO KELLY Measurements Intervals Lucinda Rate: 66 P: 0 AK: 0 QRS: 94 QRSD: 149 T: -36 QT: 438 QTc: 461 Interpretive Statements ATRIAL FIBRILLATION, paced rythm ELECTRONIC VENTRICULAR PACEMAKER -- CONTOUR ANALYSIS BASED ON INTRINSIC RHYTHM RIGHT BUNDLE BRANCH BLOCK [120+ ms QRS DURATION, UPRIGHT V1, 40+ ms S IN I/aVL/V4/V5/V6] MODERATE T-WAVE ABNORMALITY, CONSIDER INFERIOR ISCHEMIA [-0.1+ mV T-WAVE IN II/aVF] Compared to ECG 11/19/2024 21:42:43 T-wave abnormality now present Electronically Signed On 11-30-2024 23:16:53 CDT by HERNESTO KELLY [id number]
[2024-11-28 04:58] LABS: Hematocrit 33.7 % (37-53); Hemoglobin 10.40 g/dL (11.27-16.99); Mean Corpuscular HGB Conc 30.9 g/dL (30-55); Mean Corpuscular Hemoglobin 28.4 pg (27-33); Mean Corpuscular Volume 92.1 fl (82-101); Nucleated Red Blood Cells % 0 %; Platelet Count 196 10^3/cmm (157-399); Red Blood Count 3.66 10^6/uL (3.85-5.65); White Blood Count 5.27 10^3/uL (3.29-11.43)
--- NOTE | 2024-11-28 05:07 | ED_ITS ---
HPI - Fall 2 General: Chief Complaint: Fall Stated Complaint: Fall History of Present Illness: 83-year-old male history of hypertension , COPD, hyperlipidemia, atrial fibrillation, heart failure, TIA, presenting from residential found on ground by bed with possible fall. Patient denies any complaints, per residential son requested transfer to ER for evaluation. Patient is on a blood thinner, he denies pain to head neck chest back region, denies any recent illnesses, denies difficulty breathing cough or fever Related Data Home Medications ?Medication ?Instructions ?Recorded ?Confirmed albuterol sulfate 90 mcg/actuation 2 puff inhalation Q 4H PRN 01/09/23 03/06/24 aerosol inhaler Shortness Of Breath Or Wheez ing budesonide-formoterol HFA 80 1 puff inhalation BID 03/06/24 mcg-4.5 mcg/actuation aerosol inhaler (Symbicort) tamsulosin 0.4 mg capsule 0.4 mg PO DAILY@08 01/09/23 03/06/24 acetaminophen 500 mg tablet 500 - 1,000 mg PO Q6H PRN Pain 02/09/23 03/06/24 pantoprazole 40 mg tablet,delayed 40 mg PO DAILY@03/06/24 release sucralfate 100 mg/mL oral 10 ml PO BID 03/06/23 suspension midodrine 5 mg tablet 5 mg PO BID 05/17/23 5 potassium chloride 10 mEq 10 meq PO DAILY 01/03/24 tablet,extended release(part/cryst) lorazepam 0.5 mg tablet 0.5 mg PO TID PRN Anxiety 03/06/24 quinine-vitamin E capsule 1 - 2 cap PO Q6H PRN leg bulldozer/loader/compactor/scraper mps 03/06/24 03/06/24 Previous Rx's ?Medication ?Instructions ?Recorded metoprolol tartrate 25 mg tablet 25 mg PO BID@0900,210 0 #60 tabs 01/16/23 aspirin 81 mg tablet,delayed 81 mg PO DAILY #30 tabs 0 08/22/23 release atorvastatin 40 mg tablet 40 mg PO BEDTIME #30 tabs ipratropium 0.5 mg-albuterol 3 mg 3 ml inhalation Q6H PRN Shortness 12/30/23 (2.5 mg base)/3 mL nebulization Of Breath Or Wheezing #60 mL soln Allergies Allergy/AdvReac Type Severity Reaction Status Date / Time No Known Allergies Allergy Verified 03/06/24 06:47 [facility] ED 2 PFSH: Medical History Stroke Abnormal stress test Anemia Acute respiratory failure with hypoxia and hypercapnia Anemia Pneumonia Mixed dyslipidemia Atrial fibrillation Patient has a history of severe GI bleed. For that reason, he is not on any oral anticoagulant GI bleed GERD without esophagitis Chronic hypoxic respiratory failure Lives in assisted living facility Acute hypernatremia Pneumonia Pulmonary hypertension Paroxysmal atrial fibrillation with RVR Hypoxia MENDOZA (dyspnea on exertion) Acute exacerbation of chronic obstructive pulmonary disease Congestive heart failure Malnutrition of moderate degree Hyperkalemia Fall Troponin level elevated Acute hyponatremia BPH (benign prostatic hyperplasia) Orthostatic hypotension Chronic anticoagulation Paroxysmal A-fib Nocturnal hypoxia COPD (chronic obstructive pulmonary disease) Social History Smoking and tobacco/nicotine status: current every day tobacco/nicotine user Marital status: Single Physical Exam 2 Narrative: EXAM NARRATIVE: Gen: no acute distress, nontoxic appearing HEENT: Normocephalic, atraumatic, no scleral icterus, external ears normal, moist mucous membranes, no external scalp contusion or laceration, no depressed skull fracture, no hemotympanum no Humphries sign no periorbital ecchymosis Neck: Supple, full range of motion, no observable masses Lungs: No Respiratory distress, Lungs clear to auscultation bilaterally no rales, rhonchi, wheezing, saturating 99% on 5 L nasal cannula which is his home oxygen baseline CV: Regular rate and rhythm, no murmur, no pitting edema to lower extremities bilaterally Abdomen: Soft, nondistended, nontender to palpation MSK: No joint swelling, FROM all 4 extremities Skin: No rashes, petechiae, lesions. Normal color per patient, there are scattered skin tears and bruising in various stages of healing to the bilateral lower extremities Neuro: Alert and oriented, no slurred speech, sensation and strength grossly intact all 4 extremities Psych: Appropriate for situation. Course 2 Vital Signs: Vital signs: Vital Signs Temperature 98.4 F 11/28/24 04:39 Pulse Rate 68 11/28/24 04:39 Respiratory Rate 20 H 10/10/25 04:39 Blood Pressure 139/78 11/28/24 04:39 Pulse Oximetry 99 11/28/24 04:39 Oxygen Delivery Me thod Nasal Cannula 11/28/24 04:39 Oxygen Flow Rate 5 11/28/24 04:39 MDM - Fall Medical Decision Making 83-year-old male history of COPD CHF chronic hypoxemic respiratory failure on 5 L home oxygen, TIA, hypertension, A-fib on blood thinners, presenting to emergency department after being found on the floor next to his bed with occult trauma suspected, on exam patient has some scattered skin tears to his lower extremities without bony tenderness to palpation or reduced range of motion to the hip knee or ankle region, he has no external signs of head trauma however given anticoagulation and age will obtain imaging to rule out occult head bleed, basic labs given significant medical comorbidities, reassess for disposition but if imaging and blood work reassuring would anticipate discharge back to residential. Lab Data Labs with mild anemia, no leukocytosis, normal creatinine, no significant electrolyte derangements 11/28/24 04:45 11/28/24 04:45 Laboratory Results WBC 5.27 10^3/uL (3.29-11.43) 11/28/24 04:45 RBC 3.66 10^6/uL (3.85-5.65) L 11/28/24 04:45 Hgb 10.40 g/dL (11.27-16.99) L 11/28/24 04:45 Hct 33.7 % (37-53) L 11/28/24 04:45 MCV 92.1 fl (82-101) 11/28/24 04:45 MCH 28.4 pg (27-33) 11/28/24 04:45 MCHC 30.9 g/dL (30-55) 11/28/24 04:45 RDW 16.9 % (12.1-15.1) H 11/28/24 04:45 Plt Count 196 10^3/cmm (157-399) 11/28/24 04:45 MPV 10.4 fL (7.4-10.4) 11/28/24 04:45 Neut % (Auto) 63.1 % 11/28/24 04:45 Lymph % (Auto) 19.4 % 11/28/24 04:45 Lee % (Auto) 14.0 % 11/28/24 04:45 Eos % (Auto) 1.9 % 11/28/24 04:45 Baso % (Auto) 0.8 % 11/28/24 04:45 Neut # (Auto) 3.33 10^3/uL (1.8-7.7) 11/28/24 04:45 Lymph # (Auto) 1.0 10^3/uL (0.8-4.8) 11/28/24 04:45 Lee # (Auto) 0.7 10^3/uL (0.2-0.9) 11/28/24 04:45 Eos # (Auto) 0.1 10^3/uL (0.0-0.8) 11/28/24 04:45 Baso # (Auto) 0.0 10^3/uL (0.0-0.1) 11/28/24 04:45 Nucleated RBC % (auto) 0 % 11/28/24 04:45 Nucleated RBCs # 0.0 /100WBC 11/28/24 04:45 Sodium 141 mmol/L (136-145) 11/28/24 04:45 Potassium 3.7 mmol/L (3.5-5.1) 11/28/24 04:45 Chloride 100 mmol/L (98-107) 11/28/24 04:45 Carbon Dioxide 34 mmol/L (22-29) H 11/28/24 04:45 Anion Gap 10.7 (5-19) 11/28/24 04:45 BUN 8 mg/dL (8-23) 11/28/24 04:45 Creatinine 0.5 mg/dL (0.7-1.2) L 11/28/24 04:45 GFR Calculation Not Reportable 11/28/24 04:45 Glucose 95 mg/dL (65-115) 11/28/24 04:45 Calculated Osmolality 290 mOsm/kg (285-295) 11/28/24 04:45 Calcium 8.0 mg/dL (8.5-10.5) L 11/28/24 04:45 XR interpretation done by ED provider, pending radiology final review ED provider radiology interpretation(s): Chest x-ray with chronic hyperinflation, no clear consolidation CT head with chronic ischemic infarcts, chronic ventriculomegaly with ex vacuo dilatation and volume loss, grossly unchanged from CT performed February 2024 EKG Data EKG 1: I personally reviewed and interpreted this EKG as follows: EKG interpretation date: 11/28/24 EKG interpretation time: 05:10 Interpretation: Paced rhythm at 66 bpm, ectopy noted, no STEMI, QTc 452 ms Discharge Plan Discharge Patient Disposition: Home Clinical Impression: Fall Condition: Stable Prescriptions: No Action potassium chloride 10 mEq tablet,ER particles/crystals 10 meq PO DAILY tamsulosin 0.4 mg capsule 0.4 mg PO DAILY@08 albuterol sulfate 90 mcg/actuation HFA aerosol inhaler 2 puff INHALATION Q4H PRN (Reason: Shortness Of Breath Or Wheezing) budesonide-formoterol [Symbicort] 80-4.5 mcg/actuation HFA aerosol inhaler 1 puff INHALATION BID metoprolol tartrate 25 mg Tablet 25 mg PO BID@0900,2100 Qty: 60 0RF sucralfate 100 mg/mL suspension 10 ml PO BID Rx Instructions: before meals and bedtime aspirin 81 mg Tablet,Delayed Release (Dr/Ec) 81 mg PO DAILY Qty: 30 0RF atorvastatin 40 mg Tablet 40 mg PO BEDTIME Qty: 30 0RF lorazepam 0.5 mg Tablet 0.5 mg PO TID PRN (Reason: Anxiety) Leg Cramp Relief Capsule 1 - 2 cap PO Q6H PRN (Reason: leg cramps ) acetaminophen 500 mg Tablet 500 - 1,000 mg PO Q6H PRN (Reason: Pain) pantoprazole 40 mg tablet,delayed release (DR/EC) 40 mg PO DAILY@08 midodrine 5 mg Tablet 5 mg PO BID Rx Instructions: do not give last dose of day after 6PM or within 4 hrs of bedtime ipratropium-albuterol 0.5 mg-3 mg(2.5 mg base)/3 mL Solution For Nebulization 3 ml INHALATION Q6H PRN (Reason: Shortness Of Breath Or Wheezing) Qty: 60 0RF Discharge Orders: Discharge ED (Routine); Ordered 11/28/24 Ordered By: Richard Myles Referrals: Robert Giordano MD [Primary Care Provider, Family Practice] Patient Instructions: Patient Portal & Marsha Instructions, Fall Prevention for Older Adults (ED) Print Language: Kenyan Coding Level of Care Code ED Sales And Service Advisor for Chg Gary
[2024-11-28 05:16] LABS: Anion Gap 10.7 (5-19); Blood Urea Nitrogen 8 mg/dL (8-23); Calcium 8.0 mg/dL (8.5-10.5); Carbon Dioxide 34 mmol/L (22-29); Chloride 100 mmol/L (98-107); Creatinine Clr Calc Pharmacy 65.0859; Glucose 95 mg/dL (65-115); Osmolality Calculated 290 mOsm/kg (285-295); Potassium 3.7 mmol/L (3.5-5.1); Sodium 141 mmol/L (136-145)
[2024-11-28 06:39] VITALS: BP 153/80; PULSE 61; RESP 18; O2SAT 99
[2024-11-28 06:48] VITALS: BP 153/80; PULSE 61; RESP 18; O2SAT 99
[2024-11-28 08:06] VITALS: BP 142/79; PULSE 64; O2SAT 92
--- NOTE | 2024-11-28 08:06 | PC.NURSE ---
report given to [facility], left around @0553
== END 2024-11-28 08:16 | disposition home or self-care (01) ==
PROVIDERS: Emergency Provider Student in an Organized Health Care Education/Training Program; PCP Family Medicine
DX: Z04.3 Encounter for examination and observation following other accident (principal); Z79.82 Long term (current) use of aspirin; Z72.0 Tobacco use; J44.9 Chronic obstructive pulmonary disease, unspecified; E78.2 Mixed hyperlipidemia; I11.0 Hypertensive heart disease with heart failure; I50.9 Heart failure, unspecified; Z86.73 Personal history of transient ischemic attack (TIA), and cerebral infarction without residual deficits
CPT/HCPCS: 36415; 70450; 71045; 80048; 85025; 93005; 99284; J9999

== ENCOUNTER 2024-12-22 09:33 | Inpatient (IN) | payer MEDICARE, BC, SELFPAY ==
[2024-12-22] VITALS (11 sets, daily range): BP systolic 119–154; BP diastolic 52–91; PULSE 71–119; RESP 15–24; TEMP 36.4–36.8; O2SAT 90–99; BMI 19.2; BMI 21.4
--- NOTE | 2024-12-22 09:31 | XR_ITS ---
WS: [id number] Portable AP upright chest, 12/22/2024 Clinical Data: dyspnea/cough Comparison: Portable chest, 11/28/2024 Findings: There is a right lower lobe opacity which appears to be atelectasis, effusion and possible pneumonia. The heart is enlarged. There is a small left pleural effusion. No nodules or masses are seen. The pulmonary vascularity is not remarkable. No pneumothorax is present. There is a cardiac pacemaker with the generator overlying the left upper chest. The aortic arch and descending thoracic aorta show calcification and tortuosity. There are monitor leads on the chest wall. XR/XR chest 1V portable [id number] Impression: 1. Increase in right lower lobe opacity. 2. Cardiomegaly and atherosclerosis. 3. Small left pleural effusion.
--- NOTE | 2024-12-22 09:40 | ED_ITS ---
HPI - SOB/Dyspnea General: Stated Complaint: sob Related Data Home Medications ?Medication ?Instructions ?Recorded ?Confirmed albuterol sulfate 90 mcg/actuation 2 puff inhalation Q 4H PRN 01/09/23 03/06/24 aerosol inhaler Shortness Of Breath Or Wheez ing budesonide-formoterol HFA 80 1 puff inhalation BID 03/06/24 mcg-4.5 mcg/actuation aerosol inhaler (Symbicort) tamsulosin 0.4 mg capsule 0.4 mg PO DAILY@08 01/09/23 03/06/24 acetaminophen 500 mg tablet 500 - 1,000 mg PO Q6H PRN Pain 02/09/23 03/06/24 pantoprazole 40 mg tablet,delayed 40 mg PO DAILY@03/06/24 release sucralfate 100 mg/mL oral 10 ml PO BID 03/06/23 suspension midodrine 5 mg tablet 5 mg PO BID 05/17/23 5 potassium chloride 10 mEq 10 meq PO DAILY 01/03/24 tablet,extended release(part/cryst) lorazepam 0.5 mg tablet 0.5 mg PO TID PRN Anxiety 03/06/24 quinine-vitamin E capsule 1 - 2 cap PO Q6H PRN 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 03/06/24 03/06/24 Previous Rx's ?Medication ?Instructions ?Recorded metoprolol tartrate 25 mg tablet 25 mg PO BID@0900,210 0 #60 tabs 01/16/23 aspirin 81 mg tablet,delayed 81 mg PO DAILY #30 tabs 0 08/22/23 release atorvastatin 40 mg tablet 40 mg PO BEDTIME #30 tabs ipratropium 0.5 mg-albuterol 3 mg 3 ml inhalation Q6H PRN Shortness 12/30/23 (2.5 mg base)/3 mL nebulization Of Breath Or Wheezing #60 mL soln Allergies Allergy/AdvReac Type Severity Reaction Status Date / Time No Known Allergies Allergy Verified 03/06/24 06:47 [facility]: Medical History (Updated 12/06/24 @ 00:00 by SYBIL Arrington) Stroke Abnormal stress test Anemia Acute respiratory failure with hypoxia and hypercapnia Anemia Pneumonia Mixed dyslipidemia Atrial fibrillation Patient has a history of severe GI bleed. For that reason, he is not on any oral anticoagulant GI bleed GERD without esophagitis Chronic hypoxic respiratory failure Lives in assisted living facility Acute hypernatremia Pneumonia Pulmonary hypertension Paroxysmal atrial fibrillation with RVR Hypoxia MENDOZA (dyspnea on exertion) Acute exacerbation of chronic obstructive pulmonary disease Congestive heart failure Malnutrition of moderate degree Hyperkalemia Fall Troponin level elevated Acute hyponatremia BPH (benign prostatic hyperplasia) Orthostatic hypotension Chronic anticoagulation Paroxysmal A-fib Nocturnal hypoxia COPD (chronic obstructive pulmonary disease) Social History Smoking and tobacco/nicotine status: current every day tobacco/nicotine user Marital status: Single Discharge Plan Discharge Condition: Stable Prescriptions: No Action potassium chloride 10 mEq tablet,ER particles/crystals 10 meq PO DAILY tamsulosin 0.4 mg capsule 0.4 mg PO DAILY@08 albuterol sulfate 90 mcg/actuation HFA aerosol inhaler 2 puff INHALATION Q4H PRN (Reason: Shortness Of Breath Or Wheezing) budesonide-formoterol [Symbicort] 80-4.5 mcg/actuation HFA aerosol inhaler 1 puff INHALATION BID metoprolol tartrate 25 mg Tablet 25 mg PO BID@0900,2100 Qty: 60 0RF sucralfate 100 mg/mL suspension 10 ml PO BID Rx Instructions: before meals and bedtime aspirin 81 mg Tablet,Delayed Release (Dr/Ec) 81 mg PO DAILY Qty: 30 0RF atorvastatin 40 mg Tablet 40 mg PO BEDTIME Qty: 30 0RF lorazepam 0.5 mg Tablet 0.5 mg PO TID PRN (Reason: Anxiety) Leg Cramp Relief Capsule 1 - 2 cap PO Q6H PRN (Reason: leg cramps ) acetaminophen 500 mg Tablet 500 - 1,000 mg PO Q6H PRN (Reason: Pain) pantoprazole 40 mg tablet,delayed release (DR/EC) 40 mg PO DAILY@08 midodrine 5 mg Tablet 5 mg PO BID Rx Instructions: do not give last dose of day after 6PM or within 4 hrs of bedtime ipratropium-albuterol 0.5 mg-3 mg(2.5 mg base)/3 mL Solution For Nebulization 3 ml INHALATION Q6H PRN (Reason: Shortness Of Breath Or Wheezing) Qty: 60 0RF Referrals: Crase,Robert A, MD [Primary Care Provider, Family Practice] Print Language: Montenegrin Coding Level of Care Code ED Merchandising Internship for Chg Fwmindy
--- NOTE | 2024-12-22 09:40 | W.ED.SOB ---
HPI - SOB/Dyspnea General: Chief Complaint: Shortness of Breath/Dyspnea Stated Complaint: sob History of Present Illness: Associated symptoms: Deny abdominal pain, chest pain or fever(s) Related Data Home Medications ?Medication ?Instructions ?Recorded ?Confirmed albuterol sulfate 90 mcg/actuation 2 puff inhalation Q4H PRN 01/09/23 03/06/24 aerosol inhaler Shortness Of Breath Or Wheezing budesonide-formoterol HFA 80 1 puff inhalation BID 01/09/23 03/06/24 mcg-4.5 mcg/actuation aerosol inhaler (Symbicort) tamsulosin 0.4 mg capsule 0.4 mg PO DAILY@01/09/23 03/06/24 acetaminophen 500 mg tablet 500 - 1,000 mg PO Q6H PRN Pain 02/09/23 03/06/24 pantoprazole 40 mg tablet,delayed 40 mg PO DAILY@02/09/23 03/06/24 release sucralfate 100 mg/mL oral 10 ml PO BID 03/06/23 03/06/24 suspension midodrine 5 mg tablet 5 mg PO BID 05/17/23 03/06/24 potassium chloride 10 mEq 10 meq PO DAILY 01/03/24 03/06/24 tablet,extended release(part/cryst) lorazepam 0.5 mg tablet 0.5 mg PO TID PRN Anxiety 03/06/24 03/06/24 quinine-vitamin E capsule 1 - 2 cap PO Q6H PRN leg cramps 03/06/24 03/06/24 Previous Rx's ?Medication ?Instructions ?Recorded metoprolol tartrate 25 mg tablet 25 mg PO BID@0900,2100 #60 tabs 01/16/23 aspirin 81 mg tablet,delayed 81 mg PO DAILY #30 tabs 08/22/23 release atorvastatin 40 mg tablet 40 mg PO BEDTIME #30 tabs 08/22/23 ipratropium 0.5 mg-albuterol 3 mg 3 ml inhalation Q6H PRN Shortness 12/30/23 (2.5 mg base)/3 mL nebulization Of Breath Or Wheezing #60 mL soln Allergies Allergy/AdvReac Type Severity Reaction Status Date / Time No Known Allergies Allergy Verified 03/06/24 06:47 Review of Systems Const: Denies: fever(s) or chills Card: Denies: chest pain Resp: Denies: dyspnea GI: Denies: abdominal pain : Denies: dysuria, urinary frequency or urinary urgency Musc: Denies: neck pain or back pain Skin/Breast: Denies: rash PFSH ED PFSH: Medical History (Updated 12/06/24 @ 00:00 by SYBIL Arrington) Stroke Abnormal stress test Anemia Acute respiratory failure with hypoxia and hypercapnia Anemia Pneumonia Mixed dyslipidemia Atrial fibrillation Patient has a history of severe GI bleed. For that reason, he is not on any oral anticoagulant GI bleed GERD without esophagitis Chronic hypoxic respiratory failure Lives in assisted living facility Acute hypernatremia Pneumonia Pulmonary hypertension Paroxysmal atrial fibrillation with RVR Hypoxia MENDOZA (dyspnea on exertion) Acute exacerbation of chronic obstructive pulmonary disease Congestive heart failure Malnutrition of moderate degree Hyperkalemia Fall Troponin level elevated Acute hyponatremia BPH (benign prostatic hyperplasia) Orthostatic hypotension Chronic anticoagulation Paroxysmal A-fib Nocturnal hypoxia COPD (chronic obstructive pulmonary disease) Social History Smoking and tobacco/nicotine status: current every day tobacco/nicotine user Marital status: Single Physical Exam Const: COMMON NORMALS: no acute distress GENERAL APPEARANCE: cooperative and comfortable ORIENTATION/CONSCIOUSNESS: Yes awake, Yes oriented to person, Yes oriented to place and Yes oriented to time HENMT: COMMON NORMALS: normocephalic, atraumatic and hearing grossly normal bilaterally HEAD & SCALP: normocephalic and atraumatic Resp: COMMON NORMALS: normal respiratory effort, No retractions, No use of accessory muscles and clear to auscultation bilaterally AUSCULTATION: clear to auscultation bilaterally Cardio: COMMON NORMALS: regular rate, regular rhythm and No murmurs present (Cardio) RATE: regular rate RHYTHM: regular rhythm GI: COMMON NORMALS: Soft to palpation and No hepatosplenomegaly present AUSCULTATION: Yes normoactive bowel sounds PALPATION: Yes Soft to palpation, No Tenderness to palpation present (GI), No Guarding due to palpation present (GI) and Yes No hepatosplenomegaly present Extremity: COMMON NORMALS: normal to inspection, capillary refill normal, no clubbing, cyanosis or edema, no calf tenderness and no pedal edema Neuro: SENSORIUM/ORIENTATION: Yes oriented to person, Yes oriented to place and Yes oriented to time Skin: COMMON NORMALS: no rashes or lesions noted GENERAL SKIN EXAM: no rashes or lesions noted Discharge Plan Discharge Condition: Stable Prescriptions: No Action potassium chloride 10 mEq tablet,ER particles/crystals 10 meq PO DAILY tamsulosin 0.4 mg capsule 0.4 mg PO DAILY@08 albuterol sulfate 90 mcg/actuation HFA aerosol inhaler 2 puff INHALATION Q4H PRN (Reason: Shortness Of Breath Or Wheezing) budesonide-formoterol [Symbicort] 80-4.5 mcg/actuation HFA aerosol inhaler 1 puff INHALATION BID metoprolol tartrate 25 mg Tablet 25 mg PO BID@0900,2100 Qty: 60 0RF sucralfate 100 mg/mL suspension 10 ml PO BID Rx Instructions: before meals and bedtime aspirin 81 mg Tablet,Delayed Release (Dr/Ec) 81 mg PO DAILY Qty: 30 0RF atorvastatin 40 mg Tablet 40 mg PO BEDTIME Qty: 30 0RF lorazepam 0.5 mg Tablet 0.5 mg PO TID PRN (Reason: Anxiety) Leg Cramp Relief Capsule 1 - 2 cap PO Q6H PRN (Reason: leg cramps ) acetaminophen 500 mg Tablet 500 - 1,000 mg PO Q6H PRN (Reason: Pain) pantoprazole 40 mg tablet,delayed release (DR/EC) 40 mg PO DAILY@08 midodrine 5 mg Tablet 5 mg PO BID Rx Instructions: do not give last dose of day after 6PM or within 4 hrs of bedtime ipratropium-albuterol 0.5 mg-3 mg(2.5 mg base)/3 mL Solution For Nebulization 3 ml INHALATION Q6H PRN (Reason: Shortness Of Breath Or Wheezing) Qty: 60 0RF Referrals: Robert Giordano MD [Primary Care Provider, Family Practice] Print Language: Czech Coding Level of Care Code ED Stonecutter Hand for Liv Vega
--- NOTE | 2024-12-22 09:41 | ECG_ITS ---
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 Measurements Intervals [place] Rate: 92 P: 0 MN: 0 QRS: 88 QRSD: 165 T: 0 QT: 378 QTc: 469 Interpretive Statements ATRIAL FIBRILLATION RIGHT BUNDLE BRANCH BLOCK [120+ ms QRS DURATION, UPRIGHT V1, 40+ ms S IN I/aVL/V4/V5/V6] Compared to ECG 11/28/2024 04:46:30 Ventricular-paced complex(es) or rhythm no longer present T-wave abnormality no longer present Possible ischemia no longer present Electronically Signed On 12-23-2024 22:10:43 LINE RUNNER by Vinod Rabago M.D. [email or web address]
--- OUTSIDE RECORDS SUMMARY | 2024-12-22 09:43 | XMS_ITS | Patient Health Record ---
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 Name Role Phone Paolo Ng MD Primary Care Provider Oliver cathleen Kunal Vuong Unavailable [phone] Reason For Referral No Information Medications Medication SIG (Take, Route, Frequency, Duration) Notes Start Date End Date Status Atorvastatin Calcium 40 MG Tablet Oral; Duration: 90 Active Furosemide 40 MG Tablet one tablet Oral as needed; Duration: 90 days Active Tamsulosin HCl 0.4 MG Capsule Oral; Duration: 90 Active Xarelto 20 MG Tablet Oral; Duration: 90 Active Mirtazapine 15 MG Tablet Oral; Duration: 90 Active Penicillin V Potassium 500 MG Tablet Oral; Duration: 90 Active Social History Tobacco Use: Social History Observation Description Date Details (start date - stop date) Current Smoker NA - NA Social History Drugs/Alcohol: Social Info Question Answer Notes Caffeine Intake: 2-3 cups per day Tobacco Use: Social Info Question Answer Notes xTobacco Use/Smoking Are you a current smoker How often do you smoke cigarettes? every day How many cigarettes a day do you smoke? 21-30 How soon after you wake up do you smoke your first cigarette? 31-60 minutes Are you interested in quitting? Not ready to quit Additional Details Category Social Info Options Details Drugs/Alcohol: Do you drink alcohol? Yes, Socially Problems Problem Type SNOMED Code ICD Code Onset Dates Problem Status W/U Status Risk Notes Problem Sick sinus syndrome (79841792) Sick sinus syndrome (I49.5) Active confirmed Problem Chronic atrial fibrillation (disorder) (835971629) Chronic atrial fibrillation, unspecified (I48.20) Active confirmed Problem hypercholesterolemi a (disorder) (36865183) Hypercholesterem ia (E78.00) Active confirmed Problem COPD - Chronic obstructive pulmonary disease (36021655) Chronic obstructive pulmonary disease, unspecified COPD type (J44.9) Active confirmed Problem Cardiac pacemaker in situ (620649706) Pacemaker (Z95.0) Active confirmed reprogrammed to VVIR, single chamber secondary to chronic atrial fibrillation. Problem Essential hypertension (04705007) Essential primary hypertension (I10) Active confirmed Problem Shortness of breath (518778319) Shortness of breath (786.05) 2013 Active confirmed [id number] Plan Of Treatment No Information Insurance Providers Payer Name Payer Address Payer Phone Subscriber Number Group Number Insured Name Patient Relationship to Insured Coverage Start Date Coverage End Date [facility] Medicare Advantage PPO [address] [address] [place] [address] [id number] SHASHA FAUSTIN Self - patient is the insured 3 [employer] Medicare Replacement HMO (Self Pay) [address] [place] [address] [id number] SHASHA FAUSTIN Self - patient is the insured 2 2 Medical (General) History Medical History History ICD Code Problem:At risk for falls (finding) , [facility] :: Active Problem:Morbid obesity (disorder) , Stat us :: Active Covid vaccination copd SSS Chronic afib Surgical History Surgery Date(Month/Year) Pacemaker and ppm gen change Sm 4 back surgery x2 right hip replacement surgery appendectomy mouth surgery teeth removed with implant s
[2024-12-22 10:04] LABS: Hematocrit 33.0 % (37-53); Hemoglobin 10.10 g/dL (11.27-16.99); Mean Corpuscular HGB Conc 30.6 g/dL (30-55); Mean Corpuscular Hemoglobin 28.5 pg (27-33); Mean Corpuscular Volume 93.2 fl (82-101); Nucleated Red Blood Cells % 0 %; Platelet Count 215 10^3/cmm (157-399); Red Blood Count 3.54 10^6/uL (3.85-5.65); White Blood Count 7.44 10^3/uL (3.29-11.43)
[2024-12-22 10:08] LABS: ABG PCO2 43.0 mmHg (35-45); ABG PH Result 7.41 (7.35-7.45); Alveolar-Arterial Oxygen Gradi 23.0 mmHg (5-10); Arterial Blood Gas Hematocrit 28.7 % (42-52); Blood Gas Allen Test Pos; Blood Gas LPM 5.0 %; Blood Gas Operator Identificat AMH; Blood Gas Sample Site Radial, right; Blood Gas Sample Type Arterial; Carboxyhemoglobin 1.1 %THgb (0.4-20.1); Glucose Level-ABG 119.0 mg/dL (70-115); HCO3 ABG 27.1 mmol/L (22-26); Ionized Calcium Level - ABG 1.1 mmol/L (1.1-1.4); Methemoglobin 1.1 % (0.4-1.5); Oxygen Saturation ABG 88.7; PO2 ABG 57.6 mmHg (80.0-100.0); PO2 FiO2 Ratio Arterial Blood 144; Potassium Level - ABG 3.4 mmol/L (3.5-5.0); Sodium Level - ABG 141.0 mmol/L (131-143)
[2024-12-22 10:15] LABS: Alanine Aminotransferase 14 U/L (0-41); Albumin Level 3.6 g/dL (3.5-5.2); Alkaline Phosphatase 123 U/L (40-130); Aspartate Amino Transferase 35 U/L (0-40); Blood Urea Nitrogen 7 mg/dL (8-23); Calcium 8.0 mg/dL (8.5-10.5); Carbon Dioxide 27 mmol/L (22-29); Chloride 101 mmol/L (98-107); Creatinine Clr Calc Pharmacy 66.1490; Globulin 2.9 g/dL (1.3-4.6); Glucose 114 mg/dL (65-115); Osmolality Calculated 289 mOsm/kg (285-295); Sodium 140 mmol/L (136-145); Total Protein 6.5 g/dL (6.6-8.7)
[2024-12-22 10:17] LABS: Anion Gap 15.5 (5-19); Potassium 3.5 mmol/L (3.5-5.1)
[2024-12-22 10:19] LABS: Lactic Sepsis W/Reflex 4.1 mmol/L (0.5-2.2)
[2024-12-22 10:41] LABS: Respiratory Syncytial Virus Ce NEGATIVE (Negative); SARS-CoV-2 PCR NEGATIVE (Negative)
[2024-12-22] MEDS: cefTRIAXone 1,000 mg SDV 1000 MG IVP (11:37)
[2024-12-22 11:50] LABS: Reflex Lactate Order REFLEX LACTIC ORDERD
--- NOTE | 2024-12-22 12:08 | PC.NURSE ---
Patient continued to ask for catheter placement stating that he can not urinate while laying in the bed. Verbal from Dr Alas given for reevse cath placement.
[2024-12-22 13:26] LABS: Lactic Acid level (Lactate) 2.6 mmol/L (0.5-2.2)
--- NOTE | 2024-12-22 15:01 | PM.HP ---
Providers/Chief Complaint Admitting Physician: Porfirio Khanna Primary Care Provider: Robert Giordano MD Chief Complaint: sob History of Present Illness Krzysztof Tay is a 84 year old gentleman with a history of cerebrovascular accident (CVA), atrial fibrillation, hyperlipidemia (HLD), orthostatic hypotension, chronic obstructive pulmonary disease (COPD), smoking, pulmonary hypertension, congestive heart failure (CHF), anxiety, seizure disorder, and benign prostatic hyperplasia (BPH) presents from [facility] for shortness of breath. Reports shortness of breath overnight with increased oxygen requirement from baseline 4 L/min nasal cannula to 6 L/min. Tried nebulizer without relief. Notes productive sputum that appears white/clear. Denies fever, chills, chest pain, rashes, diarrhea, gastrointestinal bleeding, hematuria, or dysuria. Reports ankle swelling, worse on the right. Orthopnea reported; sleeps propped up and becomes more short of breath when lying flat. Uses a walker at baseline. Intermittently uses CPAP/BiPAP at the facility ?once in a while? when short of breath; does not use for sleep apnea. Continues to smoke during the winter; does not smoke during the summer. Drinks whiskey occasionally; denies illicit drug use. Code status: does not want CPR; confirmed preference to avoid chest compressions if cardiac arrest occurs. Identifies daughter and son (and [id number]) as contacts/decision-makers if capacity changes. No known medication allergies per patient and ED record. Review of Systems Const: Denies: fever(s), chills, body aches or malaise ENMT: Denies: throat pain Card: Reports: edema, dyspnea on exertion and orthopnea; Denies: chest pain or pre-syncope Resp: Reports: dyspnea and productive cough; Denies: change in phlegm color or hemoptysis GI: Denies: abdominal pain, nausea, vomiting, diarrhea, constipation, hematochezia or melena : Denies: flank pain, difficulty urinating, urinary frequency or hematuria Musc: Denies: back pain, joint swelling or joint redness Skin/Breast: Denies: rash or new lesions Neuro: Denies: headache(s) or confusion Medications/Allergies Home Medications ?Medication ?Instructions ?Recorded ?Confirmed ?Last Taken ?Type albuterol sulfate 90 mcg/actuation 2 puff inhalation Q4H PRN 01/09/23 12/22/24 12/21/24 History aerosol inhaler Shortness Of Breath Or Wheezing budesonide-formoterol HFA 80 1 puff inhalation BID 01/09/23 12/22/24 12/22/24 08:30 History mcg-4.5 mcg/actuation aerosol inhaler (Symbicort) tamsulosin 0.4 mg capsule 0.4 mg PO DAILY@08 01/09/23 12/22/24 12/22/24 08:00 History acetaminophen 500 mg tablet 500 - 1,000 mg PO Q6H PRN Pain 02/09/23 12/22/24 01/09/24 02:55 History pantoprazole 40 mg tablet,delayed 40 mg PO DAILY@02/09/23 12/22/24 12/22/24 08:00 History release midodrine 5 mg tablet 5 mg PO BID 05/17/23 12/22/24 12/22/24 09:00 History atorvastatin 40 mg tablet 40 mg PO BEDTIME #30 tabs 08/22/23 12/22/24 12/21/24 19:00 Rx ipratropium 0.5 mg-albuterol 3 mg 3 ml inhalation Q6H PRN Shortness 12/30/23 12/22/24 12/22/24 07:00 Rx (2.5 mg base)/3 mL nebulization Of Breath Or Wheezing #60 mL soln potassium chloride 10 mEq 10 meq PO DAILY 01/03/24 12/22/24 12/22/24 09:00 History tablet,extended release(part/cryst) lorazepam 0.5 mg tablet 0.5 mg PO TID PRN Anxiety 03/06/24 12/22/24 12/22/24 09:00 History quinine-vitamin E capsule 1 - 2 cap PO Q6H PRN leg cramps 03/06/24 12/22/24 12/21/24 20:00 History apixaban 5 mg tablet (Eliquis) 5 mg PO BID 12/22/24 12/22/24 12/22/24 09:00 History furosemide 40 mg tablet 40 mg PO DAILY PRN Weight Gain 12/22/24 12/22/24 12/22/24 08:30 History levetiracetam 750 mg tablet 750 mg PO BID 12/22/24 12/22/24 12/22/24 09:00 History sennosides 8.6 mg-docusate sodium 2 tab-cap PO DAILY PRN Constipation 12/22/24 12/22/24 12/21/24 19:00 History 50 mg tablet (Senna-S) Allergies Allergy/AdvReac Type Severity Reaction Status Date / Time No Known Allergies Allergy Verified 03/06/24 06:47 PFSH Acute PFSH: Medical History Stroke Abnormal stress test Anemia Acute respiratory failure with hypoxia and hypercapnia Anemia Pneumonia Mixed dyslipidemia Atrial fibrillation Patient has a history of severe GI bleed. For that reason, he is not on any oral anticoagulant GI bleed GERD without esophagitis Chronic hypoxic respiratory failure Lives in assisted living facility Acute hypernatremia Pneumonia Pulmonary hypertension Paroxysmal atrial fibrillation with RVR Hypoxia MENDOZA (dyspnea on exertion) Acute exacerbation of chronic obstructive pulmonary disease Congestive heart failure Malnutrition of moderate degree Hyperkalemia Fall Troponin level elevated Acute hyponatremia BPH (benign prostatic hyperplasia) Orthostatic hypotension Chronic anticoagulation Paroxysmal A-fib Nocturnal hypoxia COPD (chronic obstructive pulmonary disease) Social History Smoking and tobacco/nicotine status: current every day tobacco/nicotine user Marital status: Single Vitals/I&O/Wt Last Vital Signs Temp 97.6 F 12/22/24 09:35 Pulse 119 H 12/22/24 12:35 Resp 24 H 12/22/24 12:26 BP 154/77 12/22/24 11:58 Pulse Ox 94 12/22/24 12:26 O2 Del Method Nasal Cannula 12/22/24 12:59 O2 Flow Rate 5 12/22/24 12:26 12/22/24 12/22/24 12/22/24 06:59 14:59 22:59 Intake Total 2291.17 / 2291.17 Balance 2291.17 / 2291.17 Weight last 48 hrs Weight 76 kg Weight 68.039 kg Physical Exam Const: COMMON NORMALS: patient oriented x3 and alert GENERAL APPEARANCE: cooperative ORIENTATION/CONSCIOUSNESS: Yes awake HENMT: COMMON NORMALS: oropharynx normal Neck/C-Spine: COMMON NORMALS: no JVD Resp: COMMON NORMALS: normal respiratory effort and clear to auscultation bilaterally AUSCULTATION: clear to auscultation bilaterally Cardio: COMMON NORMALS: no JVD, regular rhythm, S1 normal heart sound present, S2 normal heart sound present and No murmurs present (Cardio) RHYTHM: regular rhythm HEART SOUNDS: S1 normal heart sound present and S2 normal heart sound present GI: COMMON NORMALS: Normal to inspection, nondistended, normoactive bowel sounds present, Soft to palpation and non-tender PALPATION: Yes Soft to palpation Extremity: COMMON NORMALS: no joint enlargement and no pedal edema Neuro: COMMON NORMALS: patient oriented x3 and moves all extremities SENSORIUM/ORIENTATION: Yes alert Skin: COMMON NORMALS: no rashes or lesions noted GENERAL SKIN EXAM: no rashes or lesions noted Urinary Catheter Management: Gan: Cath Placed During This Visit: yes Urinary Catheter Date of Insertion: 12/22/24 Urinary Catheter Time of Insertion: 12:10 Data 12/22/24 09:30 12/22/24 09:30 Micro: Microbiology 12/22/24 10:34 Blood Culture - Preliminary Blood SPECIMEN COLLECTED 12/22/24 10:31 Blood Culture - Preliminary Blood SPECIMEN COLLECTED A&P Assessment and plan 1. COPD (chronic obstructive pulmonary disease): Possible right lower lobe pneumonia with moderate to severe acute exacerbation of chronic obstructive pulmonary disease (COPD) : Severe COPD exacerbation with dyspnea, productive cough, hypoxia; diminished air entry; increased O2 requirement compared to baseline; respiratory viral panel negative. Reviewed vitals, CBC, ABG, CMP, UA, influenza, RSV, COVID swab, chest x-ray, EKG, ED provider note, discussed with ED provider. EKG on my impression with A-fib with RBBB, pending Fischel read. - Breathing treatments; Respiratory Therapy (RT) to assess and treat - Oxygen support; target oxygen saturation 88?92% - BiPAP as needed (has been using at assisted living facility) - Provide intravenous (IV) Solu-Medrol (methylprednisolone); monitor for encephalopathy, gastritis, hypertension, hyperglycemia - Empiric antibiotic treatment with ceftriaxone - Collect sputum culture if able 2. Chronic diastolic heart failure: Acute decompensated Stach congestive heart failure (CHF) : Orthopnea and peripheral edema; chest X-ray with cardiomegaly; small pleural effusion; increased oxygen requirement. - Continue diuresis with IV furosemide (Lasix) twice daily (BID) - Monitor intake and output - Monitor for electrolyte deficiency, acute kidney injury (IRASEMA), and risk of hypovolemia - Repeat chemistry labs; reassess volume status Plan: Hypoxemia : Oxygen saturation 90% on 6 L/min nasal cannula; increased from baseline 4 L/min. - Oxygen support with target saturation 88?92% - BiPAP as needed Right lower extremity edema : Right worse than left (2+ right; trace left). - Order lower extremity duplex ultrasound to assess for deep vein thrombosis (DVT) (lower risk given anticoagulation with apixaban) Right lower lobe opacity on chest X-ray : Chest X-ray shows increased right lower lobe opacity. - Empiric antibiotic treatment with ceftriaxone (as above) Small left pleural effusion : Small left pleural effusion noted on chest X-ray. Atrial fibrillation : Known history; electrocardiogram (EKG) shows atrial fibrillation with right bundle branch block (RBBB) per in-ED interpretation. - Continue apixaban (Eliquis) Seizure disorder : Chronic condition. - Continue levetiracetam (Keppra) Orthostatic hypotension : Chronic condition. - Continue midodrine Benign prostatic hyperplasia (BPH) : Chronic condition. - Continue tamsulosin (Flomax) Pulmonary hypertension : Chronic condition. Tobacco use : Current smoker (seasonal pattern). - Encourage smoking cessation; discussed risks including progression of lung disease and cardiovascular risk (myocardial infarction, stroke) for 3.5 minutes - Provide nicotine replacement as needed Anxiety : Chronic condition. - Lorazepam (Ativan) as needed for anxiety Code status: Do Not Resuscitate (DNR) : Patient prefers no chest compressions if heart stops; previously documented and confirmed. - Confirm and honor DNR/Allow Natural (AND) status Follow-up : Ongoing inpatient management with reassessment. - Day-by-day reassessment of symptoms and volume status - Repeat chemistry labs as requested PDMP PDMP Reviewed: Not Reviewed Attestations Medical Necessity Statement*: Admission over 2 midnights anticipated for assessment management of possible right lower lobe pneumonia, COPD exacerbation, acute CHF with acute hypoxia, increased oxygen requirement. and High MDM includes amount and/or complexity of data reviewed/ordered [ previous or external records, resulted lab(s)/test(s) and other healthcare professional discussion] and described risk of complication, morbidity or mortality of management as documented Diagnoses COPD (chronic obstructive pulmonary disease) J44.9 Chronic diastolic heart failure I50.32
[2024-12-22] MEDS: methylPREDNISolone sod succ 40 mg/mL INJ IVP ×2 (15:39→23:57)
[2024-12-22] MEDS: pantoprazole 40 mg SDV IVP (15:39)
[2024-12-22 16:33] LABS: Glucose Urine UA Negative (Normal); Nitrate Urine Negative (Negative); Specific Gravity, Urine 1.011 (1.005-1.030)
[2024-12-22 16:37] LABS: Add Urine Microscopic? YES
[2024-12-22] MEDS: FUROsemide 10 mg/mL SDV 4mL 40 MG IVP (17:35)
[2024-12-23] VITALS (13 sets, daily range): BP systolic 106–137; BP diastolic 53–81; PULSE 58–96; RESP 16–20; TEMP 36.4–37; O2SAT 92–99
[2024-12-23] MEDS: cefTRIAXone 1,000 mg SDV 1000 MG IVP (04:45)
[2024-12-23] MEDS: FUROsemide 10 mg/mL SDV 4mL 40 MG IVP ×2 (04:46→16:42)
[2024-12-23 06:04] LABS: Hematocrit 31.3 % (37-53); Hemoglobin 9.90 g/dL (11.27-16.99); Mean Corpuscular HGB Conc 31.6 g/dL (30-55); Mean Corpuscular Hemoglobin 28.7 pg (27-33); Mean Corpuscular Volume 90.7 fl (82-101); Nucleated Red Blood Cells % 0 %; Platelet Count 204 10^3/cmm (157-399); Red Blood Count 3.45 10^6/uL (3.85-5.65); White Blood Count 7.15 10^3/uL (3.29-11.43)
[2024-12-23 06:22] LABS: Anion Gap 15.6 (5-19); Blood Urea Nitrogen 10 mg/dL (8-23); Calcium 7.6 mg/dL (8.5-10.5); Carbon Dioxide 29 mmol/L (22-29); Chloride 102 mmol/L (98-107); Creatinine Clr Calc Pharmacy 76.2397; Glucose 154 mg/dL (65-115); Magnesium 1.3 mg/dL (1.7-2.3); Osmolality Calculated 296 mOsm/kg (285-295); Potassium 4.6 mmol/L (3.5-5.1); Sodium 142 mmol/L (136-145)
[2024-12-23] MEDS: magnesium sulfate premix 2 GM/50 ML PIGGYBACK IV (07:59)
[2024-12-23] MEDS: methylPREDNISolone sod succ 40 mg/mL INJ IVP ×3 (08:00→21:01)
--- NOTE | 2024-12-23 09:02 | PM.PN ---
Subjective Subjective: He feels his breathing is improving. Cough is improving. Has not gotten out of bed. Vitals/I&O/Wt Last Vital Signs Temp 98.6 F 12/23/24 07:58 Pulse 58 L 12/23/24 07:58 Resp 18 12/23/24 07:58 BP 135/76 12/23/24 07:58 Pulse Ox 92 12/23/24 07:58 O2 Del Method Nasal Cannula 12/23/24 07:58 O2 Flow Rate 4 12/23/24 04:00 12/22/24 12/23/24 12/23/24 22:59 06:59 14:59 Intake Total 250 / 2541.17 240 / 240 Output Total 2450 / 2450 1500 / 1500 Balance -2450 / -158.83 250 / 91.17 -1260 / -1260 Weight last 48 hrs Weight 72.745 kg Weight 76 kg Weight 68.039 kg Physical Exam Narrative: Sitting up in bed Const: COMMON NORMALS: patient oriented x3 and alert GENERAL APPEARANCE: cooperative ORIENTATION/CONSCIOUSNESS: Yes awake HENMT: COMMON NORMALS: oropharynx normal Neck/C-Spine: COMMON NORMALS: no JVD Resp: COMMON NORMALS: normal respiratory effort OTHER: Improving air entry. Cardio: COMMON NORMALS: no JVD, regular rhythm, S1 normal heart sound present, S2 normal heart sound present and No murmurs present (Cardio) RHYTHM: regular rhythm HEART SOUNDS: S1 normal heart sound present and S2 normal heart sound present GI: COMMON NORMALS: Normal to inspection, nondistended, normoactive bowel sounds present, Soft to palpation and non-tender PALPATION: Yes Soft to palpation Extremity: COMMON NORMALS: no joint enlargement and no pedal edema Neuro: COMMON NORMALS: patient oriented x3 and moves all extremities SENSORIUM/ORIENTATION: Yes alert Skin: COMMON NORMALS: no rashes or lesions noted GENERAL SKIN EXAM: no rashes or lesions noted Urinary Catheter Management: Gan: Cath Placed During This Visit: yes Reason for Continuing Indwelling Catheter: Accurate Measurement of Urinary Output in Critically Ill Patients Urinary Catheter Date of Insertion: 12/22/24 Urinary Catheter Time of Insertion: 12:10 Data 12/23/24 05:27 12/23/24 05:27 Micro: Microbiology 12/22/24 19:00 Gram Stain - Final Sputum - Expectorated Sputum 12/22/24 15:56 Legionella Urinary Antigen - Final Urine,Clean Catch 12/22/24 10:34 Blood Culture - Preliminary Blood SPECIMEN COLLECTED 12/22/24 10:31 Blood Culture - Preliminary Blood SPECIMEN COLLECTED A&P Assessment and plan 1. Panlobular emphysema: Possible right lower lobe pneumonia with moderate to severe acute exacerbation of chronic obstructive pulmonary disease (COPD) : Reviewed she is improving, breathing is improving. Oxygenation is improving. Oxygen requirement down to 4 L. Air entry is improving. He has not gotten out of bed. TO ambulate. Monitor oxygenation. Continue IV corticosteroid, breathing treatments, empiric antibiotics. Discussed consideration of discharge. If continuing to improve discussed possible discharge for the morning. Discussed with nursing, telephonic nurse case manager. Severe COPD exacerbation with dyspnea, productive cough, hypoxia; diminished air entry; increased O2 requirement compared to baseline; respiratory viral panel negative. Reviewed sputum culture. Follow-up. Urine bacterial antigens and Legionella antigen negative. - Breathing treatments; Respiratory Therapy (RT) to assess and treat - Oxygen support; target oxygen saturation 88?92% - BiPAP as needed (has been using at assisted living facility) - Continue intravenous (IV) Solu-Medrol (methylprednisolone); monitor for encephalopathy, gastritis, hypertension, hyperglycemia - Empiric antibiotic treatment with ceftriaxone 2. Chronic diastolic heart failure: Acute decompensated diastolic congestive heart failure (CHF) : Reviewed intake and output. Net negative balance. Orthopnea and peripheral edema; chest X-ray with cardiomegaly; small pleural effusion; increased oxygen requirement. - Continue diuresis with IV furosemide (Lasix) twice daily (BID) - Monitor intake and output - Monitor for electrolyte deficiency, acute kidney injury (IRASEMA), and risk of hypovolemia - Repeat chemistry labs; reassess volume status Plan: Hypoxemia : Improving. Baseline 4 L/min. - Oxygen support with target saturation 88?92% - BiPAP as needed Right lower extremity edema : Right worse than left (2+ right; trace left). Reviewed venous duplex, no DVT. Venous pulsatility suggesting CHF. - Order lower extremity duplex ultrasound to assess for deep vein thrombosis (DVT) (lower risk given anticoagulation with apixaban) Right lower lobe opacity on chest X-ray : Chest X-ray shows increased right lower lobe opacity. - Empiric antibiotic treatment with ceftriaxone (as above) Small left pleural effusion : Small left pleural effusion noted on chest X-ray. Atrial fibrillation : Known history; electrocardiogram (EKG) shows atrial fibrillation with right bundle branch block (RBBB) per in-ED interpretation. - Continue apixaban (Eliquis) Seizure disorder : Chronic condition. - Continue levetiracetam (Keppra) Orthostatic hypotension : Chronic condition. - Continue midodrine Benign prostatic hyperplasia (BPH) : Chronic condition. - Continue tamsulosin (Flomax) Pulmonary hypertension : Chronic condition. Tobacco use : Current smoker (seasonal pattern). - Encourage smoking cessation; discussed risks including progression of lung disease and cardiovascular risk (myocardial infarction, stroke) for 3.5 minutes - Provide nicotine replacement as needed Anxiety : Chronic condition. - Lorazepam (Ativan) as needed for anxiety Code status: Do Not Resuscitate (DNR) : Patient prefers no chest compressions if heart stops; previously documented and confirmed. - Confirm and honor DNR/Allow Natural (AND) status Follow-up : Ongoing inpatient management with reassessment. - Day-by-day reassessment of symptoms and volume status - Repeat chemistry labs as requested PDMP PDMP Reviewed: Not Reviewed Attestations Medical Necessity Statement*: Continue admission for assessment and management of CP exacerbation, pneumonia, acute CHF. and High MDM includes amount and/or complexity of data reviewed/ordered [ resulted lab(s)/test(s), ordered lab(s)/test(s) and other healthcare professional discussion] and described risk of complication, morbidity or mortality of management as documented Diagnoses Panlobular emphysema J43.1 COPD type: emphysema Emphysema type: panlobular Chronic diastolic heart failure I50.32
--- NOTE | 2024-12-23 09:20 | PC.CHAP ---
Pastoral Care Encounter/Spiritual Assessment Type of Contact [] Declined photographer portrait visit [] Patient/Family/Request visit [] Outpatient visit [] Follow-up visit [] Physician referral [] Code/Alert [x] Routine visit [] Staff referral [] Actively dying [] Patient sleeping [] Family support [] [] Out of room [] Palliative care [] [] Receiving care in room [] Pre-surgical visit [] Trauma [] Long length of stay [] ICU visit [] Other: Relational/Emotional Strength [x] Patient feels connected with others/family/visitors/staff [] Distress [] Loneliness/isolation [] Abandonment Spirituality of Patient [x] Person of Leticia [] Attends Advent of their Leticia [x] Believes in Prayer [] Reads Bible or Sabianist materials [] There are Spiritual issues to be addressed Controls Project Engineer Interventions [x] Prayer [x] Active listening [] Non-anxious presence [x] Spiritual/emotional support [] Crisis/trauma care [] Spiritual counseling [] Bereavement support [] Provided bereavement packet [] Provided Bible/devotional materials [] Provided toy/stuffed animal, coloring book to patient or family member [] Provided Communion [] Anointing/[place] [] Salvation [x] Completed spiritual assessment [] Other: Impact on Illness or Injury [] Angry [] Fearful [] Anxious [] Often cries [] Exhaustion [] Unable to work [] Unable to attend evangelical [] Unable to walk/stand [] Unable to read [] Unable to drive [] Unable to eat/drink [] Unable to sleep [] Unable to be with family [] Patient intubated [] Other: Summary Time spent with patient 5 min
--- NOTE | 2024-12-23 17:15 | USCV_ITS ---
Krzysztof Tay Age: 84 Gender: M : 1940 Exam Date: 12/23/2024 01:35 Ordering Phys: Porfirio Khanna MD Technologist: ZEKE Exam Location: [facility] [place] Indication: assess for DVT HISTORY: assess for DVT PROCEDURES: Venous duplex imaging was performed in bilateral lower extremities. The following venous structures were evaluated: common femoral vein, profunda vein, proximal portion of the greater saphenous vein, superficial femoral vein, and the popliteal vein. In addition, the posterior tibial and peroneal veins were evaluated. Serial compression, augmentation maneuvers, and spectral Doppler flow evaluation were performed, which were normal. Bilaterally, the common femoral, superficial femoral, profunda femoral, popliteal, posterior tibial, greater saphenous veins, and the peroneal veins were identified and interrogated in the standard fashion. These veins were found to be easily compressible with spontaneous blood flow. No evidence of thrombus noted. Moderately pulsatile bilateral lower extremity venous compartments suggests possible CHF. CONCLUSIONS No evidence of right lower extremity DVT. No evidence of left lower extremity DVT. Venous pulsatility suggesting CHF Navid Farfan MD (Electronically Signed) Final Date: 23 December 2024 09:07 S
[2024-12-24] VITALS (9 sets, daily range): BP systolic 129–134; BP diastolic 63–82; PULSE 68–86; RESP 16–19; TEMP 36.5–36.8; O2SAT 92–100
[2024-12-24] MEDS: cefTRIAXone 1,000 mg SDV 1000 MG IVP (04:43)
[2024-12-24] MEDS: FUROsemide 10 mg/mL SDV 4mL 40 MG IVP (04:43)
[2024-12-24 05:53] LABS: Hematocrit 29.9 % (37-53); Hemoglobin 9.50 g/dL (11.27-16.99); Mean Corpuscular HGB Conc 31.8 g/dL (30-55); Mean Corpuscular Hemoglobin 28.0 pg (27-33); Mean Corpuscular Volume 88.2 fl (82-101); Nucleated Red Blood Cells % 0 %; Platelet Count 210 10^3/cmm (157-399); Red Blood Count 3.39 10^6/uL (3.85-5.65); White Blood Count 7.60 10^3/uL (3.29-11.43)
[2024-12-24] MEDS: methylPREDNISolone sod succ 40 mg/mL INJ IVP (05:56)
[2024-12-24 06:12] LABS: Anion Gap 14.0 (5-19); Blood Urea Nitrogen 19 mg/dL (8-23); Calcium 7.7 mg/dL (8.5-10.5); Carbon Dioxide 30 mmol/L (22-29); Chloride 99 mmol/L (98-107); Creatinine Clr Calc Pharmacy 76.2397; Glucose 191 mg/dL (65-115); Osmolality Calculated 295 mOsm/kg (285-295); Potassium 4.0 mmol/L (3.5-5.1); Sodium 139 mmol/L (136-145)
--- NOTE | 2024-12-24 09:33 | PM.DCS ---
Discharge Providers Date of Admission: 12/22/24 11:42 Date of Discharge: December 24, 2024 Attending Provider at Admission: Porfirio Khanna Attending Provider at Discharge: Porfirio Khanna Primary Care Provider: Robert Giordano MD Diagnoses at Discharge Discharge Diagnosis 1. Panlobular emphysema: 2. Chronic diastolic heart failure: Reason for Visit Reason for Visit: sob Brief History: Krzysztof Tay is a 84 year old gentleman with a history of cerebrovascular accident (CVA), atrial fibrillation, hyperlipidemia (HLD), orthostatic hypotension, chronic obstructive pulmonary disease (COPD), smoking, pulmonary hypertension, congestive heart failure (CHF), anxiety, seizure disorder, and benign prostatic hyperplasia (BPH) presents from [facility] for shortness of breath. Reports shortness of breath overnight with increased oxygen requirement from baseline 4 L/min nasal cannula to 6 L/min. Tried nebulizer without relief. Notes productive sputum that appears white/clear. Denies fever, chills, chest pain, rashes, diarrhea, gastrointestinal bleeding, hematuria, or dysuria. Reports ankle swelling, worse on the right. Orthopnea reported; sleeps propped up and becomes more short of breath when lying flat. Uses a walker at baseline. Intermittently uses CPAP/BiPAP at the facility ?once in a while? when short of breath; does not use for sleep apnea. Continues to smoke during the winter; does not smoke during the summer. Drinks whiskey occasionally; denies illicit drug use. Code status: does not want CPR; confirmed preference to avoid chest compressions if cardiac arrest occurs. Identifies daughter and son (and [id number]) as contacts/decision-makers if capacity changes. No known medication allergies per patient and ED record. Hospital Course Hospital Course He was treated with IV corticosteroid for COPD exacerbation, as well as ceftriaxone and azithromycin for pneumonia, IV diuretics for acute CHF with continued improvement in symptoms. Right lower extremity assessed with venous duplex due to asymmetric swelling which was negative for DVT. Remained afebrile, without leukocytosis or signs of sepsis. Gradually improving oxygenation back to baseline. In negative balance, diuresed well with stable renal function. He is discharging back to assisted living with requested follow-up with pulmonology due to COPD, chronic hypoxia. Endorses some chronic/recurrent diarrhea, although stool was formed here. Caution with stool softeners. Instructed to eliminate lactose for 10 days. Please follow-up with him, continue further workup in case of recurrent/chronic diarrhea. Physical Exam Narrative: Accompanied by his daughter Const: COMMON NORMALS: patient oriented x3 and alert GENERAL APPEARANCE: cooperative ORIENTATION/CONSCIOUSNESS: Yes awake HENMT: COMMON NORMALS: oropharynx normal Neck/C-Spine: COMMON NORMALS: no JVD Resp: COMMON NORMALS: normal respiratory effort and clear to auscultation bilaterally AUSCULTATION: clear to auscultation bilaterally Cardio: COMMON NORMALS: no JVD, regular rhythm, S1 normal heart sound present, S2 normal heart sound present and No murmurs present (Cardio) RHYTHM: regular rhythm HEART SOUNDS: S1 normal heart sound present and S2 normal heart sound present GI: COMMON NORMALS: Normal to inspection, nondistended, normoactive bowel sounds present, Soft to palpation and non-tender PALPATION: Yes Soft to palpation Extremity: COMMON NORMALS: no joint enlargement and no pedal edema Neuro: COMMON NORMALS: patient oriented x3 and moves all extremities SENSORIUM/ORIENTATION: Yes alert Skin: COMMON NORMALS: no rashes or lesions noted GENERAL SKIN EXAM: no rashes or lesions noted Urinary Catheter Management: Gan: Cath Placed During This Visit: yes Reason for Continuing Indwelling Catheter: Other Urinary Catheter Date of Insertion: 12/22/24 Urinary Catheter Time of Insertion: 12:10 Discharge Data Studies Completed and Pending Completed Studies During Hospitalization Category Date Time Status XR chest 1V portable [id number] Stat Exams 12/22/24 09:31 [place] [id number] Routine Ultrasound 12/23/24 17:15 Completed Pending at discharge Category Date Time Status Basic Metabolic Panel AM LABS Lab 12/25/24 04:00 Ordered Blood Culture Stat Lab 12/22/24 10:34 Results Complete Blood Count w/Auto AM LABS Lab 12/25/24 04:00 Ordered Sputum Culture and Gram Stain Routine Lab 12/22/24 19:00 Results Radiology Impressions Chest X-Ray 12/22/24 09:31 Impression: 1. Increase in right lower lobe opacity. 2. Cardiomegaly and atherosclerosis. 3. Small left pleural effusion. Laboratory Results WBC 7.60 10^3/uL (3.29-11.43) 12/24/24 05:39 RBC 3.39 10^6/uL (3.85-5.65) L 12/24/24 05:39 Hgb 9.50 g/dL (11.27-16.99) L 12/24/24 05:39 Hct 29.9 % (37-53) L 12/24/24 05:39 MCV 88.2 fl (82-101) 12/24/24 05:39 MCH 28.0 pg (27-33) 12/24/24 05:39 MCHC 31.8 g/dL (30-55) 12/24/24 05:39 RDW 16.9 % (12.1-15.1) H 12/24/24 05:39 Plt Count 210 10^3/cmm (157-399) 12/24/24 05:39 MPV 11.2 fL (7.4-10.4) H 12/24/24 05:39 Neut % (Auto) 93.8 % 12/24/24 05:39 Lymph % (Auto) 3.0 % 12/24/24 05:39 [place] % (Auto) 2.8 % 12/24/24 05:39 Eos % (Auto) 0.0 % 12/24/24 05:39 Baso % (Auto) 0.1 % 12/24/24 05:39 Neut # (Auto) 7.13 10^3/uL (1.8-7.7) 12/24/24 05:39 Lymph # (Auto) 0.2 10^3/uL (0.8-4.8) L 12/24/24 05:39 [place] # (Auto) 0.2 10^3/uL (0.2-0.9) 12/24/24 05:39 Eos # (Auto) 0.0 10^3/uL (0.0-0.8) 12/24/24 05:39 Baso # (Auto) 0.0 10^3/uL (0.0-0.1) 12/24/24 05:39 Nucleated RBC % (auto) 0 % 12/24/24 05:39 Nucleated RBCs # 0.0 /100WBC 12/24/24 05:39 Specimen Type Arterial 12/22/24 09:57 Sample Site Radial, right 12/22/24 09:57 ABG pH 7.41 (7.35-7.45) 12/22/24 09:57 ABG pCO2 43.0 mmHg (35-45) 12/22/24 09:57 ABG pO2 57.6 mmHg (80.0-100.0) L 12/22/24 09:57 ABG PO2/FiO2 Ratio 144 12/22/24 09:57 ABG HCO3 27.1 mmol/L (22-26) H 12/22/24 09:57 ABG O2 Saturation 88.7 12/22/24 09:57 ABG Base Excess 2.1 mmol/L (-2.0-2.0) H 12/22/24 09:57 Jcarlos Test Pos 12/22/24 09:57 A-a O2 Gradient 23.0 mmHg (5-10) H 12/22/24 09:57 Hematocrit 28.7 % (42-52) L 12/22/24 09:57 Hgb O2 Saturation 86.8 % (95-100) L 12/22/24 09:57 Carboxyhemoglobin 1.1 %THgb (0.4-20.1) 12/22/24 09:57 Methemoglobin 1.1 % (0.4-1.5) 12/22/24 09:57 Total Hemoglobin 9.4 g/dL (14-18) L 12/22/24 09:57 Sodium 141.0 mmol/L (131-143) 12/22/24 09:57 Potassium 3.4 mmol/L (3.5-5.0) L 12/22/24 09:57 Glucose 119.0 mg/dL (70-115) H 12/22/24 09:57 Ionized Calcium 1.1 mmol/L (1.1-1.4) 12/22/24 09:57 O2 Delivery Device Nc 12/22/24 09:57 O2 Liters/Min 5.0 % 12/22/24 09:57 FiO2 40.0 % 12/22/24 09:57 Strategic Planner ID [id number] 12/22/24 09:57 Sodium 139 mmol/L (136-145) 12/24/24 05:39 Potassium 4.0 mmol/L (3.5-5.1) 12/24/24 05:39 Chloride 99 mmol/L (98-107) 12/24/24 05:39 Carbon Dioxide 30 mmol/L (22-29) H 12/24/24 05:39 Anion Gap 14.0 (5-19) 12/24/24 05:39 BUN 19 mg/dL (8-23) 12/24/24 05:39 Creatinine 0.7 mg/dL (0.7-1.2) 12/24/24 05:39 GFR Calculation Not Reportable 12/24/24 05:39 Glucose 191 mg/dL (65-115) H 12/24/24 05:39 Calculated Osmolality 295 mOsm/kg (285-295) 12/24/24 05:39 Lactic Acid 4.1 mmol/L (0.5-2.2) H* 12/22/24 09:30 Lactic Acid (Sepsis) 2.6 mmol/L (0.5-2.2) H 12/22/24 12:53 Calcium 7.7 mg/dL (8.5-10.5) L 12/24/24 05:39 Magnesium 1.3 mg/dL (1.7-2.3) L 12/23/24 05:27 Total Bilirubin 0.6 mg/dL (0.15-1.2) 12/22/24 09:30 AST 35 U/L (0-40) 12/22/24 09:30 ALT 14 U/L (0-41) 12/22/24 09:30 Alkaline Phosphatase 123 U/L (40-130) 12/22/24 09:30 Total Protein 6.5 g/dL (6.6-8.7) L 12/22/24 09:30 Albumin 3.6 g/dL (3.5-5.2) 12/22/24 09:30 Globulin 2.9 g/dL (1.3-4.6) 12/22/24 09:30 Urine Color Yellow (Yellow) 12/22/24 15:56 Urine Appearance Clear (CLEAR) 12/22/24 15:56 Urine pH 7.0 (5-7) 12/22/24 15:56 Ur Specific [place] 1.011 (1.005-1.030) 12/22/24 15:56 Urine Protein Negative (Negative) 12/22/24 15:56 Urine Glucose (UA) Negative (Normal) 12/22/24 15:56 Urine Ketones Negative (Negative) 12/22/24 15:56 Urine Blood 1+ (Negative) A 12/22/24 15:56 Urine Nitrate Negative (Negative) 12/22/24 15:56 Urine Bilirubin Negative (Negative) 12/22/24 15:56 Urine Urobilinogen 1.0 mg/dL (Negative) 12/22/24 15:56 Ur Leukocyte Esterase 1+ (Negative) A 12/22/24 15:56 Urine RBC 6-10 /hpf (0-2) 12/22/24 15:56 Urine WBC 11-20 /hpf (0-5) H 12/22/24 15:56 Ur Squamous Epith Cells 0-5 /hpf (0-5) 12/22/24 15:56 Amorphous Sediment Not Reportable 12/22/24 15:56 Urine Bacteria None seen /hpf (NONE) 12/22/24 15:56 Hyaline Casts 0.40 /lpf 12/22/24 15:56 Influenza A (PCR) Negative (Negative) 12/22/24 09:46 Influenza Type B (PCR) Negative (Negative) 12/22/24 09:46 RSV (PCR) Negative (Negative) 12/22/24 09:46 SARS-CoV-2 (PCR) Negative (Negative) 12/22/24 09:46 Vitals Last Vital Signs Temp 97.7 F 12/24/24 08:16 Pulse 79 12/24/24 08:16 Resp 16 12/24/24 08:16 BP 131/82 12/24/24 08:16 Pulse Ox 98 12/24/24 08:16 O2 Del Method Nasal Cannula 12/24/24 08:16 O2 Flow Rate 4 12/24/24 07:51 Discharge Plan Discharge Patient Disposition: Home Condition: Stable Prescriptions: New prednisone 20 mg tablet 20 mg PO DAILY Qty: 19 0RF Rx Instructions: 3 tab daily for 3 days, then 2 tab for 3 days, then 1 tab for 3 days, then 1/2 tab for 2 days. cefdinir 300 mg capsule 300 mg PO BID Qty: 8 0RF azithromycin 250 mg tablet 250 mg PO DAILY 4 Days Qty: 4 0RF Continued potassium chloride 10 mEq tablet,ER particles/crystals 10 meq PO DAILY tamsulosin 0.4 mg capsule 0.4 mg PO DAILY@08 albuterol sulfate 90 mcg/actuation HFA aerosol inhaler 2 puff INHALATION Q4H PRN (Reason: Shortness Of Breath Or Wheezing) budesonide-formoterol [Symbicort] 80-4.5 mcg/actuation HFA aerosol inhaler 1 puff INHALATION BID atorvastatin 40 mg Tablet 40 mg PO BEDTIME Qty: 30 0RF lorazepam 0.5 mg Tablet 0.5 mg PO TID PRN (Reason: Anxiety) quinine-vitamin E Capsule 1 - 2 cap PO Q6H PRN (Reason: leg cramps ) acetaminophen 500 mg Tablet 500 - 1,000 mg PO Q6H PRN (Reason: Pain) pantoprazole 40 mg tablet,delayed release (DR/EC) 40 mg PO DAILY@08 midodrine 5 mg Tablet 5 mg PO BID Rx Instructions: do not give last dose of day after 6PM or within 4 hrs of bedtime ipratropium-albuterol 0.5 mg-3 mg(2.5 mg base)/3 mL Solution For Nebulization 3 ml INHALATION Q6H PRN (Reason: Shortness Of Breath Or Wheezing) Qty: 60 0RF furosemide 40 mg tablet 40 mg PO DAILY PRN (Reason: Weight Gain) Eliquis 5 mg tablet 5 mg PO BID sennosides-docusate sodium [Senna-S] 8.6-50 mg Tablet 2 tab-cap PO DAILY PRN (Reason: Constipation) levetiracetam 750 mg tablet 750 mg PO BID Discharge Order = DC NOW: Discharge Order (Routine); Ordered 12/24/24 Ordered By: Porfirio Khanna Referrals: [place] [Outside] [facility] ([facility]) [Outside] Artemio Alvarez MD [Physician, Pulmonology] - 12/26/24 11:05 am Referral Note: COPD, chronic hypoxia Robert Giordano MD [Primary Care Provider, Family Practice] - 12/31/24 11:15 am Discharge Diet: Cardiac Discharge Activity: Oxygen as instructed Patient Instructions: Prednisone (By mouth), Azithromycin (By mouth), Cefdinir (By mouth), CHF Stoplight, Opioid Safety, Patient Portal & Marsha Instructions Activity Restrictions/Additional Instructions: Follow-up with your primary doctor for reassessment of recovery from COPD as sedation, pneumonia as well as congestive heart failure. Continue oxygen support as previously, target oxygen saturation 88-92%. Seek medical attention in case of any worsening or new concerning symptoms. Please follow up with your primary provider regarding chronic/recurrent diarrhea. Please eliminate dairy from meals for 10 days to see if diarrhea subsides. Caution with stool softeners unless diarrhea is considered overflow from chronic constipation. Discharge Attestations Time Spent in Discharge Care*: greater than 30 min Status at Discharge: Cognitive status at discharge: mildly impaired cognition, Behavioral status at discharge: cooperative, Quality Metrics Clinical Quality Measures [ No reported AMI, CVA or VTE this stay] Coding Level of Care Code 33531 Total time (in minutes) for Discharge: 40 Diagnoses Panlobular emphysema J43.1 COPD type: emphysema Emphysema type: panlobular Chronic diastolic heart failure I50.32
== END 2024-12-24 14:25 | disposition intermediate care facility (04) | DRG 193 ==
LOC: ER 10:21 → MEDSURG 11:43
PROVIDERS: Admitting Provider Internal Medicine; Emergency Provider Family Medicine; PCP Family Medicine; Visit Provider Internal Medicine
DX: J18.9 Pneumonia, unspecified organism (principal); I50.33 Acute on chronic diastolic (congestive) heart failure; J44.0 Chronic obstructive pulmonary disease with (acute) lower respiratory infection; J44.1 Chronic obstructive pulmonary disease with (acute) exacerbation; J96.11 Chronic respiratory failure with hypoxia; E44.0 Moderate protein-calorie malnutrition; J43.1 Panlobular emphysema; I48.0 Paroxysmal atrial fibrillation; E78.2 Mixed hyperlipidemia; F17.210 Nicotine dependence, cigarettes, uncomplicated; I27.20 Pulmonary hypertension, unspecified; F41.9 Anxiety disorder, unspecified; G40.909 Epilepsy, unspecified, not intractable, without status epilepticus; N40.0 Benign prostatic hyperplasia without lower urinary tract symptoms; G31.84 Mild cognitive impairment of uncertain or unknown etiology; Z66 Do not resuscitate; I95.1 Orthostatic hypotension; Z68.20 Body mass index [BMI] 20.0-20.9, adult; Z99.81 Dependence on supplemental oxygen; Z79.01 Long term (current) use of anticoagulants; Z86.73 Personal history of transient ischemic attack (TIA), and cerebral infarction without residual deficits; Z87.01 Personal history of pneumonia (recurrent)
CPT/HCPCS: 36415; 36600; 51702; 71045; 80048; 80051; 80053; 81001; 82330; 82805; 83605; 83735; 85025; 86403; 87040; 87070; 87205; 87449; 87637; 93005; 93970; 94640; 94664; 96365; 96375; 99285; J0456; J0696; J1938; J2470; J2919; J3475; J7030; J7050; J7626; J9999